=== PATIENT | male | born 1970 | race Caucasian/White ===

== ENCOUNTER 2017-07-02 09:24 | Day surgery (SDC) | payer BC ==
[2017-06-30 17:25] VITALS: BMI 29.0
[~2017-07-02 09:24] MED LIST: DEXAMETHASONE SOD PHOSPHATE 10 MG/ML 1 ML VIAL IV ONE; HEPARIN SODIUM,PORCINE 5,000 UNIT/ML 1 ML VIAL SQ ONE; LACTATED RINGERS 1,000 ML IV SCH; MORPHINE SULFATE 4 MG/ML SYRINGE IV PRN; ONDANSETRON 4 MG/2 ML VIAL IVP ONE; ceFAZolin IN SWFI 2 GM/20 ML SYRINGE IVP ONE
[2017-07-02] MEDS ORDERED: BUPIVACAINE (PF) 0.5% 30 ML VIAL SQ ONE (09:59)
[2017-07-02] MEDS ORDERED: LIDOCAINE 1% 20 ML VIAL (10MG/ML) FOR IV START INTRADERMA ONE (10:29)
[2017-07-02] MEDS ORDERED: MIDAZOLAM 2 MG/2 ML VIAL IVP ONE (10:38)
[2017-07-02] MEDS ORDERED: fentaNYL (PF) 50 MCG/ML 2 ML AMP IVP ONE ×2 (10:40→10:45)
--- NOTE | 2017-07-02 10:48 | P.GSHP ---
History of Present Illness H&P Date: 07/02/17 Chief Complaint: Right inguinal hernia, umbilical hernia This is a 47-year-old male [facility]. Patient rents today for laparoscopic robotic system repair of right inguinal hernia and umbilical hernia. Past Medical History Past Medical History: Coronary Artery Disease (CAD), GERD/Reflux, Hyperlipidemia , Myocardial Infarction ([place]) Additional Past Medical History / Comment(s): [place] 01/2216 with stent placement X2 LAD. RT ING, & UMB HERNIAS. Last Myocardial Infarction Date:: 01/27/16 History of Any Multi-Drug Resistant Organisms: None Reported Past Surgical History: Heart Catheterization With Stent Additional Past Surgical History / Comment(s): [place] 01/26 with stent placement X2 LAD Past Anesthesia/Blood Transfusion Reactions: No Reported Reaction Date of Last Stent Placement:: 01/27/16 Smoking Status: Never smoker - Past Family History Father History Unknown: Yes Mother Family Medical History: Myocardial Infarction ([place]) Brother(s) Family Medical History: Diabetes Mellitus Medications and Allergies Home Medications Medication Instructions Recorded Confirmed Type Omeprazole 20 mg PO DAILY 01/28/16 06/30/17 History Atorvastatin [Lipitor] 80 mg PO HS #30 tab 01/30/16 07/02/17 Rx Lisinopril [Zestril] 10 mg PO DAILY #30 tab 01/30/16 06/30/17 Rx Metoprolol Tartrate [Lopressor] 50 mg PO BID #60 tab 01/30/16 06/30/17 Rx Nitroglycerin Sl Tabs [Nitrostat] 0.4 mg SUBLINGUAL Q5M PRN #25 tab 01/30/16 Rx Prasugrel [Effient] 10 mg PO DAILY #30 tab 01/30/16 06/30/17 Rx Aspirin 81 mg PO DAILY 06/30/17 06/30/17 History Allergies Allergy/AdvReac Type Severity Reaction Status Date / Time No Known Allergies Allergy Verified 07/02/17 09:55 Surgical - Exam Vital Signs Temp Pulse Resp BP Pulse Ox 97.0 F L 53 L 18 125/87 98 07/02/17 10:07 07/02/17 10:07 07/02/17 10:07 07/02/17 10:07 07/02/17 10:07 - General well developed, no distress - Eyes PERRL - ENT normal pinna - Neck no masses - Respiratory normal expansion - Cardiovascular Rhythm: regular - Abdomen Reducible right inguinal hernia and incarcerated umbilical hernia Abdomen: soft, non tender Assessment and Plan Assessment: The right angle hernia and incarcerated umbilical hernia. We'll perform laparoscopic robotic assistance repair.
[2017-07-02] MEDS ORDERED: ROCURONIUM BROMIDE 10 MG/ML 10 ML VIAL IV ONE (11:13)
[2017-07-02] MEDS ORDERED: ePHEDrine SULFATE/0.9% NACL/PF 50 MG/5 ML SYRINGE IV ONE (11:13)
[2017-07-02] MEDS ORDERED: ROPIVACAINE 5 MG/ML 30 ML VIAL ONE (11:13)
[2017-07-02] MEDS ORDERED: fentaNYL (PF) 50 MCG/ML 2 ML AMP ONE (11:13)
[2017-07-02] MEDS ORDERED: DEXAMETHASONE SOD PHOS (MDV) 100 MG/10 ML VIAL ONE (11:13)
[2017-07-02] MEDS ORDERED: MIDAZOLAM 2 MG/2 ML VIAL ONE (11:13)
[2017-07-02] MEDS ORDERED: LIDOCAINE 2%-EPI 1:100,000 20 ML VIAL ONE (11:13)
[2017-07-02] MEDS ORDERED: PROPOFOL 10 MG/ML 20 ML VIAL IV ONE (11:13)
[2017-07-02] MEDS ORDERED: GLYCOPYRROLATE 0.2 MG/ML 2 ML VIAL ONE (11:13)
[2017-07-02] MEDS ORDERED: NEOSTIGMINE 1 MG/ML 10 ML VIAL ONE (11:13)
[2017-07-02] MEDS ORDERED: SUCCINYLCHOLINE CHLORIDE 100 MG/5 ML SYR IV ONE (11:13)
[2017-07-02] MEDS ORDERED: KETOROLAC 30 MG/ML 1 ML VIAL ONE (11:13)
[2017-07-02] MEDS ORDERED: LACTATED RINGERS 1,000 ML IV ONE (12:16)
[2017-07-02 13:00] VITALS: TEMP 96.9
[2017-07-02 14:44] VITALS: BP 129/84
[2017-07-02 15:01] VITALS: PULSE 54; RESP 18
--- NOTE | 2017-07-02 18:05 | P.OP ---
Date of Procedure: 07/02/17 Preoperative Diagnosis: Incarcerated umbilical hernia Right inguinal hernia Postoperative Diagnosis: Incarcerated umbilical hernia Bilateral inguinal hernia with cord lipomas Procedure(s) Performed: Laparoscopic robotic-assisted repair of bilateral inguinal hernias Laparoscopic biopsy pair of incarcerated umbilical hernia Partial omentectomy Excision of bilateral cord lipomas Anesthesia: TOMASZ Surgeon: Waqas Donaldson Estimated Blood Loss (ml): 5 Pathology: other (Omentum, cord lipoma) Condition: stable Disposition: PACU Description of Procedure: The patient's placed on the operating table in the supine position. The patient received general anesthesia. The patient's abdomen was prepped and draped in usual sterile fashion. The skin was anesthetized 1% local Xylocaine at the incision sites. Using an 11 blade a skin incision was made at the umbilicus. The fascia was grasped with a Chidi and then the peritoneal cavity was entered with the Veress needle. Position of the Veress needle was confirmed with a positive drop test. After adequate insufflation a 5 mm trocar was placed into the peritoneal cavity. There was an incarcerated umbilical hernia. Using left cautery the impression omentum was excised. The Laparoscope was placed the peritoneal cavity. And a robotic 8 mm trocar was placed in the right lateral position and then another 8 mm robotic trochars placed in the left lateral position. The original 5 mm trocar was exchanged for a 12 mm trocar. The patient was placed in reverse Trendelenburg and then the patient was docked to the robot. Next the peritoneum over top of the right inguinal hernia was incised and then using blunt and sharp dissection and electrocautery the hernia sac was dissected free from the floor of the inguinal canal. The hernia sac was completely reduced into the peritoneal cavity. The cord lipoma was excised. And then using the Pro senior compensation consultant mesh the hernia was repaired. The peritoneum was then sutured with 20V lock suture. Next the peritoneum over top of the left inguinal hernia was incised and then using blunt and sharp dissection and electrocautery the hernia sac was dissected free from the floor of the inguinal canal. The hernia sac was completely reduced into the peritoneal cavity. The cord lipoma was excised. And then using the Pro senior compensation consultant mesh the hernia was repaired. The peritoneum was then sutured with 20V lock suture. The patient was then undocked the robot. The needle was withdrawn from the peritoneal cavity. The cord lipomas were withdrawn. The umbilical hernia site was closed with 0 Ethibond suture. The skin was closed interrupted 3-0 Monocryl suture. Dermabond dressing was applied. Patient was sent to recovery in stable condition.
--- NOTE | 2017-07-03 18:40 | P.ONQ ---
Anesthesiology Proc Note - PNB - Peripheral Nerve Block Performed Transversus Abdominis Single Time Out Performed: Yes Procedure Start Time: 10:40 Procedure Stop Time: 10:52 Indication: Acute Post-Operative Pain, Requested by physician Preparation: Sterile Prep Position: Supine Needle Size: 100mm (4") Needle Gauge: 21 Technique: Ultrasound Injectate: 0.5% Ropivacaine (see comment for volume) (ropi .5% 20cc r side and ropi.5% 10cc left side) Blood Aspirated: No Pain Paresthesia on Injection Noted: No Resistance on Injection: Normal Events: Uneventful and Well Tolerated
== END 2017-07-02 15:53 | disposition home or self-care (01) ==
LOC: OR 09:24
PROVIDERS: ATTEND Surgery
DX: K42.0 Umbilical hernia with obstruction, without gangrene (principal); K40.20 Bilateral inguinal hernia, without obstruction or gangrene, not specified as recurrent; D17.6 Benign lipomatous neoplasm of spermatic cord; I25.10 Atherosclerotic heart disease of native coronary artery without angina pectoris; K21.9 Gastro-esophageal reflux disease without esophagitis; E78.5 Hyperlipidemia, unspecified; I10 Essential (primary) hypertension; I25.2 Old myocardial infarction; Z95.5 Presence of coronary angioplasty implant and graft; Z79.82 Long term (current) use of aspirin; Z79.899 Other long term (current) drug therapy
CPT/HCPCS: 88304; 88302; 49650; 49653; C1781; J2250; J1100 ×2; J2710; J2405; J3010; J1885; J2795; J0330; J2704; J0690

== ENCOUNTER 2019-10-13 12:31 | Inpatient (IN) | payer BC ==
--- NOTE | 2019-10-13 13:55 | ED ---
Abdominal Pain HPI - General Chief Complaint: Abdominal Pain Stated Complaint: Sent by pcp Time Seen by Provider: 10/13/19 13:26 Source: patient Mode of arrival: ambulatory Limitations: no limitations - History of Present Illness Initial Comments: Patient is a 49-year-old male presenting to the emergency department for right lower quadrant pain 3 days. Patient states he saw his PCP yesterday who sent him for a CT of his abdomen which he had performed this morning. Patient states his doctor called him a few hours ago stating he needed to go into the ER. He was not aware what was found on the CT results. Patient describes his pain as starting a few days ago, on the right lower quadrant. He's had one episode of vomiting 2 days ago. His appetite has been decreased, he's had a few episodes of diarrhea. No urinary complaints. He denies any fever. He does admit to cold chills intermittently. He does admit to history of hernia repair, no other abdominal surgeries. He denies any chest pain, shortness of breath, fever. He has no further complaints at this time. Upon arrival to the ER, his vitals are stable. - Related Data Home Medications Medication Instructions Recorded Confirmed Clopidogrel [Plavix] 75 mg PO DAILY 07/02/17 10/13/19 Atorvastatin [Lipitor] 80 mg PO Q48H 10/13/19 10/13/19 Metoprolol Succinate [Toprol XL] 50 mg PO DAILY 10/13/19 10/13/19 Multivitamins, Thera [Multivitamin 1 tab PO DAILY 10/13/19 10/13/19 (formulary)] Pantoprazole [Protonix] 40 mg PO HS 10/13/19 10/13/19 Previous Rx's Medication Instructions Recorded Lisinopril [Zestril] 10 mg PO DAILY #30 tab 01/30/16 Allergies Allergy/AdvReac Type Severity Reaction Status Date / Time No Known Allergies Allergy Verified 10/13/19 15:02 Review of Systems ROS Statement: Those systems with pertinent positive or pertinent negative responses have been documented in the HPI. ROS Other: All systems not noted in ROS Statement are negative. Past Medical History Past Medical History: Coronary Artery Disease (CAD), GERD/Reflux, Hyper lipidemia, Myocardial Infarction ([place]) Additional Past Medical History / Comment(s): [place] 01/2216 with stent placement X2 LAD. RT ING, & UMB HERNIAS. Last Myocardial Infarction Date:: 01/27/16 History of Any Multi-Drug Resistant Organisms: None Reported Past Surgical History: Heart Catheterization With Stent Additional Past Surgical History / Comment(s): [place] 01/26 with stent placement X2 LAD Past Anesthesia/Blood Transfusion Reactions: No Reported Reaction Date of Last Stent Placement:: 01/27/16 Past Psychological History: No Psychological Hx Reported Smoking Status: Never smoker Past Alcohol Use History: Occasional Past Drug Use History: None Reported - Past Family History Father History Unknown: Yes Mother Family Medical History: Myocardial Infarction ([place]) Brother(s) Family Medical History: Diabetes Mellitus General Exam - General Exam Comments Initial Comments: GENERAL: Well-appearing, well-nourished and in no acute distress. HEAD: Atraumatic, normocephalic. EYES: Pupils equal round and reactive to light, extraocular movements intact, sclera anicteric, conjunctiva are normal. ENT: TMs normal, nares patent, oropharynx clear without exudates. Moist mucous membranes. NECK: Normal range of motion, supple without lymphadenopathy or JVD. LUNGS: Breath sounds clear to auscultation bilaterally and equal. No wheezes rales or rhonchi. HEART: Regular rate and rhythm without murmurs, rubs or gallops. ABDOMEN: Tender to palpation in the right lower quadrant, umbilical region. Positive guarding, positive rebound. Soft, normoactive bowel sounds. No masses appreciated. : Deferred EXTREMITIES: Normal range of motion, no pitting or edema. No clubbing or cyanosis. NEUROLOGICAL: Cranial nerves II through XII grossly intact. Normal speech, normal gait. PSYCH: Normal mood, normal affect. SKIN: Warm, Dry, normal turgor, no rashes or lesions noted. Limitations: no limitations Course Vital Signs 10/13/19 12:38 Temperature 98.5 F Pulse Rate 72 Respiratory 16 Rate Blood Pressure 163/96 O2 Sat by Pulse 99 Oximetry Medical Decision Making - Medical Decision Making Patient is a 49-year-old male presenting after having a computed tomography scan done this morning and was told to come into the ER. He's been having right lower quadrant pain 3 days. His vital signs are stable upon arrival. On exam, patient has tenderness of the right lower quadrant. Computed tomography scan results from this morning shows a dilated appendix suggestive of early appendicitis, diverticulosis without acute diverticulitis, workup for a urinary bladder neoplasm is recommended. Patient's lab work looks stable, no leukocytosis. Lactic acid is 1.1. Urine is still pending. Patient will be admitted, accepted by Dr. Hi. She was given fluids, started on Zosyn. Patient will be clear liquid diet. Patient is agreeable with this plan of care. Case discussed with Dr. Finn. - Lab Data Result diagrams: 10/13/19 14:48 10/13/19 14:48 Lab Results 10/13/19 10/13/19 10/13/19 Range/Units 14:48 14:48 14:48 WBC 10.0 (3.8-10.6) k/uL RBC 4.71 (4.30-5.90) m/uL Hgb 15.0 (13.0-17.5) gm/dL Hct 45.9 (39.0-53.0) % MCV 97.5 (80.0-100.0) fL MCH 31.8 (25.0-35.0) pg MCHC 32.6 (31.0-37.0) g/dL RDW 12.2 (11.5-15.5) % Plt Count 201 (150-450) k/uL Neutrophils % 73 % Lymphocytes % 18 % Monocytes % 6 % Eosinophils % 1 % Basophils % 0 % Neutrophils # 7.3 (1.3-7.7) k/uL Lymphocytes # 1.8 (1.0-4.8) k/uL Monocytes # 0.6 (0-1.0) k/uL Eosinophils # 0.1 (0-0.7) k/uL Basophils # 0.0 (0-0.2) k/uL Sodium 131 L (137-145) mmol/L Potassium 4.5 (3.5-5.1) mmol/L Chloride 99 (98-107) mmol/L Carbon Dioxide 23 (22-30) mmol/L Anion Gap 9 mmol/L BUN 7 L (9-20) mg/dL Creatinine 0.86 (0.66-1.25) mg/dL Est GFR (CKD-EPI)AfAm >90 (>60 ml/min/1.73 sqM) Est GFR (CKD-EPI)NonAf >90 (>60 ml/min/1.73 sqM) Glucose 114 H (74-99) mg/dL Plasma Lactic Acid Mikey 1.1 (0.7-2.0) mmol/L Calcium 9.8 (8.4-10.2) mg/dL Total Bilirubin 0.8 (0.2-1.3) mg/dL AST 51 (17-59) U/L ALT 59 H (4-49) U/L Alkaline Phosphatase 137 H (38-126) U/L Total Protein 7.3 (6.3-8.2) g/dL Albumin 4.5 (3.5-5.0) g/dL Lipase 232 (23-300) U/L Disposition Clinical Impression: Acute appendicitis Disposition: ADMITTED IP TO THIS HOSP Condition: Stable Referrals: Tiffanie Sellers DO [Primary Care Provider] - 1-2 days Decision Date: 10/13/19 Decision Time: 16:43
[2019-10-13] MEDS ORDERED: SODIUM CHLORIDE 0.9% 1,000 ML IV STA (14:18)
[2019-10-13 15:13] LABS: ALT 59 U/L (4-49); AST 51 U/L (17-59); African American GFR (CKD) >90 (>60 ml/min/1.73 sqM); Albumin 4.5 g/dL (3.5-5.0); Alkaline Phosphatase 137 U/L (38-126); Anion Gap 9 mmol/L; Blood Urea Nitrogen 7 mg/dL (9-20); Calcium 9.8 mg/dL (8.4-10.2); Carbon Dioxide 23 mmol/L (22-30); Chloride 99 mmol/L (98-107); Glucose 114 mg/dL (74-99); Non-African American GFR(CKD) >90 (>60 ml/min/1.73 sqM); Potassium 4.5 mmol/L (3.5-5.1); Sodium 131 mmol/L (137-145); Total Bilirubin 0.8 mg/dL (0.2-1.3); Total Protein 7.3 g/dL (6.3-8.2)
[2019-10-13 15:14] LABS: Basophils % (A) 0 %; Eosinophils # (A) 0.1 k/uL (0-0.7); Eosinophils % (A) 1 %; HCT 45.9 % (39.0-53.0); Lymphocytes # (A) 1.8 k/uL (1.0-4.8); Lymphocytes % (A) 18 %; MCH 31.8 pg (25.0-35.0); MCHC 32.6 g/dL (31.0-37.0); MCV 97.5 fL (80.0-100.0); Mean Platelet Volume 7.3; Monocytes # (A) 0.6 k/uL (0-1.0); Monocytes % (A) 6 %; Neutrophils # (A) 7.3 k/uL (1.3-7.7); Neutrophils % (A) 73 %; Platelet Count 201 k/uL (150-450); RBC 4.71 m/uL (4.30-5.90); RDW 12.2 % (11.5-15.5)
[2019-10-13] MEDS ORDERED: ACETAMINOPHEN TAB 325 MG TAB PO PRN ×2 (16:38→20:18)
[2019-10-13] MEDS ORDERED: KETOROLAC 30 MG/ML 1 ML VIAL IVP PRN ×2 (16:38→20:19)
[2019-10-13] MEDS ORDERED: NALOXONE 0.4 MG/ML 1 ML VIAL IV PRN (16:38)
[2019-10-13] MEDS ORDERED: MORPHINE SULFATE 4 MG/ML SYRINGE IV PRN (16:38)
[2019-10-13] MEDS ORDERED: ONDANSETRON 4 MG/2 ML VIAL IVP PRN ×2 (16:38→20:23)
[2019-10-13] MEDS ORDERED: PIPERACILLIN-TAZOBACTAM 3.375 GM in SODIUM CHLORIDE 0.9% 100 ML IVPB STA (16:40)
[2019-10-13] MEDS ORDERED: MORPHINE SULFATE 4 MG/ML SYRINGE IVP PRN (20:22)
[2019-10-13] MEDS ORDERED: PIPERACILLIN-TAZOBACTAM 3.375 GM in SODIUM CHLORIDE 0.9% 100 ML IVPB SCH (21:30)
--- NOTE | 2019-10-13 23:31 | P.GSHP ---
History of Present Illness H&P Date: 10/13/19 CHIEF COMPLAINT: Right lower quadrant abdominal pain for 4 days HISTORY OF PRESENT ILLNESS: The patient is a 49-year-old male who comes in along side with his significant other where he reports 4 day history of right lower quadrant abdominal pain. He reports his abdominal pain is crampy in nature with abdominal gas bloat. In fact he had low appetite in last 3-4 days. 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 He had seen his primary care doctor last few days who recommended a CT of the abdomen pelvis. CT of the abdomen and pelvis demonstrated appendicitis. He also reports a separate complaint of moderate swelling along the right testicle for 6 months including overlapping right lower quadrant abdominal pain for which his initial concern was recurrent inguinal he rnia following his surgery 2 years ago in 2018. He has additional significant history of prior cardiac stent placement over 4 years ago, 2016 wherehe continues to take Plavix. He has not had any cardiac follow-up in several years. No reports of recent echo or EKG since the event. He still continues to Plavix antiplatelet therapy. He is admitted secondary to abnormal computed tomography scan for early appendicitis. PAST MEDICAL HISTORY: See list and reviewed. PAST SURGICAL HISTORY: See list and reviewed. CURRENT MEDICATIONS: See list and reviewed. ALLERGIES: See list and reviewed. SOCIAL HISTORY: See list and reviewed. FAMILY HISTORY: No Crohns disease and ulcerative colitis. REVIEW OF ORGAN SYSTEMS: CONSTITUTIONAL: Present fever, no chills. HEENT: Denies any trouble with vision, hearing or nosebleeds. No difficulty swallowing. LYMPHATIC: The patient denies any lumps and bumps around the neck. ENDOCRINE: Denies any thyroid disorders. Denies any blood sugar glucose intolerance. RESPIRATORY: Denies shortness of breath including chronic cough. CARDIOVASCULAR: Past myocardial ischemia requiring stent placement in 2016 GASTROINTESTINAL: Denies regurgitation of bile at night as well as intermittent nausea. No blood in stools. GENITOURINARY: Denies any blood in urine or increased urinary frequency. ` MUSCULOSKELETAL: Has current joint arthritis. NEUROLOGIC: Denies any numbness or tingling along the distal extremities. No seizure disorders or headaches. PSYCHIATRIC: Denies any depression or suicidal ideation. HEMATOLOGIC: Denies any abnormal bleeding or bruising. PHYSICAL EXAMINATION: GENERAL: general well-developed male in no acute distress. Pleasant. HEENT: No sclera icterus. Extraocular movements grossly intact. Moist buccal mucosa. Head is atraumatic, normocephalic. Hears conversational speech. No nasal drainage. NECK: Supple without lymphadenopathy. No JV distention. CHEST: Non-labored respirations and equal bilateral excursions. CARDIOVASCULAR: Regular rate and rhythm. Palpable 2+ radial pulses. ABDOMEN: Tender at the right lower quadrant without guarding. No peritonitis MUSCULOSKELETAL: No clubbing, cyanosis or edema. NEUROLOGIC: No focal or lateralizing signs. PSYCH: Appropriate affect. Alert and oriented to person, place and time. SKIN: Well perfused. Good skin turgor. LABS: Reviewed. White blood cell count normal, 10.0. Hemoglobin normal 15.0. Sodium 131 and low. ALT and alkaline phosphatase elevated. STUDIES: CT of the abdomen and pelvis independently reviewed by me demonstrating mildly dilated appendix without free air or free fluid. Moderate sized hydrocele along the right groin. Large right inguinal hernia including small left inguinal hernia fat-containing. This is my independent interpretation RADIOLOGY: CT of the abdomen and pelvis report also demonstrates neoplasm of the bladder including hydronephrosis as described above. MEDICAL RECORDS: Coronary angiogram demonstrates 80% stenosis along left anterior descending with angioplasty performed, 2016. Placement of 2 drug- eluting stent along left anterior descending artery. ASSESSMENT: 1. Right lower quadrant pain. 2. Appendicitis, early 3. Pre-existing cardiac ischemic myopathy 4. Chronic antiplatelet therapy 5. Abnormal computed tomography scan for bladder neoplasm 6. Symptomatic-right hydrocele. PLAN: 1. Patient reports pre-existing history of cardiac disease without any cardiac follow-up in almost 6 years. Will need cardiac risk assessment prior to surgery as he has a drug-eluting stent. 2. Patient is elevated risk for perioperative complications including hemorrhaging secondary to chronic antiplatelet use. We'll defer to cardiology suggestions for discontinuing Plavix as he is beyond 6 years since his procedure. 3. We'll obtain echo for history of pre-existing ischemic cardiomyopathy 4. Consultation to urology for bladder neoplasm including symptomatic right hydrocele 5. Antibiotic management for acute appendicitis. 6. Surgical intervention with robotic appendectomy also described pending further recommendations from cardiology 7. Inpatient hospitalization more than 2 nights for acute appendicitis, ischemic cardiomyopathy, history of coronary artery disease and stent placement, bladder neoplasm including symptomatic right hydrocele 8. Additionally, patient reports having an appetite despite 4 days of right lower quadrant abdominal pain. May have regular diet with nothing by mouth after midnight Past Medical History Past Medical History: Coronary Artery Disease (CAD), GERD/Reflux, Hyperlipidem ia, Myocardial Infarction (SC) Additional Past Medical History / Comment(s): SC 01/2216 with stent placement X2 LAD. RT ING, & UMB HERNIAS. Last Myocardial Infarction Date:: 01/27/16 History of Any Multi-Drug Resistant Organisms: None Reported Past Surgical History: Heart Catheterization With Stent Additional Past Surgical History / Comment(s): SC 01/26 with stent placement X2 LAD Past Anesthesia/Blood Transfusion Reactions: No Reported Reaction Date of Last Stent Placement:: 01/27/16 Past Psychological History: No Psychological Hx Reported Smoking Status: Never smoker Past Alcohol Use History: Occasional Additional Past Alcohol Use History / Comment(s): 6 BEERS DAILY Past Drug Use History: None Reported - Past Family History Father History Unknown: Yes Mother Family Medical History: Myocardial Infarction (SC) Brother(s) Family Medical History: Diabetes Mellitus Medications and Allergies Home Medications Medication Instructions Recorded Confirmed Type Lisinopril [Zestril] 10 mg PO DAILY #30 tab 01/30/16 10/13/19 Rx Clopidogrel [Plavix] 75 mg PO DAILY 07/02/17 10/13/19 History Atorvastatin [Lipitor] 80 mg PO Q48H 10/13/19 10/13/19 History Metoprolol Succinate [Toprol XL] 50 mg PO DAILY 10/13/19 10/13/19 History Multivitamins, Thera [Multivitamin 1 tab PO DAILY 10/13/19 10/13/19 History (formulary)] Pantoprazole [Protonix] 40 mg PO HS 10/13/19 10/13/19 History Allergies Allergy/AdvReac Type Severity Reaction Status Date / Time No Known Allergies Allergy Verified 10/13/19 15:02 Surgical - Exam Vital Signs Temp Pulse Resp BP Pulse Ox 98.5 F 72 16 163/96 99 10/13/19 12:38 10/13/19 12:38 10/13/19 12:38 10/13/19 12:38 10/13/19 12:38 Results - Labs 10/13/19 14:48 10/13/19 14:48 Abnormal Lab Results - Last 24 Hours (Table) 10/13/19 Range/Units 14:48 Sodium 131 L (137-145) mmol/L BUN 7 L (9-20) mg/dL Glucose 114 H (74-99) mg/dL ALT 59 H (4-49) U/L Alkaline Phosphatase 137 H (38-126) U/L Diabetes panel 10/13/19 Range/Units 14:48 Sodium 131 L (137-145) mmol/L Potassium 4.5 (3.5-5.1) mmol/L Chloride 99 (98-107) mmol/L Carbon Dioxide 23 (22-30) mmol/L BUN 7 L (9-20) mg/dL Creatinine 0.86 (0.66-1.25) mg/dL Glucose 114 H (74-99) mg/dL Calcium 9.8 (8.4-10.2) mg/dL AST 51 (17-59) U/L ALT 59 H (4-49) U/L Alkaline Phosphatase 137 H (38-126) U/L Total Protein 7.3 (6.3-8.2) g/dL Albumin 4.5 (3.5-5.0) g/dL Calcium panel 10/13/19 Range/Units 14:48 Calcium 9.8 (8.4-10.2) mg/dL Albumin 4.5 (3.5-5.0) g/dL Pituitary panel 10/13/19 Range/Units 14:48 Sodium 131 L (137-145) mmol/L Potassium 4.5 (3.5-5.1) mmol/L Chloride 99 (98-107) mmol/L Carbon Dioxide 23 (22-30) mmol/L BUN 7 L (9-20) mg/dL Creatinine 0.86 (0.66-1.25) mg/dL Glucose 114 H (74-99) mg/dL Calcium 9.8 (8.4-10.2) mg/dL Adrenal panel 10/13/19 Range/Units 14:48 Sodium 131 L (137-145) mmol/L Potassium 4.5 (3.5-5.1) mmol/L Chloride 99 (98-107) mmol/L Carbon Dioxide 23 (22-30) mmol/L BUN 7 L (9-20) mg/dL Creatinine 0.86 (0.66-1.25) mg/dL Glucose 114 H (74-99) mg/dL Calcium 9.8 (8.4-10.2) mg/dL Total Bilirubin 0.8 (0.2-1.3) mg/dL AST 51 (17-59) U/L ALT 59 H (4-49) U/L Alkaline Phosphatase 137 H (38-126) U/L Total Protein 7.3 (6.3-8.2) g/dL Albumin 4.5 (3.5-5.0) g/dL Assessment and Plan (1) H/O placement of stent in anterior descending branch of left coronary artery Current Visit: Yes Status: Acute Code(s): Z95.5 - PRESENCE OF CORONARY ANGIOPLASTY IMPLANT AND GRAFT SNOMED Code(s): 537128276 (2) Antiplatelet or antithrombotic long-term use Current Visit: Yes Status: Acute Code(s): Z79.02 - PRISON (CURRENT) USE OF ANTITHROMBOTICS/ANTIPLATELETS SNOMED Code(s): 453731303 (3) Right hydrocele Current Visit: Yes Status: Acute Code(s): N43.3 - HYDROCELE, UNSPECIFIED SNOMED Code(s): 58405770 (4) Bladder neoplasm Current Visit: Yes Status: Acute Code(s): D49.4 - NEOPLASM OF UNSPECIFIED BEHAVIOR OF BLADDER SNOMED Code(s): 419764957 (5) Acute appendicitis Current Visit: Yes Status: Acute Code(s): K35.80 - UNSPECIFIED ACUTE APPENDICITIS SNOMED Code(s): 72291094 (6) Family history of coronary arteriosclerosis Current Visit: No Status: Acute Code(s): Z82.49 - FAMILY HX OF ISCHEM HEART DIS AND OTH DIS OF THE CIRC SYS SNOMED Code(s): 816781080 (7) ST elevation (STEMI) myocardial infarction involving left anterior descending coronary artery Current Visit: No Status: Acute Code(s): I21.02 - STEMI INVOLVING LEFT ANTERIOR DESCENDING CORONARY ARTERY SNOMED Code(s): 37267485
[2019-10-14 02:12] LABS: Appearance,Urine Clear (Clear); Bilirubin,Urine Negative (Negative); Blood,Urine Negative (Negative); Color,Urine Light Yellow; Glucose,Urine (UA) Negative (Negative); Ketones,Urine Negative (Negative); Leukocyte Esterase,Urine Negative (Negative); Nitrite,Urine Negative (Negative); PH, Urine 6.5 (5.0-8.0); Protein,Urine Negative (Negative); Specific Gravity,Urine 1.009 (1.001-1.035); Urobilinogen,Urine <2.0 mg/dL (<2.0)
[2019-10-14] MEDS: SODIUM CHLORIDE 0.9% 1,000 ML IV SCH ×2 (06:11→08:57)
[2019-10-14] MEDS: PIPERACILLIN-TAZOBACTAM 3.375 GM in SODIUM CHLORIDE 0.9% 100 ML IVPB SCH ×2 (06:11→18:01)
[2019-10-14] MEDS: LISINOPRIL 10 MG TAB PO SCH (06:55)
[2019-10-14] MEDS: METOPROLOL SUCCINATE (ER) 50 MG TAB.ER.24H PO SCH (06:56)
[2019-10-14 07:38] LABS: Basophils # (A) 0.1 k/uL (0-0.2); Basophils % (A) 1 %; Eosinophils # (A) 0.4 k/uL (0-0.7); Eosinophils % (A) 4 %; HCT 45.9 % (39.0-53.0); HGB 15.4 gm/dL (13.0-17.5); Lymphocytes % (A) 21 %; MCH 32.9 pg (25.0-35.0); MCHC 33.5 g/dL (31.0-37.0); MCV 98.4 fL (80.0-100.0); Mean Platelet Volume 7.3; Monocytes # (A) 0.7 k/uL (0-1.0); Monocytes % (A) 7 %; Neutrophils # (A) 6.3 k/uL (1.3-7.7); Neutrophils % (A) 65 %; Platelet Count 219 k/uL (150-450); RBC 4.67 m/uL (4.30-5.90); RDW 12.1 % (11.5-15.5); WBC 9.6 k/uL (3.8-10.6)
[2019-10-14 08:01] LABS: ALT 55 U/L (4-49); AST 50 U/L (17-59); African American GFR (CKD) >90 (>60 ml/min/1.73 sqM); Albumin 4.4 g/dL (3.5-5.0); Alkaline Phosphatase 130 U/L (38-126); Anion Gap 12 mmol/L; Blood Urea Nitrogen 6 mg/dL (9-20); Calcium 9.7 mg/dL (8.4-10.2); Carbon Dioxide 23 mmol/L (22-30); Chloride 100 mmol/L (98-107); Glucose 120 mg/dL (74-99); Non-African American GFR(CKD) >90 (>60 ml/min/1.73 sqM); Potassium 3.9 mmol/L (3.5-5.1); Sodium 135 mmol/L (137-145); Total Bilirubin 0.9 mg/dL (0.2-1.3); Total Protein 7.4 g/dL (6.3-8.2)
[2019-10-14] MEDS ORDERED: ATORVASTATIN 80 MG TAB PO SCH (09:00)
--- NOTE | 2019-10-14 10:19 | P.CRDCN ---
History of Present Illness History of present illness: HISTORY OF PRESENTING ILLNESS This is a pleasant 49-year-old male past medical history significant for coronary artery disease in the setting of an acute myocardial infarction status post PCI of the LAD, hyper lipidemia, hypertension and daily alcohol intake. 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 He states he follows only with his PCP. We have been asked to see in consultation for preoperative evaluation. He presented to the emergency department with a three-day history of abdominal pain, nausea and vomiting. He initially had seen his primary care physician who sent him for an outpatient CT of his abdomen revealing a dilated appendix, diverticulosis, thickening of the urinary bladder and mild fatty infiltration of the liver. He was sent directly to the emergency department. He has been seen in evaluation by Dr. Barclay and is scheduled to undergo appe ndectomy this afternoon. He is seen and examined sitting up in bed in no acute distress. He continues to have mild abdominal discomfort. He has no chest pain, shortness of breath, dizziness or palpitations. He denies having exertional chest discomfort. He states since having his heart attack he has had no symptoms of chest pain or shortness of breath. No EKG obtained on admission. Laboratory data reviewed, CBC unremarkable, sodium 135, potassium 3.9, creatinine 0.86, ALT 55, alkaline phosphate 130. Current daily cardiac medications include Toprol 50 mg daily, Plavix 75 mg daily, lisinopril 10 mg daily and atorvastatin 80 mg every other day. Most recent echocardiogram obtained in 2016 in the setting of an acute NM revealed preserved LV systolic function with ejection fraction 55-60%, mild MR, mild TR. REVIEW OF SYSTEMS At the time of my exam: CONSTITUTIONAL: Denies fever or chills. CARDIOVASCULAR: Denies chest pain, shortness of breath, orthopnea, PND or palpitations. RESPIRATORY: Denies cough. GASTROINTESTINAL: Complains of abdominal pain. Denies diarrhea, constipation, nausea or vomiting. MUSCULOSKELETAL: Denies myalgias. NEUROLOGIC: Denies numbness, tingling or weakness. ENDOCRINE: Denies fatigue, weight change, polydipsia or polyurina. GENITOURINARY: Denies burning, hematuria or urgency with micturation. HEMATOLOGIC: Denies history of anemia or bleeding. PHYSICAL EXAMINATION Blood pressure 149/96 heart rate 67 afebrile and maintaining oxygen saturation on room air. CONSTITUTIONAL: No apparent distress. HEENT: Head is normocephalic. Pupils are equal, round. Sclerae anicteric. Mucous membranes of the mouth are moist. No JVD. No carotid bruit. CHEST EXAMINATION: Lungs are clear to auscultation. No chest wall tenderness is noted on palpation or with deep breathing. HEART EXAMINATION: Regular rate and rhythm. S1, S2 heard. No murmurs, gallops or rub. ABDOMEN: Soft, nontender. Positive bowel sounds. EXTREMITIES: 2+ peripheral pulses, no lower extremity edema and no calf tenderness. NEUROLOGIC EXAMINATION: Patient is awake, alert and oriented x3. ASSESSMENT Acute appendicitis Coronary artery disease status post PCI in the setting of an acute myocardial infarction Hypertension Dyslipidemia, uncontrolled Daily alcohol intake PLAN Clinically stable from a cardiac perspective. Obtain baseline pre-operative EKG as part of his cardiac evaluation. Echocardiogram has been obtained and will be reviewed. The patient has no symptoms suggestive of angina and is not in acute heart failure. He is currently maintained on Plavix daily despite his PCI being over 4 years ago. His last dose of Plavix was yesterday. This medication takes approximately 5 days to completely clear from the system, placing him at increased risk for bleeding intra and post operatively. Dr. Murdock aware. There are no absolute/acute contraindications otherwise to undergo surgical intervention pending EKG. Postoperatively recommend complete discontinuation of Plavix and initiation of aspirin 81 mg daily. Check lipid panel. Thank you kindly for this consultation. Nurse Practitioner note has been reviewed, I agree with a documented findings and plan of care. Patient was seen and examined. Past Medical History Past Medical History: Coronary Artery Disease (CAD), GERD/Reflux, Hyperlipidemia, Myocardial Infarction (NM) Additional Past Medical History / Comment(s): [place] 01/2216 with stent placement X2 LAD. RT ING, & UMB HERNIAS. Last Myocardial Infarction Date:: 01/27/16 History of Any Multi-Drug Resistant Organisms: None Reported Past Surgical History: Heart Catheterization With Stent Additional Past Surgical History / Comment(s): [place] 01/26 with stent placement X2 LAD Past Anesthesia/Blood Transfusion Reactions: No Reported Reaction Date of Last Stent Placement:: 01/27/16 Past Psychological History: No Psychological Hx Reported Smoking Status: Never smoker Past Alcohol Use History: Occasional Additional Past Alcohol Use History / Comment(s): 6 BEERS DAILY Past Drug Use History: None Reported - Past Family History Father History Unknown: Yes Mother Family Medical History: Myocardial Infarction (NM) Brother(s) Family Medical History: Diabetes Mellitus Medications and Allergies Home Medications Medication Instructions Recorded Confirmed Type Lisinopril [Zestril] 10 mg PO DAILY #30 tab 01/30/16 10/13/19 Rx Clopidogrel [Plavix] 75 mg PO DAILY 07/02/17 10/13/19 History Atorvastatin [Lipitor] 80 mg PO Q48H 10/13/19 10/13/19 History Metoprolol Succinate [Toprol XL] 50 mg PO DAILY 10/13/19 10/13/19 History Multivitamins, Thera [Multivitamin 1 tab PO DAILY 10/13/19 10/13/19 History (formulary)] Pantoprazole [Protonix] 40 mg PO HS 10/13/19 10/13/19 History Allergies Allergy/AdvReac Type Severity Reaction Status Date / Time No Known Allergies Allergy Verified 10/13/19 15:02 Physical Exam Vitals: Vital Signs Temp Pulse Pulse Resp BP BP Pulse Ox 10/14/19 07:00 98.3 F 67 16 149/96 98 10/14/19 04:00 16 10/14/19 01:21 98.3 F 71 16 136/79 94 L 10/14/19 00:00 18 10/13/19 20:00 18 10/13/19 19:05 99.0 F 68 18 168/95 100 10/13/19 18:43 98.3 F 75 18 146/100 97 10/13/19 12:38 98.5 F 72 16 163/96 99 Intake and Output 10/13/19 10/14/19 10/14/19 22:59 06:59 14:59 Other: Voiding Method Toilet Toilet # Voids 1 1 Weight 74.389 kg Results 10/14/19 07:14 10/14/19 07:14 Cardiac Enzymes 10/13/19 10/14/19 Range/Units 14:48 07:14 AST 51 50 (17-59) U/L CBC 10/13/19 10/14/19 Range/Units 14:48 07:14 WBC 10.0 9.6 (3.8-10.6) k/uL RBC 4.71 4.67 (4.30-5.90) m/uL Hgb 15.0 15.4 (13.0-17.5) gm/dL Hct 45.9 45.9 (39.0-53.0) % Plt Count 201 219 (150-450) k/uL Comprehensive Metabolic Panel 10/13/19 10/14/19 Range/Units 14:48 07:14 Sodium 131 L 135 L (137-145) mmol/L Potassium 4.5 3.9 (3.5-5.1) mmol/L Chloride 99 100 (98-107) mmol/L Carbon Dioxide 23 23 (22-30) mmol/L BUN 7 L 6 L (9-20) mg/dL Creatinine 0.86 0.86 (0.66-1.25) mg/dL Glucose 114 H 120 H (74-99) mg/dL Calcium 9.8 9.7 (8.4-10.2) mg/dL AST 51 50 (17-59) U/L ALT 59 H 55 H (4-49) U/L Alkaline Phosphatase 137 H 130 H (38-126) U/L Total Protein 7.3 7.4 (6.3-8.2) g/dL Albumin 4.5 4.4 (3.5-5.0) g/dL Current Medications Generic Name Dose Route Start Last Admin Trade Name Freq PRN Reason Stop Dose Admin Acetaminophen 650 mg 10/13/19 20:18 Tylenol Tab PO Q6H PRN MILD PAIN OR FEVER Atorvastatin Calcium 80 mg 10/14/19 09:00 10/14/19 06:56 Lipitor PO 80 mg Q48H JUANITA Administration Sodium Chloride 1,000 mls @ 60 mls/hr 10/13/19 16:45 10/14/19 08:57 Saline 0.9% IV Not Given .[id number] JUANITA Piperacillin Sod/Tazobactam 100 mls @ 25 mls/hr 10/14/19 06:00 10/14/19 06:11 Sod 3.375 gm/ Sodium Chloride IVPB Not Given Q12H JUANITA Ketorolac Tromethamine 30 mg 10/13/19 20:19 Toradol IVP 10/18/19 20:20 Q6H PRN MODERATE PAIN Lisinopril 10 mg 10/14/19 09:00 10/14/19 06:55 Zestril PO 10 mg DAILY JUANITA Administration Metoprolol Succinate 50 mg 10/14/19 09:00 10/14/19 06:56 Toprol Xl PO 50 mg DAILY JUANITA Administration Morphine Sulfate 4 mg 10/13/19 20:22 Morphine Sulfate (Inj) IVP Q4H PRN SEVERE PAIN Naloxone HCl 0.2 mg 10/13/19 16:38 Narcan IV Q2M PRN Opioid Reversal Ondansetron HCl 4 mg 10/13/19 20:23 Zofran IVP Q8H PRN NAUSEA/VOMITING Intake and Output 10/13/19 10/14/19 10/14/19 22:59 06:59 14:59 Other: Voiding Method Toilet Toilet # Voids 1 1 Weight 74.389 kg 10/14/19 07:14 10/14/19 07:14
--- NOTE | 2019-10-14 11:40 | ECHOF ---
Referral Reason:Cardiac stent placement MEASUREMENTS -------- HEIGHT: 165.1 cm WEIGHT: 74.4 kg BP: RVIDd: 3.7 cm (< 3.3) IVSd: 1.1 cm (0.6 - 1.1) LVIDd: 3.9 cm (3.9 - 5.3) LVPWd: 1.2 cm (0.6 - 1.1) IVSs: 1.2 cm LVIDs: 3.3 cm LVPWs: 1.4 cm LA Diam: 3.7 cm (2.7 - 3.8) Ao Diam: 2.9 cm (2.0 - 3.7) AV Cusp: 1.9 cm (1.5 - 2.6) MV EXCURSION: 19.089 mm (> 18.000) MV EF SLOPE: 116 mm/s (70 - 150) EPSS: 0.3 cm MV E David: 0.74 m/s MV DecT: 252 ms MV A David: 0.89 m/s MV E/A Ratio: 0.83 RAP: 5.00 mmHg RVSP: 11.16 mmHg FINDINGS -------- Sinus rhythm. This was a technically adequate study. LV size, wall thickness and systolic function are normal, with an EF greater than 55%. The left olivia tricular size is normal. The right ventricle is normal in size. The left atrial size is normal. The right atrial size is normal. The aortic valve is trileaflet and appears structurally normal. Trace to mild aortic regurgitation. The mitral valve is normal. Mild mitral regurgitation is present. Mild tricuspid regurgitation present. Right ventricular systolic pressure is normal at < 35 mmHg. Trace/mild (physiologic) pulmonic regurgitation. The aortic root size is normal. There is no pericardial effusion. CONCLUSIONS -------- 1. LV size, wall thickness and systolic function are normal, with an EF greater than 55%. 2. The left atrial size is normal. 3. Trace to mild aortic regurgitation. 4. Mild mitral regurgitation is present. 5. Mild tricuspid regurgitation present. 6. Trace/mild (physiologic) pulmonic regurgitation. 7. There is no pericardial effusion. INSPECTOR BOILER: Verona Jackson RDCS
[2019-10-14 12:50] LABS: Cholesterol 173 mg/dL (<200); HDL Cholesterol 57 mg/dL (40-60); LDL Cholesterol,Calculated 77 mg/dL (0-99); Triglycerides 194 mg/dL (<150)
[2019-10-14] MEDS ORDERED: TAMSULOSIN 0.4 MG CAP.ER.24H PO STA (13:50)
[2019-10-14] MEDS ORDERED: ACETAMINOPHEN TAB 500 MG TAB PO STA (13:50)
[2019-10-14] MEDS ORDERED: GABAPENTIN 300 MG CAP PO STA (13:50)
--- NOTE | 2019-10-14 13:55 | P.PN ---
Subjective Progress Note Date: 10/14/19 CHIEF COMPLAINT: Acute appendicitis HISTORY OF PRESENT ILLNESS: The patient is a 49 -year-old male who presented with right lower quadrant abdominal pain over 4 days. He has additional cardiac history including stent placement and continued antiplatelet therapy with clopidogrel for 4 years. Cardiology consultation was obtained including echo this morning. Patient has been cleared for surgery, with increased risk due to recent platelet use and increased risk for bleeding. Patient still reports right lower quadrant abdominal pain despite IV antibiotics. ROS: No reports of nausea and vomiting. No bowel movements. No fevers or chills. No new chest pain. No productive sputum PHYSICAL EXAM: VITAL SIGNS: Reviewed CONSTITUTIONAL: Well developed and in no acute distress. EYES: Conjuctivae without sclera icterus. Extraocular movements grossly intact. HEAD, EARS, NOSE, THROAT: Moist buccal mucosa. Head is atraumatic, normocephalic. Hears conversational speech. No nasal drainage. NECK: Supple. No thyroidomegaly. RESPIRATORY: Non-labored respirations and equal bilateral excursions. CARDIOVASCULAR: Palpable 2+ radial pulses. Regular rate. Regular rhythm. ABDOMEN: Tender right lower quadrant. No peritonitis. MUSCULOSKELETAL: No gross deformity of the lower extremities noted. No clubbing. No cyanosis. SKIN: Good skin turgor. Well perfused. NEUROLOGIC: Cranial nerves II through XII grossly intact. No focal or lateralizing signs. PSYCH: Appropriate affect. Alert and oriented to person, place and time. CLINICAL LABS: White blood cell count normal ECHO: Independent review of ejection fraction over 55%. No global hypokinesis identified. ASSESSMENT: 1. Acute appendicitis PLAN: 1. Patient is at increased risk for bleeding due to recent antiplatelet and he is symptomatic with right lower quadrant abdominal pain with acute appendicitis. 2. Inpatient hospital described for anticipation for increased bleeding following surgery including placement of NARINDER drain. Patient understood and agreed to proceed. 3. We'll proceed with robotic appendectomy. Objective - Vital Signs Vital signs: Vital Signs Temp 98.3 F 10/14/19 07:00 Pulse 67 10/14/19 07:00 Resp 16 10/14/19 07:00 BP 149/96 10/14/19 07:00 Pulse Ox 98 10/14/19 07:00 Intake & Output 10/13/19 10/14/19 10/14/19 18:59 06:59 18:59 Weight 74.389 kg Other: Voiding Method Toilet # Voids 1 - Labs CBC & Chem 7: 10/14/19 07:14 10/14/19 07:14 Labs: Abnormal Lab Results - Last 24 Hours (Table) 10/13/19 10/14/19 10/14/19 Range/Units 14:48 07:14 07:14 Sodium 131 L 135 L (137-145) mmol/L BUN 7 L 6 L (9-20) mg/dL Glucose 114 H 120 H (74-99) mg/dL ALT 59 H 55 H (4-49) U/L Alkaline Phosphatase 137 H 130 H (38-126) U/L Triglycerides 194 H (<150) mg/dL Assessment and Plan (1) H/O placement of stent in anterior descending branch of left coronary artery Current Visit: Yes Status: Acute Code(s): Z95.5 - PRESENCE OF CORONARY ANGIOPLASTY IMPLANT AND GRAFT SNOMED Code(s): 859698953 (2) Antiplatelet or antithrombotic long-term use Current Visit: Yes Status: Acute Code(s): Z79.02 - OPERATING ROOM AIDE (CURRENT) USE OF ANTITHROMBOTICS/ANTIPLATELETS SNOMED Code(s): 597236732 (3) Right hydrocele Current Visit: Yes Status: Acute Code(s): N43.3 - HYDROCELE, UNSPECIFIED SNOMED Code(s): 05429046 (4) Bladder neoplasm Current Visit: Yes Status: Acute Code(s): D49.4 - NEOPLASM OF UNSPECIFIED B EHAVIOR OF BLADDER SNOMED Code(s): 022628134 (5) Acute appendicitis Current Visit: Yes Status: Acute Code(s): K35.80 - UNSPECIFIED ACUTE APPENDICITIS SNOMED Code(s): 41685899 (6) Family history of coronary arteriosclerosis Current Visit: No Status: Acute Code(s): Z82.49 - FAMILY HX OF ISCHEM HEART DIS AND OTH DIS OF THE CIRC SYS SNOMED Code(s): 888458408 (7) ST elevation (STEMI) myocardial infarction involving left anterior descending coronary artery Current Visit: No Status: Acute Code(s): I21.02 - STEMI INVOLVING LEFT AN TERIOR DESCENDING CORONARY ARTERY SNOMED Code(s): 18906955
[2019-10-14] MEDS ORDERED: ONDANSETRON 4 MG/2 ML VIAL ONE (14:00)
[2019-10-14] MEDS ORDERED: ACETAMINOPHEN TAB 500 MG TAB ONE (14:00)
[2019-10-14] MEDS ORDERED: IV FLUID CONTINUATION 800 ML IV ONE (14:06)
[2019-10-14] MEDS ORDERED: DEXAMETHASONE SOD PHOS (MDV) 100 MG/10 ML VIAL IV ONE (14:07)
[2019-10-14] MEDS ORDERED: ONDANSETRON 4 MG/2 ML VIAL IVP ONE (14:07)
[2019-10-14] MEDS ORDERED: MIDAZOLAM 2 MG/2 ML VIAL ONE (14:14)
[2019-10-14] MEDS ORDERED: ROCURONIUM BROMIDE 10 MG/ML 5 ML VIAL IV ONE (14:14)
[2019-10-14] MEDS ORDERED: fentaNYL (PF) 50 MCG/ML 2 ML AMP ONE (14:14)
[2019-10-14] MEDS ORDERED: GLYCOPYRROLATE 0.2 MG/ML 2 ML VIAL ONE (14:14)
[2019-10-14] MEDS ORDERED: NEOSTIGMINE 1 MG/ML 10 ML VIAL ONE (14:14)
[2019-10-14] MEDS ORDERED: PROPOFOL 10 MG/ML 20 ML VIAL IV ONE ×2 (14:14)
[2019-10-14] MEDS ORDERED: LIDOCAINE 1% INJ 10MG/ML (20 ML MDV) ONE (14:14)
[2019-10-14] MEDS ORDERED: BUPIVACAIN-EPI 0.25%-1:200,000 30 ML VIAL SQ ONE (14:43)
[2019-10-14] MEDS ORDERED: LACTATED RINGERS 1,000 ML IV ONE (15:04)
[2019-10-14] MEDS ORDERED: HYDROmorphone 0.5 MG/0.5 ML SYRINGE IVP ONE (15:27)
[2019-10-14] MEDS ORDERED: ACETAMINOPHEN IV (For NPO) 1,000 MG in EMPTY BAG 1 BAG IVPB ONE (15:29)
--- NOTE | 2019-10-14 15:34 | P.OP ---
Date of Procedure: 10/14/19 Description of Procedure: SURGEON: NGOC MURDOCK MD Preoperative Diagnosis: 1. Right lower quadrant abdominal pain 2. Acute appendicitis 3. Chronic antiplatelet therapy 4. Coronary artery disease with cardiac stent 5. Hypertensive heart disease 6. Ischemic heart disease Postoperative Diagnosis: 1. Right lower quadrant abdominal pain 2. Acute appendicitis 3. Chronic antiplatelet therapy 4. Coronary artery disease with cardiac stent 5. Hypertensive heart disease 6. Ischemic heart disease Procedure(s) Performed: 1. Robotic-assisted daVinci Xi laparoscopic appendectomy Anesthesia: GETA, local Surgeon: Ngoc Murdock Estimated Blood Loss (ml): 5 Pathology: other (appendix) Condition: stable Disposition: floor Operative Findings: 1. Acute appendicitis without rupture with mild periappendicitis. 2. Terminal ileum unremarkable 3. Cecum unremarkable 4. No recurrent bilateral inguinal hernias INDICATIONS: The patient is a 49-year-old male with appendicitis. Benefits and risks, including infection, open surgery, and bleeding for additional surgery was discussed at length. Informed consent was obtained. All questions of the patient and family were answered. DESCRIPTION: The patient was transferred to the operating room and placed in supine position. The patient had previously voided. The abdomen was then prepped and draped in standard sterile fashion as Ioban was placed along the abdomen to minimize any contamination of skin floor. After a timeout protocol was performed, attention was then brought to the left upper quadrant whereby a 0 degree 5 mm laparoscopic trocar entry was performed. The abdominal cavity was entered and insufflated to 12 mmHg pressure, which was tolerated well. Diagnostic laparoscopy demonstrated no injury to bowel, viscera or mesentery. Next a robotic 8-mm trocar was placed along the left lower quadrant, 10-cm lateral to the midline. A 12 mm port was placed along the left upper quadrant and another 8-mm port left lateral abdominal wall. Ports were placed 8 cm apart from each other including 15-20 cm away from the target anatomy of the right pelvis. The patient was then placed in Trendelenburg position, at least 16 down and right side up at least 6. The robotic da Rafael XI system was primed and docked from the left side of the patient. Using atraumatic graspers and vessel sealer, the robotic system was docked and primed as described. Instruments were interchanged by the assistant housekeeping manager including graspers, robotic stapler and vessel sealer. Next, attention was brought to identify the cecum. A systematic view within the abdominal cavity was started with the small bowel which was unremarkable. No recurrent bilateral inguinal hernias were identified. Scarring along the inguinal area was consistent with previous laparoscopic hernia repair. The base of the cecum was unremarkable. No evidence of perforation was found. The appendix was dilated and inflamed.The body of the appendix was moderately dilated with moderate periappendicitis. No perforation was identified. The appendix was dissected free from its surrounding tissues. A 45 mm blue robotic staple loads were fired along the base of the appendix. The staple line was hemostatic. Hemostasis was checked prior to undocking the robot. The robot was undocked. I re-scrubbed into the case. The specimen was removed from the abdominal cavity with an Endo Catch bag through the 12 mm trocar at the left upper quadrant. All instruments and pneumoperitoneum were evacuated from the abdominal cavity. Local anesthetic was infiltrated to all wounds for postop analgesia. All incisions were also cleansed with diluted hydrogen peroxide. The incisions were closed with 4-0 Monocryl. Exofin glue was applied to the rest of the skin incisions. The patient had tolerated the procedure well. The patient was extubated successfully. The patient was transferred to the postanesthesia care unit in stable condition.
--- NOTE | 2019-10-14 15:59 | P.GSCN ---
History of Present Illness Consult date: 10/14/19 History of present illness: We're asked to see this gentleman for a questionable abnormality of the bladder seen on computed tomography scan. The patient is in the operating room for an appendectomy. Computed tomography scan showed a thickened bladder with a possible mass. This is reviewed and it is unlikely this is anything other than inflammation related to his appendicitis. However I will review with the patient tomorrow upon recovery. He would probably need follow-up and perhaps a cystoscopy however it is unlikely this is a significant urologic problem in light of the fact of the above-mentioned findings and a clear urinalysis. Past Medical History Past Medical History: Coronary Artery Disease (CAD), GERD/Reflux, Hyperlipidemia, Myocardial Infarction ([place]) Additional Past Medical History / Comment(s): [place] 01/2216 with stent placement X2 LAD. RT ING, & UMB HERNIAS. Last Myocardial Infarction Date:: 01/27/16 History of Any Multi-Drug Resistant Organisms: None Reported Past Surgical History: Heart Catheterization With Stent Additional Past Surgical History / Comment(s): [place] 01/26 with stent placement X2 LAD Past Anesthesia/Blood Transfusion Reactions: No Reported Reaction Date of Last Stent Placement:: 01/27/16 Past Psychological History: No Psychological Hx Reported Smoking Status: Never smoker Past Alcohol Use History: Occasional Additional Past Alcohol Use History / Comment(s): 6 BEERS DAILY Past Drug Use History: None Reported - Past Family History Father History Unknown: Yes Mother Family Medical History: Myocardial Infarction ([place]) Brother(s) Family Medical History: Diabetes Mellitus Medications and Allergies Home Medications Medication Instructions Recorded Confirmed Type Lisinopril [Zestril] 10 mg PO DAILY #30 tab 01/30/16 10/13/19 Rx Atorvastatin [Lipitor] 80 mg PO Q48H 10/13/19 10/13/19 History Metoprolol Succinate [Toprol XL] 50 mg PO DAILY 10/13/19 10/13/19 History Multivitamins, Thera [Multivitamin 1 tab PO DAILY 10/13/19 10/13/19 History (formulary)] Pantoprazole [Protonix] 40 mg PO HS 10/13/19 10/13/19 History Allergies Allergy/AdvReac Type Severity Reaction Status Date / Time No Known Allergies Allergy Verified 10/13/19 15:02 Surgical - Exam Vital Signs Temp Pulse Resp BP Pulse Ox 98.5 F 72 16 163/96 99 10/13/19 12:38 10/13/19 12:38 10/13/19 12:38 10/13/19 12:38 10/13/19 12:38 Results - Labs 10/14/19 07:14 10/14/19 07:14 Abnormal Lab Results - Last 24 Hours (Table) 10/13/19 10/14/19 10/14/19 Range/Units 14:48 07:14 07:14 Sodium 131 L 135 L (137-145) mmol/L BUN 7 L 6 L (9-20) mg/dL Glucose 114 H 120 H (74-99) mg/dL ALT 59 H 55 H (4-49) U/L Alkaline Phosphatase 137 H 130 H (38-126) U/L Triglycerides 194 H (<150) mg/dL Diabetes panel 10/13/19 10/14/19 10/14/19 Range/Units 14:48 07:14 07:14 Sodium 131 L 135 L (137-145) mmol/L Potassium 4.5 3.9 (3.5-5.1) mmol/L Chloride 99 100 (98-107) mmol/L Carbon Dioxide 23 23 (22-30) mmol/L BUN 7 L 6 L (9-20) mg/dL Creatinine 0.86 0.86 (0.66-1.25) mg/dL Glucose 114 H 120 H (74-99) mg/dL Calcium 9.8 9.7 (8.4-10.2) mg/dL AST 51 50 (17-59) U/L ALT 59 H 55 H (4-49) U/L Alkaline Phosphatase 137 H 130 H (38-126) U/L Total Protein 7.3 7.4 (6.3-8.2) g/dL Albumin 4.5 4.4 (3.5-5.0) g/dL Triglycerides 194 H (<150) mg/dL HDL Cholesterol 57 (40-60) mg/dL Calcium panel 10/13/19 10/14/19 Range/Units 14:48 07:14 Calcium 9.8 9.7 (8.4-10.2) mg/dL Albumin 4.5 4.4 (3.5-5.0) g/dL Pituitary panel 10/13/19 10/14/19 Range/Units 14:48 07:14 Sodium 131 L 135 L (137-145) mmol/L Potassium 4.5 3.9 (3.5-5.1) mmol/L Chloride 99 100 (98-107) mmol/L Carbon Dioxide 23 23 (22-30) mmol/L BUN 7 L 6 L (9-20) mg/dL Creatinine 0.86 0.86 (0.66-1.25) mg/dL Glucose 114 H 120 H (74-99) mg/dL Calcium 9.8 9.7 (8.4-10.2) mg/dL Adrenal panel 10/13/19 10/14/19 Range/Units 14:48 07:14 Sodium 131 L 135 L (137-145) mmol/L Potassium 4.5 3.9 (3.5-5.1) mmol/L Chloride 99 100 (98-107) mmol/L Carbon Dioxide 23 23 (22-30) mmol/L BUN 7 L 6 L (9-20) mg/dL Creatinine 0.86 0.86 (0.66-1.25) mg/dL Glucose 114 H 120 H (74-99) mg/dL Calcium 9.8 9.7 (8.4-10.2) mg/dL Total Bilirubin 0.8 0.9 (0.2-1.3) mg/dL AST 51 50 (17-59) U/L ALT 59 H 55 H (4-49) U/L Alkaline Phosphatase 137 H 130 H (38-126) U/L Total Protein 7.3 7.4 (6.3-8.2) g/dL Albumin 4.5 4.4 (3.5-5.0) g/dL
[2019-10-14] MEDS: HYDROcodone/APAP 5-325MG 1 EACH TAB PO PRN (16:13)
[2019-10-14] MEDS ORDERED: TAMSULOSIN 0.4 MG CAP.ER.24H PO SCH (18:30)
[2019-10-15] MEDS: HYDROcodone/APAP 5-325MG 1 EACH TAB PO PRN (02:06)
[2019-10-15] MEDS: SODIUM CHLORIDE 0.9% 1,000 ML IV SCH (05:49)
[2019-10-15] MEDS: PIPERACILLIN-TAZOBACTAM 3.375 GM in SODIUM CHLORIDE 0.9% 100 ML IVPB SCH (05:49)
[2019-10-15] MEDS: METOPROLOL SUCCINATE (ER) 50 MG TAB.ER.24H PO SCH (07:17)
[2019-10-15] MEDS: LISINOPRIL 10 MG TAB PO SCH (07:17)
[2019-10-15 08:09] LABS: Basophils % (A) 0 %; Eosinophils # (A) 0.1 k/uL (0-0.7); Eosinophils % (A) 1 %; HCT 40.2 % (39.0-53.0); HGB 13.1 gm/dL (13.0-17.5); Lymphocytes # (A) 1.3 k/uL (1.0-4.8); Lymphocytes % (A) 10 %; MCH 31.8 pg (25.0-35.0); MCHC 32.6 g/dL (31.0-37.0); MCV 97.6 fL (80.0-100.0); Mean Platelet Volume 7.7; Monocytes # (A) 0.7 k/uL (0-1.0); Monocytes % (A) 5 %; Neutrophils % (A) 83 %; Platelet Count 201 k/uL (150-450); RBC 4.12 m/uL (4.30-5.90); WBC 13.3 k/uL (3.8-10.6)
[2019-10-15] MEDS ORDERED: ATORVASTATIN 80 MG TAB PO SCH (09:00)
[2019-10-15] MEDS ORDERED: ASPIRIN 81 MG PO SCH (09:00)
[2019-10-15 09:25] VITALS: RESP 18
--- NOTE | 2019-10-15 10:06 | P.PN ---
Subjective Progress Note Date: 10/15/19 CHIEF COMPLAINT: Acute appendicitis HISTORY OF PRESENT ILLNESS: The patient is a 49 -year-old male who presented with right lower quadrant abdominal pain over 4 days. He status post robotic appendectomy 10/14/2019, Postop day 1. He reports improvement in his right lower quadrant abdominal pain. Also, swelling along the right groin has resolved since surgery. ROS: No reports of nausea and vomiting. No bowel movements. No fevers or chills. No new chest pain. No productive sputum PHYSICAL EXAM: VITAL SIGNS: Reviewed CONSTITUTIONAL: Well developed and in no acute distress. EYES: Conjuctivae without sclera icterus. Extraocular movements grossly intact. HEAD, EARS, NOSE, THROAT: Moist buccal mucosa. Head is atraumatic, normocephalic. Hears conversational speech. No nasal drainage. NECK: Supple. No thyroidomegaly. RESPIRATORY: Non-labored respirations and equal bilateral excursions. CARDIOVASCULAR: Palpable 2+ radial pulses. Regular rate. Regular rhythm. ABDOMEN: Soft. Incisions clean dry and intact. MUSCULOSKELETAL: No gross deformity of the lower extremities noted. No clubbing. No cyanosis. SKIN: Good skin turgor. Well perfused. NEUROLOGIC: Cranial nerves II through XII grossly intact. No focal or lateralizing signs. PSYCH: Appropriate affect. Alert and oriented to person, place and time. CLINICAL LABS: Hemoglobin down to 13.1. ASSESSMENT: 1. Acute appendicitis 2. 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 Right hydrocele PLAN: 1. We'll repeat CBC as he his increased risk for bleeding secondary to chronic antiplatelet use. 2. Currently, pending urology consultation. 3. Regular diet. 4. Follow-up as outpatient 5 days Objective - Vital Signs Vital signs: Vital Signs Temp 98 F 10/15/19 07:00 Pulse 72 10/15/19 07:00 Resp 18 10/15/19 07:20 BP 146/88 10/15/19 07:00 Pulse Ox 96 10/15/19 07:00 Intake & Output 10/14/19 10/15/19 10/15/19 18:59 06:59 18:59 Intake Total 900 Output Total 5 Balance 895 Intake: IV 900 Output: Estimated Blood Loss 5 Other: Voiding Method Toilet Toilet Urinal - Labs CBC & Chem 7: 10/15/19 07:53 10/14/19 07:14 Labs: Abnormal Lab Results - Last 24 Hours (Table) 10/14/19 10/15/19 Range/Units 07:14 07:53 WBC 13.3 H (3.8-10.6) k/uL RBC 4.12 L (4.30-5.90) m/uL Neutrophils # 11.0 H (1.3-7.7) k/uL Triglycerides 194 H (<150) mg/dL Microbiology - Last 24 Hours (Table) 10/13/19 14:48 Blood Culture - Preliminary Blood No Growth after 24 hours Assessment and Plan (1) H/O placement of stent in anterior descending branch of left coronary artery Current Visit: Yes Status: Acute Code(s): Z95.5 - PRESENCE OF CORONARY ANGIOPLASTY IMPLANT AND GRAFT SNOMED Code(s): 147373678 (2) Antiplatelet or antithrombotic long-term use Current Visit: Yes Status: Acute Code(s): Z79.02 - SPECIAL SERVICES AGENT (CURRENT) USE OF ANTITHROMBOTICS/ANTIPLATELETS SNOMED Code(s): 219883953 (3) Right hydrocele Current Visit: Yes Status: Acute Code(s): N43.3 - HYDROCELE, UNSPECIFIED SNOMED Code(s): 62566186 (4) Bladder neoplasm Current Visit: Yes Status: Acute Code(s): D49.4 - NEOPLASM OF UNSPECIFIED BEHAVIOR OF BLADDER SNOMED Code(s): 343256724 (5) Acute appendicitis Current Visit: Yes Status: Acute Code(s): K35.80 - UNSPECIFIED ACUTE APPENDICITIS SNOMED Code(s): 45312849 (6) Family history of coronary arteriosclerosis Current Visit: No Status: Acute Code(s): Z82.49 - FAMILY HX OF ISCHEM HEART DIS AND OTH DIS OF THE CIRC SYS SNOMED Code(s): 543589901 (7) ST elevation (STEMI) myocardial infarction involving left anterior descending coronary artery Current Visit: No Status: Acute Code(s): I21.02 - STEMI INVOLVING LEFT ANTERIOR DESCENDING CORONARY ARTERY SNOMED Code(s): 92301332
--- NOTE | 2019-10-15 10:12 | P.PN ---
Subjective HISTORY OF PRESENTING ILLNESS This is a pleasant 49-year-old male past medical history significant for coronary artery disease in the setting of an acute myocardial infarction status post PCI of the LAD, hyper lipidemia, hypertension and daily alcohol intake. 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 He states he follows only with his PCP. He is seen and examined sitting up in bed in no acute distress. He underwent laparoscopic appendectomy yesterday. He denies symptoms of chest pain, shortness of breath, dizziness or palpitations. Blood pressure 146/88 heart rate 72 afebrile maintaining oxygen saturation on room air. Laboratory data reviewed, WBC 13.3, hemoglobin 13.1, platelets 201, LDL 77, HDL 57, triglycerides 194 and total cholesterol 173. PHYSICAL EXAMINATION CONSTITUTIONAL: No apparent distress. HEENT: Head is normocephalic. Pupils are equal, round. Sclerae anicteric. Mucous membranes of the mouth are moist. No JVD. No carotid bruit. CHEST EXAMINATION: Lungs are clear to auscultation. No chest wall tenderness is noted on palpation or with deep breathing. HEART EXAMINATION: Regular rate and rhythm. S1, S2 heard. No murmurs, gallops or rub. EXTREMITIES: 2+ peripheral pulses, no lower extremity edema and no calf tenderness. ASSESSMENT Acute appendicitis Coronary artery disease status post PCI in the setting of an acute myocardial infarction Hypertension Dyslipidemia, uncontrolled Daily alcohol intake PLAN Stable from a cardiac perspective. Importance of follow-up with cardiology discussed with the patient. Recommend discontinuation of Plavix and continue aspirin 81 mg daily. Nurse Practitioner note has been reviewed, I agree with a documented findings and plan of care. Patient was seen and examined. Objective - Vital Signs Vital signs: Vital Signs Temp 98 F 10/15/19 07:00 Pulse 72 10/15/19 07:00 Resp 18 10/15/19 07:20 BP 146/88 10/15/19 07:00 Pulse Ox 96 10/15/19 07:00 Intake & Output 10/14/19 10/15/19 10/15/19 18:59 06:59 18:59 Intake Total 900 Output Total 5 Balance 895 Intake: IV 900 Output: Estimated Blood Loss 5 Other: Voiding Method Toilet Toilet Urinal - Labs CBC & Chem 7: 10/15/19 07:53 10/14/19 07:14 Labs: Abnormal Lab Results - Last 24 Hours (Table) 10/14/19 10/15/19 Range/Units 07:14 07:53 WBC 13.3 H (3.8-10.6) k/uL RBC 4.12 L (4.30-5.90) m/uL Neutrophils # 11.0 H (1.3-7.7) k/uL Triglycerides 194 H (<150) mg/dL Microbiology - Last 24 Hours (Table) 10/13/19 14:48 Blood Culture - Preliminary Blood No Growth after 24 hours
[2019-10-15 14:25] LABS: Basophils % (A) 0 %; Eosinophils # (A) 0.2 k/uL (0-0.7); Eosinophils % (A) 2 %; HGB 12.7 gm/dL (13.0-17.5); Lymphocytes % (A) 18 %; MCH 32.1 pg (25.0-35.0); MCHC 32.7 g/dL (31.0-37.0); MCV 98.2 fL (80.0-100.0); Mean Platelet Volume 7.4; Monocytes # (A) 0.7 k/uL (0-1.0); Monocytes % (A) 6 %; Neutrophils # (A) 8.1 k/uL (1.3-7.7); Neutrophils % (A) 72 %; Platelet Count 181 k/uL (150-450); RBC 3.97 m/uL (4.30-5.90); RDW 12.1 % (11.5-15.5); WBC 11.2 k/uL (3.8-10.6)
--- NOTE | 2019-10-15 14:30 | P.GSCN ---
History of Present Illness Consult date: 10/15/19 History of present illness: 49-year-old gentleman in the hospital with a four-day history of abdominal discomfort on the right lower quadrant. This is suggestive an acute appendicitis. It is turned out he ended up with an exploration and appendectomy yesterday. The computed tomography scan of the abdomen was obtained identifying a slightly thickened bladder is had some concern of potential malignancy. The patient was interviewed at the bedside. He is awake alert and oriented. He is feeling much better. He denies any urologic problems. His urinalysis was cl ear. He has no burning frequency urgency kidney stones or bladder dysfunction. Review of Systems All systems: negative - Constitutional Denies fever, Denies weight loss - EENT Eyes: denies blurred vision Ears, nose, mouth and throat: Denies dysphagia - Cardiovascular Denies chest pain, Denies shortness of breath - Respiratory Denies cough, Denies 7 - Gastrointestinal Reports as per HPI - Genitourinary Denies dysuria, Denies hematuria - Integumentary Denies rash, Denies unusual bruising - Neurological Denies headaches, Denies syncope - Hematologic/Lymphatic Denies easy bleeding, Denies easy bruising Past Medical History Past Medical History: Coronary Artery Disease (CAD), GERD/Reflux, Hyperlipidemia, Myocardial Infarction ([place]) Additional Past Medical History / Comment(s): [place] 01/2216 with stent placement X2 LAD. RT ING, & UMB HERNIAS. Last Myocardial Infarction Date:: 01/27/16 History of Any Multi-Drug Resistant Organisms: None Reported Past Surgical History: Heart Catheterization With Stent Additional Past Surgical History / Comment(s): [place] 01/26 with stent placement X2 LAD Past Anesthesia/Blood Transfusion Reactions: No Reported Reaction Date of Last Stent Placement:: 01/27/16 Past Psychological History: No Psychological Hx Reported Smoking Status: Never smoker Past Alcohol Use History: Occasional Additional Past Alcohol Use History / Comment(s): 6 BEERS DAILY Past Drug Use History: None Reported - Past Family History Father History Unknown: Yes Mother Family Medical History: Myocardial Infarction ([place]) Brother(s) Family Medical History: Diabetes Mellitus Medications and Allergies Home Medications Medication Instructions Recorded Confirmed Type Lisinopril [Zestril] 10 mg PO DAILY #30 tab 01/30/16 10/13/19 Rx Atorvastatin [Lipitor] 80 mg PO Q48H 10/13/19 10/13/19 History Metoprolol Succinate [Toprol XL] 50 mg PO DAILY 10/13/19 10/13/19 History Multivitamins, Thera [Multivitamin 1 tab PO DAILY 10/13/19 10/13/19 History (formulary)] Pantoprazole [Protonix] 40 mg PO HS 10/13/19 10/13/19 History Acetaminophen Tab [Tylenol Tab] 1,000 mg PO Q6HR PRN #30 tablet 10/15/19 Rx Aspirin 81 mg PO DAILY chew 10/15/19 Rx Allergies Allergy/AdvReac Type Severity Reaction Status Date / Time No Known Allergies Allergy Verified 10/13/19 15:02 Surgical - Exam Vital Signs Temp Pulse Resp BP Pulse Ox 98.5 F 72 16 163/96 99 10/13/19 12:38 10/13/19 12:38 10/13/19 12:38 10/13/19 12:38 10/13/19 12:38 - General well developed, well nourished, no distress - Eyes PERRL - ENT no hearing loss - Neck trachea midline - Respiratory normal expansion, normal respiratory effort - Cardiovascular Rhythm: regular - Abdomen Slight tenderness postoperatively Abdomen: soft - Genitourinary normal penis with no external lesions, testicles present - Neurologic normal coordination - Musculoskeletal normal posture - Psychiatric oriented to time, oriented to person, oriented to place, speech is normal, memory intact Results - Labs 10/15/19 13:58 10/14/19 07:14 Abnormal Lab Results - Last 24 Hours (Table) 10/15/19 10/15/19 Range/Units 07:53 13:58 WBC 13.3 H 11.2 H (3.8-10.6) k/uL RBC 4.12 L 3.97 L (4.30-5.90) m/uL Hgb 12.7 L (13.0-17.5) gm/dL Neutrophils # 11.0 H 8.1 H (1.3-7.7) k/uL Microbiology - Last 24 Hours (Table) 10/13/19 14:48 Blood Culture - Preliminary Blood No Growth after 24 hours - Imaging CT scan - abdomen: report reviewed CT scan - pelvis: report reviewed Assessment and Plan Assessment: Impression: Acute appendicitis treated. Medical issues. Abnormal computed tomography scan of bladder. Recommendations: I doubt this finding caries any clinical significance. It is possible the bladder secondary inflamed due to the appendicitis. Unfortunately due to technical reasons I was not able to visually review the x-ray but the report was reviewed. Even the patient has no symptoms a clear urine. It is unlikely there is any urologic issues. No risk factors. The patient is not interested in cystoscopy at this point in time but I did encourage him to follow-up in the office for a follow-up urinalysis and evaluation of his symptoms.
[2019-10-15 15:21] VITALS: BP 142/84; PULSE 68; TEMP 98.3
--- NOTE | 2019-10-15 19:02 | P.DS ---
Providers Date of admission: 10/14/19 15:29 Expected date of discharge: 10/15/19 Attending physician: Ngoc Murdock Consults: 10/13/19 21:23 Consult Physician Routine Consulting Provider: Carol Arguelles Consult Reason/Comments: Cardiac clearance Do you want consulting provider notified?: Yes, Notify in am 10/14/19 05:48 Consult Physician Routine Consulting Provider: Neftali Noguera Consult Reason/Comments: Bladder tumor, right hydrocele Do you want consulting provider notified?: Yes, Notify in am Primary care physician: Tiffanie Sellers - Discharge Diagnosis(es) (1) H/O placement of stent in anterior descending branch of left coronary artery Status: Acute (2) Antiplatelet or antithrombotic long-term use Status: Acute (3) Right hydrocele Status: Acute (4) Bladder neoplasm Status: Acute (5) Acute appendicitis Status: Acute (6) Family history of coronary arteriosclerosis Status: Acute (7) ST elevation (STEMI) myocardial infarction involving left anterior descending coronary artery Status: Acute Hospital Course: The patient is a 49-year-old male who presented with acute appendicitis including abnormal computed tomography scan of possible bladder neoplasm. Urology was consulted as a result. He also had a right hydrocele that had improved following surgery. Intraoperative findings demonstrated acute appendicitis without recurrence of bilateral inguinal hernias. Separately, patient has history of stent placement including chronic antiplatelet therapy. Risk of bleeding after surgery was described and reviewed with him including with cardiology consultation. Postoperatively, he reported his right lower quadrant pain had resolved. His hemoglobin was repeated with less than 0.5 gr drop. He was not taking additional pain meds. Patient was stable for discharge for follow-up in the office in one week. Patient Condition at Discharge: Good Plan - Discharge Summary Discharge Rx Participant: No New Discharge Prescriptions: New Acetaminophen Tab [Tylenol Tab] 1,000 mg PO Q6HR PRN #30 tablet PRN Reason: Pain Aspirin 81 mg PO DAILY chew Continue Lisinopril [Zestril] 10 mg PO DAILY #30 tab Pantoprazole [Protonix] 40 mg PO HS Multivitamins, Thera [Multivitamin (formulary)] 1 tab PO DAILY Metoprolol Succinate [Toprol XL] 50 mg PO DAILY Atorvastatin [Lipitor] 80 mg PO Q48H Discontinued Clopidogrel [Plavix] 75 mg PO DAILY Discharge Medication List Lisinopril [Zestril] 10 mg PO DAILY #30 tab 01/30/16 [Rx] Atorvastatin [Lipitor] 80 mg PO Q48H 10/13/19 [History] Metoprolol Succinate [Toprol XL] 50 mg PO DAILY 10/13/19 [History] Multivitamins, Thera [Multivitamin (formulary)] 1 tab PO DAILY 10/13/19 [History] Pantoprazole [Protonix] 40 mg PO HS 10/13/19 [History] Acetaminophen Tab [Tylenol Tab] 1,000 mg PO Q6HR PRN #30 tablet 10/15/19 [Rx] Aspirin 81 mg PO DAILY chew 10/15/19 [Rx] Follow up Appointment(s)/Referral(s): Swati Carlos MD [STAFF PHYSICIAN] - 2 Weeks ([facility] WILL CALL WITH APPOINTENT) Tiffanie Sellers DO [Primary Care Provider] - 10/22/19 8:30 am Ngoc Murdock MD [STAFF PHYSICIAN] - 10/19/19 2:45 pm Valdo Winkler MD [STAFF PHYSICIAN] - 3 Weeks (OFFICE CLOSED. PLEASE CALL friday FOR APPOINTMENT.) Patient Instructions/Handouts: Laparoscopic Appendectomy (DC) Activity/Diet/Wound Care/Special Instructions: No lifting over 4 pounds in 4 weeks until Nov 14August shower. No bath tub soaks for 2 weeks until October 28. Diet as tolerated. Use Tylenol and ibuprofen scheduled for the next 24-48 hours for best pain relief. Use ice along incisions for the today to prevent swelling. Discharge Disposition: HOME SELF-CARE
== END 2019-10-15 15:50 | disposition home or self-care (01) | DRG 343 ==
LOC: EC 12:31 → 4SSUR 16:38 → OBSVTOIN 10-14 15:29
PROVIDERS: ADMIT Surgery Plastic and Reconstructive Surgery; ATTEND Surgery Plastic and Reconstructive Surgery
PROC: 8E0W4CZ Robotic Assisted Procedure of Trunk Region, Percutaneous Endoscopic Approach (ICD-10-PCS; principal; 2019-10-14 07:30)
PROC: 0DTJ4ZZ Resection of Appendix, Percutaneous Endoscopic Approach (ICD-10-PCS; principal; 2019-10-14 07:30)
DX: K35.80 Unspecified acute appendicitis (principal); K57.90 Diverticulosis of intestine, part unspecified, without perforation or abscess without bleeding; K76.0 Fatty (change of) liver, not elsewhere classified; I25.5 Ischemic cardiomyopathy; I25.2 Old myocardial infarction; N43.3 Hydrocele, unspecified; N32.89 Other specified disorders of bladder; E78.5 Hyperlipidemia, unspecified; I11.9 Hypertensive heart disease without heart failure; I25.10 Atherosclerotic heart disease of native coronary artery without angina pectoris; Z79.02 Long term (current) use of antithrombotics/antiplatelets; Z79.82 Long term (current) use of aspirin; Z79.899 Other long term (current) drug therapy; Z82.49 Family history of ischemic heart disease and other diseases of the circulatory system; Z95.5 Presence of coronary angioplasty implant and graft; Z11.59 Encounter for screening for other viral diseases; I08.1 Rheumatic disorders of both mitral and tricuspid valves; Z83.3 Family history of diabetes mellitus
CPT/HCPCS: 36415; 80053; 80061; 81003; 83605; 83690; 85025; 87040; 88304; 93005; 93306; 99285

== ENCOUNTER → 2019-10-13 | Outpatient (CLI) | payer BC ==
--- NOTE | 2019-10-13 14:00 | CT ---
EXAMINATION TYPE: CT abdomen pelvis w con DATE OF EXAM: 10/13/2019 COMPARISON: 01/30/2012 INDICATION: Right lower quadrant pain DLP: 863.70 mGycm, Automated exposure control for dose reduction was used. CONTRAST: 100 mL of Isovue 300. Study performed with Oral Contrast TECHNIQUE: Axial images were obtained from above the diaphragm to the pubic rami in the axial plane a t 5 mm thick sections. Reconstructed images are reviewed on the computer in the coronal plane. FINDINGS: Limited CT sections are obtained the lung bases. The lung bases are clear. CT ABDOMEN: Liver: There is mild fatty infiltration liver. No discrete masses or cysts are evident. Spleen: Normal Pancreas: Normal Adrenal glands: The adrenal glands are normal. Gallbladder: Normal Kidneys: No masses are evident. No hydronephrosis is present. No cysts are present. Delayed images were obtained through the kidneys, which remain unremarkable. Aorta: Normal Inferior vena cava: Normal. CT PELVIS: There is a mild diverticulosis without acute diverticulitis of the sigmoid colon. There are loops of bowel which are incompletely distended or lack oral contrast limiting their evaluation. Appendix: Appendix is dilated measuring 1.0 cm. Some minimal wall enhancement may be present. Minimal periappendiceal inflammatory change may be present. Early appendicitis should be considered. No free air or abscess formation is identified. Preliminary results were provided at the time of imaging. Urinary bladder: Urinary bladder wall is thickened. This is more focal in the anterior right aspect o f the urinary bladder. Additional workup is recommended. Neoplasm is not excluded. Genitourinary structures: Prostate appears normal. Osseous structures: No suspicious lytic or sclerotic lesions. Bilateral inguinal hernias containing mesenteric fat are present. Note is made of a right hydrocele. IMPRESSIONS: 1. Dilated appendix suggestive for early appendicitis. 2. Diverticulosis without acute diverticulitis. 3. Thickening of the urinary bladder is eccentric. Workup for urinary bladder neoplasm is recommended . This is an interval change. 4. Mild fatty infiltration liver.
== END | disposition home or self-care (01) ==
LOC: RADCTMAIN 10:15
PROVIDERS: ATTEND Family Medicine
DX: K57.30 Diverticulosis of large intestine without perforation or abscess without bleeding (principal); K38.8 Other specified diseases of appendix; N32.89 Other specified disorders of bladder; K76.0 Fatty (change of) liver, not elsewhere classified
CPT/HCPCS: 74177; Q9967

== ENCOUNTER 2019-10-29 15:51 | Inpatient (IN) | payer BC ==
[2019-10-29] MEDS ORDERED: HYDROmorphone 1 MG/ML 1 ML SYRINGE IVP STA ×2 (16:27→17:21)
[2019-10-29] MEDS ORDERED: SODIUM CHLORIDE 0.9% 500 ML 500 ML IV ONE ×2 (16:27→17:21)
[2019-10-29] MEDS ORDERED: PANTOPRAZOLE 40 MG/10 ML VIAL IVP STA (16:27)
[2019-10-29] MEDS ORDERED: ONDANSETRON 4 MG/2 ML VIAL IVP STA (16:27)
--- NOTE | 2019-10-29 16:35 | ED ---
General Adult HPI - General Chief complaint: Chest Pain Stated complaint: chest pain, heart attack symptoms Time Seen by Provider: 10/29/19 16:04 Source: patient, RN notes reviewed, old records reviewed Mode of arrival: ambulatory Limitations: no limitations - History of Present Illness Initial comments: 49-year-old male presented for evaluation of epigastric abdominal pain and lower chest pain. Symptoms 7 present for the past 3-4 hours. His pain does radiate into his back. He's had nausea vomiting and diarrhea over the past 24 hours. He does admit to having 2 beers yesterday afternoon. No significant history of alcohol abuse. No history of pancreatitis. Patient had an appendectomy at this institution approximately 2 weeks ago. Denies fever. States he's been doing quite well after his operation. Pain has been controlled. He denies fever but states he has had some hot and cold spells. He's vomited everything that he tried to eat over the past 24 hours. - Related Data Home Medications Medication Instructions Recorded Confirmed Atorvastatin [Lipitor] 80 mg PO Q48H 10/13/19 10/29/19 Metoprolol Succinate [Toprol XL] 50 mg PO DAILY 10/13/19 10/29/19 Multivitamins, Thera [Multivitamin 1 tab PO DAILY 10/13/19 10/29/19 (formulary)] Pantoprazole [Protonix] 40 mg PO HS 10/13/19 10/29/19 Previous Rx's Medication Instructions Recorded lisinopriL [Zestril] 10 mg PO DAILY #30 tab 01/30/16 Acetaminophen Tab [Tylenol Tab] 1,000 mg PO Q6HR PRN #30 tablet 10/15/19 Aspirin 81 mg PO DAILY chew 10/15/19 Allergies Allergy/AdvReac Type Severity Reaction Status Date / Time No Known Allergies Allergy Verified 10/29/19 17:12 Review of Systems ROS Statement: Those systems with pertinent positive or pertinent negative responses have been documented in the HPI. ROS Other: All systems not noted in ROS Statement are negative. Past Medical History Past Medical History: Coronary Artery Disease (CAD), GERD/Reflux, Hyperlipidemia, Myocardial Infarction (MD) Additional Past Medical History / Comment(s): MD 01/2216 with stent placement X2 LAD. RT ING, & [facility]. Last Myocardial Infarction Date:: 01/27/16 History of Any Multi-Drug Resistant Organisms: None Reported Past Surgical History: Heart Catheterization With Stent Additional Past Surgical History / Comment(s): MD 01/26 with stent placement X2 LAD Past Anesthesia/Blood Transfusion Reactions: No Reported Reaction Date of Last Stent Placement:: 01/27/16 Past Psychological History: No Psychological Hx Reported Smoking Status: Never smoker Past Alcohol Use History: Occasional Past Drug Use History: None Reported - Past Family History Father History Unknown: Yes Mother Family Medical History: Myocardial Infarction (MD) Brother(s) Family Medical History: Diabetes Mellitus General Exam Limitations: no limitations General appearance: alert, in no apparent distress Head exam: Present: atraumatic, normocephalic Eye exam: Present: normal appearance, PERRL ENT exam: Present: normal exam Neck exam: Present: normal inspection. Absent: tenderness, meningismus Respiratory exam: Present: normal lung sounds bilaterally. Absent: respiratory distress, wheezes Cardiovascular Exam: Present: normal rhythm, tachycardia GI/Abdominal exam: Present: soft, tenderness (Epigastric tenderness to palpation). Absent: distended, guarding, rebound Extremities exam: Present: normal inspection, normal capillary refill, other (Posterior tibial pulses are 2+ and symmetric bilaterally). Absent: pedal edema Neurological exam: Present: alert, oriented X3, CN II-XII intact. Absent: motor sensory deficit Psychiatric exam: Present: normal affect, normal mood Skin exam: Present: warm, dry. Absent: cyanosis, diaphoretic Course Vital Signs 10/29/19 10/29/19 10/29/19 15:59 16:06 16:10 Temperature 98.1 F Pulse Rate 107 H 96 Pulse Rate [ 102 H Breeding Technician ] Respiratory 20 18 Rate Blood Pressure 164/124 180/118 O2 Sat by Pulse 100 99 Oximetry 10/29/19 17:47 Temperature Pulse Rate 90 Pulse Rate [ Breeding Technician ] Respiratory 16 Rate Blood Pressure 159/103 O2 Sat by Pulse Oximetry EKG Findings - EKG Comments: EKG Findings:: EKG: Sinus tachycardia, no ST segment elevation, rate of 104, HI interval 146, QRS duration 74, QTC 447. Medical Decision Making - Medical Decision Making 49-year-old male presenting with epigastric abdominal pain and tenderness. Patient states he had 2 alcoholic drinks yesterday and has had several episodes of vomiting and has been unable to keep anything down over the past 24 hours. Laboratory testing reveals acute pancreatitis with elevated lipase additionally he has a mildly elevated AST and ALT. Chest x-ray negative for acute cardiopulmonary disease. Ultrasound is performed which is negative for acute cholecystitis, no gallstones seen on ultrasound. Patient will be admitted for pain control. He is approximately 2 weeks postop laparoscopic appendectomy. Both gastroenterology and general surgery placed on consult. Patient has been admitted to Dr. Dominguez who is able to evaluate the patient in the emergency department. - Lab Data Result diagrams: 10/29/19 17:25 10/29/19 17:25 Lab Results 10/29/19 10/29/19 10/29/19 Range/Units 17:25 17:25 17:25 WBC 13.8 H (3.8-10.6) k/uL RBC 4.88 (4.30-5.90) m/uL Hgb 16.3 D (13.0-17.5) gm/dL Hct 47.0 (39.0-53.0) % MCV 96.4 (80.0-100.0) fL MCH 33.4 (25.0-35.0) pg MCHC 34.7 (31.0-37.0) g/dL RDW 12.5 (11.5-15.5) % Plt Count 170 (150-450) k/uL Neutrophils % 86 % Lymphocytes % 8 % Monocytes % 5 % Eosinophils % 1 % Basophils % 0 % Neutrophils # 11.8 H (1.3-7.7) k/uL Lymphocytes # 1.2 (1.0-4.8) k/uL Monocytes # 0.6 (0-1.0) k/uL Eosinophils # 0.1 (0-0.7) k/uL Basophils # 0.0 (0-0.2) k/uL PT 11.5 (9.0-12.0) sec INR 1.1 (<1.2) APTT 22.8 (22.0-30.0) sec Sodium 132 L (137-145) mmol/L Potassium 4.0 (3.5-5.1) mmol/L Chloride 99 (98-107) mmol/L Carbon Dioxide 24 (22-30) mmol/L Anion Gap 9 mmol/L BUN 13 (9-20) mg/dL Creatinine 0.94 (0.66-1.25) mg/dL Est GFR (CKD-EPI)AfAm >90 (>60 ml/min/1.73 sqM) Est GFR (CKD-EPI)NonAf >90 (>60 ml/min/1.73 sqM) Glucose 118 H (74-99) mg/dL Calcium 9.2 (8.4-10.2) mg/dL Magnesium 1.3 L (1.6-2.3) mg/dL Total Bilirubin 0.8 (0.2-1.3) mg/dL AST 299 H (17-59) U/L ALT 148 H (4-49) U/L Alkaline Phosphatase 111 (38-126) U/L Troponin I (0.000-0.034) ng/mL Total Protein 6.6 (6.3-8.2) g/dL Albumin 3.9 (3.5-5.0) g/dL Lipase 1124 H (23-300) U/L / Range/Units 17:25 WBC (3.8-10.6) k/uL RBC (4.30-5.90) m/uL Hgb (13.0-17.5) gm/dL Hct (39.0-53.0) % MCV (80.0-100.0) fL MCH (25.0-35.0) pg MCHC (31.0-37.0) g/dL RDW (11.5-15.5) % Plt Count (150-450) k/uL Neutrophils % % Lymphocytes % % Monocytes % % Eosinophils % % Basophils % % Neutrophils # (1.3-7.7) k/uL Lymphocytes # (1.0-4.8) k/uL Monocytes # (0-1.0) k/uL Eosinophils # (0-0.7) k/uL Basophils # (0-0.2) k/uL PT (9.0-12.0) sec INR (<1.2) APTT (22.0-30.0) sec Sodium (137-145) mmol/L Potassium (3.5-5.1) mmol/L Chloride (98-107) mmol/L Carbon Dioxide (22-30) mmol/L Anion Gap mmol/L BUN (9-20) mg/dL Creatinine (0.66-1.25) mg/dL Est GFR (CKD-EPI)AfAm (>60 ml/min/1.73 sqM) Est GFR (CKD-EPI)NonAf (>60 ml/min/1.73 sqM) Glucose (74-99) mg/dL Calcium (8.4-10.2) mg/dL Magnesium (1.6-2.3) mg/dL Total Bilirubin (0.2-1.3) mg/dL AST (17-59) U/L ALT (4-49) U/L Alkaline Phosphatase (38-126) U/L Troponin I <0.012 (0.000-0.034) ng/mL Total Protein (6.3-8.2) g/dL Albumin (3.5-5.0) g/dL Lipase (23-300) U/L Disposition Clinical Impression: Acute pancreatitis Disposition: ADMITTED IP TO THIS [facility] Condition: Stable Is patient prescribed a controlled substance at d/c from ED?: No Referrals: Tiffanie Sellers DO [Primary Care Provider] - 1-2 days Decision to Admit Reason: Admit from EC Decision Date: 10/29/19 Decision Time: 19:26
--- NOTE | 2019-10-29 17:04 | XR ---
EXAMINATION TYPE: XR chest 1V portable DATE OF EXAM: 10/29/2019 COMPARISON: 01/28/2016 HISTORY: Chest pain TECHNIQUE: FINDINGS: Heart and mediastinum are normal. Lungs are clear. Diaphragm is normal. There are chest davis ds. Bony thorax is intact. IMPRESSION: Normal chest. No change.
[2019-10-29] MEDS ORDERED: LABETALOL 5 MG/ML VIAL MDV IVP STA (17:27)
[2019-10-29 17:41] LABS: Basophils % (A) 0 %; Eosinophils # (A) 0.1 k/uL (0-0.7); Eosinophils % (A) 1 %; Lymphocytes # (A) 1.2 k/uL (1.0-4.8); Lymphocytes % (A) 8 %; MCH 33.4 pg (25.0-35.0); MCHC 34.7 g/dL (31.0-37.0); MCV 96.4 fL (80.0-100.0); Mean Platelet Volume 7.1; Monocytes # (A) 0.6 k/uL (0-1.0); Monocytes % (A) 5 %; Neutrophils # (A) 11.8 k/uL (1.3-7.7); Neutrophils % (A) 86 %; Platelet Count 170 k/uL (150-450); RBC 4.88 m/uL (4.30-5.90); RDW 12.5 % (11.5-15.5); WBC 13.8 k/uL (3.8-10.6)
[2019-10-29 17:48] LABS: HGB 16.3 gm/dL (13.0-17.5)
[2019-10-29 17:55] LABS: ALT 148 U/L (4-49); AST 299 U/L (17-59); African American GFR (CKD) >90 (>60 ml/min/1.73 sqM); Albumin 3.9 g/dL (3.5-5.0); Alkaline Phosphatase 111 U/L (38-126); Anion Gap 9 mmol/L; Blood Urea Nitrogen 13 mg/dL (9-20); Calcium 9.2 mg/dL (8.4-10.2); Carbon Dioxide 24 mmol/L (22-30); Chloride 99 mmol/L (98-107); Glucose 118 mg/dL (74-99); Magnesium 1.3 mg/dL (1.6-2.3); Non-African American GFR(CKD) >90 (>60 ml/min/1.73 sqM); Sodium 132 mmol/L (137-145); Total Bilirubin 0.8 mg/dL (0.2-1.3); Total Protein 6.6 g/dL (6.3-8.2)
[2019-10-29 18:00] LABS: INR 1.1 (<1.2); Partial Thromboplastin Time 22.8 sec (22.0-30.0); Prothrombin Time 11.5 sec (9.0-12.0)
--- NOTE | 2019-10-29 19:18 | US ---
EXAMINATION TYPE: US gallbladder DATE OF EXAM: 10/29/2019 COMPARISON: CT CLINICAL HISTORY: Gallstone pancreatitis?. Epigastric pain today radiating to bach, nausea and vomiti ng today; post appendectomy 2 weeks ago EXAM MEASUREMENTS: Liver Length: 16.3 cm Gallbladder Wall: 0.2 cm CBD: 0.3 cm Right Kidney: 9.6 x 5.9 x 4.6 cm Pancreas: hyperechoic with mid and tail obscured by overlying bowel gas Liver: fatty as is attenuated posteriorly Gallbladder: wnl Evidence for sonographic Benedict's sign: no CBD: wnl Right Kidney: No hydronephrosis or masses seen IMPRESSION: There is evidence of fatty infiltration of the liver. Large gallbladder. No dilated ducts . No gallstones seen.
[2019-10-29] MEDS ORDERED: ONDANSETRON 4 MG/2 ML VIAL IVP PRN (19:20)
[2019-10-29] MEDS ORDERED: NALOXONE 0.4 MG/ML 1 ML VIAL IV PRN (19:20)
[2019-10-29] MEDS ORDERED: THIAMINE 100 MG/ML 2 ML VIAL IM STA (19:30)
[2019-10-29] MEDS ORDERED: TEMAZEPAM 15 MG CAP PO PRN (19:30)
[2019-10-29] MEDS ORDERED: LORazepam 2 MG/ML INJ IV PRN ×3 (19:30)
[2019-10-29] MEDS ORDERED: IOPAMIDOL CONTRAST (ORAL USE) VIAL PO PRN (19:30)
--- NOTE | 2019-10-29 20:55 | HP ---
HISTORY AND PHYSICAL DATE OF SERVICE: 10/29/2019 CHIEF COMPLAINTS: Epigastric pain and nausea. HISTORY OF PRESENT ILLNESS: This 49-year-old gentleman with a past medical history of CAD, history of GERD, hyperlipidemia, history of myocardial infarction, history of hernia, history of CAD, stent, being followed by Dr. Tiffanie Sellers in the outpatient setting, was complaining of epigastric pain. The pain was radiating up and to the back also. The patient had some nausea. The patient vomited. He came to [facility] and was admitted for further evaluation. The patient also had a history of some alcohol intake. The lipase was found to be 1124 and AST and ALT were also elevated. Patient was admitted for further evaluation. Magnesium was 1.3. There is no history of any fever, rigor or chills. No history of headache, loss of consciousness, seizures. PAST MEDICAL HISTORY: CAD, stent, GERD, hyperlipidemia, myocardial infarctions. HOME MEDICATIONS: Zestril, Protonix, multivitamins, Toprol-XL, aspirin, Lipitor, Tylenol. ALLERGIES: NONE. FAMILY HISTORY: History of myocardial infarction in the family. SOCIAL HISTORY: No history of smoking. Occasional alcohol intake. REVIEW OF SYSTEMS: ENT: No diminished hearing. No diminished vision. CARDIOVASCULAR SYSTEM: As mentioned earlier. RESPIRATORY SYSTEM: As mentioned earlier. GI: As mentioned earlier. : No dysuria or retention. NERVOUS SYSTEM: No numbness, weakness. ALLERGY/IMMUNOLOGY: No asthma, hayfever. MUSCULOSKELETAL: As mentioned earlier. HEMATOLOGY/ONCOLOGY: No history of anemia. ENDOCRINE: No history of diabetes, hypothyroidism. CONSTITUTIONAL: As mentioned earlier. DERMATOLOGY: Negative. RHEUMATOLOGY: Negative. PSYCHIATRY: As mentioned earlier. PHYSICAL EXAMINATION: Patient is alert, oriented x3. The pulse is 102, blood pressure 180/118, respiration 18, temperature 98.1, pulse ox 99% on 3 L. HEENT: Conjunctivae normal. Oral mucosa moist. NECK: No jugular venous distention. No carotid bruit. No lymph node enlargement. CARDIOVASCULAR SYSTEM: S1, S2 muffled. RESPIRATORY SYSTEM: Breath sounds diminished at the bases. No rhonchi. No crackles. ABDOMEN: Soft. Mild diffuse tenderness present. No guarding or rigidity. LEGS: No edema. No swelling. NERVOUS SYSTEM: Higher functions as mentioned earlier. Moves all 4 limbs. No focal motor or sensory deficit. LYMPHATICS: No lymph node palpable in neck, axillae or groin. SKIN: No ulcer, rash, bleeding. JOINTS: No active deforming arthropathy. LABS: WBC 13.8, hemoglobin 16.3, sodium 132. AST and ALT noted. ASSESSMENT: 1. Acute abdominal pain with possibly acute pancreatitis. 2. Rule out coronary artery disease. 3. History of coronary artery disease, stent. 4. Elevated AST, ALT. 5. History of ETOH. 6. Hypomagnesemia. 7. Elevated lipase. 8. Increased white count. 9. History of gastroesophageal reflux disease. 10.Hyperlipidemia. 11.History of myocardial infarction. 12.History of hernias. RECOMMENDATIONS AND DISCUSSION: In this 49-year-old gentleman who presented with multiple complex medical issues, we will monitor the patient closely, continue the current medications, continue with symptomatic treatment. Otherwise at this time I would recommend a CT scan of the abdomen and pelvis, cardiology evaluation, gastroenterology evaluation. Symptomatic treatment. I would also recommend empiric antibiotics. WA protocol. Resume the home medications. Guarded prognosis because of multiple complex medical issues. Further recommendations to follow. A copy of this dictation is being forwarded to Dr. Tiffanie Sellers, who is the primary physician. MMODL / IJN: [id number] /
[2019-10-29] MEDS ORDERED: PANTOPRAZOLE 40 MG/10 ML VIAL IVP SCH (21:00)
[2019-10-29] MEDS: HYDROmorphone 1 MG/ML 1 ML SYRINGE IVP PRN (21:35)
--- NOTE | 2019-10-29 21:42 | CT ---
EXAMINATION TYPE: CT abdomen pelvis wo con DATE OF EXAM: 10/29/2019 COMPARISON: 10/13/2019 HISTORY: Epigastric abdominal pain and vomiting CT DLP: 655.8 mGycm Automated exposure control for dose reduction was used. There is oral contrast only. The lung bases are clear. There is no pleural effusion. Heart size is normal. There is no pericardial effusion. Stomach appears normal. Liver spleen gallbladder appear normal. Bile ducts are not dilated . There is fat stranding around the body and head of the pancreas. The pancreatic tail appears fairly normal. There is no evidence of free air. There is mild thickening of the wall of the descending duo denum. The bile ducts are not dilated. There is no adrenal mass. Kidneys show normal size and contour. There is no hydronephrosis. Ureters a re not dilated. There is no retroperitoneal adenopathy. There is small amount of fluid in the right a nterior pararenal space. Bladder distends smoothly. There is right inguinal hernia that contains fat. There is no evidence of a pelvic mass. There is no free fluid in the pelvis. There is no evidence of thickened appendix. There is no evidence of a bowel obstruction. There is no ascites. There is no sign of free air. Lumbar vertebra have normal alignment. Disc spaces are fairly normal. There is no compression fractur e. I see no bony destructive process. Bony pelvis is intact. IMPRESSION: Inflammatory changes around the pancreas and descending duodenum are a change compared to old exam an d could relate to acute pancreatitis or severe duodenitis. Mild right side retroperitoneal fluid accu mulation is new compared to old exam also. No free air. No bowel obstruction.
[2019-10-29] MEDS: MEROPENEM 2 GM in SODIUM CHLORIDE 0.9% 100 ML IVPB SCH (22:24)
[2019-10-29] MEDS: SODIUM CHLORIDE 0.9% 1,000 ML IV SCH (22:24)
[2019-10-29] MEDS: HEPARIN SODIUM,PORCINE 5,000 UNIT/ML 1 ML VIAL SQ SCH (22:24)
[2019-10-30] MEDS: HYDROmorphone 1 MG/ML 1 ML SYRINGE IVP PRN ×5 (02:16→18:48)
[2019-10-30 02:32] LABS: Appearance,Urine Clear (Clear); Bilirubin,Urine Negative (Negative); Blood,Urine Negative (Negative); Color,Urine Yellow; Glucose,Urine (UA) Negative (Negative); Ketones,Urine 1+ (Negative); Leukocyte Esterase,Urine Negative (Negative); Nitrite,Urine Negative (Negative); PH, Urine 6.5 (5.0-8.0); Protein,Urine Trace (Negative); Specific Gravity,Urine 1.028 (1.001-1.035); Urobilinogen,Urine <2.0 mg/dL (<2.0)
[2019-10-30] MEDS: HYDROcodone/APAP 5-325MG 1 EACH TAB PO PRN ×3 (03:15→22:22)
[2019-10-30] MEDS: MEROPENEM 2 GM in SODIUM CHLORIDE 0.9% 100 ML IVPB SCH ×3 (05:30→20:35)
[2019-10-30 06:33] LABS: Basophils % (A) 0 %; Eosinophils # (A) 0.1 k/uL (0-0.7); Eosinophils % (A) 1 %; HCT 40.6 % (39.0-53.0); HGB 14.2 gm/dL (13.0-17.5); Lymphocytes # (A) 1.6 k/uL (1.0-4.8); Lymphocytes % (A) 13 %; MCH 33.5 pg (25.0-35.0); MCV 95.9 fL (80.0-100.0); Mean Platelet Volume 7.6; Monocytes # (A) 0.5 k/uL (0-1.0); Monocytes % (A) 4 %; Neutrophils # (A) 9.3 k/uL (1.3-7.7); Neutrophils % (A) 80 %; Platelet Count 135 k/uL (150-450); RBC 4.24 m/uL (4.30-5.90); RDW 12.4 % (11.5-15.5); WBC 11.6 k/uL (3.8-10.6)
[2019-10-30 07:01] LABS: ALT 121 U/L (4-49); AST 147 U/L (17-59); African American GFR (CKD) >90 (>60 ml/min/1.73 sqM); Albumin 3.1 g/dL (3.5-5.0); Alkaline Phosphatase 95 U/L (38-126); Amylase 71 U/L (30-110); Anion Gap 6 mmol/L; Blood Urea Nitrogen 8 mg/dL (9-20); Calcium 8.3 mg/dL (8.4-10.2); Carbon Dioxide 24 mmol/L (22-30); Chloride 99 mmol/L (98-107); Cholesterol 104 mg/dL (<200); Glucose 112 mg/dL (74-99); HDL Cholesterol 42 mg/dL (40-60); Non-African American GFR(CKD) >90 (>60 ml/min/1.73 sqM); Potassium 3.7 mmol/L (3.5-5.1); Sodium 129 mmol/L (137-145); Total Bilirubin 1.4 mg/dL (0.2-1.3); Total Protein 5.5 g/dL (6.3-8.2); Triglycerides 489 mg/dL (<150)
[2019-10-30] MEDS: PANTOPRAZOLE 40 MG/10 ML VIAL IVP SCH ×2 (08:15→20:35)
[2019-10-30] MEDS: HEPARIN SODIUM,PORCINE 5,000 UNIT/ML 1 ML VIAL SQ SCH ×2 (08:15→20:35)
[2019-10-30] MEDS: METOPROLOL SUCCINATE (ER) 50 MG TAB.ER.24H PO SCH (08:16)
[2019-10-30] MEDS: SODIUM CHLORIDE 0.9% 1,000 ML IV SCH ×2 (08:16→20:36)
[2019-10-30] MEDS: MULTIVITAMINS, THERA 1 EACH TAB PO SCH (08:16)
[2019-10-30] MEDS: ASPIRIN 81 MG PO SCH (08:16)
[2019-10-30] MEDS ORDERED: lisinopriL 10 MG TAB PO SCH (09:00)
--- NOTE | 2019-10-30 13:08 | CONS ---
CONSULTATION DATE OF SERVICE: October 30, 2019. REASON FOR CONSULTATION: Acute pancreatitis. REQUESTING PHYSICIAN: Dr. Sellers. HISTORY OF PRESENT ILLNESS: The patient is a 49-year-old pleasant white male with history of moderate amount of drinking and history of hypertension and GERD, admitted to hospital with acute onset of severe epigastric pain that started around noon yesterday. The pain was very intense, radiating to the back associated with nausea, vomiting, came to the emergency room and was noted to have elevated amylase and lipase consistent with acute pancreatitis. The patient drinks about 4-6 cans of beer every day for almost 20 years. No history of chronic liver disease. This morning, he is feeling better. The epigastric pain has improved. Nausea and vomiting has resolved. PAST MEDICAL HISTORY: GERD, coronary artery disease, status post stent placement in the past, hypertension, hyperlipidemia. MEDICATIONS: At home, Zestril, Protonix, multivitamin, Toprol, aspirin, Lipitor Tylenol. ALLERGIES: None. SOCIAL HISTORY: Chronic smoker. Alcohol use as mentioned above. FAMILY HISTORY: Unremarkable. REVIEW OF SYSTEMS: CARDIOPULMONARY: No chest pain, no shortness of breath. : No dysuria or hematuria. MUSCULOSKELETAL unremarkable. SKIN unremarkable. ENDOCRINE unremarkable. PSYCHIATRIC: Unremarkable. NEUROLOGY: Unremarkable. ENT/VISION: Unremarkable. CONSTITUTIONAL: No recent weight loss. No fever, chills, night sweats. PHYSICAL EXAMINATION: Appears comfortable. No apparent distress. Vital signs stable. Blood pressure is 166/106, pulse rate 95, temperature 98.7. HEENT examination unremarkable. Conjunctivae pink. Sclerae anicteric. Oral cavity no lesions. NECK: No JVD or lymph node enlargement. CHEST was clear to auscultation. HEART: Regular rate and rhythm. ABDOMEN: Soft. Bowel sounds are positive. Tenderness in the epigastric area. Rest of the abdomen was benign. EXTREMITIES: No pedal edema. SKIN no rashes. NEUROLOGIC: Alert and oriented x3. No focal deficits. LAB: Lipase yesterday 1124, today it is 724. ALT and AST were 299 and 140 respectively. T bilirubin and alkaline phosphatase are normal. Today T-bilirubin is 1.4, AST is 147, ALT is 121, and lipase is down to 721. WBC 11.6, hemoglobin 14.2, and platelets are 130. CT of the abdomen done yesterday did show evidence of hepatomegaly with dilated gallbladder but no gallstones or biliary ductal dilation noted. Also some inflammatory changes on the pancreas along the descending duodenum noted. IMPRESSION: 1. Acute pancreatitis, first episode most likely related to alcohol use. The patient has history of moderate amount of drinking 5-6 cans of beer for the last 20 years. Lipase is gradually improving. 2. 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 Ultrasound did not show any evidence of gallstones or biliary ductal dilation. 3. History of coronary artery disease. 4. Gastroesophageal reflux disease. RECOMMENDATIONS: 1. Keep him on a clear liquid diet. 2. I had a lengthy discussion with the patient regarding importance of abstinence from alcohol. 3. Repeat labs tomorrow morning. 4. We will follow with you closely. Thank you for this consultation. MMODL / IJN: [id number] /
--- NOTE | 2019-10-30 14:42 | P.GSCN ---
History of Present Illness Consult date: 10/30/19 History of present illness: CHIEF COMPLAINT: Epigastric abdominal pain x 1 day. HISTORY OF PRESENT ILLNESS: The patient is a 49-year-old male well known to me from recent appendectomy 2 weeks ago. He reports chronic alcohol use. He had 4 to 5 beers yesterday. "It felt like I was having a heart attack!" He reports epigastric pain. Overall, his severe epigastric abdominal pain is now moderate. "The pain wraps around to my right side and back." He also had an ultrasound of the abdomen. No previous attacks. He reports this is his first attack despite his heavy alcohol use. PAST MEDICAL HISTORY: See list and reviewed. PAST SURGICAL HISTORY: See list and reviewed. CURRENT MEDICATIONS: See list and reviewed. ALLERGIES: See list and reviewed. SOCIAL HISTORY: See list and reviewed. FAMILY HISTORY: No Crohns disease and ulcerative colitis. REVIEW OF ORGAN SYSTEMS: CONSTITUTIONAL: Present fever, no chills. HEENT: Denies any trouble with vision, hearing or nosebleeds. No difficulty swallowing. LYMPHATIC: The patient denies any lumps and bumps around the neck. ENDOCRINE: Denies any thyroid disorders. Denies any blood sugar glucose intolerance. RESPIRATORY: Denies shortness of breath including chronic cough. CARDIOVASCULAR: Past myocardial ischemia requiring stent placement in 2016 GASTROINTESTINAL: Denies regurgitation of bile at night as well as intermittent nausea. No blood in stools. GENITOURINARY: Denies any blood in urine or increased urinary frequency. ` MUSCULOSKELETAL: Has current joint arthritis. NEUROLOGIC: Denies any numbness or tingling along the distal extremities. No seizure disorders or headaches. PSYCHIATRIC: Denies any depression or suicidal ideation. HEMATOLOGIC: Denies any abnormal bleeding or bruising. PHYSICAL EXAMINATION: VITALS: Reviewed GENERAL: general well-developed male in no acute distress. Pleasant. HEENT: No sclera icterus. Extraocular movements grossly intact. Moist buccal mucosa. Head is atraumatic, normocephalic. Hears conversational speech. No nasal drainage. NECK: Supple without lymphadenopathy. No JV distention. CHEST: Non-labored respirations and equal bilateral excursions. CARDIOVASCULAR: Regular rate and rhythm. Palpable 2+ radial pulses. ABDOMEN: No peritonitis. Epigastric tenderness. All incisions granulated. MUSCULOSKELETAL: No clubbing, cyanosis or edema. NEUROLOGIC: No focal or lateralizing signs. PSYCH: Appropriate affect. Alert and oriented to person, place and time. SKIN: Well perfused. Good skin turgor. LABS: Reviewed. White blood cell count 13.8 down to 11.6. Hgb 16.3 down to 14.2. Lipase 1124 down to 721. STUDIES: Ultrasound of the gallbladder independently reviewed without stones or cholecystitis. CT of the abdomen and pelvis report with inflammatory changes along the head of the pancreas. RADIOLOGY: CT of the abdomen and pelvis confirms inflammation along the duodenum and pancreas. US gallbladder shows fatty liver disease without gallstones. EKG: Reviewed show sinus tachycardia with inferior infarct. ASSESSMENT: 1. Pancreatitis, acute 2. Alcohol abuse PLAN: 1. Alcohol cessation advised. 2. Do not advance diet until abdominal pain resolved 3. Usual time frame for pancreatitis, at least 3 days hospitalization described Past Medical History Past Medical History: Coronary Artery Disease (CAD), GERD/Reflux, Hyperlipidemia, Myocardial Infarction ([place]) Additional Past Medical History / Comment(s): [place] 01/2216 with stent placement X2 LAD. RT ING, & UMB HERNIAS. Last Myocardial Infarction Date:: 01/27/16 History of Any Multi-Drug Resistant Organisms: None Reported Past Surgical History: Appendectomy, Heart Catheterization With Stent Additional Past Surgical History / Comment(s): [place] 01/26 with stent placement X2 LAD Past Anesthesia/Blood Transfusion Reactions: No Reported Reaction Date of Last Stent Placement:: 01/27/16 Past Psychological History: No Psychological Hx Reported Smoking Status: Never smoker Past Alcohol Use History: Occasional Additional Past Alcohol Use History / Comment(s): 6 BEERS DAILY Past Drug Use History: None Reported - Past Family History Father History Unknown: Yes Mother Family Medical History: Myocardial Infarction ([place]) Brother(s) Family Medical History: Diabetes Mellitus Medications and Allergies Home Medications Medication Instructions Recorded Confirmed Type lisinopriL [Zestril] 10 mg PO DAILY #30 tab 01/30/16 10/29/19 Rx Atorvastatin [Lipitor] 80 mg PO Q48H 10/13/19 10/29/19 History Metoprolol Succinate [Toprol XL] 50 mg PO DAILY 10/13/19 10/29/19 History Multivitamins, Thera [Multivitamin 1 tab PO DAILY 10/13/19 10/29/19 History (formulary)] Pantoprazole [Protonix] 40 mg PO HS 10/13/19 10/29/19 History Acetaminophen Tab [Tylenol Tab] 1,000 mg PO Q6HR PRN #30 tablet 10/15/19 10/29/19 Rx Aspirin 81 mg PO DAILY chew 10/15/19 10/29/19 Rx Allergies Allergy/AdvReac Type Severity Reaction Status Date / Time No Known Allergies Allergy Verified 10/29/19 17:12 Surgical - Exam Vital Signs Temp Pulse Resp BP Pulse Ox 98.1 F 107 H 20 164/124 100 10/29/19 15:59 10/29/19 15:59 10/29/19 15:59 10/29/19 15:59 10/29/19 15:59 Results - Labs 10/30/19 05:37 10/30/19 05:37 Abnormal Lab Results - Last 24 Hours (Table) 10/29/19 10/29/19 10/30/19 Range/Units 17:25 17:25 02:20 WBC 13.8 H (3.8-10.6) k/uL RBC (4.30-5.90) m/uL Plt Count (150-450) k/uL Neutrophils # 11.8 H (1.3-7.7) k/uL Sodium 132 L (137-145) mmol/L BUN (9-20) mg/dL Glucose 118 H (74-99) mg/dL Calcium (8.4-10.2) mg/dL Magnesium 1.3 L (1.6-2.3) mg/dL Total Bilirubin (0.2-1.3) mg/dL AST 299 H (17-59) U/L ALT 148 H (4-49) U/L Total Protein (6.3-8.2) g/dL Albumin (3.5-5.0) g/dL Triglycerides (<150) mg/dL Lipase 1124 H (23-300) U/L Urine Protein Trace H (Negative) Urine Ketones 1+ H (Negative) 10/30/19 10/30/19 Range/Units 05:37 05:37 WBC 11.6 H (3.8-10.6) k/uL RBC 4.24 L (4.30-5.90) m/uL Plt Count 135 L (150-450) k/uL Neutrophils # 9.3 H (1.3-7.7) k/uL Sodium 129 L (137-145) mmol/L BUN 8 L (9-20) mg/dL Glucose 112 H (74-99) mg/dL Calcium 8.3 L (8.4-10.2) mg/dL Magnesium (1.6-2.3) mg/dL Total Bilirubin 1.4 H (0.2-1.3) mg/dL AST 147 H (17-59) U/L ALT 121 H (4-49) U/L Total Protein 5.5 L (6.3-8.2) g/dL Albumin 3.1 L (3.5-5.0) g/dL Triglycerides 489 H (<150) mg/dL Lipase 721 H (23-300) U/L Urine Protein (Negative) Urine Ketones (Negative) Diabetes panel 10/29/19 10/30/19 Range/Units 17:25 05:37 Sodium 132 L 129 L (137-145) mmol/L Potassium 4.0 3.7 (3.5-5.1) mmol/L Chloride 99 99 (98-107) mmol/L Carbon Dioxide 24 24 (22-30) mmol/L BUN 13 8 L (9-20) mg/dL Creatinine 0.94 0.81 (0.66-1.25) mg/dL Glucose 118 H 112 H (74-99) mg/dL Calcium 9.2 8.3 L (8.4-10.2) mg/dL AST 299 H 147 H (17-59) U/L ALT 148 H 121 H (4-49) U/L Alkaline Phosphatase 111 95 (38-126) U/L Total Protein 6.6 5.5 L (6.3-8.2) g/dL Albumin 3.9 3.1 L (3.5-5.0) g/dL Triglycerides 489 H (<150) mg/dL HDL Cholesterol 42 (40-60) mg/dL Calcium panel 10/29/19 10/30/19 Range/Units 17:25 05:37 Calcium 9.2 8.3 L (8.4-10.2) mg/dL Albumin 3.9 3.1 L (3.5-5.0) g/dL Pituitary panel 10/29/19 10/30/19 Range/Units 17:25 05:37 Sodium 132 L 129 L (137-145) mmol/L Potassium 4.0 3.7 (3.5-5.1) mmol/L Chloride 99 99 (98-107) mmol/L Carbon Dioxide 24 24 (22-30) mmol/L BUN 13 8 L (9-20) mg/dL Creatinine 0.94 0.81 (0.66-1.25) mg/dL Glucose 118 H 112 H (74-99) mg/dL Calcium 9.2 8.3 L (8.4-10.2) mg/dL Adrenal panel 10/29/19 10/30/19 Range/Units 17:25 05:37 Sodium 132 L 129 L (137-145) mmol/L Potassium 4.0 3.7 (3.5-5.1) mmol/L Chloride 99 99 (98-107) mmol/L Carbon Dioxide 24 24 (22-30) mmol/L BUN 13 8 L (9-20) mg/dL Creatinine 0.94 0.81 (0.66-1.25) mg/dL Glucose 118 H 112 H (74-99) mg/dL Calcium 9.2 8.3 L (8.4-10.2) mg/dL Total Bilirubin 0.8 1.4 H (0.2-1.3) mg/dL AST 299 H 147 H (17-59) U/L ALT 148 H 121 H (4-49) U/L Alkaline Phosphatase 111 95 (38-126) U/L Total Protein 6.6 5.5 L (6.3-8.2) g/dL Albumin 3.9 3.1 L (3.5-5.0) g/dL Assessment and Plan (1) Epigastric pain Current Visit: Yes Status: Acute Code(s): R10.13 - EPIGASTRIC PAIN SNOMED Code(s): 33851946 (2) Alcohol abuse Current Visit: Yes Status: Acute Code(s): F10.10 - ALCOHOL ABUSE, UNCOMPLICATED SNOMED Code(s): 65683582 (3) Acute pancreatitis Current Visit: Yes Status: Acute Code(s): K85.90 - ACUTE PANCREATITIS WITHOUT NECROSIS OR INFECTION, UNSP SNOMED Code(s): 728842212
--- NOTE | 2019-10-30 16:37 | P.CRDCN ---
History of Present Illness History of present illness: This is Tiffany Hernandez PA-C dictating a consult on this patient The patient was interviewed and examined by me as well as by Dr. Keith Case discussed with Dr. Keith and he agrees with the plan of care HPI Patient is a 49-year-old male with a history of CAD status post stenting years ago, hypertension, dyslipidemia, daily alcohol use who presented with complaints of abdominal pain, nausea and vomiting. Patient states he saw a flower planter about 6 or 7 years ago but has not followed up since then. He cannot recall his flower planter. He states that yesterday he developed severe epigastric/right upper quadrant pain which radiated to his back. He had associated sweating, nausea, vomiting, and shortness of breath. He had never had symptoms like this before. He previously had an [place] and stenting years ago and reports he had neck discomfort and shoulder discomfort with this. These symptoms are not similar to those symptoms. He presented to the emergency department for evaluation. EKG showed sinus mechanism without any acute changes. CT of the abdomen and pelvis showed inflammatory changes around the pancreas and descending duodenum which could relate to acute pancreatitis her severe duodenitis. Labs are significant for elevated lipase AST and ALT. Troponins are negative. Patient seen and examined resting in bed. Continues to have epigastric pain. No chest pain. No shortness of breath. He admits to drinking about 6 beers a day Denies diabetes ROS: No fevers, chills or rigors, no cough, phlegm or expectoration, Positive for nausea and vomiting no hematuria, dysuria, no musculoskeletal complaints, no strokes or seizures, no skin lesions. EXAMINATION: Patient is afebrile, pulse in the 70s, respirations 18, blood pressure 160/100, oxygen saturation 98% on room air Patient seen and examined resting in bed, in no acute distress Heart is regular, no audible murmurs Lungs are clear to auscultation bilaterally Tenderness to palpation epigastric area REVIEW OF LABS, ECG & MEDICAL DATA WBC 11.6, hemoglobin 14.2, platelets 135, potassium 3.7, BUN 8, creatinine 0.81, AST 147 ALT 121 lipase 721 IMPRESSION / ASSESSMENT: #1 symptoms of abdominal pain, nausea and vomiting secondary to pancreatitis likely secondary to alcohol use #2 history of CAD status post stenting #3 dyslipidemia #4 hypertension #5 daily alcohol use #6 elevated liver enzymes, likely related to alcohol use PLAN: Discussion with the patient regarding alcohol cessation Increase lisinopril to 10 mg twice a day Continue beta blockers and aspirin Reinitiation of statins when okay by GI Management of pancreatitis per primary team and multiple consultants Past Medical History Past Medical History: Coronary Artery Disease (CAD), GERD/Reflux, Hyperlipidemia, Myocardial Infarction ([place]) Additional Past Medical History / Comment(s): [place] 01/2216 with stent placement X2 LAD. RT ING, & UMB HERNIAS. Last Myocardial Infarction Date:: 01/27/16 History of Any Multi-Drug Resistant Organisms: None Reported Past Surgical History: Appendectomy, Heart Catheterization With Stent Additional Past Surgical History / Comment(s): [place] 01/26 with stent placement X2 LAD Past Anesthesia/Blood Transfusion Reactions: No Reported Reaction Date of Last Stent Placement:: 01/27/16 Past Psychological History: No Psychological Hx Reported Smoking Status: Never smoker Past Alcohol Use History: Occasional Additional Past Alcohol Use History / Comment(s): 6 BEERS DAILY Past Drug Use History: None Reported - Past Family History Father History Unknown: Yes Mother Family Medical History: Myocardial Infarction ([place]) Brother(s) Family Medical History: Diabetes Mellitus Medications and Allergies Home Medications Medication Instructions Recorded Confirmed Type lisinopriL [Zestril] 10 mg PO DAILY #30 tab 01/30/16 10/29/19 Rx Atorvastatin [Lipitor] 80 mg PO Q48H 10/13/19 10/29/19 History Metoprolol Succinate [Toprol XL] 50 mg PO DAILY 10/13/19 10/29/19 History Multivitamins, Thera [Multivitamin 1 tab PO DAILY 10/13/19 10/29/19 History (formulary)] Pantoprazole [Protonix] 40 mg PO HS 10/13/19 10/29/19 History Acetaminophen Tab [Tylenol Tab] 1,000 mg PO Q6HR PRN #30 tablet 10/15/19 10/29/19 Rx Aspirin 81 mg PO DAILY chew 10/15/19 10/29/19 Rx Allergies Allergy/AdvReac Type Severity Reaction Status Date / Time No Known Allergies Allergy Verified 10/29/19 17:12 Physical Exam Vitals: Vital Signs Temp Pulse Pulse Resp BP BP Pulse Ox 10/30/19 15:21 99.6 F 74 16 160/100 98 10/30/19 12:00 16 10/30/19 11:53 97.7 F 68 16 151/90 97 10/30/19 08:00 16 10/30/19 07:32 98.7 F 95 16 169/106 95 10/30/19 03:10 98.9 F 92 18 159/79 99 10/29/19 23:15 18 10/29/19 22:20 98.4 F 89 18 162/108 96 10/29/19 19:00 158/110 10/29/19 18:30 159/116 10/29/19 18:15 159/109 10/29/19 17:47 90 16 159/103 Intake and Output 10/30/19 10/30/19 10/30/19 06:59 14:59 22:59 Other: # Voids 2 Weight 74 kg Results 10/30/19 05:37 10/30/19 05:37 Cardiac Enzymes 10/29/19 10/29/19 10/30/19 Range/Units 17:25 17:25 05:37 AST 299 H 147 H (17-59) U/L Troponin I <0.012 (0.000-0.034) ng/mL 10/30/19 Range/Units 05:37 AST (17-59) U/L Troponin I <0.012 (0.000-0.034) ng/mL Coagulation 10/29/19 Range/Units 17:25 PT 11.5 (9.0-12.0) sec APTT 22.8 (22.0-30.0) sec Lipids 10/30/19 Range/Units 05:37 Triglycerides 489 H (<150) mg/dL Cholesterol 104 (<200) mg/dL HDL Cholesterol 42 (40-60) mg/dL CBC 10/29/19 10/30/19 Range/Units 17:25 05:37 WBC 13.8 H 11.6 H (3.8-10.6) k/uL RBC 4.88 4.24 L (4.30-5.90) m/uL Hgb 16.3 D 14.2 (13.0-17.5) gm/dL Hct 47.0 40.6 (39.0-53.0) % Plt Count 170 135 L (150-450) k/uL Comprehensive Metabolic Panel 10/29/19 10/30/19 Range/Units 17:25 05:37 Sodium 132 L 129 L (137-145) mmol/L Potassium 4.0 3.7 (3.5-5.1) mmol/L Chloride 99 99 (98-107) mmol/L Carbon Dioxide 24 24 (22-30) mmol/L BUN 13 8 L (9-20) mg/dL Creatinine 0.94 0.81 (0.66-1.25) mg/dL Glucose 118 H 112 H (74-99) mg/dL Calcium 9.2 8.3 L (8.4-10.2) mg/dL AST 299 H 147 H (17-59) U/L ALT 148 H 121 H (4-49) U/L Alkaline Phosphatase 111 95 (38-126) U/L Total Protein 6.6 5.5 L (6.3-8.2) g/dL Albumin 3.9 3.1 L (3.5-5.0) g/dL Current Medications Generic Name Dose Route Start Last Admin Trade Name Freq PRN Reason Stop Dose Admin Hydrocodone Bitart/Acetaminophen 1 each 10/29/19 19:30 10/30/19 10:48 [place] 5-325 PO 1 each Q6HR PRN Administration Pain Aspirin 81 mg 10/30/19 09:00 10/30/19 08:16 Aspirin PO 81 mg DAILY JUANITA Administration Heparin Sodium (Porcine) 5,000 unit 10/29/19 21:00 10/30/19 08:15 Heparin SQ 5,000 unit Q12HR JUANITA Administration Hydromorphone HCl 0.5 mg 10/29/19 19:20 Dilaudid IVP Q3HR PRN Moderate Pain Hydromorphone HCl 1 mg 10/29/19 19:20 10/30/19 15:42 Dilaudid IVP 1 mg Q3HR PRN Administration Severe Pain Sodium Chloride 1,000 mls @ 75 mls/hr 10/29/19 19:30 10/30/19 08:16 Saline 0.9% IV 75 mls/hr .[id number] JUANITA Administration Meropenem 2 gm/ Sodium 100 mls @ 200 mls/hr 10/29/19 21:00 10/30/19 11:59 Chloride IVPB 200 mls/hr Q8H JUANITA Administration Protocol Iopamidol 30 ml 07/24/20 19:30 Isovue-300 (For Oral Use) PO 10/30/19 19:[address] Scan Lisinopril 10 mg 10/30/19 21:00 Zestril PO BID JUANITA Lorazepam 1 mg 10/29/19 19:30 Ativan IV Q2HR PRN CIWA 8 or 9 Lorazepam 1 mg 10/29/19 19:30 Ativan IV Q1HR PRN CIWA 10 to 15 Lorazepam 2 mg 10/29/19 19:30 Ativan IV 10/31/19 19:30 Q10M PRN CIWA 16 or higher Metoprolol Succinate 50 mg 10/30/19 09:00 10/30/19 08:16 Toprol Xl PO 50 mg DAILY JUANITA Administration Multivitamins 1 each 10/30/19 09:00 10/30/19 08:16 Theragran PO 1 each DAILY JUANITA Administration Naloxone HCl 0.2 mg 10/29/19 19:20 Narcan IV Q2M PRN Opioid Reversal Ondansetron HCl 4 mg 10/29/19 19:20 10/30/19 07:29 Zofran IVP 4 mg Q8HR PRN Administration Nausea And Vomiting Pantoprazole Sodium 40 mg 10/30/19 09:00 10/30/19 08:15 Protonix IVP 40 mg BID JUANITA Administration Temazepam 15 mg 10/29/19 19:30 Restoril PO HS PRN Insomnia Intake and Output 10/30/19 10/30/19 10/30/19 06:59 14:59 22:59 Other: # Voids 2 Weight 74 kg 10/30/19 05:37 10/30/19 05:37
[2019-10-30 17:49] LABS: Glucose,Whole Blood 113 mg/dL (75-99)
[2019-10-30 20:03] LABS: Glucose,Whole Blood 120 mg/dL (75-99)
[2019-10-30] MEDS: lisinopriL 10 MG TAB PO SCH (20:35)
[2019-10-31] MEDS: MEROPENEM 2 GM in SODIUM CHLORIDE 0.9% 100 ML IVPB SCH ×3 (05:39→20:19)
[2019-10-31] MEDS: HYDROmorphone 0.5 MG/0.5 ML SYRINGE IVP PRN ×3 (06:12→21:14)
[2019-10-31 06:41] LABS: Basophils % (A) 0 %; Eosinophils # (A) 0.1 k/uL (0-0.7); Eosinophils % (A) 1 %; HCT 41.2 % (39.0-53.0); HGB 13.6 gm/dL (13.0-17.5); Lymphocytes % (A) 8 %; MCH 31.7 pg (25.0-35.0); Mean Platelet Volume 7.6; Monocytes # (A) 0.6 k/uL (0-1.0); Monocytes % (A) 5 %; Neutrophils # (A) 10.3 k/uL (1.3-7.7); Neutrophils % (A) 84 %; Platelet Count 127 k/uL (150-450); RBC 4.29 m/uL (4.30-5.90); RDW 12.4 % (11.5-15.5); WBC 12.2 k/uL (3.8-10.6)
[2019-10-31 06:50] LABS: ALT 93 U/L (4-49); AST 85 U/L (17-59); African American GFR (CKD) >90 (>60 ml/min/1.73 sqM); Albumin 3.4 g/dL (3.5-5.0); Alkaline Phosphatase 134 U/L (38-126); Amylase 49 U/L (30-110); Anion Gap 6 mmol/L; Blood Urea Nitrogen 4 mg/dL (9-20); Calcium 8.7 mg/dL (8.4-10.2); Carbon Dioxide 27 mmol/L (22-30); Chloride 96 mmol/L (98-107); Glucose 104 mg/dL (74-99); Non-African American GFR(CKD) >90 (>60 ml/min/1.73 sqM); Sodium 129 mmol/L (137-145); Total Bilirubin 1.4 mg/dL (0.2-1.3); Total Protein 5.9 g/dL (6.3-8.2)
[2019-10-31] MEDS: MULTIVITAMINS, THERA 1 EACH TAB PO SCH (08:46)
[2019-10-31] MEDS: lisinopriL 10 MG TAB PO SCH ×2 (08:46→20:18)
[2019-10-31] MEDS: HEPARIN SODIUM,PORCINE 5,000 UNIT/ML 1 ML VIAL SQ SCH ×2 (08:47→20:18)
[2019-10-31] MEDS: PANTOPRAZOLE 40 MG/10 ML VIAL IVP SCH ×2 (08:47→20:18)
[2019-10-31] MEDS: METOPROLOL SUCCINATE (ER) 50 MG TAB.ER.24H PO SCH (08:47)
[2019-10-31] MEDS: ASPIRIN 81 MG PO SCH (08:47)
[2019-10-31] MEDS: HYDROcodone/APAP 5-325MG 1 EACH TAB PO PRN (08:56)
--- NOTE | 2019-10-31 10:04 | P.PN ---
Subjective Progress Note Date: 10/30/19 Principal diagnosis: Acute pancreatitis Transaminitis/ history of EtOH abuse 49-year-old male patient with history of CAD, hyperlipidemia admitted with acute pancreatitis; patient does have history of alcohol abuse Objective - Vital Signs Vital signs: Vital Signs Temp 98.7 F 10/30/19 07:32 Pulse 95 10/30/19 07:32 Resp 16 10/30/19 08:00 BP 169/106 10/30/19 07:32 Pulse Ox 95 10/30/19 07:32 Intake & Output 10/29/19 10/30/19 10/30/19 18:59 06:59 18:59 Weight 74.843 kg 74 kg Other: # Voids 2 - Exam PHYSICAL EXAMINATION: GENERAL: The patient is alert and oriented x3, not in any acute distress. Well developed, well nourished. HEENT: Pupils are round and equally reacting to light. EOMI. No scleral icterus. No conjunctival pallor. Normocephalic, atraumatic. No pharyngeal erythema. No thyromegaly. CARDIOVASCULAR: S1 and S2 present. No murmurs, rubs, or gallops. PULMONARY: Chest is clear to auscultation, no wheezing or crackles. ABDOMEN: Soft, nontender, nondistended, normoactive bowel sounds. No palpable organomegaly. MUSCULOSKELETAL: No joint swelling or deformity. EXTREMITIES: No cyanosis, clubbing, or pedal edema. NEUROLOGICAL: Gross neurological examination did not reveal any focal deficits. SKIN: No rashes. - Labs CBC & Chem 7: 10/31/19 06:19 10/31/19 06:19 Labs: Abnormal Lab Results - Last 24 Hours (Table) 10/29/19 10/29/19 10/30/19 Range/Units 17:25 17:25 02:20 WBC 13.8 H (3.8-10.6) k/uL RBC (4.30-5.90) m/uL Plt Count (150-450) k/uL Neutrophils # 11.8 H (1.3-7.7) k/uL Sodium 132 L (137-145) mmol/L BUN (9-20) mg/dL Glucose 118 H (74-99) mg/dL Calcium (8.4-10.2) mg/dL Magnesium 1.3 L (1.6-2.3) mg/dL Total Bilirubin (0.2-1.3) mg/dL AST 299 H (17-59) U/L ALT 148 H (4-49) U/L Total Protein (6.3-8.2) g/dL Albumin (3.5-5.0) g/dL Triglycerides (<150) mg/dL Lipase 1124 H (23-300) U/L Urine Protein Trace H (Negative) Urine Ketones 1+ H (Negative) 10/30/19 10/30/19 Range/Units 05:37 05:37 WBC 11.6 H (3.8-10.6) k/uL RBC 4.24 L (4.30-5.90) m/uL Plt Count 135 L (150-450) k/uL Neutrophils # 9.3 H (1.3-7.7) k/uL Sodium 129 L (137-145) mmol/L BUN 8 L (9-20) mg/dL Glucose 112 H (74-99) mg/dL Calcium 8.3 L (8.4-10.2) mg/dL Magnesium (1.6-2.3) mg/dL Total Bilirubin 1.4 H (0.2-1.3) mg/dL AST 147 H (17-59) U/L ALT 121 H (4-49) U/L Total Protein 5.5 L (6.3-8.2) g/dL Albumin 3.1 L (3.5-5.0) g/dL Triglycerides 489 H (<150) mg/dL Lipase 721 H (23-300) U/L Urine Protein (Negative) Urine Ketones (Negative) Assessment and Plan Assessment: 1. Acute pancreatitis; - Patient remains on clear liquid diet; continue with IV fluids; monitor lipase level; counseling done on need for abstinence for EtOH use; GI is following - Pain control with IV Dilaudid when necessary 2. Transaminitis; possibly related to EtOH abuse; ultrasound was unremarkable for any gallstones or biliary duct dilatation; we will continue to monitor liver enzymes 3. History of CAD; status post stenting; stable; patient remains on aspirin and beta blockers; statin therapy on hold due to transaminitis; cardiology is following to review medications 4. Uncontrolled hypertension; cardiology recommending to increase lisinopril up to 10 mg twice a day 5. Hyperlipidemia; statins remain on hold till patient cleared by GI DVT prophylaxis; SCDs CODE STATUS; full code Time with Patient: Greater than 30
--- NOTE | 2019-10-31 12:22 | P.PN ---
Subjective Progress Note Date: 10/31/19 CHIEF COMPLAINT: Pancreatitis HISTORY OF PRESENT ILLNESS: The patient is a 49-year-old male admitted for pancreatitis. He is a heavy drinker at least 4+ beers daily. He avoids fatty, greasy foods of any type. His abdominal pain has moderateely improved to mild. He is tolerating clear liquid diet. He is eager to go home. REVIEW OF ORGAN SYSTEMS: No fevers or chills. No nausea or vomiting. No new chest pain. PHYSICAL EXAMINATION: VITALS: Reviewed GENERAL: general well-developed male in no acute distress. Pleasant. HEENT: No sclera icterus. Extraocular movements grossly intact. Moist buccal mucosa. Head is atraumatic, normocephalic. Hears conversational speech. No nasal drainage. NECK: Supple without lymphadenopathy. No JV distention. CHEST: Non-labored respirations and equal bilateral excursions. CARDIOVASCULAR: Regular rate and rhythm. Palpable 2+ radial pulses. ABDOMEN: No peritonitis. Epigastric tenderness. All incisions granulated. MUSCULOSKELETAL: No clubbing, cyanosis or edema. NEUROLOGIC: No focal or lateralizing signs. PSYCH: Appropriate affect. Alert and oriented to person, place and time. SKIN: Well perfused. Good skin turgor. LABS: Reviewed. White blood cell count 13.8 down to 11.6. Hgb 16.3 down to 14.2. Lipase 1124 down to 721, now 245. LFTs in the 200 to 300s now improving. Total bilirubin elevated. Platelets are trending downward. ASSESSMENT: 1. Pancreatitis, acute 2. Alcohol abuse 3. Elevated liver enzymes 4. Low platelets PLAN: 1. He reports fairly healthy eating as he stays away from processed or fried foods. 2. He is feeling better and may start to advance diet for tomorrow 3. Will monitor for LFTs improvement although presentation overlaps with possible gallstone pancreatitis. 4. Recommended outpatient follow-up. 5. Follow-up on low platelets as it has been trending down since admission. May need to discontinue heparin Objective - Vital Signs Vital signs: Vital Signs Temp 98.9 F 10/31/19 11:31 Pulse 85 10/31/19 11:31 Resp 18 10/31/19 11:31 BP 143/100 10/31/19 11:31 Pulse Ox 97 10/31/19 11:31 Intake & Output 10/30/19 10/31/19 10/31/19 18:59 06:59 18:59 Intake Total 540 118 Balance 540 118 Weight 73.7 kg Intake: Oral 540 118 Other: # Voids 2 2 - Labs CBC & Chem 7: 10/31/19 06:19 10/31/19 06:19 Labs: Abnormal Lab Results - Last 24 Hours (Table) 10/30/19 10/30/19 10/31/19 Range/Units 17:27 20:00 06:19 WBC 12.2 H (3.8-10.6) k/uL RBC 4.29 L (4.30-5.90) m/uL Plt Count 127 L (150-450) k/uL Neutrophils # 10.3 H (1.3-7.7) k/uL Sodium (137-145) mmol/L Chloride (98-107) mmol/L BUN (9-20) mg/dL Glucose (74-99) mg/dL POC Glucose (mg/dL) 113 H 120 H (75-99) mg/dL Total Bilirubin (0.2-1.3) mg/dL AST (17-59) U/L ALT (4-49) U/L Alkaline Phosphatase (38-126) U/L Total Protein (6.3-8.2) g/dL Albumin (3.5-5.0) g/dL 10/31/19 Range/Units 06:19 WBC (3.8-10.6) k/uL RBC (4.30-5.90) m/uL Plt Count (150-450) k/uL Neutrophils # (1.3-7.7) k/uL Sodium 129 L (137-145) mmol/L Chloride 96 L (98-107) mmol/L BUN 4 L (9-20) mg/dL Glucose 104 H (74-99) mg/dL POC Glucose (mg/dL) (75-99) mg/dL Total Bilirubin 1.4 H (0.2-1.3) mg/dL AST 85 H (17-59) U/L ALT 93 H (4-49) U/L Alkaline Phosphatase 134 H (38-126) U/L Total Protein 5.9 L (6.3-8.2) g/dL Albumin 3.4 L (3.5-5.0) g/dL Microbiology - Last 24 Hours (Table) 10/29/19 19:51 Blood Culture - Preliminary Blood No Growth after 24 hours Assessment and Plan (1) Epigastric pain Current Visit: Yes Status: Acute Code(s): R10.13 - EPIGASTRIC PAIN SNOMED Code(s): 03638863 (2) Alcohol abuse Current Visit: Yes Status: Acute Code(s): F10.10 - ALCOHOL ABUSE, UNCOMPLICATED SNOMED Code(s): 20424160 (3) Acute pancreatitis Current Visit: Yes Status: Acute Code(s): K85.90 - ACUTE PANCREATITIS WITHOUT NECROSIS OR INFECTION, UNSP SNOMED Code(s): 564435279
[2019-10-31] MEDS: SODIUM CHLORIDE 0.9% 1,000 ML IV SCH ×2 (12:38→22:46)
--- NOTE | 2019-10-31 17:00 | P.PN ---
Subjective Progress Note Date: 10/31/19 Principal diagnosis: Acute pancreatitis Transaminitis/ history of EtOH abuse 49-year-old male patient with history of CAD, hyperlipidemia admitted with acute pancreatitis; patient does have history of alcohol abuse 10/31/2019 Patient is seen and evaluated from members at bedside; diet has been advanced to full liquids and patient is requesting extra portion of meals Laboratory review shows slight elevation in white blood count of 12.2; patient remains afebrile with no signs of infection; sodium levels remained stable at 129; we will continue patient on normal saline and continue to monitor electrolytes closely Liver enzymes show a downward trend; we again had discussion with the patient for complete abstinence from EtOH use; patient voices understanding We will continue to advance diet as tolerated; patient remains on CIWA protocol with possible discharge in next 24 hours Objective - Vital Signs Vital signs: Vital Signs Temp 99.1 F 10/31/19 08:00 Pulse 109 H 10/31/19 08:00 Resp 16 10/31/19 08:00 BP 147/94 10/31/19 08:00 Pulse Ox 96 10/31/19 08:00 Intake & Output 10/30/19 10/31/19 10/31/19 18:59 06:59 18:59 Intake Total 540 118 Balance 540 118 Weight 73.7 kg Intake: Oral 540 118 Other: # Voids 2 2 - Exam PHYSICAL EXAMINATION: GENERAL: The patient is alert and oriented x3, not in any acute distress. Well developed, well nourished. HEENT: Pupils are round and equally reacting to light. EOMI. No scleral icterus. No conjunctival pallor. Normocephalic, atraumatic. No pharyngeal erythema. No thyromegaly. CARDIOVASCULAR: S1 and S2 present. No murmurs, rubs, or gallops. PULMONARY: Chest is clear to auscultation, no wheezing or crackles. ABDOMEN: Soft, nontender, nondistended, normoactive bowel sounds. No palpable organomegaly. MUSCULOSKELETAL: No joint swelling or deformity. EXTREMITIES: No cyanosis, clubbing, or pedal edema. NEUROLOGICAL: Gross neurological examination did not reveal any focal deficits. SKIN: No rashes. - Labs CBC & Chem 7: 10/31/19 06:19 10/31/19 06:19 Labs: Abnormal Lab Results - Last 24 Hours (Table) 0710/30/19 10/31/19 Range/Units 17:27 20:00 06:19 WBC 12.2 H (3.8-10.6) k/uL RBC 4.29 L (4.30-5.90) m/uL Plt Count 127 L (150-450) k/uL Neutrophils # 10.3 H (1.3-7.7) k/uL Sodium (137-145) mmol/L Chloride (98-107) mmol/L BUN (9-20) mg/dL Glucose (74-99) mg/dL POC Glucose (mg/dL) 113 H 120 H (75-99) mg/dL Total Bilirubin (0.2-1.3) mg/dL AST (17-59) U/L ALT (4-49) U/L Alkaline Phosphatase (38-126) U/L Total Protein (6.3-8.2) g/dL Albumin (3.5-5.0) g/dL 10/31/19 Range/Units 06:19 WBC (3.8-10.6) k/uL RBC (4.30-5.90) m/uL Plt Count (150-450) k/uL Neutrophils # (1.3-7.7) k/uL Sodium 129 L (137-145) mmol/L Chloride 96 L (98-107) mmol/L BUN 4 L (9-20) mg/dL Glucose 104 H (74-99) mg/dL POC Glucose (mg/dL) (75-99) mg/dL Total Bilirubin 1.4 H (0.2-1.3) mg/dL AST 85 H (17-59) U/L ALT 93 H (4-49) U/L Alkaline Phosphatase 134 H (38-126) U/L Total Protein 5.9 L (6.3-8.2) g/dL Albumin 3.4 L (3.5-5.0) g/dL Microbiology - Last 24 Hours (Table) 10/29/19 19:51 Blood Culture - Preliminary Blood No Growth after 24 hours Assessment and Plan Assessment: 1. Acute pancreatitis; - Patient remains on clear liquid diet; continue with IV fluids; monitor lipase level; counseling done on need for abstinence for EtOH use; GI is following - Pain control with IV Dilaudid when necessary 2. Transaminitis; possibly related to EtOH abuse; ultrasound was unremarkable for any gallstones or biliary duct dilatation; we will continue to monitor liver enzymes 3. History of CAD; status post stenting; stable; patient remains on aspirin and beta blockers; statin therapy on hold due to transaminitis; cardiology is following to review medications 4. Uncontrolled hypertension; cardiology recommending to increase lisinopril up to 10 mg twice a day 5. Hyperlipidemia; statins remain on hold till patient cleared by GI DVT prophylaxis; SCDs CODE STATUS; full code
--- NOTE | 2019-10-31 17:03 | PN ---
PROGRESS NOTE DATE OF DICTATION: 10/31/2019 Patient is a 49-year-old white male with history of alcohol abuse, admitted to the hospital with acute pancreatitis. He is doing better. Still has some mild epigastric discomfort but has significantly improved from yesterday. Nausea, vomiting has resolved. No fever, chills, or night sweats. PHYSICAL EXAMINATION: He appears comfortable. No apparent distress. Vital signs stable. Blood pressure is 132/97, pulse rate 88, temperature 98.7. HEENT examination unremarkable. Conjunctivae pink. Sclerae anicteric. Oral cavity no lesions. NECK: No JVD or lymph node enlargement. Chest was clear to auscultation. HEART: Regular rate and rhythm. ABDOMEN was slightly distended. There was some tenderness in the epigastric area on deep palpation. Rest of the abdomen was benign. Bowel sounds are positive. No organomegaly. NEUROLOGIC: Alert and oriented x3. No focal deficits. LABS: From today WBC 12.2, hemoglobin 13.6, platelets 127. AST and ALT 85 and 92 respectively. T-bilirubin is 1.4, alkaline phosphatase 135. Amylase and lipase of 49 and 245 respectively. IMPRESSION: 1. Acute pancreatitis related to alcohol use. This is her first episode. Symptoms are improving. Epigastric pain has resolved. Still has epigastric fullness. On a clear liquid diet, tolerating well. 2. Mild elevation of serum transaminases and mild elevation of T-bilirubin, probably all related to alcoholic liver disease. 3. History of moderate to heavy alcohol abuse for 20 years. RECOMMENDATIONS: 1. Advance to low-fat diet. 2. Monitor labs closely. 3. Monitor LFTs closely. 4. Abstinence from alcohol. 5. He can be discharged home today or tomorrow with outpatient followup in 2 weeks. Thank you for this consultation. MMODL / IJN: [id number] /
[2019-10-31 23:59] VITALS: RESP 16
[2019-11-01] MEDS: HYDROmorphone 0.5 MG/0.5 ML SYRINGE IVP PRN (02:46)
[2019-11-01] MEDS: MEROPENEM 2 GM in SODIUM CHLORIDE 0.9% 100 ML IVPB SCH (05:32)
[2019-11-01 06:41] LABS: Basophils % (A) 0 %; Eosinophils # (A) 0.2 k/uL (0-0.7); Eosinophils % (A) 2 %; HCT 38.1 % (39.0-53.0); HGB 12.7 gm/dL (13.0-17.5); Lymphocytes # (A) 1.2 k/uL (1.0-4.8); Lymphocytes % (A) 12 %; MCH 32.4 pg (25.0-35.0); MCHC 33.4 g/dL (31.0-37.0); MCV 97.1 fL (80.0-100.0); Mean Platelet Volume 7.6; Monocytes # (A) 0.5 k/uL (0-1.0); Monocytes % (A) 5 %; Neutrophils # (A) 8.1 k/uL (1.3-7.7); Neutrophils % (A) 79 %; Platelet Count 129 k/uL (150-450); RBC 3.93 m/uL (4.30-5.90); RDW 12.4 % (11.5-15.5); WBC 10.3 k/uL (3.8-10.6)
[2019-11-01 06:52] LABS: ALT 66 U/L (4-49); AST 56 U/L (17-59); African American GFR (CKD) >90 (>60 ml/min/1.73 sqM); Albumin 3.1 g/dL (3.5-5.0); Alkaline Phosphatase 167 U/L (38-126); Anion Gap 8 mmol/L; Blood Urea Nitrogen 6 mg/dL (9-20); Calcium 8.9 mg/dL (8.4-10.2); Carbon Dioxide 25 mmol/L (22-30); Chloride 98 mmol/L (98-107); Glucose 94 mg/dL (74-99); Non-African American GFR(CKD) >90 (>60 ml/min/1.73 sqM); Potassium 4.3 mmol/L (3.5-5.1); Sodium 131 mmol/L (137-145); Total Bilirubin 1.1 mg/dL (0.2-1.3); Total Protein 5.6 g/dL (6.3-8.2)
[2019-11-01 07:01] LABS: Amylase <30 U/L (30-110)
[2019-11-01 08:29] VITALS: BP 142/92; PULSE 88; TEMP 98.7
[2019-11-01] MEDS: lisinopriL 10 MG TAB PO SCH (08:34)
[2019-11-01] MEDS: HEPARIN SODIUM,PORCINE 5,000 UNIT/ML 1 ML VIAL SQ SCH (08:34)
[2019-11-01] MEDS: METOPROLOL SUCCINATE (ER) 50 MG TAB.ER.24H PO SCH (08:34)
[2019-11-01] MEDS: PANTOPRAZOLE 40 MG/10 ML VIAL IVP SCH (08:34)
[2019-11-01] MEDS: ASPIRIN 81 MG PO SCH (08:34)
[2019-11-01] MEDS: MULTIVITAMINS, THERA 1 EACH TAB PO SCH (08:34)
--- NOTE | 2019-11-01 09:36 | PN ---
PROGRESS NOTE Mr. Castellanos is a 49-year-old gentleman that I am seeing for the first time today. He has known history of coronary artery disease, status post prior stenting, hypertension, dyslipidemia, who presented to hospital primarily with abdominal pain. Patient ended up being diagnosed with pancreatitis and has been gradually getting better. He has not had any episodes of chest pain and he is otherwise free of symptoms. Patient had an echo done last year that showed normal LV systolic function. He had a cardiac catheterization by Dr. VC Barrientos in 2016 and subsequently had stenting of the LAD. On exam today, comfortable at rest. Vital signs are stable. There is no jugular venous distention. Chest exam reveals good air entry bilaterally. Heart exam reveals first and second heart sounds. Systolic murmur at the left lower sternal border. Abdomen is soft. Exam of extremities did not reveal any edema. Peripheral pulses are felt. Labs show a hemoglobin of 12.7 potassium is 4.3, creatinine is 0.8. ASSESSMENT: 1. Acute pancreatitis. 2. Coronary artery disease, status post angioplasty of LAD. PLAN: From cardiac standpoint, patient is doing well. I will continue him on aspirin, Toprol- XL. Lipitor is on hold because of the recent history of pancreatitis. MMODL / IJN: [id number] /
--- NOTE | 2019-11-01 10:38 | P.PN ---
Subjective Progress Note Date: 11/01/19 CHIEF COMPLAINT: Pancreatitis HISTORY OF PRESENT ILLNESS: Patient examined this morning at the bedside with Dr. Murdock. Patient states his pain has resolved. Tolerating diet. No nausea or vomiting. He is anxious to be discharged home. PHYSICAL EXAM: VITAL SIGNS: Reviewed GENERAL: Well-developed in no acute distress. HEENT: No sclera icterus. Extraocular movements grossly intact. Moist buccal mucosa. Head is atraumatic, normocephalic. Hears conversational speech. No nasal drainage. NECK: Supple without lymphadenopathy. CHEST: Non-labored respirations and equal bilateral excursions. CARDIOVASCULAR: Regular rate with regular rhythm. Palpable 2+ radial pulses. ABDOMEN: Soft. Nondistended. Nontender. MUSCULOSKELETAL: No clubbing or cyanosis. NEUROLOGIC: No focal or lateralizing signs. Cranial nerves II through XII g rossly intact. PSYCH: Appropriate affect. Alert and oriented to person, place and time. SKIN: Well perfused. Good skin turgor. ASSESSMENT: 1. Pancreatitis 2. Alcohol abuse 3. Elevated liver enzymes PLAN: -Patient is stable for discharge home today from a surgical standpoint. Will defer to internal medicine. -He may follow up outpatient with Dr. Murdock Nurse practitioner note has been reviewed by physician. Signing provider agrees with the documented findings, assessment, and plan of care. Objective - Vital Signs Vital signs: Vital Signs Temp 98.7 F 11/01/19 07:00 Pulse 88 11/01/19 08:00 Resp 16 11/01/19 07:00 BP 142/92 11/01/19 07:00 Pulse Ox 94 L 11/01/19 07:00 Intake & Output 10/31/19 11/01/19 11/01/19 18:59 06:59 18:59 Intake Total 356 1080 236 Balance 356 1080 236 Intake: Oral 356 1080 236 Other: # Voids 3 2 - Labs CBC & Chem 7: 11/01/19 06:17 11/01/19 06:17 Labs: Abnormal Lab Results - Last 24 Hours (Table) 11/01/19 11/01/19 Range/Units 06:17 06:17 RBC 3.93 L (4.30-5.90) m/uL Hgb 12.7 L (13.0-17.5) gm/dL Hct 38.1 L (39.0-53.0) % Plt Count 129 L (150-450) k/uL Neutrophils # 8.1 H (1.3-7.7) k/uL Sodium 131 L (137-145) mmol/L BUN 6 L (9-20) mg/dL ALT 66 H (4-49) U/L Alkaline Phosphatase 167 H (38-126) U/L Total Protein 5.6 L (6.3-8.2) g/dL Albumin 3.1 L (3.5-5.0) g/dL Amylase <30 L (30-110) U/L Microbiology - Last 24 Hours (Table) 10/29/19 19:51 Blood Culture - Preliminary Blood No Growth after 48 hours
--- NOTE | 2019-11-01 12:00 | P.DS ---
Providers Date of admission: 10/29/19 19:24 Expected date of discharge: 11/01/19 Attending physician: Burt Sellers MD Consults: 10/29/19 19:22 Consult Physician Routine Consulting Provider: Nogc Murdock Consult Reason/Comments: Pancreatitis Do you want consulting provider notified?: Yes 10/29/19 19:29 Consult Physician Routine Consulting Provider: Carol Arguelles Consult Reason/Comments: cad Do you want consulting provider notified?: Yes Primary care physician: Tiffanie Sellers Hospital Course: Final Diagnoses : Acute pancreatitis, improved Alcohol abuse, 20 years Elevated LFTs, T bili in a patient with suspected alcoholic liver disease Thrombocytopenia, suspect related to alcohol abuse, improving Hypertension, better controlled CAD, history of cardiac catheterization with stenting Hospital course: This a 49-year-old gentleman admitted with acute pancreatitis, alcohol abuse and multiple other medical issues. Evaluated by both surgery and GI. Maintained on gentle IV fluid hydration, bowel rest with gradual diet advancement. Denies nausea vomiting or abdominal pain. Denies chest pain, palpitations or shortness of breath. Significant clinical improvement. Cleared by both surgery and GI for discharge. Patient is being discharged home in stable condition with guarded prognosis. Statin currently on hold, to be reevaluated/resumed outpatient in clinic with PCP. The impression and plan of care has been dictated as directed. : I performed a history and examination of this patient, discussed the same with the dictator. I agree with the dictator's note ,documented as a scribe. Any additional findings or plans will be noted. Patient Condition at Discharge: Stable Plan - Discharge Summary Discharge Rx Participant: No New Discharge Prescriptions: Continue lisinopriL [Zestril] 10 mg PO DAILY #30 tab Pantoprazole [Protonix] 40 mg PO HS Multivitamins, Thera [Multivitamin (formulary)] 1 tab PO DAILY Metoprolol Succinate [Toprol XL] 50 mg PO DAILY Aspirin 81 mg PO DAILY chew No Action Acetaminophen Tab [Tylenol Tab] 1,000 mg PO Q6HR PRN #30 tablet PRN Reason: Pain Discharge Medication List lisinopriL [Zestril] 10 mg PO DAILY #30 tab 01/30/16 [Rx] Metoprolol Succinate [Toprol XL] 50 mg PO DAILY 10/13/19 [History] Multivitamins, Thera [Multivitamin (formulary)] 1 tab PO DAILY 10/13/19 [History] Pantoprazole [Protonix] 40 mg PO HS 10/13/19 [History] Acetaminophen Tab [Tylenol Tab] 1,000 mg PO Q6HR PRN #30 tablet 10/15/19 [Rx] Aspirin 81 mg PO DAILY chew 10/15/19 [Rx] Follow up Appointment(s)/Referral(s): Burt Sellers MD [STAFF PHYSICIAN] - 11/03/19 12:15 pm (Friday. At [facility]. ) Ngoc Murdock MD [STAFF PHYSICIAN] - 11/16/19 3:40 pm (Friday. ) Stephanie Dove NPC [Nurse Practitioner] - 11/18/19 10:00 am () Ambulatory/Diagnostic Orders: Complete Blood Count w/diff [LAB.AMB] Time Frame: 3 Days, Location: None Selected Patient Instructions/Handouts: Pancreatitis (DC) Activity/Diet/Wound Care/Special Instructions: Statin temporarily on hold related to transaminitis, resume outpatient in clinic with PCP
--- NOTE | 2019-11-02 11:30 | CDI ---
Documentation Clarification Form Date: 11/02/19 From: Monet Coates Phone: If you have a question about this query, please contact Rosetta Theodore, Plant Machinist at [phone] between 8am and 5pm. Admit Date: 10/29/19 Discharge Date:11/01/19 Patient Name: Hi Castellanos Visit Number: [id number] ATTENTION: The Clinical Documentation Specialists (CDI) and [facility] Coding Staff appreciate your assistance in clarifying documentation. Please respond to the clarification below the line at the bottom and electronically sign. The CDI & [facility] Coding staff will review the response and follow-up if needed. Please note: Queries are made part of the Legal Health Record. If you have any questions, please contact the author of this message via ITS. Dear Dr. Pichardo The patient presented with the following acute pancreatitis. You documented uncontrolled hypertension in your 10/29 & 10/30 progress notes. History/Risk Factors: CAD, hypertension, alcohol abuse Clinical Indicators: Elevated blood pressure Vital Signs: T. 98.1, P. 107, R. 20, BP 164/124 Blood pressures: 10/29/19 - 164/124, 180/118, 159/103, 159/109, 159/116, 158/110, 162/108 Treatment: Cardiology recommended increasing lisinopril up to 10 mg twice a day In your professional opinion, can you please clarify the uncontrolled hypertension? Urgency Crisis Emergency Other, please specify Unable to determine urgency MTDD
== END 2019-11-01 12:33 | disposition home or self-care (01) | DRG 440 ==
LOC: EC 15:51 → 3SCARD 19:24
PROVIDERS: ADMIT Family Medicine; ATTEND Family Medicine
DX: K85.20 Alcohol induced acute pancreatitis without necrosis or infection (principal); D69.6 Thrombocytopenia, unspecified; K70.9 Alcoholic liver disease, unspecified; E78.5 Hyperlipidemia, unspecified; F10.10 Alcohol abuse, uncomplicated; E83.42 Hypomagnesemia; I10 Essential (primary) hypertension; I25.10 Atherosclerotic heart disease of native coronary artery without angina pectoris; I25.2 Old myocardial infarction; I16.0 Hypertensive urgency; K21.9 Gastro-esophageal reflux disease without esophagitis; R01.1 Cardiac murmur, unspecified; Z11.59 Encounter for screening for other viral diseases; D72.829 Elevated white blood cell count, unspecified; Z79.82 Long term (current) use of aspirin; Z79.899 Other long term (current) drug therapy; Z95.5 Presence of coronary angioplasty implant and graft; Z83.3 Family history of diabetes mellitus; Z82.49 Family history of ischemic heart disease and other diseases of the circulatory system
CPT/HCPCS: 36415; 71045; 74176; 76705; 80053; 80061; 81003; 82150; 83690; 83735; 84484; 85025; 85610; 85730; 87040; 93005; 96361; 96374; 96375; 96376; 99285

== ENCOUNTER → 2020-02-03 | Outpatient (CLI) | payer BC | END | disposition home or self-care (01) | LOC: LABWHC1 10:13 | PROVIDERS: ATTEND Emergency Medicine | DX: Z20.828 Contact with and (suspected) exposure to other viral communicable diseases (principal) | CPT/HCPCS: U0003; C9803 ==

== ENCOUNTER 2020-10-13 18:11 | Inpatient (IN) | payer BC ==
[2020-10-13] MEDS ORDERED: SODIUM CHLORIDE 0.9% 1,000 ML IV STA ×2 (18:41→19:57)
[2020-10-13] MEDS ORDERED: MORPHINE SULFATE 4 MG/ML SYRINGE IV STA (18:41)
--- NOTE | 2020-10-13 18:43 | ED ---
General Adult HPI - General Chief complaint: Abdominal Pain Stated complaint: Abd pain Time Seen by Provider: 10/13/20 18:31 Source: patient Mode of arrival: ambulatory Limitations: no limitations - History of Present Illness Initial comments: Dictation was produced using Seeq dictation software. please excuse any grammatical, word or spelling errors. Chief Complaint: 50-year-old female past medical history of myocardial infarctio n, dyslipidemia presents with abdominal pain History of Present Illness: 50-year-old male who states that since 2 AM this morning he's been having abdominal pain. Patient states that his symptoms are localized to his epigastric area. However it's diffuse. Denies any nausea no vomiting. He states that he has not had a bowel movement all day today. His last bowel movement however was yesterday. He states he was at [place] was diarrhea. He has poor appetite. No fevers or chills. His history of appendectomy. States that he has not passed gas today. The ROS documented in this emergency department record has been reviewed and confirmed by me. Those systems with pertinent positive or negative responses have been documented in the HPI. All other systems are other negative and/or noncontributory. PHYSICAL EXAM: General Impression: Alert and oriented x3, not in acute distress HEENT: Normocephalic atraumatic, extra-ocular movements intact, pupils equal and reactive to light bilaterally, mucous membranes moist. Cardiovascular: Heart regular rate and rhythm Chest: Able to complete full sentences, no retractions, no tachypnea Abdomen: abdomen soft, diffuse tenderness, equivocal Benedict sign, tympanitic to percussion, non-distended, no organomegaly Musculoskeletal: Pulses present and equal in all extremities, no peripheral edema Motor: no focal deficits noted Neurological: CN II-XII grossly intact, no focal motor or sensory deficits noted Skin: Intact with no visualized rashes Psych: Normal affect and mood ED course: 50-year-old male with past medical history dyslipidemia and myocardial infarction presents with acute abdominal pain. Vital signs upon arrival shows heart rate of 122, rest of vital signs within acceptable limits. Return evaluation obtained. Leukocytosis 610.6, rest of CBC is unremarkable. Metabolic panel shows a 131. Slightly elevated liver markers. Lipase was 1925. CT shows fat stranding around the pancreas consistent with acute pancreatitis.. Clinical presentation consistent with pancreatitis. Patient be admitted for bowel rest, IV hydration and pain control. Per case discussed with Dr. kendra anglin except patient's care per GI on consult. EKG interpretation: Ventricular rate 114, sinus tachycardia, CO interval 140, QRS 74, QTC 460. No CO prolongation, no QTC prolongation, no ST or T-wave changes noted. EKG compared to 10/29/2019 showing no changes. Overall, this EKG is unremarkable - Related Data Home Medications Medication Instructions Recorded Confirmed Metoprolol Succinate [Toprol XL] 50 mg PO DAILY 10/13/19 10/13/20 Pantoprazole [Protonix] 40 mg PO HS 10/13/19 10/13/20 Atorvastatin Calcium [Lipitor] 10 mg PO HS 10/13/20 10/13/20 Previous Rx's Medication Instructions Recorded lisinopriL [Zestril] 10 mg PO DAILY #30 tab 01/30/16 Aspirin 81 mg PO DAILY chew 10/15/19 Allergies Allergy/AdvReac Type Severity Reaction Status Date / Time No Known Allergies Allergy Verified 10/13/20 18:54 Review of Systems ROS Statement: Those systems with pertinent positive or pertinent negative responses have been documented in the HPI. ROS Other: All systems not noted in ROS Statement are negative. Past Medical History Past Medical History: Coronary Artery Disease (CAD), GERD/Reflux, Hyperli pidemia, Hypertension, Myocardial Infarction (CT) Additional Past Medical History / Comment(s): CT 01/2216 with stent placement X2 LAD. RT ING, & [facility]. Last Myocardial Infarction Date:: 01/27/16 History of Any Multi-Drug Resistant Organisms: None Reported Past Surgical History: Appendectomy, Heart Catheterization With Stent Additional Past Surgical History / Comment(s): CT 01/26 with stent placement X2 LAD Past Anesthesia/Blood Transfusion Reactions: No Reported Reaction Date of Last Stent Placement:: 01/27/16 Past Psychological History: No Psychological Hx Reported Smoking Status: Never smoker Past Alcohol Use History: Occasional Past Drug Use History: None Reported - Past Family History Father History Unknown: Yes Mother Family Medical History: Myocardial Infarction (CT) Brother(s) Family Medical History: Diabetes Mellitus General Exam Limitations: no limitations Course Vital Signs 10/13/20 18:20 Temperature 98.8 F Pulse Rate 122 H Respiratory 20 Rate Blood Pressure 180/110 O2 Sat by Pulse 97 Oximetry Medical Decision Making - Lab Data Result diagrams: 10/13/20 18:59 10/13/20 18:59 Lab Results 10/13/20 10/13/20 Range/Units 18:59 18:59 WBC 16.6 H (3.8-10.6) k/uL RBC 5.14 (4.30-5.90) m/uL Hgb 16.6 (13.0-17.5) gm/dL Hct 48.1 (39.0-53.0) % MCV 93.5 (80.0-100.0) fL MCH 32.3 (25.0-35.0) pg MCHC 34.6 (31.0-37.0) g/dL RDW 12.4 (11.5-15.5) % Plt Count 182 (150-450) k/uL MPV 7.8 Neutrophils % 89 % Lymphocytes % 6 % Monocytes % 3 % Eosinophils % 2 % Basophils % 0 % Neutrophils # 14.7 H (1.3-7.7) k/uL Lymphocytes # 1.0 (1.0-4.8) k/uL Monocytes # 0.4 (0-1.0) k/uL Eosinophils # 0.3 (0-0.7) k/uL Basophils # 0.0 (0-0.2) k/uL Sodium 131 L (137-145) mmol/L Potassium 4.1 (3.5-5.1) mmol/L Chloride 96 L (98-107) mmol/L Carbon Dioxide 24 (22-30) mmol/L Anion Gap 11 mmol/L BUN 10 (9-20) mg/dL Creatinine 0.77 (0.66-1.25) mg/dL Est GFR (CKD-EPI)AfAm >90 (>60 ml/min/1.73 sqM) Est GFR (CKD-EPI)NonAf >90 (>60 ml/min/1.73 sqM) Glucose 135 H (74-99) mg/dL Calcium 9.7 (8.4-10.2) mg/dL Total Bilirubin 1.3 (0.2-1.3) mg/dL AST 115 H (17-59) U/L ALT 66 H (4-49) U/L Alkaline Phosphatase 146 H (38-126) U/L Total Protein 7.3 (6.3-8.2) g/dL Albumin 4.6 (3.5-5.0) g/dL Lipase 1925 H (23-300) U/L Disposition Clinical Impression: Acute pancreatitis Disposition: ADMITTED IP TO THIS HOSP Condition: Fair Referrals: Burt Sellers MD [Primary Care Provider] - 1-2 days
[2020-10-13 19:06] LABS: Basophils % (A) 0 %; Eosinophils # (A) 0.3 k/uL (0-0.7); Eosinophils % (A) 2 %; HCT 48.1 % (39.0-53.0); HGB 16.6 gm/dL (13.0-17.5); Lymphocytes % (A) 6 %; MCH 32.3 pg (25.0-35.0); MCHC 34.6 g/dL (31.0-37.0); MCV 93.5 fL (80.0-100.0); Mean Platelet Volume 7.8; Monocytes # (A) 0.4 k/uL (0-1.0); Monocytes % (A) 3 %; Neutrophils # (A) 14.7 k/uL (1.3-7.7); Neutrophils % (A) 89 %; Platelet Count 182 k/uL (150-450); RBC 5.14 m/uL (4.30-5.90); RDW 12.4 % (11.5-15.5); WBC 16.6 k/uL (3.8-10.6)
[2020-10-13 19:37] LABS: ALT 66 U/L (4-49); AST 115 U/L (17-59); African American GFR (CKD) >90 (>60 ml/min/1.73 sqM); Albumin 4.6 g/dL (3.5-5.0); Alkaline Phosphatase 146 U/L (38-126); Anion Gap 11 mmol/L; Blood Urea Nitrogen 10 mg/dL (9-20); Calcium 9.7 mg/dL (8.4-10.2); Carbon Dioxide 24 mmol/L (22-30); Chloride 96 mmol/L (98-107); Glucose 135 mg/dL (74-99); Non-African American GFR(CKD) >90 (>60 ml/min/1.73 sqM); Potassium 4.1 mmol/L (3.5-5.1); Sodium 131 mmol/L (137-145); Total Bilirubin 1.3 mg/dL (0.2-1.3); Total Protein 7.3 g/dL (6.3-8.2)
[2020-10-13 19:47] LABS: Lipase 1925 U/L (23-300)
[2020-10-13] MEDS ORDERED: ACETAMINOPHEN TAB 325 MG TAB PO PRN (20:39)
[2020-10-13] MEDS ORDERED: NALOXONE 0.4 MG/ML 1 ML VIAL IV PRN (20:39)
[2020-10-13] MEDS ORDERED: HYDROmorphone 1 MG/ML 1 ML SYRINGE IVP STA (20:39)
--- NOTE | 2020-10-13 20:49 | CT ---
EXAMINATION TYPE: CT abdomen pelvis w con DATE OF EXAM: 10/13/2020 COMPARISON: 10/29/2019 HISTORY: Lower abdominal pain. CT DLP: 1009.5 mGycm Automated exposure control for dose reduction was used. CONTRAST: Performed with IV Contrast, patient injected with 100ml mL of Isovue 300. Images obtained from the diaphragm to the floor the pelvis with IV contrast. There is some patchy atelectasis at the lung bases. There is no pericardial effusion. There is some f atty infiltration of the liver. Gallbladder is intact. Liver is intact. Spleen is intact. There is mo derate fat stranding around the pancreas and extending into the left anterior pararenal space with fl uid accumulation. I see no pancreatic mass. The duodenum appears intact. There is no adrenal mass. Kidneys show satisfactory contrast opacification. There is no hydronephrosi s. Delayed images show normal renal excretion. Ureters are not dilated. Bladder distends smoothly. Th ere is right inguinal hernia that contains some urinary bladder. There is large right-sided hydrocele . I see no free fluid in the pelvis. There is fluid distention of the large bowel. There are some calcific densities in the cecum. The ter faiza ileum appears normal. Appendix is not definitely seen. There is no sign of thickened appendix. There appears to be surgical clips from appendectomy. The lumbar vertebra have normal alignment. There is no compression fracture. There is spurring in the lumbar spine. The bony pelvis is intact. The hip joints are intact. IMPRESSION: There is fat stranding and fluid around the pancreas consistent with acute pancreatitis with increase d fluid compared to old exam. Calcific densities in the cecum increased compared to old exam. There is clearing of the fluid in the right paracolic gutter compared to old exam. Right inguinal hernia containing portion of the urinary bladder is new compared to old exam. There is large right-sided scrotal hydrocele also present on old exam.
[2020-10-13] MEDS: HYDROmorphone 1 MG/ML 1 ML SYRINGE IVP PRN (22:54)
[2020-10-13] MEDS: SODIUM CHLORIDE 0.9% 1,000 ML IV SCH (23:05)
[2020-10-14] MEDS ORDERED: hydrALAZINE HCL 20 MG/ML 1 ML VIAL IVP PRN (03:21)
[2020-10-14] MEDS ORDERED: cloNIDine 0.2 MG/24HR PATCH TRANSDERM SCH (03:30)
[2020-10-14] MEDS: HYDROmorphone 1 MG/ML 1 ML SYRINGE IVP PRN ×4 (03:37→15:45)
[2020-10-14] MEDS: hydrALAZINE HCL 20 MG/ML 1 ML VIAL IVP PRN ×2 (03:37→13:29)
[2020-10-14] MEDS: SODIUM CHLORIDE 0.9% 1,000 ML IV SCH ×3 (05:05→17:58)
[2020-10-14 07:27] LABS: Basophils % (A) 0 %; Eosinophils # (A) 0.2 k/uL (0-0.7); Eosinophils % (A) 1 %; HCT 44.7 % (39.0-53.0); HGB 15.7 gm/dL (13.0-17.5); Lymphocytes # (A) 0.8 k/uL (1.0-4.8); Lymphocytes % (A) 5 %; MCH 33.8 pg (25.0-35.0); MCHC 35.1 g/dL (31.0-37.0); MCV 96.5 fL (80.0-100.0); Mean Platelet Volume 7.1; Monocytes # (A) 0.4 k/uL (0-1.0); Monocytes % (A) 3 %; Neutrophils # (A) 14.1 k/uL (1.3-7.7); Neutrophils % (A) 91 %; Platelet Count 187 k/uL (150-450); RBC 4.63 m/uL (4.30-5.90); RDW 12.8 % (11.5-15.5); WBC 15.6 k/uL (3.8-10.6)
[2020-10-14 07:51] LABS: ALT 43 U/L (4-49); AST 60 U/L (17-59); African American GFR (CKD) >90 (>60 ml/min/1.73 sqM); Albumin 3.5 g/dL (3.5-5.0); Albumin/Globulin Ratio 1.3; Alkaline Phosphatase 104 U/L (38-126); Anion Gap 7 mmol/L; Blood Urea Nitrogen 6 mg/dL (9-20); Calcium 8.9 mg/dL (8.4-10.2); Carbon Dioxide 21 mmol/L (22-30); Chloride 104 mmol/L (98-107); Globulin 2.6 g/dL; Glucose 115 mg/dL (74-99); Lipase 1045 U/L (23-300); Non-African American GFR(CKD) >90 (>60 ml/min/1.73 sqM); Sodium 132 mmol/L (137-145); Total Bilirubin 1.3 mg/dL (0.2-1.3); Total Protein 6.1 g/dL (6.3-8.2)
[2020-10-14 07:59] LABS: Potassium 4.2 mmol/L (3.5-5.1)
[2020-10-14] MEDS: HEPARIN SODIUM,PORCINE/PF 5,000 UNIT/0.5 ML SYRINGE SQ SCH (08:05)
[2020-10-14] MEDS ORDERED: FAMOTIDINE 20 MG/2 ML VIAL IV SCH (09:00)
--- NOTE | 2020-10-14 16:54 | P.HPIM ---
History of Present Illness 50-year-old male is admitted for possible pancreatitis. Patient came in with abdominal pain without any nausea vomiting. Apparently patient had epigastric abdominal pain although when I valid the patient patient was complaining of for bilateral lower quadrant abdominal pain. Patient had a CT of the abdomen which did show some peripancreatic edema along with a right-sided hydrocele and also right-sided inguinal hernia. Patient doesn't have any significant back pain. Patient has mildly elevated pancreatic enzymes. Patient present pain is not due to. Pancreatitis patient was started on clear liquid diet patient will be st arted on oral pain medications and Gen. surgery is being consulted. Patient does admit to using alcohol on daily basis about 6 beers a day. Patient's bilateral lower abdominal pain is sharp in nature about 6/10 in severity worsens with movement. REVIEW OF SYSTEMS: CONSTITUTIONAL: No fever, no malaise, no fatigue. HEENT: No recent visual problems or hearing problems. Denied any sore throat. CARDIOVASCULAR: No chest pain, orthopnea, PND, no palpitations, no syncope. PULMONARY: No shortness of breath, no cough, no hemoptysis. GASTROINTESTINAL: No diarrhea, no nausea, no vomitin. NEUROLOGICAL: No headaches, no weakness, no numbness. HEMATOLOGICAL: Denies any bleeding or petechiae. GENITOURINARY: Denies any burning micturition, frequency, or urgency. MUSCULOSKELETAL/RHEUMATOLOGICAL: Denies any joint pain, swelling, or any muscle pain. ENDOCRINE: Denies any polyuria or polydipsia. The rest of the 14-point review of systems is negative. PHYSICAL EXAMINATION: GENERAL: The patient is alert and oriented x3, not in any acute distress. Well developed, well nourished. HEENT: Pupils are round and equally reacting to light. EOMI. No scleral icterus. No conjunctival pallor. Normocephalic, atraumatic. No pharyngeal erythema. No thyromegaly. CARDIOVASCULAR: S1 and S2 present. No murmurs, rubs, or gallops. PULMONARY: Chest is clear to auscultation, no wheezing or crackles. ABDOMEN: Distended tympanic, no significant tenderness normoactive bowel sounds. No palpable organomegaly. MUSCULOSKELETAL: No joint swelling or deformity. EXTREMITIES: No cyanosis, clubbing, or pedal edema. NEUROLOGICAL: Gross neurological examination did not reveal any focal deficits. SKIN: No rashes. Assessment and plan -Mildly edematous pancreatitis: Patient present abdominal pain is not secondary to pancreatitis patient was started on clear liquid diet will advance diet as tolerated patient has alcoholic hepatitis -Bilateral lower abdominal pain etiology is not clear can be related to either hydrocele on inguinal hernia, Gen. surgery will be consulted. -Alcohol abuse history presently doesn't have any withdrawals patient will be monitored closely for any withdrawals will be treated accordingly -Hypertension -Coronary artery disease: With previous stents and cardiac catheterization in the past -Gastric esophageal reflux disease DVT prophylaxis: Early ambulation Past Medical History Past Medical History: Coronary Artery Disease (CAD), GERD/Reflux, Hyperlipidemia, Hypertension, Myocardial Infarction ([place]) Additional Past Medical History / Comment(s): [place] 01/2016 with stent placement X2 LAD. RT ING, & UMB HERNIAS. Last Myocardial Infarction Date:: 01/27/16 History of Any Multi-Drug Resistant Organisms: None Reported Past Surgical History: Appendectomy, Heart Catheterization With Stent Additional Past Surgical History / Comment(s): [place] 01/26 with stent placement X2 LAD Past Anesthesia/Blood Transfusion Reactions: No Reported Reaction Date of Last Stent Placement:: 01/27/16 Past Psychological History: No Psychological Hx Reported Smoking Status: Never smoker Past Alcohol Use History: Occasional Additional Past Alcohol Use History / Comment(s): 6 BEERS DAILY Past Drug Use History: None Reported - Past Family History Father History Unknown: Yes Mother Family Medical History: Myocardial Infarction ([place]) Brother(s) Family Medical History: Diabetes Mellitus Medications and Allergies Home Medications Medication Instructions Recorded Confirmed Type lisinopriL [Zestril] 10 mg PO DAILY #30 tab 01/30/16 10/13/20 Rx Metoprolol Succinate [Toprol XL] 50 mg PO DAILY 10/13/19 10/13/20 History Pantoprazole [Protonix] 40 mg PO HS 10/13/19 10/13/20 History Aspirin 81 mg PO DAILY chew 10/15/19 10/13/20 Rx Atorvastatin Calcium [Lipitor] 10 mg PO HS 10/13/20 10/13/20 History Allergies Allergy/AdvReac Type Severity Reaction Status Date / Time No Known Allergies Allergy Verified 10/13/20 18:54 Physical Exam Vitals: Vital Signs Temp Pulse Pulse Resp BP BP BP 10/14/20 13:15 98.4 F 104 H 18 154/112 165/101 10/14/20 08:00 122 H 18 10/14/20 04:46 97.6 F 122 H 18 153/102 10/14/20 02:59 115 H 188/118 10/13/20 23:46 117 H 18 10/13/20 23:45 164/111 10/13/20 23:06 117 H 10/13/20 21:56 78 18 149/87 10/13/20 21:16 98.9 F 121 H 18 176/121 10/13/20 18:20 98.8 F 122 H 20 180/110 Pulse Ox 10/14/20 13:15 94 L 10/14/20 08:00 10/14/20 04:46 92 L 10/14/20 02:59 10/13/20 23:46 10/13/20 23:45 10/13/20 23:06 10/13/20 21:56 99 10/13/20 21:16 93 L 10/13/20 18:20 97 Intake and Output 10/14/20 10/14/20 10/14/20 06:59 14:59 22:59 Intake Total 1200 Balance 1200 Intake: Intake, IV Titration 1200 Amount Sodium Chloride 0.9% 1, 1200 000 ml @ 150 mls/hr IV . Q6H40M [facility] Rx#:[id number] Other: # Voids 1 # Bowel Movements 1 Results CBC & Chem 7: 10/14/20 07:03 10/14/20 07:03 Labs: Abnormal Lab Results - Last 24 Hours (Table) 10/13/20 10/13/20 10/14/20 Range/Units 18:59 18:59 07:03 WBC 16.6 H 15.6 H (3.8-10.6) k/uL Neutrophils # 14.7 H 14.1 H (1.3-7.7) k/uL Lymphocytes # 0.8 L (1.0-4.8) k/uL Sodium 131 L (137-145) mmol/L Chloride 96 L (98-107) mmol/L Carbon Dioxide (22-30) mmol/L BUN (9-20) mg/dL Glucose 135 H (74-99) mg/dL AST 115 H (17-59) U/L ALT 66 H (4-49) U/L Alkaline Phosphatase 146 H (38-126) U/L Total Protein (6.3-8.2) g/dL Lipase 1925 H (23-300) U/L 10/14/20 Range/Units 07:03 WBC (3.8-10.6) k/uL Neutrophils # (1.3-7.7) k/uL Lymphocytes # (1.0-4.8) k/uL Sodium 132 L (137-145) mmol/L Chloride (98-107) mmol/L Carbon Dioxide 21 L (22-30) mmol/L BUN 6 L (9-20) mg/dL Glucose 115 H (74-99) mg/dL AST 60 H (17-59) U/L ALT (4-49) U/L Alkaline Phosphatase (38-126) U/L Total Protein 6.1 L (6.3-8.2) g/dL Lipase 1045 H (23-300) U/L Thrombosis Risk Factor Assmnt - Choose All That Apply Each Factor Represents 1 point: Age 41-60 years Other Risk Factors: No Thrombosis Risk Factor Assessment Total Risk Factor Score: 1 Thrombosis Risk Factor Assessment Level: Low Risk
--- NOTE | 2020-10-14 19:13 | CONS ---
CONSULTATION DATE OF SERVICE: 10/08/2020 REQUESTING PHYSICIAN: Dr. Bah ). REASON FOR CONSULTATION: Acute pancreatitis. HISTORY OF PRESENT ILLNESS: The patient is a 50-year-old pleasant white male in the emergency room complaining of acute onset of severe epigastric pain that started yesterday morning, sas programmer. The pain continued to progressively get worse with some nausea but no emesis. He came to the emergency room and was noted to have elevation of lipase consistent with acute pancreatitis. He had a similar episode about a year ago, at which time he was admitted to the hospital 3 or 4 days. He has history of alcohol abuse. He drinks about 3-4 cans of beer every day. PAST MEDICAL HISTORY: Significant for coronary artery disease, hypertension, hyperlipidemia, gastroesophageal reflux disease and alcohol abuse. PAST SURGICAL HISTORY: Cardiac catheterization, appendectomy. FAMILY HISTORY: Mother has coronary artery disease. Brother has diabetes mellitus. MEDICATIONS: Medications at home include metoprolol, Protonix, Lipitor. ALLERGIES: None. REVIEW OF SYSTEMS: CARDIOPULMONARY: No chest pain or shortness of breath. : No dysuria, no hematuria. MUSCULOSKELETAL: Unremarkable. SKIN: Unremarkable. ENDOCRINE: Unremarkable. PSYCHIATRIC: Unremarkable. NEUROLOGY: Unremarkable. ENT/VISION: Unremarkable. CONSTITUTIONAL: No recent weight loss. No fever, chills, night sweats. PHYSICAL EXAMINATION: He appears comfortable. No apparent distress. Vital signs are stable. blood pressure is 132/86, pulse rate 100, temperature 97. HEENT examination unremarkable. Sclerae anicteric. Oral cavity no lesions. Neck no JVD. CHEST: Clear to auscultation. HEART: Regular rate and rhythm. ABDOMEN: Soft, there was mild tenderness in the epigastric area. Bowel sounds are positive, no organomegaly. EXTREMITIES: No pedal edema. NEURO: He is alert and oriented x3. No focal deficits. LAB: Done yesterday: WBC 16.6, hemoglobin 16, platelets normal. AST and ALT were slightly elevated at 115 and 66, respectively T bilirubin 1.3 and alkaline phosphatase 146. Today, T bilirubin is 1.3, AST down to 60, ALT down to 43, and alkaline phosphatase is 104. Lipase yesterday was 1925 and today it is 1045, WBC was 15.2. The patient did have a CT of the abdomen and pelvis done in the emergency room that showed fat stranding and fluid around the pancreas, consistent with acute pancreatitis. Normal- appearing gallbladder. Right inguinal hernia noted. Large right-sided scrotal hydrocele noted. IMPRESSION: 1. Acute recurrent pancreatitis. This being the 2nd episode, most likely related to alcohol use. The patient has history of heavy alcohol abuse for several years ago. Lately has been cutting down but drinking about 4 beers on a daily basis. He is also noted to have mild elevation of serum transaminases, which have significantly improved today. CT scan did not show any evidence of biliary ductal dilation or gallbladder or gallstones. The patient was noted to have fat stranding of the pancreas consistent with acute pancreatitis. 2. History of hypertension. 3. History of hyperlipidemia. RECOMMENDATION: 1. We will start him on a clear liquid diet. 2. Pain medications as needed. 3. Monitor labs closely. 4. Abstinence from alcohol. 5. I had a lengthy discussion with the patient regarding this condition and questions answered. Thank you for this consultation. VAUGHN / BOGDAN: [id number] /
[2020-10-14] MEDS ORDERED: FAMOTIDINE 20 MG TAB PO SCH (21:00)
[2020-10-15] MEDS: HYDROcodone/APAP 7.5-325MG 1 EACH TAB PO PRN ×4 (00:26→22:51)
[2020-10-15] MEDS: ATORVASTATIN 10 MG TAB PO SCH ×2 (00:29→22:50)
[2020-10-15] MEDS: PANTOPRAZOLE 40 MG/10 ML VIAL IVP SCH ×2 (00:29→07:49)
[2020-10-15] MEDS: HEPARIN SODIUM,PORCINE/PF 5,000 UNIT/0.5 ML SYRINGE SQ SCH ×3 (00:30→22:51)
[2020-10-15] MEDS: SODIUM CHLORIDE 0.9% 1,000 ML IV SCH ×3 (00:32→16:27)
[2020-10-15 05:40] LABS: HCT 41.5 % (39.0-53.0); HGB 14.1 gm/dL (13.0-17.5); MCH 33.5 pg (25.0-35.0); MCHC 33.9 g/dL (31.0-37.0); MCV 98.7 fL (80.0-100.0); Platelet Count 119 k/uL (150-450); RDW 12.8 % (11.5-15.5); WBC 12.9 k/uL (3.8-10.6)
[2020-10-15 05:48] LABS: ALT 31 U/L (4-49); AST 47 U/L (17-59); African American GFR (CKD) >90 (>60 ml/min/1.73 sqM); Albumin 2.9 g/dL (3.5-5.0); Albumin/Globulin Ratio 1.1; Alkaline Phosphatase 107 U/L (38-126); Anion Gap 7 mmol/L; Blood Urea Nitrogen 3 mg/dL (9-20); Calcium 8.5 mg/dL (8.4-10.2); Carbon Dioxide 20 mmol/L (22-30); Chloride 101 mmol/L (98-107); Globulin 2.6 g/dL; Glucose 101 mg/dL (74-99); Lipase 402 U/L (23-300); Non-African American GFR(CKD) >90 (>60 ml/min/1.73 sqM); Potassium 3.9 mmol/L (3.5-5.1); Sodium 128 mmol/L (137-145); Total Bilirubin 0.9 mg/dL (0.2-1.3); Total Protein 5.5 g/dL (6.3-8.2)
[2020-10-15] MEDS: ASPIRIN 81 MG PO SCH (07:49)
[2020-10-15] MEDS: lisinopriL 10 MG TAB PO SCH (07:49)
[2020-10-15] MEDS: METOPROLOL SUCCINATE (ER) 50 MG TAB.ER.24H PO SCH (07:49)
--- NOTE | 2020-10-15 09:20 | PN ---
PROGRESS NOTE DATE OF SERVICE: 10/15/2020 Patient is a 50-year-old pleasant white male with history of alcohol abuse and acute recurrent pancreatitis, admitted to hospital 2 days ago and noted to have elevated lipase consistent with acute pancreatitis. He is doing much better. He is on a soft diet, low-fat diet, but he had some epigastric discomfort and some dysphagia this morning. He denies any nausea, vomiting. He had T-max of 100.2 last night. No chills. PHYSICAL EXAMINATION: He appears comfortable. Vital signs stable. Blood pressure 162/107, pulse rate 95, temperature 100.2. HEENT examination unremarkable. Conjunctivae pink. Sclerae anicteric. Oral cavity no lesions. Neck no JVD or lymph node enlargement. Chest was clear to auscultation. Heart: Regular rate and rhythm. Abdomen: Soft. There was mild tenderness in the epigastric area. Rest of the abdomen was benign. Bowel sounds are positive. Extremities: No pedal edema. Neuro: He is alert and oriented x3. No focal deficits. LABS: Lipase is down to 402. AST, ALT, T-bilirubin and alkaline phosphatase are normal. WBC is down to 12.9, hemoglobin 14.1. Platelets 119. Sodium is 128. IMPRESSION: 1. Acute pancreatitis secondary to alcohol abuse. Patient doing better, symptoms gradually improving. Leukocytosis is improving. Had low-grade fever last night, probably related to acute pancreatitis. 2. Mild leukocytosis and fever, probably related to pancreatitis. 3. History of alcohol abuse. 4. Elevated LFTs normalized. RECOMMENDATIONS: 1. Continue with low-fat diet. 2. Pain medications as needed. 3. Continue Protonix 40 mg daily. 4. Advise the patient to eat small frequent meals, especially if he has persistent epigastric pain. 5. He can be discharged home later today or tomorrow based on his symptoms. Thank you for this consultation. MMODL / IJN: [id number] /
--- NOTE | 2020-10-15 09:39 | P.GSCN ---
History of Present Illness Consult date: 10/15/20 Reason for Consult: Abdominal pain History of present illness: 50-year-old male with history of alcohol abuse. Patient admitted with acute patel creatitis. Patient with history of pancreatitis one year ago. This episode is worse however. Patient has mostly pain in the left quadrant and left flank region. Did have 2 bowel movement yesterday. Tolerating small amounts of regular diet currently. Labs seem to be improving. Denies nausea or vomiting. T-max 100.2 last night. White blood cell count 12.9. Lipase down to 400. CAT scan shows acute pancreatitis and right-sided hernia. Review of Systems The patient denies any acute changes in vision or hearing, no dysphagia or odynophagia, no chest pain or shortness of breath, no dysuria or hematuria, no headache, no runny nose, no rectal bleeding or melena, no unexplained weight loss Past Medical History Past Medical History: Coronary Artery Disease (CAD), GERD/Reflux, Hyperlipidemia, Hypertension, Myocardial Infarction ([place]) Additional Past Medical History / Comment(s): [place] 01/2016 with stent placement X2 LAD. RT ING, & UMB HERNIAS. Last Myocardial Infarction Date:: 01/27/16 History of Any Multi-Drug Resistant Organisms: None Reported Past Surgical History: Appendectomy, Heart Catheterization With Stent Additional Past Surgical History / Comment(s): [place] 01/26 with stent placement X2 LAD Past Anesthesia/Blood Transfusion Reactions: No Reported Reaction Date of Last Stent Placement:: 01/27/16 Past Psychological History: No Psychological Hx Reported Smoking Status: Never smoker Past Alcohol Use History: Occasional Additional Past Alcohol Use History / Comment(s): 6 BEERS DAILY Past Drug Use History: None Reported - Past Family History Father History Unknown: Yes Mother Family Medical History: Myocardial Infarction ([place]) Brother(s) Family Medical History: Diabetes Mellitus Medications and Allergies Home Medications Medication Instructions Recorded Confirmed Type lisinopriL [Zestril] 10 mg PO DAILY #30 tab 01/30/16 10/13/20 Rx Metoprolol Succinate [Toprol XL] 50 mg PO DAILY 10/13/19 10/13/20 History Pantoprazole [Protonix] 40 mg PO HS 10/13/19 10/13/20 History Aspirin 81 mg PO DAILY chew 10/15/19 10/13/20 Rx Atorvastatin Calcium [Lipitor] 10 mg PO HS 10/13/20 10/13/20 History Allergies Allergy/AdvReac Type Severity Reaction Status Date / Time No Known Allergies Allergy Verified 10/13/20 18:54 Surgical - Exam Vital Signs Temp Pulse Resp BP Pulse Ox 98.8 F 122 H 20 180/110 97 10/13/20 18:20 10/13/20 18:20 10/13/20 18:20 10/13/20 18:20 10/13/20 18:20 Physical exam: General: Well-developed, well-nourished HEENT: Normocephalic, sclerae nonicteric Abdomen: Distended, epigastric tenderness, no rebound or guarding Extremities: No edema Neuro: Alert and oriented Results - Labs 10/15/20 05:01 10/15/20 05:01 Abnormal Lab Results - Last 24 Hours (Table) 10/15/20 10/15/20 Range/Units 05:01 05:01 WBC 12.9 H (3.8-10.6) k/uL RBC 4.20 L (4.30-5.90) m/uL Plt Count 119 L (150-450) k/uL Sodium 128 L (137-145) mmol/L Carbon Dioxide 20 L (22-30) mmol/L BUN 3 L (9-20) mg/dL Glucose 101 H (74-99) mg/dL Total Protein 5.5 L (6.3-8.2) g/dL Albumin 2.9 L (3.5-5.0) g/dL Lipase 402 H (23-300) U/L Diabetes panel 10/15/20 Range/Units 05:01 Sodium 128 L (137-145) mmol/L Potassium 3.9 (3.5-5.1) mmol/L Chloride 101 (98-107) mmol/L Carbon Dioxide 20 L (22-30) mmol/L BUN 3 L (9-20) mg/dL Creatinine 0.68 (0.66-1.25) mg/dL Glucose 101 H (74-99) mg/dL Calcium 8.5 (8.4-10.2) mg/dL AST 47 (17-59) U/L ALT 31 (4-49) U/L Alkaline Phosphatase 107 (38-126) U/L Total Protein 5.5 L (6.3-8.2) g/dL Albumin 2.9 L (3.5-5.0) g/dL Calcium panel 10/15/20 Range/Units 05:01 Calcium 8.5 (8.4-10.2) mg/dL Albumin 2.9 L (3.5-5.0) g/dL Pituitary panel 10/15/20 Range/Units 05:01 Sodium 128 L (137-145) mmol/L Potassium 3.9 (3.5-5.1) mmol/L Chloride 101 (98-107) mmol/L Carbon Dioxide 20 L (22-30) mmol/L BUN 3 L (9-20) mg/dL Creatinine 0.68 (0.66-1.25) mg/dL Glucose 101 H (74-99) mg/dL Calcium 8.5 (8.4-10.2) mg/dL Adrenal panel 10/15/20 Range/Units 05:01 Sodium 128 L (137-145) mmol/L Potassium 3.9 (3.5-5.1) mmol/L Chloride 101 (98-107) mmol/L Carbon Dioxide 20 L (22-30) mmol/L BUN 3 L (9-20) mg/dL Creatinine 0.68 (0.66-1.25) mg/dL Glucose 101 H (74-99) mg/dL Calcium 8.5 (8.4-10.2) mg/dL Total Bilirubin 0.9 (0.2-1.3) mg/dL AST 47 (17-59) U/L ALT 31 (4-49) U/L Alkaline Phosphatase 107 (38-126) U/L Total Protein 5.5 L (6.3-8.2) g/dL Albumin 2.9 L (3.5-5.0) g/dL Assessment and Plan (1) Acute pancreatitis Narrative/Plan: 50-year-old male with acute pancreatitis. This is thought to be secondary to alcohol use. Gallbladder appears normal on CAT scan. Continue diet per GI. We'll follow with you. Current Visit: Yes Status: Acute Code(s): K85.90 - ACUTE PANCREATITIS WITHOUT NECROSIS OR INFECTION, UNSP SNOMED Code(s): 445702429
[2020-10-15] MEDS ORDERED: polyethylene glycoL 3350 17 GM POWD.PACK PO PRN (10:24)
[2020-10-15] MEDS ORDERED: LACTULOSE 20 GM/30 ML CUP PO PRN (10:25)
--- NOTE | 2020-10-15 10:51 | P.PN ---
Subjective 50-year-old male is admitted for possible pancreatitis. Patient came in with abdominal pain without any nausea vomiting. Apparently patient had epigastric abdominal pain although when I valid the patient patient was complaining of for bilateral lower quadrant abdominal pain. Patient had a CT of the abdomen which did show some peripancreatic edema along with a right-sided hydrocele and also right-sided inguinal hernia. Patient doesn't have any significant back pain. Patient has mildly elevated pancreatic enzymes. Patient present pain is not due to. Pancreatitis patient was started on clear liquid diet patient will be started on oral pain medications and Gen. surgery is being consulted. Patient does admit to using alcohol on daily basis about 6 beers a day. Patient's bilateral lower abdominal pain is sharp in nature about 6/10 in severity worsens with movement. 10/15/2020 Patient's lipase improved although patient is not tolerating a regular diet patient will be switched to soft diet. Patient has been drinking a lot of water leading to hyponatremia will restrict the free water continue with IV fluids but cut them down to 100 mL per hour. Patient was comparing of abdominal bloating patient does have distended abdomen and tympanic. Patient is probably constipated will use lactulose for his constipation. Patient blood pressure is bit elevated probably because of the IV fluids no medication changes will be made today patient is presently on lisinopril and clonidine. Patient is also on Toprol-XL which will be continued. doesn't have any significant withdrawals except for elevated blood pressure and mild tachycardia. Patient did have low-grade fever 1 episode blood cultures were obtained we'll Allsop any UA urinalysis, urine culture and a chest x-ray no obvious dose of infection is evident since that is only 1 episode of fever I will not start him on any antibiotics at this time can be related to systemic inflammatory response from pancreatitis. Constitutional: Denied any fatigue denied any fever. Cardio vascular: denied any chest pain, palpitations Gastrointestinal he has some abdominal discomfort and distention Pulmonary: Denied any shortness of breath cough Neurologic denied any new focal deficits All inpatient medications were reviewed and appropriate changes in these medications as dictated in the interval history and assessment and plan. PHYSICAL EXAMINATION: GENERAL: The patient is alert and oriented x3, not in any acute distress. Well developed, well nourished. HEENT: Pupils are round and equally reacting to light. EOMI. No scleral icterus. No conjunctival pallor. Normocephalic, atraumatic. No pharyngeal erythema. No thyromegaly. CARDIOVASCULAR: S1 and S2 present. No murmurs, rubs, or gallops. PULMONARY: Chest is clear to auscultation, no wheezing or crackles. ABDOMEN: Distended tympanic, no significant tenderness normoactive bowel sounds. No palpable organomegaly. MUSCULOSKELETAL: No joint swelling or deformity. EXTREMITIES: No cyanosis, clubbing, or pedal edema. NEUROLOGICAL: Gross neurological examination did not reveal any focal deficits. SKIN: No rashes. Assessment and plan -Mildly edematous pancreatitis: Patient present abdominal pain is not secondary to pancreatitis patient was started on clear liquid diet will advance diet as tolerated patient has alcoholic hepatitis -Constipation -Fever and secondary to systemic inquiry response from pancreatitis septic workup as mentioned above -Bilateral lower abdominal pain etiology is not clear can be related to either hydrocele on inguinal hernia, Gen. surgery valuated the patient -Alcohol abuse history presently doesn't have any withdrawals patient will be monitored closely for any withdrawals will be treated accordingly -Hypertension -Coronary artery disease: With previous stents and cardiac catheterization in the past -Gastric esophageal reflux disease DVT prophylaxis: Early ambulation Objective - Vital Signs Vital signs: Vital Signs Temp 98.8 F 10/15/20 07:26 Pulse 95 10/15/20 08:15 Resp 18 10/15/20 08:15 BP 162/107 10/15/20 07:26 Pulse Ox 94 L 10/15/20 07:26 Intake & Output 10/14/20 10/15/20 10/15/20 18:59 06:59 18:59 Intake Total 1200 1800 Balance 1200 1800 Intake: Intake, IV Titration 1200 1800 Amount Sodium Chloride 0.9% 1, 1200 1800 000 ml @ 150 mls/hr IV . Q6H40M [facility] Rx#:[id number] Other: Voiding Method Toilet Toilet # Voids 1 # Bowel Movements 1 - Labs CBC & Chem 7: 10/15/20 05:01 10/15/20 05:01 Labs: Abnormal Lab Results - Last 24 Hours (Table) 10/15/20 10/15/20 Range/Units 05:01 05:01 WBC 12.9 H (3.8-10.6) k/uL RBC 4.20 L (4.30-5.90) m/uL Plt Count 119 L (150-450) k/uL Sodium 128 L (137-145) mmol/L Carbon Dioxide 20 L (22-30) mmol/L BUN 3 L (9-20) mg/dL Glucose 101 H (74-99) mg/dL Total Protein 5.5 L (6.3-8.2) g/dL Albumin 2.9 L (3.5-5.0) g/dL Lipase 402 H (23-300) U/L
[2020-10-15 12:28] LABS: Appearance,Urine Clear (Clear); Bilirubin,Urine Negative (Negative); Blood,Urine Negative (Negative); Color,Urine Light Yellow; Glucose,Urine (UA) Negative (Negative); Ketones,Urine 1+ (Negative); Leukocyte Esterase,Urine Negative (Negative); Nitrite,Urine Negative (Negative); PH, Urine 6.5 (5.0-8.0); Protein,Urine Negative (Negative); Specific Gravity,Urine 1.005 (1.001-1.035); Urobilinogen,Urine <2.0 mg/dL (<2.0)
--- NOTE | 2020-10-15 13:23 | XR ---
EXAMINATION TYPE: XR chest 2V DATE OF EXAM: 10/15/2020 COMPARISON: Chest x-ray 10/29/2019 HISTORY: Pneumonia TECHNIQUE: Frontal and lateral views of the chest are obtained. FINDINGS: There is abnormal retrocardiac density obscuring the left hemidiaphragm. There is no evide nt pneumothorax. There is blunting left costophrenic angle, possibly the posterior costophrenic angle on the right. Aorta is dense. Left heart border is obscured. IMPRESSION: Left lower lobe atelectasis versus pneumonia and possible associated effusion left great er than right.
[2020-10-15 20:23] VITALS: RESP 20
[2020-10-15] MEDS: PANTOPRAZOLE 40 MG TABLET PO SCH (22:50)
[2020-10-16] MEDS: SODIUM CHLORIDE 0.9% 1,000 ML IV SCH ×2 (04:20→11:11)
[2020-10-16 05:09] VITALS: BP 163/73; PULSE 69; TEMP 98.7
[2020-10-16 07:09] LABS: HCT 37.1 % (39.0-53.0); HGB 12.6 gm/dL (13.0-17.5); MCH 32.9 pg (25.0-35.0); MCV 96.8 fL (80.0-100.0); Platelet Count 143 k/uL (150-450); RBC 3.83 m/uL (4.30-5.90); RDW 12.5 % (11.5-15.5); WBC 13.8 k/uL (3.8-10.6)
[2020-10-16] MEDS: HYDROcodone/APAP 7.5-325MG 1 EACH TAB PO PRN (07:18)
[2020-10-16 07:30] LABS: African American GFR (CKD) >90 (>60 ml/min/1.73 sqM); Anion Gap 6 mmol/L; Blood Urea Nitrogen 3 mg/dL (9-20); Calcium 8.5 mg/dL (8.4-10.2); Carbon Dioxide 25 mmol/L (22-30); Chloride 99 mmol/L (98-107); Glucose 105 mg/dL (74-99); Non-African American GFR(CKD) >90 (>60 ml/min/1.73 sqM); Potassium 3.6 mmol/L (3.5-5.1); Sodium 130 mmol/L (137-145)
[2020-10-16] MEDS: ASPIRIN 81 MG PO SCH (07:52)
[2020-10-16] MEDS: lisinopriL 10 MG TAB PO SCH (07:52)
[2020-10-16] MEDS: HEPARIN SODIUM,PORCINE/PF 5,000 UNIT/0.5 ML SYRINGE SQ SCH (07:52)
[2020-10-16] MEDS: METOPROLOL SUCCINATE (ER) 50 MG TAB.ER.24H PO SCH (07:52)
[2020-10-16] MEDS: PANTOPRAZOLE 40 MG TABLET PO SCH (07:52)
--- NOTE | 2020-10-16 12:12 | P.DS ---
Providers Date of admission: 10/13/20 20:39 Expected date of discharge: 10/16/20 Attending physician: Burt Sellers MD Consults: 10/13/20 20:40 Consult Physician Routine Consulting Provider: Maricarmen Dupont Consult Reason/Comments: pancreatitis Do you want consulting provider notified?: Yes 10/14/20 16:49 Consult Physician Routine Consulting Provider: Emilio Vu Consult Reason/Comments: Abdominal pain Do you want consulting provider notified?: Yes Primary care physician: Burt Sellers MD Hospital Course: Final Diagnoses: Acute recurrent pancreatitis, suspect secondary to alcohol abuse. Patient reported consuming multiple beers daily after returning home X few weeks. History of alcohol abuse times several years Hypertension Hyperlipidemia CAD, history of stents, cardiac cath. Gastroesophageal reflux disease Atelectasis Hospital course: This a 50-year-old gentleman admitted with worsening epigastric pain accompanied by some nausea without emesis. On admission Lipase elevated,1925, LFTs slightly elevated T bili 1.3. CT of abdomen and pelvis reported fat stranding and fluid around the pancreas consistent with acute pancreatitis, normal-appearing gallbladder, right inguinal hernia and large right-sided scrotal hydrocele. Evaluated by both GI and surgery. Maintained on IV fluid hydration, bowel rest. Denies numbness or tingling of fingers or toes. Afebrile, WBC 13.8, sodium 1:30. T bili, LFTs within normal limits. Lipase 402. Feels better today, mild bloating after consuming Turkmen toast this morning without nausea or vomiting. Denies chest pain, palpitations or shortness of breath. Maintaining O2 sats in the high 90s on room air. Significant clinical improvement. Patient will be discharged home today in stable condition with gu arded prognosis,pending patient tolerates lunch. The impression and plan of care has been dictated as directed. : I performed a history and examination of this patient, discussed the same with the dictator. I agree with the dictator's note ,documented as a scribe. Any additional findings or plans will be noted. Patient Condition at Discharge: Stable Plan - Discharge Summary Discharge Rx Participant: No New Discharge Prescriptions: Continue lisinopriL [Zestril] 10 mg PO DAILY #30 tab Pantoprazole [Protonix] 40 mg PO HS Metoprolol Succinate [Toprol XL] 50 mg PO DAILY Aspirin 81 mg PO DAILY chew Atorvastatin Calcium [Lipitor] 10 mg PO HS Discharge Medication List lisinopriL [Zestril] 10 mg PO DAILY #30 tab 01/30/16 [Rx] Metoprolol Succinate [Toprol XL] 50 mg PO DAILY 10/13/19 [History] Pantoprazole [Protonix] 40 mg PO HS 10/13/19 [History] Aspirin 81 mg PO DAILY chew 10/15/19 [Rx] Atorvastatin Calcium [Lipitor] 10 mg PO HS 10/13/20 [History] Follow up Appointment(s)/Referral(s): Burt Sellers MD [Primary Care Provider] - 10/20/20 10:30 am Patient Instructions/Handouts: Pancreatitis (DC), Abuse of Alcohol (DC) Activity/Diet/Wound Care/Special Instructions: do not consume alcohol
--- NOTE | 2020-10-16 14:26 | P.PN ---
Subjective Progress Note Date: 10/16/20 Principal diagnosis: Pancreatitis Patient says his pain is improved today. He had mild nausea last night but that is better today. He had a small bowel movement. He is afebrile. Objective - Vital Signs Vital signs: Vital Signs Temp 98.7 F 10/16/20 05:00 Pulse 69 10/16/20 05:00 Resp 20 10/16/20 05:00 BP 163/73 10/16/20 05:00 Pulse Ox 98 10/16/20 05:00 Intake & Output 10/15/20 10/16/20 10/16/20 18:59 06:59 18:59 Intake Total 750 300 Balance 750 300 Intake: Oral 750 300 Other: Voiding Method Toilet Toilet Toilet # Voids 5 1 1 # Bowel Movements 2 - Exam Abdomen: Soft, mild distention, mild epigastric tenderness, no rebound or guarding - Labs CBC & Chem 7: 10/16/20 06:17 10/16/20 06:17 Labs: Abnormal Lab Results - Last 24 Hours (Table) 10/16/20 10/16/20 Range/Units 06:17 06:17 WBC 13.8 H (3.8-10.6) k/uL RBC 3.83 L (4.30-5.90) m/uL Hgb 12.6 L (13.0-17.5) gm/dL Hct 37.1 L (39.0-53.0) % Plt Count 143 L (150-450) k/uL Sodium 130 L (137-145) mmol/L BUN 3 L (9-20) mg/dL Creatinine 0.61 L (0.66-1.25) mg/dL Glucose 105 H (74-99) mg/dL Microbiology - Last 24 Hours (Table) 10/15/20 05:01 Blood Culture - Preliminary Blood No Growth after 24 hours Assessment and Plan (1) Acute pancreatitis Narrative/Plan: Clinically patient is improving. Continue increasing oral intake. Monitor complaints of discomfort. Alcohol cessation. Status: Acute Code(s): K85.90 - ACUTE PANCREATITIS WITHOUT NECROSIS OR INFECTION, UNSP SNOMED Code(s): 918026479
--- NOTE | 2020-10-16 17:13 | P.PN ---
Subjective Progress Note Date: 10/16/20 Principal diagnosis: pancreatitis 50-year-old who was admitted with pancreatitis with history of alcohol use. Patient states his abdominal pain has improved. He denies any nausea or vomiting. He is tolerating a regular diet and states he had a small bowel movement. Objective - Vital Signs Vital signs: Vital Signs Temp 98.7 F 10/16/20 05:00 Pulse 69 10/16/20 05:00 Resp 20 10/16/20 05:00 BP 163/73 10/16/20 05:00 Pulse Ox 98 10/16/20 05:00 Intake & Output 10/15/20 10/16/20 10/16/20 18:59 06:59 18:59 Intake Total 750 300 Balance 750 300 Intake: Oral 750 300 Other: Voiding Method Toilet Toilet Toilet # Voids 5 1 1 # Bowel Movements 2 - Exam General appearance: The patient is alert, oriented, appears in no acute distress. HET: Head is normocephalic and atraumatic. Conjunctiva pink. Sclera anicteric. Neck: Supple without lymphadenopathy. Abdomen: Soft, nontender, nondistended with bowel sounds. No guarding or rigidity. Extremities: Normal skin color and turgor. No pedal edema Skin: No rashes, no jaundice Neurological: No focal deficits. Alert and oriented 3. - Labs CBC & Chem 7: 10/16/20 06:17 10/16/20 06:17 Labs: Abnormal Lab Results - Last 24 Hours (Table) 10/15/20 10/16/20 10/16/20 Range/Units 12:14 06:17 06:17 WBC 13.8 H (3.8-10.6) k/uL RBC 3.83 L (4.30-5.90) m/uL Hgb 12.6 L (13.0-17.5) gm/dL Hct 37.1 L (39.0-53.0) % Plt Count 143 L (150-450) k/uL Sodium 130 L (137-145) mmol/L BUN 3 L (9-20) mg/dL Creatinine 0.61 L (0.66-1.25) mg/dL Glucose 105 H (74-99) mg/dL Urine Ketones 1+ H (Negative) Microbiology - Last 24 Hours (Table) 10/15/20 05:01 Blood Culture - Preliminary Blood No Growth after 24 hours Assessment and Plan (1) Acute pancreatitis Narrative/Plan: 50-year-old who presented to the emergency department with abdominal pain with nausea and vomiting who was diagnosed with acute pancreatitis secondary to alcohol abuse. He's had a history of recurrent pancreatitis and was admitted to the hospital with elevation in his lipase consistent with acute pancreatitis. Lipase has continued to trend down, patient's symptoms have improved. Status: Acute Code(s): K85.90 - ACUTE PANCREATITIS WITHOUT NECROSIS OR INFECTION, UNSP SNOMED Code(s): 647663951 (2) Alcohol abuse Status: Acute Code(s): F10.10 - ALCOHOL ABUSE, UNCOMPLICATED SNOMED Code(s): 30480082 Plan: 1. Continue diet as tolerated 2. Continue pain medications as needed 3. Encourage ambulation 4. Recommend alcohol cessation Thank you for this consultation, patient may be discharged home from a gastroenterology standpoint. Dr. Jake Dupont I agree with the dictator's note, documented as a scribe by Vijaya Cunningham.
== END 2020-10-16 13:25 | disposition home or self-care (01) | DRG 440 ==
LOC: EC 18:11 → 5NMEDONC 20:39
PROVIDERS: ADMIT Family Medicine; ATTEND Family Medicine
DX: K85.20 Alcohol induced acute pancreatitis without necrosis or infection (principal); E78.5 Hyperlipidemia, unspecified; K86.1 Other chronic pancreatitis; F10.20 Alcohol dependence, uncomplicated; I25.10 Atherosclerotic heart disease of native coronary artery without angina pectoris; N43.3 Hydrocele, unspecified; K70.10 Alcoholic hepatitis without ascites; I10 Essential (primary) hypertension; K40.90 Unilateral inguinal hernia, without obstruction or gangrene, not specified as recurrent; K21.9 Gastro-esophageal reflux disease without esophagitis; R63.0 Anorexia; R13.10 Dysphagia, unspecified; R00.0 Tachycardia, unspecified; I25.2 Old myocardial infarction; K59.00 Constipation, unspecified; Z20.822 Contact with and (suspected) exposure to COVID-19; Z79.82 Long term (current) use of aspirin; Z79.899 Other long term (current) drug therapy; Z90.49 Acquired absence of other specified parts of digestive tract; Z95.5 Presence of coronary angioplasty implant and graft; Z71.41 Alcohol abuse counseling and surveillance of alcoholic; Z87.19 Personal history of other diseases of the digestive system
CPT/HCPCS: 36415; 71046; 74177; 80048; 80053; 81003; 83605; 83690; 83735; 85025; 85027; 87040; 93005; 96361; 96374; 99285

== ENCOUNTER 2021-04-10 08:01 | Emergency (ER) | payer BC ==
[2021-04-10 08:13] VITALS: PULSE 84
[2021-04-10] MEDS ORDERED: SODIUM CHLORIDE 0.9% 1,000 ML IV STA (08:22)
[2021-04-10] MEDS ORDERED: HYDROmorphone 0.5 MG/0.5 ML SYRINGE IVP STA (08:43)
[2021-04-10 08:46] LABS: Basophils % (A) 0 %; Eosinophils # (A) 0.3 k/uL (0-0.7); Eosinophils % (A) 2 %; HCT 43.2 % (39.0-53.0); Lymphocytes # (A) 1.2 k/uL (1.0-4.8); Lymphocytes % (A) 9 %; MCH 32.8 pg (25.0-35.0); MCHC 34.8 g/dL (31.0-37.0); MCV 94.1 fL (80.0-100.0); Mean Platelet Volume 7.1; Monocytes # (A) 0.8 k/uL (0-1.0); Monocytes % (A) 6 %; Neutrophils # (A) 11.5 k/uL (1.3-7.7); Neutrophils % (A) 82 %; Platelet Count 173 k/uL (150-450); RBC 4.59 m/uL (4.30-5.90); RDW 12.7 % (11.5-15.5)
--- NOTE | 2021-04-10 09:05 | ED ---
General Adult HPI - General Chief complaint: Abdominal Pain Stated complaint: possible pancreatitis Time Seen by Provider: 04/10/21 08:17 Source: patient Mode of arrival: ambulatory Limitations: no limitations - History of Present Illness Initial comments: 51-year-old male with a past medical history of CAD, hyperlipidemia, hypertension and [place] presents to the emergency room for a chief complaint of intra-abdominal pain. Patient states she has mid abdominal pain with an ongoing for the past couple days. Patient states this feels exactly like his pa ncreatitis. States it radiates to his back. States he is nauseous. Patient states he is a drinker and this is why he has pancreatitis. He had quit but during the holiday started drinking again.Patient has no other complaints at this time including shortness of breath, chest pain, vomiting, headache, or visual changes. - Related Data Home Medications Medication Instructions Recorded Confirmed Metoprolol Succinate [Toprol XL] 50 mg PO DAILY 10/13/19 04/10/21 Pantoprazole [Protonix] 40 mg PO HS 10/13/19 04/10/21 Atorvastatin Calcium [Lipitor] 10 mg PO HS 10/13/20 04/10/21 Multivit-Min/Folic/Vit K/Lycop 1 tab PO DAILY 04/10/21 04/10/21 [Men's Multivitamin Tablet] Previous Rx's Medication Instructions Recorded lisinopriL [Zestril] 10 mg PO DAILY #30 tab 01/30/16 Pantoprazole Sodium [Protonix] 40 mg PO DAILY #14 tab 04/10/21 Allergies Allergy/AdvReac Type Severity Reaction Status Date / Time No Known Allergies Allergy Verified 04/10/21 08:59 Review of Systems ROS Statement: Those systems with pertinent positive or pertinent negative responses have been documented in the HPI. ROS Other: All systems not noted in ROS Statement are negative. Past Medical History Past Medical History: Coronary Artery Disease (CAD), GERD/Reflux, Hyperlipidemia, Hypertension, Myocardial Infarction ([place]) Additional Past Medical History / Comment(s): [place] 01/2016 with stent placement X2 LAD. RT ING, & UMB HERNIAS. Last Myocardial Infarction Date:: 01/27/16 History of Any Multi-Drug Resistant Organisms: None Reported Past Surgical History: Appendectomy, Heart Catheterization With Stent Additional Past Surgical History / Comment(s): [place] 01/26 with stent placement X2 LAD Past Anesthesia/Blood Transfusion Reactions: No Reported Reaction Date of Last Stent Placement:: 01/27/16 Past Psychological History: No Psychological Hx Reported Smoking Status: Never smoker Past Alcohol Use History: Occasional Past Drug Use History: None Reported - Past Family History Father History Unknown: Yes Mother Family Medical History: Myocardial Infarction ([place]) Brother(s) Family Medical History: Diabetes Mellitus General Exam Limitations: no limitations General appearance: alert, in no apparent distress Head exam: Present: atraumatic Eye exam: Present: normal appearance, PERRL, EOMI. Absent: scleral icterus, conjunctival injection ENT exam: Present: normal exam, mucous membranes moist Neck exam: Present: normal inspection, full ROM. Absent: tenderness Respiratory exam: Present: normal lung sounds bilaterally. Absent: respiratory distress, wheezes Cardiovascular Exam: Present: regular rate, normal rhythm, normal heart sounds GI/Abdominal exam: Present: soft, tenderness (minimal epigastric tenderness), normal bowel sounds. Absent: distended, guarding, rebound, rigid Neurological exam: Present: alert Course Vital Signs 04/10/21 08:11 Temperature 98.4 F Pulse Rate 84 Respiratory 16 Rate Blood Pressure 162/104 O2 Sat by Pulse 99 Oximetry Medical Decision Making - Medical Decision Making vitals are stable. Patient is well-appearing. He has some mild right upper quadrant abdominal tenderness. No lower abdominal tenderness. CBC revealed a mild acidosis of 14. CMP does reveal slight transaminitis is chronic in this patient and likely related to alcoholism. Lipase is elevated at 380. Son of the gallbladder does show hepatic steatosis, possible pancreatitis, common bile duct measurement is borderline enlarged. Symptoms likely related to an early this. At this time we will encourage clear liquid diet at home. PPI will be started. Patient will return here for any worsening symptoms - Lab Data Result diagrams: 04/10/21 08:39 04/10/21 08:39 Lab Results 04/10/21 04/10/21 Range/Units 08:39 08:39 WBC 14.0 H (3.8-10.6) k/uL RBC 4.59 (4.30-5.90) m/uL Hgb 15.0 (13.0-17.5) gm/dL Hct 43.2 (39.0-53.0) % MCV 94.1 (80.0-100.0) fL MCH 32.8 (25.0-35.0) pg MCHC 34.8 (31.0-37.0) g/dL RDW 12.7 (11.5-15.5) % Plt Count 173 (150-450) k/uL MPV 7.1 Neutrophils % 82 % Lymphocytes % 9 % Monocytes % 6 % Eosinophils % 2 % Basophils % 0 % Neutrophils # 11.5 H (1.3-7.7) k/uL Lymphocytes # 1.2 (1.0-4.8) k/uL Monocytes # 0.8 (0-1.0) k/uL Eosinophils # 0.3 (0-0.7) k/uL Basophils # 0.0 (0-0.2) k/uL Sodium 130 L (137-145) mmol/L Potassium 4.4 (3.5-5.1) mmol/L Chloride 98 (98-107) mmol/L Carbon Dioxide 22 (22-30) mmol/L Anion Gap 10 mmol/L BUN 5 L (9-20) mg/dL Creatinine 0.88 (0.66-1.25) mg/dL Est GFR (CKD-EPI)AfAm >90 (>60 ml/min/1.73 sqM) Est GFR (CKD-EPI)NonAf >90 (>60 ml/min/1.73 sqM) Glucose 112 H (74-99) mg/dL Calcium 9.7 (8.4-10.2) mg/dL Total Bilirubin 1.3 (0.2-1.3) mg/dL AST 53 (17-59) U/L ALT 57 H (4-49) U/L Alkaline Phosphatase 147 H (38-126) U/L Total Protein 7.3 (6.3-8.2) g/dL Albumin 4.4 (3.5-5.0) g/dL Amylase 59 (30-110) U/L Lipase 380 H (23-300) U/L Serum Alcohol <10 mg/dL Disposition Clinical Impression: Pancreatitis Disposition: HOME SELF-CARE Condition: Good Instructions (If sedation given, give patient instructions): Pancreatitis (ED), Clear Liquid Diet (ED) Additional Instructions: Please stick to a clear liquid diet. Take medication as directed. Refrain from drinking alcohol. Follow-up with your doctor. Return to the emergency room for any worsening symptoms. Prescriptions: Pantoprazole Sodium [Protonix] 40 mg PO DAILY #14 tab Is patient prescribed a controlled substance at d/c from ED?: No Referrals: Burt Sellers MD [Primary Care Provider] - 1-2 days Time of Disposition: 11:12
[2021-04-10 09:13] LABS: ALT 57 U/L (4-49); AST 53 U/L (17-59); African American GFR (CKD) >90 (>60 ml/min/1.73 sqM); Albumin 4.4 g/dL (3.5-5.0); Alcohol <10 mg/dL; Alkaline Phosphatase 147 U/L (38-126); Amylase 59 U/L (30-110); Anion Gap 10 mmol/L; Blood Urea Nitrogen 5 mg/dL (9-20); Calcium 9.7 mg/dL (8.4-10.2); Carbon Dioxide 22 mmol/L (22-30); Chloride 98 mmol/L (98-107); Glucose 112 mg/dL (74-99); Lipase 380 U/L (23-300); Non-African American GFR(CKD) >90 (>60 ml/min/1.73 sqM); Potassium 4.4 mmol/L (3.5-5.1); Sodium 130 mmol/L (137-145); Total Bilirubin 1.3 mg/dL (0.2-1.3); Total Protein 7.3 g/dL (6.3-8.2)
--- NOTE | 2021-04-10 10:40 | US ---
EXAMINATION TYPE: US gallbladder DATE OF EXAM: 04/10/2021 COMPARISON: CT 10/13/2020, & US 10/29/2019 CLINICAL HISTORY: pain. Epigastric pain EXAM MEASUREMENTS: Liver Length: 15.5 cm Gallbladder Wall: 0.2 cm CBD: 0.6 cm Right Kidney: 10.8 x 5.1 x 5.7 cm Pancreas: Obscured by bowel gas Liver: There is a coarse echotexture. The liver is poorly penetrated by the ultrasound. Gallbladder: No stones seen Evidence for sonographic Benedict's sign: No CBD: Upper limit of normal Right Kidney: No hydronephrosis or masses seen, lower pole obscured by rib shadow. IMPRESSION: There are some limitations the exam. Correlate for hepatic steatosis, possible pancreatit is, common bile duct measurement is borderline enlarged.
[2021-04-10 11:46] VITALS: BP 175/95; RESP 18; TEMP 98.2
== END 2021-04-10 11:30 | disposition home or self-care (01) ==
LOC: EC 08:01
DX: K85.90 Acute pancreatitis without necrosis or infection, unspecified (principal); I25.10 Atherosclerotic heart disease of native coronary artery without angina pectoris; E78.5 Hyperlipidemia, unspecified; I10 Essential (primary) hypertension; I25.2 Old myocardial infarction; K21.9 Gastro-esophageal reflux disease without esophagitis; Z72.89 Other problems related to lifestyle; Z79.899 Other long term (current) drug therapy
CPT/HCPCS: 36415; 80053; 82150; 83690; 85025; 80320; 76705; 96374; 96361 ×2; 99284; J1170

== ENCOUNTER 2021-08-02 08:31 | Day surgery (SDC) | payer BC ==
[2021-08-01 09:18] VITALS: BMI 29.8
--- NOTE | 2021-08-02 07:34 | P.GSHP ---
History of Present Illness H&P Date: 08/02/21 CHIEF COMPLAINT: Inguinal hernia, right possible bilateral HISTORY OF PRESENT ILLNESS: The patient is a 51-year-old male who presents with a history of swelling and pain along the groins. He's noted increased swelling including pain of the area. Now he presents for repair of his inguinal hernia. PAST MEDICAL HISTORY: Please see list. PAST SURGICAL HISTORY: Please see list. MEDICATIONS: Please see list. ALLERGIES: Please see list. SOCIAL HISTORY: No illicit drug use FAMILY HISTORY: No reports of Crohn disease or ulcerative colitis. REVIEW OF ORGAN SYSTEMS: CONSTITUTIONAL: No reports of fevers or chills. No reports of weight loss despite prior attempts. GI: Denies any blood in stools or constipation. PHYSICAL EXAM: VITAL SIGNS: Stable GENERAL: Well-developed pleasant male in no acute distress. HEENT: No scleral icterus. Extraocular movements grossly intact. Moist buccal mucosa. NECK: Supple without lymphadenopathy. CHEST: Unlabored respirations. Equal bilateral excursions. CARDIOVASCULAR: Regular rate and rhythm. Distal 2+ pulses. ABDOMEN: Soft, nondistended. No peritoneal signs. Palpable defect of the groin, right large swelling greater than left MUSCULOSKELETAL: No clubbing, cyanosis, or edema. ASSESSMENT: 1. Inguinal hernia, right possible bilateral PLAN: 1. Recommend proceeding with a robotic inguinal repair with mesh with bilateral approach. 2. Benefits and risks of surgical intervention was discussed including possibility of open technique. 3. DVT prophylaxis. 4. Antibiotic prophylaxis. 5. Patient is high risk due to pre-existing coronary artery disease, myocardial infarction and alcohol abuse Past Medical History Past Medical History: Coronary Artery Disease (CAD), GERD/Reflux, Hyperlipidemia, Hypertension, Myocardial Infarction ([place]) Additional Past Medical History / Comment(s): [place] 01/2016 with stent placement X2 LAD. RT ING, & UMB HERNIAS. Last Myocardial Infarction Date:: 01/27/16 History of Any Multi-Drug Resistant Organisms: None Reported Past Surgical History: Appendectomy, Heart Catheterization With Stent, Hernia Repair Additional Past Surgical History / Comment(s): 2 cardiac stents. Past Anesthesia/Blood Transfusion Reactions: No Reported Reaction Date of Last Stent Placement:: 01/27/16 Past Psychological History: No Psychological Hx Reported Smoking Status: Never smoker Past Alcohol Use History: Daily Additional Past Alcohol Use History / Comment(s): ON AVERAGE, 3 BEERS DAILY. Past Drug Use History: None Reported - Past Family History Father History Unknown: Yes Mother Family Medical History: Myocardial Infarction ([place]) Brother(s) Family Medical History: Diabetes Mellitus Medications and Allergies Home Medications Medication Instructions Recorded Confirmed Type Metoprolol Succinate [Toprol XL] 50 mg PO QAM 10/13/19 08/01/21 History Pantoprazole [Protonix] 40 mg PO HS 10/13/19 08/01/21 History Atorvastatin Calcium [Lipitor] 10 mg PO HS 10/13/20 08/01/21 History Multivit-Min/Folic/Vit K/Lycop 1 tab PO DAILY 04/10/21 08/01/21 History [Men's Multivitamin Tablet] Aspirin 325 mg PO DAILY 08/01/21 08/01/21 History lisinopriL [Zestril] 10 mg PO QAM 08/01/21 08/01/21 History Allergies Allergy/AdvReac Type Severity Reaction Status Date / Time No Known Allergies Allergy Verified 08/01/21 09:23
[~2021-08-02 08:31] MED LIST changes: -DEXAMETHASONE SOD PHOSPHATE 10 MG/ML 1 ML VIAL IV ONE; +DEXAMETHASONE SOD PHOSPHATE 4 MG/ML 1 ML VIAL IV ONE; +GABAPENTIN 300 MG CAP PO PRN; -HEPARIN SODIUM,PORCINE 5,000 UNIT/ML 1 ML VIAL SQ ONE; +HEPARIN SODIUM,PORCINE/PF 5,000 UNIT/0.5 ML SYRINGE SQ PRN; +LIDOCAINE 1% (10MG/ML) FOR IV START INTRADERMA PRN; +MELOXICAM 7.5 MG TAB PO PRN; +METOCLOPRAMIDE 5 MG/ML 2 ML VIAL IVP PRN; +MIDAZOLAM 2 MG/2 ML VIAL IV PRN; -MORPHINE SULFATE 4 MG/ML SYRINGE IV PRN; +TAMSULOSIN 0.4 MG CAP.ER.24H PO PRN; -ceFAZolin IN SWFI 2 GM/20 ML SYRINGE IVP ONE
[2021-08-02 09:31] LABS: Basophils # (A) 0.1 k/uL (0-0.2); Basophils % (A) 1 %; Eosinophils # (A) 0.3 k/uL (0-0.7); Eosinophils % (A) 4 %; HGB 15.4 gm/dL (13.0-17.5); Lymphocytes # (A) 1.5 k/uL (1.0-4.8); Lymphocytes % (A) 21 %; MCH 32.6 pg (25.0-35.0); MCHC 32.8 g/dL (31.0-37.0); MCV 99.5 fL (80.0-100.0); Mean Platelet Volume 7.8; Monocytes # (A) 0.5 k/uL (0-1.0); Monocytes % (A) 7 %; Neutrophils # (A) 4.7 k/uL (1.3-7.7); Neutrophils % (A) 66 %; Platelet Count 193 k/uL (150-450); RBC 4.73 m/uL (4.30-5.90); RDW 12.1 % (11.5-15.5); WBC 7.2 k/uL (3.8-10.6)
[2021-08-02] MEDS: ACETAMINOPHEN TAB 500 MG TAB PO PRN ×2 (09:40→15:10)
[2021-08-02 09:41] LABS: ALT 60 U/L (4-49); AST 52 U/L (17-59); African American GFR (CKD) >90 (>60 ml/min/1.73 sqM); Albumin 4.5 g/dL (3.5-5.0); Alkaline Phosphatase 108 U/L (38-126); Anion Gap 8 mmol/L; Blood Urea Nitrogen 18 mg/dL (9-20); Calcium 9.6 mg/dL (8.4-10.2); Carbon Dioxide 23 mmol/L (22-30); Chloride 106 mmol/L (98-107); Glucose 115 mg/dL (74-99); Non-African American GFR(CKD) >90 (>60 ml/min/1.73 sqM); Potassium 4.9 mmol/L (3.5-5.1); Sodium 137 mmol/L (137-145); Total Bilirubin 0.7 mg/dL (0.2-1.3); Total Protein 7.5 g/dL (6.3-8.2)
[2021-08-02] MEDS ORDERED: METOPROLOL TARTRATE 5 MG/5 ML VIAL IVP ONE (09:51)
[2021-08-02] MEDS ORDERED: MIDAZOLAM 2 MG/2 ML VIAL IVP ONE (09:59)
--- NOTE | 2021-08-02 10:46 | P.HPADDEND ---
H&P Addendum H&P Addendum Date: 08/02/21 CT of the abdomen and pelvis from 2020 reviewed demonstrating bilateral inguinal hernias confirmed. Patient also reports symptomatic left side as well as right- sided. We'll proceed with bilateral inguinal hernia repairs. Benefits and risks described.
[2021-08-02] MEDS ORDERED: PROPOFOL 10 MG/ML 20 ML VIAL IV ONE (11:20)
[2021-08-02] MEDS ORDERED: GLYCOPYRROLATE 0.2 MG/ML 2 ML VIAL ONE (11:20)
[2021-08-02] MEDS ORDERED: KETOROLAC 15 MG/ML 1 ML VIAL ONE (11:20)
[2021-08-02] MEDS ORDERED: ROPIVACAINE 5 MG/ML 30 ML VIAL ONE (11:20)
[2021-08-02] MEDS ORDERED: ROCURONIUM 10 MG/ML (5 ML VIAL) IV ONE (11:20)
[2021-08-02] MEDS ORDERED: fentaNYL (PF) 50 MCG/ML 2 ML AMP ONE (11:20)
[2021-08-02] MEDS ORDERED: MIDAZOLAM 2 MG/2 ML VIAL ONE (11:20)
[2021-08-02] MEDS ORDERED: LIDOCAINE 2% INJ 20 MG/ML (2 ML VIAL) ONE (11:20)
[2021-08-02] MEDS ORDERED: NEOSTIGMINE 1 MG/ML 10 ML VIAL ONE (11:20)
[2021-08-02] MEDS ORDERED: SUCCINYLCHOLINE CHLORIDE 100 MG/5 ML SYR IV ONE (11:20)
[2021-08-02] MEDS ORDERED: SODIUM CHLORIDE 0.9% (PF) 10 ML VIAL ONE (11:20)
[2021-08-02] MEDS ORDERED: LACTATED RINGERS 1,000 ML IV ONE (12:25)
[2021-08-02] MEDS ORDERED: BUPIVACAIN-EPI 0.25%-1:200,000 30 ML VIAL SQ ONE (12:25)
[2021-08-02] MEDS: HYDROmorphone 0.5 MG/0.5 ML SYRINGE IVP PRN ×2 (13:55→14:25)
[2021-08-02 13:56] VITALS: TEMP 97
--- NOTE | 2021-08-02 14:26 | P.OP ---
Date of Procedure: 08/02/21 Description of Procedure: SURGEON: NGOC MURDOCK MD PREOPERATIVE DIAGNOSES: 1. Recurrent right inguinal hernia 2. Hypertensive heart disease 3. Coronary artery disease 4. Status post cardiac stent 5. History of myocardial infarction 6. Hyperlipidemia 7. History of alcohol use disorder 8. History of umbilical hernia repair 9. History of left inguinal hernia repair 10. Left groin pain POSTOPERATIVE DIAGNOSES: 1. Recurrent right inguinal hernia 2. Hypertensive heart disease 3. Coronary artery disease 4. Status post cardiac stent 5. History of myocardial infarction 6. Hyperlipidemia 7. History of alcohol use disorder 8. History of umbilical hernia repair 9. History of left inguinal hernia repair 10. Left pelvic adhesions due to prior hernia repair 11. Obturator hernia, right groin 12. Right inguinal lipoma, subfascial 13. Large right hydrocele OPERATION: 1. Robotic-assisted da Rafael Xi laparoscopic lysis of adhesions, 30 minutes 2. Robotic-assisted da Rafael Xi laparoscopic repair of recurrent right inguinal hernia with mesh, 10 x [address] 3. Excision of pelvic subfascial right inguinal hernia, 4 x 6 cm ANESTHESIA: General with local anesthetic ESTIMATED BLOOD LOSS: 5 mL. SPECIMENS REMOVED: Right inguinal hernia lipoma COMPLICATIONS: None. FINDINGS: 1. Obturator hernia, right, 3 cm 2. Direct right inguinal, 3 cm 3. Pelvic adhesions left side creating recurrent pseudo-inguinal hernia 4. No recurrent umbilical hernia 5. Vipin Tomlinson right upper quadrant trocar 6. Large 10-cm right hydrocele without communication INDICATIONS: The patient is a 51-year-old gentleman who presents with history of right groin pain including left groin pain and prior umbilical and inguinal hernia repairs. Now presents for definitive surgical intervention. Laparoscopic versus open and robotic approaches were discussed. Benefits and risks including bleeding, infection, injury to the vas deferens as well as sterility and chronic groin pain were reviewed. Placement of mesh was also described. Informed consent was obtained. DESCRIPTION: In the preoperative area, the patient was marked with indelible marker along the inguinal hernia. The patient was brought to the operating room and initially laid in supine position. The abdomen had been prepped and draped in standard sterile fashion. Ioban draping was also placed. Prior to incision, a timeout protocol was confirmed with surgical team regarding patient's name including procedures to be performed and location along the right groin. Initial positioning for the robotic assisted ports were selected whereby 20 cm superior to the target anatomy, 0 degree 5 mm laparoscopic trocar entry was performed at the left upper quadrant. The abdomen was insufflated to 15 mmHg which he had tolerated well. Diagnostic laparoscopy demonstrated an obturator hernia and direct inguinal hernia along the right groin. Adhesions of the sigmoid colon to the left groin was found for prior left inguinal hernia repair preperitoneal approach. Next, along the epigastrium, 8 mm robot trocar was placed. An 8-mm robotic trocar was placed under direct visualization at the right upper quadrant. An 8 mm port was placed at the left upper quadrant. All trocars were positioned between 8 to 10-cm apart from each other. An assessory 12-mm trocar at the right upper quadrant was placed for placement of sutures and mesh. The [employer] XI robot was primed, draped, prepared for docking along the right side of the patient. The patient was placed in Trendelenberg position 21-degrees. I then went to the [employer] Xi console. The pharmacy innovation assistant was at bedside for exchange of the robot arms and equipment. Attention was brought to the left groin were adhesions which were sharply using robotic scissors and cautery. Adhesions of the sigmoid colon to the abdominal wall presented a possible recurrent left inguinal hernia. The pelvic adhesions were taken down sharply without injury to the colon. Once completely dissected, no recurrent hernia was identified of the left groin. No hernia was identified along the left groin. A defect was found medial to the inferior epigastric vessels and superior to the bladder. The hernia was evaginated whereby the peritoneum was scored using Endo scissors with cautery. Once completely reduced into the abdominal cavity, the peritoneal sac of the hernia was stripped feeling also a direct inguinal hernia. A large subfascial lipoma over 4 x 6 cm and sac was resected and then passed off for further pathological analysis. The size of the hernia defect was 3 cm of the obturator and direct inguinal hernia combined with intraoperative films obtained. Using nonabsorbable 2-0 VLOC, the peritoneal defect of the right inguinal hernia site was closed using a pursestring suture. The defect was found to be completely closed with complete reduction of the right direct inguinal hernia and obturator hernia was confirmed. As an onlay, an 10 x [address] mesh by [employer] was entered into the abdominal cavity via the 12 mm trocar. The mesh was tacked to the pelvis using nonabsorbable 2-0 VLOC 9-inch length sutures. The robot was undocked from the patient's bedside. I then rescrubbed into the case. Insufflation was released from the abdominal cavity and all instruments were removed from the abdominal cavity. The rest of incisions were reapproximated using 4-0 Monocryl in a running subcuticular fashion. Residual air along the pelvis was completely evacuated. A pre-existing over 10 cm right hydrocele was identified. Incisions were cleansed using dilute hydrogen peroxide. Liquid glue was applied to the skin. At the end of the procedure, the needle, sponge and instrument counts had been verified correct by the surgical first assistant. The patient had tolerated the procedure well and was taken to the postanesthesia care unit in stable condition. Intraoperative films were reviewed and given to patient's family who were pleased with the level of care. Plan - Discharge Summary Discharge Rx Participant: Yes New Discharge Prescriptions: New Acetaminophen Tab [Tylenol Tab] 1,000 mg PO Q6HR PRN #30 tablet PRN Reason: Pain Tamsulosin [Flomax] 0.4 mg PO DAILY #5 cap Simethicone [Gas-X] 125 mg PO AC-TID PRN #20 capsule PRN Reason: Pain Ibuprofen [Motrin] 600 mg PO Q8HR PRN #30 tab PRN Reason: Pain Continue Pantoprazole [Protonix] 40 mg PO HS Metoprolol Succinate [Toprol XL] 50 mg PO QAM Atorvastatin Calcium [Lipitor] 10 mg PO HS Multivit-Min/Folic/Vit K/Lycop [Men's Multivitamin Tablet] 1 tab PO DAILY lisinopriL [Zestril] 10 mg PO QAM Aspirin 325 mg PO DAILY Discharge Medication List Metoprolol Succinate [Toprol XL] 50 mg PO QAM 10/13/19 [History] Pantoprazole [Protonix] 40 mg PO HS 10/13/19 [History] Atorvastatin Calcium [Lipitor] 10 mg PO HS 10/13/20 [History] Multivit-Min/Folic/Vit K/Lycop [Men's Multivitamin Tablet] 1 tab PO DAILY 04/10/21 [History] Aspirin 325 mg PO DAILY 08/01/21 [History] lisinopriL [Zestril] 10 mg PO QAM 08/01/21 [History] Acetaminophen Tab [Tylenol Tab] 1,000 mg PO Q6HR PRN #30 tablet 08/02/21 [Rx] Ibuprofen [Motrin] 600 mg PO Q8HR PRN #30 tab 08/02/21 [Rx] Simethicone [Gas-X] 125 mg PO AC-TID PRN #20 capsule 08/02/21 [Rx] Tamsulosin [Flomax] 0.4 mg PO DAILY #5 cap 08/02/21 [Rx] Follow up Appointment(s)/Referral(s): Ngoc Murdock MD [STAFF PHYSICIAN] - 08/07/21 (Telehealth) Patient Instructions/Handouts: *[facility] - Anesthesia Discharge Instructions, Laparoscopic Herniorrhaphy (IP), Inguinal Hernia Repair (DC) Activity/Diet/Wound Care/Special Instructions: Using antibacterial soap. No lifting over 4 pounds 4 weeks, September 01 No vigorous sexual activity for 2 weeks, August 16 May shower. No bathtub soaks for 2 weeks, August 16 Wear abdominal binder daily for comfort except for showering. Use ice along incisions for today to prevent swelling. Take tylenol, aleve/ibuprofen, simethicone scheduled for 3 days for best pain relief Discharge Disposition: HOME SELF-CARE
[2021-08-02] MEDS ORDERED: ACETAMINOPHEN TAB 500 MG TAB ONE (15:07)
[2021-08-02 15:33] VITALS: BP 157/101; PULSE 58; RESP 18
--- NOTE | 2021-08-02 19:19 | P.ANPRN ---
Procedure Note - Anesthesia - Nerve Block Performed Bilateral Erector Spinae Single Time Out Performed: Yes Date of Procedure: 08/02/21 Procedure Start Time: 09:58 Procedure Stop Time: 10:04 Location of Patient: PreOp Indication: Acute Post-Operative Pain, Requested by Surgeon Sedation Type: Sedate with meaningful contact maintained Preparation: Sterile Prep Position: Prone Needle Types: Pajunk Needle Gauge: 21 Ultrasound used to visualize needle placement: Yes Ultrasound used to observe medication spread: Yes Blood Aspirated: No Pain Paresthesia on Injection Noted: No Resistance on Injection: Normal Image Stored and Saved: Yes Events: Uneventful and Well Tolerated (Ropivacaine 0.5% 15 mL plus normal saline 10 mL given bilaterally at L1)
== END 2021-08-02 16:58 | disposition home or self-care (01) ==
LOC: OR 08:31
PROVIDERS: ATTEND Surgery Plastic and Reconstructive Surgery
DX: K40.91 Unilateral inguinal hernia, without obstruction or gangrene, recurrent (principal); K45.8 Other specified abdominal hernia without obstruction or gangrene; K66.0 Peritoneal adhesions (postprocedural) (postinfection); D17.1 Benign lipomatous neoplasm of skin and subcutaneous tissue of trunk; I25.10 Atherosclerotic heart disease of native coronary artery without angina pectoris; N43.3 Hydrocele, unspecified; I11.9 Hypertensive heart disease without heart failure; K21.9 Gastro-esophageal reflux disease without esophagitis; E78.2 Mixed hyperlipidemia; Z95.5 Presence of coronary angioplasty implant and graft; Z90.49 Acquired absence of other specified parts of digestive tract; Z98.890 Other specified postprocedural states; I25.2 Old myocardial infarction; Z87.891 Personal history of nicotine dependence; Z79.82 Long term (current) use of aspirin; Z79.899 Other long term (current) drug therapy
CPT/HCPCS: 49651; S2900; 64999; 80053; 85025; 88304

== ENCOUNTER → 2022-02-12 | Outpatient (CLI) | payer BC ==
--- NOTE | 2022-02-12 19:15 | CT ---
EXAMINATION TYPE: CT pelvis wo con DATE OF EXAM: 02/12/2022 COMPARISON: 10/13/2020 HISTORY: Pelvic Mass CT DLP: 507 mGycm Automated exposure control for dose reduction was used. Images obtained from the iliac crest to the floor the pelvis with no contrast. There is right inguinal hernia that contains the anterior wall of the urinary bladder. There is no fr ee fluid in the pelvis. There are clips from appendectomy. There are sigmoid diverticula. No divertic ulitis. No free fluid in the pelvis. No evidence of retroperitoneal adenopathy. There is a large righ t-sided hydrocele which measures 10 cm. IMPRESSION: There is herniation of the urinary bladder into the right inguinal canal. There is large right-sided scrotal mass and consistent with hydrocele. No significant change compared to old exam.
== END | disposition home or self-care (01) ==
LOC: RADCTMAIN 17:01
PROVIDERS: ATTEND Surgery Plastic and Reconstructive Surgery
DX: K40.90 Unilateral inguinal hernia, without obstruction or gangrene, not specified as recurrent (principal); N50.89 Other specified disorders of the male genital organs
CPT/HCPCS: 72192

== ENCOUNTER 2022-06-14 00:38 | Observation (INO) | payer BC ==
[2022-06-14] MEDS ORDERED: SODIUM CHLORIDE 0.9% 500 ML 500 ML IV STA (00:57)
[2022-06-14] MEDS ORDERED: MORPHINE SULFATE 4 MG/ML SYRINGE IVP STA (01:14)
[2022-06-14 01:26] LABS: Appearance,Urine Clear (Clear); Basophils # (A) 0.1 k/uL (0-0.2); Basophils % (A) 0 %; Bilirubin,Urine Negative (Negative); Blood,Urine Negative (Negative); Color,Urine Colorless; Eosinophils # (A) 0.4 k/uL (0-0.7); Eosinophils % (A) 3 %; Glucose,Urine (UA) Negative (Negative); Ketones,Urine 1+ (Negative); Leukocyte Esterase,Urine Negative (Negative); Lymphocytes # (A) 1.4 k/uL (1.0-4.8); Lymphocytes % (A) 12 %; MCH 32.3 pg (25.0-35.0); MCV 92.2 fL (80.0-100.0); Mean Platelet Volume 7.8; Monocytes # (A) 0.6 k/uL (0-1.0); Monocytes % (A) 5 %; Neutrophils # (A) 9.6 k/uL (1.3-7.7); Neutrophils % (A) 78 %; Nitrite,Urine Negative (Negative); PH, Urine 6.5 (5.0-8.0); Platelet Count 176 k/uL (150-450); Protein,Urine Negative (Negative); RBC 4.34 m/uL (4.30-5.90); RDW 12.6 % (11.5-15.5); Specific Gravity,Urine 1.006 (1.001-1.035); Urobilinogen,Urine <2.0 mg/dL (<2.0); WBC 12.2 k/uL (3.8-10.6)
[2022-06-14 01:39] LABS: ALT 46 U/L (4-49); AST 43 U/L (17-59); African American GFR (CKD) >90 (>60 ml/min/1.73 sqM); Albumin 3.9 g/dL (3.5-5.0); Alkaline Phosphatase 90 U/L (38-126); Anion Gap 7 mmol/L; Blood Urea Nitrogen 9 mg/dL (9-20); Calcium 8.5 mg/dL (8.4-10.2); Carbon Dioxide 21 mmol/L (22-30); Chloride 94 mmol/L (98-107); Glucose 119 mg/dL (74-99); Lipase 384 U/L (23-300); Non-African American GFR(CKD) >90 (>60 ml/min/1.73 sqM); Potassium 4.4 mmol/L (3.5-5.1); Sodium 122 mmol/L (137-145); Total Bilirubin 1.2 mg/dL (0.2-1.3); Total Protein 6.6 g/dL (6.3-8.2)
[2022-06-14 01:42] LABS: Partial Thromboplastin Time 21.6 sec (22.0-30.0); Prothrombin Time 10.9 sec (9.0-12.0)
--- NOTE | 2022-06-14 02:16 | CT ---
EXAMINATION TYPE: CT abdomen pelvis w con DATE OF EXAM: 06/14/2022 COMPARISON: 10/13/2020 HISTORY: Mildline abdominal pain CT DLP: 1040.8 mGycm Automated exposure control for dose reduction was used. CONTRAST: Performed with IV Contrast, patient injected with 100ml mL of Isovue 300. Images obtained from the diaphragm to the floor the pelvis with the IV contrast. Lung bases are clear. No pleural effusion. Heart size is normal. No pericardial effusion. Liver spleen and stomach pancreas and gallbladder appear intact. The bile ducts are not dilated. Ther e is some fat stranding around the proximal duodenum. There is mild wall thickening. There is no adrenal mass. Kidneys show satisfactory contrast opacification. No hydronephrosis. Ureter s are not dilated. No retroperitoneal adenopathy. There is some retroperitoneal mild fat stranding in the mid abdomen. Bladder distends smoothly. There is bilateral inguinal hernias. Left-sided hernia c ontains fat and right side hernia contains portion of the urinary bladder. There is apparent large ri ght-sided hydrocele. There is surgical clip apparently from appendectomy. No bowel obstruction. No ascites or free air. Th ere is some minimal fat stranding above the left inguinal region. The lumbar vertebra have normal alignment. No compression fracture. There is multilevel mild spondylo tic changes. Bony pelvis is intact. The hip joints are intact. IMPRESSION: Retroperitoneal mild fluid consistent with pancreatitis. There is some mild fat stranding around the duodenum adjacent to the pancreatic head that could be some mild focal acute pancreatitis and duodeni tis. There is overall improvement in the retroperitoneal fluid compared to the old exam. Right inguinal hernia containing urinary bladder without change. Right-sided scrotal hydrocele also p resent on old exam.
--- NOTE | 2022-06-14 02:55 | ED ---
Abdominal Pain HPI - General Chief Complaint: Abdominal Pain Stated Complaint: abd pain,back pain Time Seen by Provider: 06/14/22 00:50 Source: patient Mode of arrival: ambulatory Limitations: no limitations - History of Present Illness Initial Comments: 52-year-old male with past history of high blood pressure, high cholesterol, coronary disease presents to the emergency department reporting abdominal pain. Reports to midepigastric abdominal pain which radiates into his back. Does have history of similar in the past when he was suffering from pancreatitis. He denies any nausea or vomiting. He states that he has significantly cut down on his drinking but does admit to drinking a few days ago. He is a beer drinker. She denies any fevers or chills. No sick contacts with similar symptoms. Denies any chest pain or shortness of breath. Did not take anything at home for his pain. No other alleviating, the dictating or modifying factors - Related Data Home Medications Medication Instructions Recorded Confirmed Metoprolol Succinate [Toprol XL] 50 mg PO DAILY 10/13/19 06/14/22 Atorvastatin Calcium [Lipitor] 10 mg PO HS 10/13/20 06/14/22 Aspirin EC [Ecotrin Low Dose] 81 mg PO DAILY 06/14/22 06/14/22 Previous Rx's Medication Instructions Recorded HYDROcodone/APAP 5-325MG [[place] 1 tab PO Q6HR PRN 3 Days #12 tab 06/15/22 5-325] Pantoprazole [Protonix] 40 mg PO BID 7 Days #14 tab 06/15/22 Thiamine [Vitamin B-1] 100 mg PO DAILY #30 tab 06/15/22 lisinopriL [Zestril] 20 mg PO DAILY #30 tab 06/15/22 Allergies Allergy/AdvReac Type Severity Reaction Status Date / Time No Known Allergies Allergy Verified 06/14/22 08:11 Review of Systems ROS Statement: Those systems with pertinent positive or pertinent negative responses have been documented in the HPI. ROS Other: All systems not noted in ROS Statement are negative. Past Medical History Past Medical History: Coronary Artery Disease (CAD), GERD/Reflux, H yperlipidemia, Hypertension, Myocardial Infarction ([place]) Additional Past Medical History / Comment(s): [place] 01/2016 with stent placement X2 LAD. RT ING, & UMB HERNIAS. pancreatisis Last Myocardial Infarction Date:: 01/27/16 History of Any Multi-Drug Resistant Organisms: None Reported Past Surgical History: Appendectomy, Heart Catheterization With Stent, Hernia Repair Additional Past Surgical History / Comment(s): 2 cardiac stents. Past Anesthesia/Blood Transfusion Reactions: No Reported Reaction Date of Last Stent Placement:: 01/27/16 Past Psychological History: No Psychological Hx Reported Smoking Status: Never smoker Past Alcohol Use History: Daily Past Drug Use History: None Reported - Past Family History Father History Unknown: Yes Mother Family Medical History: Myocardial Infarction ([place]) Brother(s) Family Medical History: Diabetes Mellitus General Exam Limitations: no limitations General appearance: alert, in no apparent distress Head exam: Present: atraumatic, normocephalic, normal inspection Eye exam: Present: normal appearance, PERRL, EOMI. Absent: scleral icterus, con junctival injection, periorbital swelling ENT exam: Present: normal exam, mucous membranes moist Neck exam: Present: normal inspection. Absent: tenderness, meningismus, lymphadenopathy Respiratory exam: Present: normal lung sounds bilaterally. Absent: respiratory distress, wheezes, rales, rhonchi, stridor Cardiovascular Exam: Present: regular rate, normal rhythm, normal heart sounds. Absent: systolic murmur, diastolic murmur, rubs, gallop, clicks GI/Abdominal exam: Present: soft, tenderness (epigastric), normal bowel sounds. Absent: distended, guarding, rebound, rigid Extremities exam: Present: normal inspection, full ROM, normal capillary refill. Absent: tenderness, pedal edema, joint swelling, calf tenderness Back exam: Present: normal inspection Neurological exam: Present: alert, oriented X3, CN II-XII intact Psychiatric exam: Present: normal affect, normal mood Skin exam: Present: warm, dry, intact, normal color. Absent: rash Course Vital Signs 06/14/22 06/14/22 06/14/22 00:45 01:49 03:00 Temperature 98.2 F Pulse Rate 58 L 79 78 Respiratory 16 16 16 Rate Blood Pressure 192/95 174/100 190/107 O2 Sat by Pulse 97 100 99 Oximetry 06/14/22 06/14/22 06/14/22 04:00 05:00 05:29 Temperature Pulse Rate 52 L 93 Respiratory 16 16 Rate Blood Pressure 179/107 158/96 151/92 O2 Sat by Pulse 98 97 Oximetry Medical Decision Making - Medical Decision Making Was pt. sent in by a medical professional or institution (TOM Rizzo, SOX ANALYST, urgent care, hospital, or correction...) When possible be specific @ -No Did you speak to anyone other than the patient for history (EMS, parent, family, police, friend...)? What history was obtained from this source @ -No Did you review nursing and triage notes (agree or disagree)? Why? @ -I reviewed and agree with nursing and triage notes Were old charts reviewed (outside hosp., previous admission, EMS record, old EKG, old radiological studies, urgent care reports/EKG's, correction records)? Report findings @ -No old charts were reviewed Differential Diagnosis (chest pain, altered mental status, abdominal pain women, abdominal pain men, vaginal bleeding, weakness, fever, dyspnea, syncope, headache, dizziness, GI bleed, back pain, seizure, CVA, palpatations, mental health, musculoskeletal)? @ -[place], ACS, choliethiasis, cholecystitis, pancreastitis, enteritis. peptic ulcer EKG interpreted by me (3pts min.). @ -Yes X-rays interpreted by me (1pt min.). @ -None done CT interpreted by me (1pt min.). @ -Yes U/S interpreted by me (1pt. min.). @ -None done What testing was considered but not performed or refused? (CT, X-rays, U/S, labs)? Why? @ -None What meds were considered but not given or refused? Why? @ -None Did you discuss the management of the patient with other professionals (shanelle vargas i.eTOM [address] SOX ANALYST, lab, RT, psych nurse, social work supervisor, refinisher, teacher, radiological defense officer, supportive employment case manager)? Give summary @ -Admitting physician Was smoking cessation discussed for >3mins.? @ -No Was critical care preformed (if so, how long)? @ -No Were there social determinants of health that impacted care today? How? (Homelessness, low income, unemployed, alcoholism, drug addiction, transportation, low edu. Level, literacy, decrease access to med. care, skilled nursing, rehab)? @ -No Was there de-escalation of care discussed even if they declined (Discuss DNR or withdrawal of care, Hospice)? DNR status @ -No What co-morbidities impacted this encounter? (DM, HTN, Smoking, COPD, CAD, Cancer, CVA, ARF, Chemo, Hep., AIDS, mental health diagnosis, sleep apnea, morbid obesity)? @ - alcohol use Was patient admitted / discharged? Hospital course, mention meds given and route, prescriptions, significant lab abnormalities, going to OR and other pertinent info. Upon arrival patient was placed into room 10. A thorough history and physical exam was performed. IV access is established laboratory studies were conducted. He was given 4 mg morphine for pain. Laboratory studies are reviewed and demonstrated a sodium of 122. Lipase 384. CT of the abdomen and pelvis demonstrates signs of pancreatitis. Patient reevaluated and continues to have pain. He was given 1 mg of Dilaudid. I did discuss the results with the patient. Recommended admission due to the hyponatremia likely secondary to beer potomania. Patient was agreeable to admission. Spoke with Dr. Stuart who agreed to admit the patient. Undiagnosed new problem with uncertain prognosis? @ -Yes Drug Therapy requiring intensive monitoring for toxicity (Heparin, Nitro, Insulin, Cardizem)? @ -No Were any procedures done? @ -No Diagnosis/symptom? acute abd pain, acute pancreatitis Acute, or Chronic, or Acute on Chronic? @ -acute Uncomplicated (without systemic symptoms) or Complicated (systemic symptoms)? @ -complicated Side effects of treatment? @ -allergic reaction Exacerbation, Progression, or Severe Exacerbation? @ -No Poses a threat to life or bodily function? How? (Chest pain, [place], [place], pneumonia, PE, COPD, DKA, ARF, appy, cholecystitis, CVA, Diverticulitis, Homicidal, Suicidal, threat to staff... and all critical care pts) @ -yes - Lab Data Result diagrams: 06/15/22 09:07 06/15/22 09:07 Lab Results 06/14/22 06/14/22 06/14/22 Range/Units 01:20 01:20 01:20 WBC (3.8-10.6) k/uL RBC (4.30-5.90) m/uL Hgb (13.0-17.5) gm/dL Hct (39.0-53.0) % MCV (80.0-100.0) fL MCH (25.0-35.0) pg MCHC (31.0-37.0) g/dL RDW (11.5-15.5) % Plt Count (150-450) k/uL MPV Neutrophils % % Lymphocytes % % Monocytes % % Eosinophils % % Basophils % % Neutrophils # (1.3-7.7) k/uL Lymphocytes # (1.0-4.8) k/uL Monocytes # (0-1.0) k/uL Eosinophils # (0-0.7) k/uL Basophils # (0-0.2) k/uL PT (9.0-12.0) sec INR (<1.2) APTT (22.0-30.0) sec Sodium (137-145) mmol/L Potassium (3.5-5.1) mmol/L Chloride (98-107) mmol/L Carbon Dioxide (22-30) mmol/L Anion Gap mmol/L BUN (9-20) mg/dL Creatinine (0.66-1.25) mg/dL Est GFR (CKD-EPI)AfAm (>60 ml/min/1.73 sqM) Est GFR (CKD-EPI)NonAf (>60 ml/min/1.73 sqM) Glucose (74-99) mg/dL Osmolality 258 L (280-301) mosm/kg Plasma Lactic Acid Mikey (0.7-2.0) mmol/L Calcium (8.4-10.2) mg/dL Total Bilirubin (0.2-1.3) mg/dL AST (17-59) U/L ALT (4-49) U/L Alkaline Phosphatase (38-126) U/L Total Protein (6.3-8.2) g/dL Albumin (3.5-5.0) g/dL Lipase (23-300) U/L Urine Color Urine Appearance (Clear) Urine pH (5.0-8.0) Ur Specific [place] (1.001-1.035) Urine Protein (Negative) Urine Glucose (UA) (Negative) Urine Ketones (Negative) Urine Blood (Negative) Urine Nitrite (Negative) Urine Bilirubin (Negative) Urine Urobilinogen (<2.0) mg/dL Ur Leukocyte Esterase (Negative) Urine Osmolality 252 (50-1400) mosm/kg Ur Random Sodium 75 (40-220) mmol/L 06/14/22 06/14/22 06/14/22 Range/Units 01:21 01:21 01:21 WBC 12.2 H (3.8-10.6) k/uL RBC 4.34 (4.30-5.90) m/uL Hgb 14.0 (13.0-17.5) gm/dL Hct 40.0 (39.0-53.0) % MCV 92.2 (80.0-100.0) fL MCH 32.3 (25.0-35.0) pg MCHC 35.0 (31.0-37.0) g/dL RDW 12.6 (11.5-15.5) % Plt Count 176 (150-450) k/uL MPV 7.8 Neutrophils % 78 % Lymphocytes % 12 % Monocytes % 5 % Eosinophils % 3 % Basophils % 0 % Neutrophils # 9.6 H (1.3-7.7) k/uL Lymphocytes # 1.4 (1.0-4.8) k/uL Monocytes # 0.6 (0-1.0) k/uL Eosinophils # 0.4 (0-0.7) k/uL Basophils # 0.1 (0-0.2) k/uL PT 10.9 (9.0-12.0) sec INR 1.0 (<1.2) APTT 21.6 L (22.0-30.0) sec Sodium (137-145) mmol/L Potassium (3.5-5.1) mmol/L Chloride (98-107) mmol/L Carbon Dioxide (22-30) mmol/L Anion Gap mmol/L BUN (9-20) mg/dL Creatinine (0.66-1.25) mg/dL Est GFR (CKD-EPI)AfAm (>60 ml/min/1.73 sqM) Est GFR (CKD-EPI)NonAf (>60 ml/min/1.73 sqM) Glucose (74-99) mg/dL Osmolality (280-301) mosm/kg Plasma Lactic Acid Mikey (0.7-2.0) mmol/L Calcium (8.4-10.2) mg/dL Total Bilirubin (0.2-1.3) mg/dL AST (17-59) U/L ALT (4-49) U/L Alkaline Phosphatase (38-126) U/L Total Protein (6.3-8.2) g/dL Albumin (3.5-5.0) g/dL Lipase (23-300) U/L Urine Color Colorless Urine Appearance Clear (Clear) Urine pH 6.5 (5.0-8.0) Ur Specific [place] 1.006 (1.001-1.035) Urine Protein Negative (Negative) Urine Glucose (UA) Negative (Negative) Urine Ketones 1+ H (Negative) Urine Blood Negative (Negative) Urine Nitrite Negative (Negative) Urine Bilirubin Negative (Negative) Urine Urobilinogen <2.0 (<2.0) mg/dL Ur Leukocyte Esterase Negative (Negative) Urine Osmolality (50-1400) mosm/kg Ur Random Sodium (40-220) mmol/L 06/14/22 06/14/22 Range/Units 01:21 01:21 WBC (3.8-10.6) k/uL RBC (4.30-5.90) m/uL Hgb (13.0-17.5) gm/dL Hct (39.0-53.0) % MCV (80.0-100.0) fL MCH (25.0-35.0) pg MCHC (31.0-37.0) g/dL RDW (11.5-15.5) % Plt Count (150-450) k/uL MPV Neutrophils % % Lymphocytes % % Monocytes % % Eosinophils % % Basophils % % Neutrophils # (1.3-7.7) k/uL Lymphocytes # (1.0-4.8) k/uL Monocytes # (0-1.0) k/uL Eosinophils # (0-0.7) k/uL Basophils # (0-0.2) k/uL PT (9.0-12.0) sec INR (<1.2) APTT (22.0-30.0) sec Sodium 122 L (137-145) mmol/L Potassium 4.4 (3.5-5.1) mmol/L Chloride 94 L (98-107) mmol/L Carbon Dioxide 21 L (22-30) mmol/L Anion Gap 7 mmol/L BUN 9 (9-20) mg/dL Creatinine 0.75 (0.66-1.25) mg/dL Est GFR (CKD-EPI)AfAm >90 (>60 ml/min/1.73 sqM) Est GFR (CKD-EPI)NonAf >90 (>60 ml/min/1.73 sqM) Glucose 119 H (74-99) mg/dL Osmolality (280-301) mosm/kg Plasma Lactic Acid Mikey 0.8 (0.7-2.0) mmol/L Calcium 8.5 (8.4-10.2) mg/dL Total Bilirubin 1.2 (0.2-1.3) mg/dL AST 43 (17-59) U/L ALT 46 (4-49) U/L Alkaline Phosphatase 90 (38-126) U/L Total Protein 6.6 (6.3-8.2) g/dL Albumin 3.9 (3.5-5.0) g/dL Lipase 384 H (23-300) U/L Urine Color Urine Appearance (Clear) Urine pH (5.0-8.0) Ur Specific [place] (1.001-1.035) Urine Protein (Negative) Urine Glucose (UA) (Negative) Urine Ketones (Negative) Urine Blood (Negative) Urine Nitrite (Negative) Urine Bilirubin (Negative) Urine Urobilinogen (<2.0) mg/dL Ur Leukocyte Esterase (Negative) Urine Osmolality (50-1400) mosm/kg Ur Random Sodium (40-220) mmol/L - EKG Data EKG Comments: EKG demonstrates sinus bradycardia with a rate of 53. NM interval 124. QRS 93. QTC of 441. No acute ST segment elevations or depressions Disposition Clinical Impression: Pancreatitis, Abdominal pain, Hyponatremia, Alcohol use Disposition: ADMITTED IP TO THIS [facility] Condition: Stable Is patient prescribed a controlled substance at d/c from ED?: No Time of Disposition: 03:10 Decision to Admit Reason: Admit from EC Decision Date: 06/14/22 Decision Time: 03:10
[2022-06-14] MEDS ORDERED: HYDROmorphone 1 MG/ML 1 ML SYRINGE IVP STA (03:05)
[2022-06-14] MEDS ORDERED: NALOXONE 0.4 MG/ML 1 ML VIAL IV PRN (03:10)
[2022-06-14] MEDS ORDERED: LORazepam 1 MG TAB PO PRN ×4 (03:40)
[2022-06-14] MEDS ORDERED: THIAMINE 100 MG/ML 2 ML VIAL IM STA (03:40)
[2022-06-14] MEDS ORDERED: LORazepam 0.5 MG TAB PO PRN (03:40)
[2022-06-14] MEDS: SODIUM CHLORIDE 0.9% 1,000 ML IV SCH ×3 (04:16→23:56)
[2022-06-14] MEDS ORDERED: hydrALAZINE HCL 20 MG/ML 1 ML VIAL IVP STA (04:28)
[2022-06-14] MEDS: HYDROmorphone 1 MG/ML 1 ML SYRINGE IVP PRN ×6 (06:20→23:55)
[2022-06-14] MEDS: METOPROLOL SUCCINATE (ER) 50 MG TAB.ER.24H PO SCH (09:02)
[2022-06-14] MEDS: PANTOPRAZOLE 40 MG/10 ML VIAL IVP SCH ×2 (09:02→19:58)
--- NOTE | 2022-06-14 13:54 | P.HPIM ---
History of Present Illness H&P Date: 06/14/22 Hi Salgado is a 52 yo M with PMH of HTN, HLD, alcohol abuse, GERD who presented to the ED complaining of ongoing mid epigastric pain all week. He states he was drinking more than his usual amount recently and after drinking a case of beer on Friday his pain started. He denies any vomiting or diarrhea, no recent change in his diet and no illness. He endorses nausea. States he has not had any alcohol since this started but his symptoms have continued so came to the hospital. On presentation pt hypertensive, sodium 122, lipase 380. CT abd/pelvis with pancreatitis. Review of Systems All systems: negative Constitutional: Reports malaise, Denies chills, Denies fever Eyes: denies blurred vision, denies pain Ears, nose, mouth and throat: Denies headache, Denies sore throat Cardiovascular: Denies chest pain, Denies shortness of breath Respiratory: Denies cough Gastrointestinal: Reports abdominal pain, Denies diarrhea, Denies nausea, Denies vomiting Musculoskeletal: Denies myalgias Integumentary: Denies pruritus, Denies rash Neurological: Denies numbness, Denies weakness Psychiatric: Denies anxiety, Denies depression Endocrine: Denies fatigue, Denies weight change Past Medical History Past Medical History: Coronary Artery Disease (CAD), GERD/Reflux, Hyperlipidemia, Hypertension, Myocardial Infarction ([place]) Additional Past Medical History / Comment(s): [place] 01/2016 with stent placement X2 LAD. RT ING, & UMB HERNIAS. pancreatisis Last Myocardial Infarction Date:: 01/27/16 History of Any Multi-Drug Resistant Organisms: None Reported Past Surgical History: Appendectomy, Heart Catheterization With Stent, Hernia Repair Additional Past Surgical History / Comment(s): 2 cardiac stents. Past Anesthesia/Blood Transfusion Reactions: No Reported Reaction Date of Last Stent Placement:: 01/27/16 Past Psychological History: No Psychological Hx Reported Smoking Status: Never smoker Past Alcohol Use History: Daily Past Drug Use History: None Reported - Past Family History Father History Unknown: Yes Mother Family Medical History: Myocardial Infarction ([place]) Brother(s) Family Medical History: Diabetes Mellitus Medications and Allergies Home Medications Medication Instructions Recorded Confirmed Type Metoprolol Succinate [Toprol XL] 50 mg PO DAILY 10/13/19 06/14/22 History Pantoprazole [Protonix] 40 mg PO DAILY 10/13/19 06/14/22 History Atorvastatin Calcium [Lipitor] 10 mg PO HS 10/13/20 06/14/22 History lisinopriL [Zestril] 10 mg PO DAILY 08/01/21 06/14/22 History Aspirin EC [Ecotrin Low Dose] 81 mg PO DAILY 06/14/22 06/14/22 History Allergies Allergy/AdvReac Type Severity Reaction Status Date / Time No Known Allergies Allergy Verified 06/14/22 08:11 Physical Exam Vitals: Vital Signs Temp Pulse Pulse Resp BP BP Pulse Ox 06/14/22 12:09 98.5 F 61 20 169/90 96 06/14/22 06:22 98.3 F 67 16 188/96 98 06/14/22 05:29 151/92 06/14/22 05:00 93 16 158/96 97 06/14/22 04:00 52 L 16 179/107 98 06/14/22 03:00 78 16 190/107 99 06/14/22 01:49 79 16 174/100 100 06/14/22 00:45 98.2 F 58 L 16 192/95 97 Intake and Output 06/13/22 06/14/22 06/14/22 22:59 06:59 14:59 Other: Weight 86.183 kg Gen: well developed, well nourished NAD HEENT: NC, AT, mmm Neck: supple, no thyromegaly or JVD CV: RRR, no murmur Lungs: Normal effort, clear throughout Abd; soft, tender epigastric. BS+ Neuro: AAOx3, no focal deficit Skin: warm and dry Results CBC & Chem 7: 06/14/22 01:21 06/14/22 01:21 Labs: Abnormal Lab Results - Last 24 Hours (Table) 06/14/22 06/14/22 06/14/22 Range/Units 01:20 01:21 01:21 WBC 12.2 H (3.8-10.6) k/uL Neutrophils # 9.6 H (1.3-7.7) k/uL APTT 21.6 L (22.0-30.0) sec Sodium (137-145) mmol/L Chloride (98-107) mmol/L Carbon Dioxide (22-30) mmol/L Glucose (74-99) mg/dL Osmolality 258 L (280-301) mosm/kg Lipase (23-300) U/L Urine Ketones (Negative) 06/14/22 06/14/22 Range/Units 01:21 01:21 WBC (3.8-10.6) k/uL Neutrophils # (1.3-7.7) k/uL APTT (22.0-30.0) sec Sodium 122 L (137-145) mmol/L Chloride 94 L (98-107) mmol/L Carbon Dioxide 21 L (22-30) mmol/L Glucose 119 H (74-99) mg/dL Osmolality (280-301) mosm/kg Lipase 384 H (23-300) U/L Urine Ketones 1+ H (Negative) Thrombosis Risk Factor Assmnt - Choose All That Apply Any of the Below Risk Factors Present?: Yes Each Factor Represents 1 point: Age 41-60 years, Obesity (BMI >25) Thrombosis Risk Factor Assessment Total Risk Factor Score: 2 Thrombosis Risk Factor Assessment Level: Low Risk Assessment and Plan Plan: 1. Alcoholic pancreatitis. Admit, start IV fluids, pain control. IV protonix. Follow lipase 2. Alcohol withdrawal. CIWA protocol. Replete thiamine 3. HTN. Continue lisinopril 4. HLD. Continue lipitor
[2022-06-14] MEDS: lisinopriL 10 MG TAB PO SCH (14:39)
[2022-06-14] MEDS ORDERED: ATORVASTATIN 10 MG TAB PO SCH (21:00)
[2022-06-15] MEDS: HYDROmorphone 1 MG/ML 1 ML SYRINGE IVP PRN ×3 (02:58→10:47)
[2022-06-15] MEDS: lisinopriL 10 MG TAB PO SCH (02:59)
[2022-06-15 08:09] VITALS: BP 171/97; PULSE 70; RESP 18; TEMP 98.7
[2022-06-15] MEDS: METOPROLOL SUCCINATE (ER) 50 MG TAB.ER.24H PO SCH (08:26)
[2022-06-15] MEDS: PANTOPRAZOLE 40 MG/10 ML VIAL IVP SCH (08:26)
[2022-06-15] MEDS ORDERED: THIAMINE 100 MG TAB PO SCH (09:00)
[2022-06-15 11:31] LABS: Basophils # (A) 0.04 X 10*3/uL (0.00-0.10); Basophils % (A) 0.3 %; Eosinophils % (A) 1.5 %; HCT 41.7 % (39.6-50.0); HGB 14.1 g/dL (13.0-17.0); Immature Grans, Automated 0.4 %; Lymphocytes # (A) 1.42 X 10*3/uL (0.90-5.00); Lymphocytes % (A) 10.4 %; MCH 31.6 pg (27.0-32.0); MCHC 33.8 g/dL (32.0-37.0); MCV 93.5 fL (80.0-97.0); Mean Platelet Volume 9.6 fL (9.5-12.2); Monocytes # (A) 1.17 X 10*3/uL (0.20-1.00); Monocytes % (A) 8.6 %; NRBC Per 100 WBC 0 /100 WBCS (0.0-0.0); Neutrophils # (A) 10.72 X 10*3/uL (1.80-7.70); Neutrophils % (A) 78.8 %; Platelet Count 192 X 10*3/uL (140-440); RBC 4.46 X 10*6/uL (4.40-5.60); RDW 12.8 % (11.5-14.5)
[2022-06-15 12:32] LABS: African American GFR (CKD) 111.4 (60.0-200.0); Anion Gap 11.3 mmol/L (10.00-18.00); BUN/Creat Ratio 5.59 Ratio (12.00-20.00); Blood Urea Nitrogen 5.1 mg/dL (9.0-27.0); Calcium 9.2 mg/dL (8.7-10.3); Carbon Dioxide 18.1 mmol/L (20.0-27.5); Non-African American GFR(CKD) 96.1 (60.0-200.0); Potassium 4.4 mmol/L (3.5-5.5)
--- NOTE | 2022-06-17 15:18 | P.DS ---
Providers Date of admission: 06/14/22 03:19 Attending physician: Burt Sellers MD Primary care physician: Burt Sellers MD Hospital Course: Final Diagnosis Mild acute alcoholic pancreatitis and likely alcoholic gastritis Alcohol withdrawal Hypertension Hyperlipidemia Coronary artery disease with prior PCI Gastroesophageal reflux disease Discharge Disposition Patient is stable for discharge home. Patient has tolerated some diet and reports improvement in abdominal pain. He has been discharged on oral protonix BID for 7 days and recommended to resume home dose of protonix 40 mg daily after 1 week. Patient is also discharged on thiamine daily. Patient is recommended for total alcohol cessation. Patient verabalizes understanding. No signs for acute alcohol withdrawal and patient has not required ativan on the medical floor. Lisinopril has been increased to 20 mg daily. Recommend close follow up with primary provider in 1 to 2 days on discharge. Hospital Course This is a pleasant 52 yo M with a past medical history of hypertension, hyperlipdiemia, myocardial infarction and prior cardiac stenting, alcohol abuse, GERD who presented to the ED complaining of ongoing mid epigastric pain all week. He states he was drinking more than his usual amount recently and after drinking a case of beer on Friday his pain started. He denies any vomiting or diarrhea, no recent change in his diet and no illness. He endorses nausea. States he has not had any alcohol since this started but his symptoms have continued so came to the hospital. On presentation pt hypertensive, sodium 122, lipase 380. CT abd/pelvis with pancreatitis. He did have white count of 12.2. Patient was admitted to the hospital for monitoring. He had negative urinalysis. He was monitored for acute alcohol withdrawal and was given IV fluids. His abdominal pain is improving and he has tolerated some clear/full liquid diet. He is no longer tender on palpation but does continue to report some mild abdominal pain about a 3/10 mostly epigastric and radiating strait through to his back. He has had no signs for acute withdrawal. He is counseled extensively on alcohol cessation and recommending on discharge for close follow up with his pcp. Patient verbalizes understanding and does endorse a desire to quiet drinking. He will be discharge home. 06/15/2022 Patient is monitored on medical floor. No acute events overnight. Abdominal pain has improved. He is tolerating some diet, no shortness of breath and no chest pain. No nausea, vomiting or diarrhea. He is alert x 3 and focal neurological exam is negative. Blood pressure elevated and lisinopril has been increased on discharge. Sodium has improved to 128 with hydration. Patient will be discharged. Please see medication reconciliation for a list of current medication. Thank you for allowing us to participate in the care of this patient. The impression and plan of care has been dictated by Carolyn Hoffman Nurse Practitioner as directed. Dr. Nisa MD I have performed a history and physical examination and medical decision making of this patient, discussed the same with the dictator, and agree with the dictators assessment and plan as written, documented as a scribe. Based on total visit time, I have performed more than 50% of this visit. Patient Condition at Discharge: Stable Plan - Discharge Summary Discharge Rx Participant: No New Discharge Prescriptions: New Thiamine [Vitamin B-1] 100 mg PO DAILY #30 tab lisinopriL [Zestril] 20 mg PO DAILY #30 tab HYDROcodone/APAP 5-325MG [[place] 5-325] 1 tab PO Q6HR PRN 3 Days #12 tab PRN Reason: Pain Continue Metoprolol Succinate [Toprol XL] 50 mg PO DAILY Atorvastatin Calcium [Lipitor] 10 mg PO HS Aspirin EC [Ecotrin Low Dose] 81 mg PO DAILY Changed Pantoprazole [Protonix] 40 mg PO BID 7 Days #14 tab Discontinued lisinopriL [Zestril] 10 mg PO DAILY Discharge Medication List Metoprolol Succinate [Toprol XL] 50 mg PO DAILY 10/13/19 [History] Atorvastatin Calcium [Lipitor] 10 mg PO HS 10/13/20 [History] Aspirin EC [Ecotrin Low Dose] 81 mg PO DAILY 06/14/22 [History] HYDROcodone/APAP 5-325MG [[place] 5-325] 1 tab PO Q6HR PRN 3 Days #12 tab 06/15/22 [Rx] Pantoprazole [Protonix] 40 mg PO BID 7 Days #14 tab 06/15/22 [Rx] Thiamine [Vitamin B-1] 100 mg PO DAILY #30 tab 06/15/22 [Rx] lisinopriL [Zestril] 20 mg PO DAILY #30 tab 06/15/22 [Rx] Follow up Appointment(s)/Referral(s): Burt Sellers MD [Primary Care Provider] - 1-2 days Patient Instructions/Handouts: Lisinopril (By mouth), Hydrocodone/Acetaminophen (By mouth), Pantoprazole (By mouth), Pancreatitis (DC), Low Fat Diet (DC) Discharge Disposition: HOME SELF-CARE
== END 2022-06-15 16:13 | disposition home or self-care (01) ==
LOC: EC 00:38 → 5NMEDONC 03:19 → INTOOBSV 03:19 → 5NMEDONC 03:42 → UNDODISIN 06-15 16:13
PROVIDERS: ADMIT Family Medicine; ATTEND Family Medicine
DX: K85.20 Alcohol induced acute pancreatitis without necrosis or infection (principal); F10.139 Alcohol abuse with withdrawal, unspecified; I10 Essential (primary) hypertension; E78.00 Pure hypercholesterolemia, unspecified; I25.10 Atherosclerotic heart disease of native coronary artery without angina pectoris; K21.9 Gastro-esophageal reflux disease without esophagitis; E87.1 Hypo-osmolality and hyponatremia; I25.2 Old myocardial infarction; Z95.5 Presence of coronary angioplasty implant and graft; Z79.82 Long term (current) use of aspirin; Z79.899 Other long term (current) drug therapy
CPT/HCPCS: 96375 ×2; 96376 ×2; 96361; 96372; 96374; 99285; 36415; 84300; 83930; 80053; 80048; 83605; 83690; 85025 ×2; 85610; 85730; 81003; 83935; 74177; G0378 ×2; J2270; J0360; J3411; J1170 ×2; C9113 ×2; Q9967

== ENCOUNTER 2022-08-24 12:14 | Observation (INO) | payer BC ==
[2022-08-24] MEDS ORDERED: SODIUM CHLORIDE 0.9% 1,000 ML IV STA (12:41)
[2022-08-24] MEDS ORDERED: KETOROLAC 15 MG/ML 1 ML VIAL IVP STA (12:41)
[2022-08-24 13:17] LABS: Basophils % (A) 0 %; Eosinophils # (A) 0.3 k/uL (0-0.7); Eosinophils % (A) 2 %; HGB 14.7 gm/dL (13.0-17.5); Lymphocytes # (A) 1.2 k/uL (1.0-4.8); Lymphocytes % (A) 10 %; MCH 31.7 pg (25.0-35.0); MCHC 33.5 g/dL (31.0-37.0); MCV 94.5 fL (80.0-100.0); Mean Platelet Volume 7.4; Monocytes # (A) 0.8 k/uL (0-1.0); Monocytes % (A) 6 %; Neutrophils # (A) 10.3 k/uL (1.3-7.7); Neutrophils % (A) 81 %; Platelet Count 216 k/uL (150-450); RBC 4.65 m/uL (4.30-5.90); RDW 13.1 % (11.5-15.5); WBC 12.8 k/uL (3.8-10.6)
[2022-08-24 13:27] LABS: Albumin 4.3 g/dL (3.5-5.0); Calcium 9.3 mg/dL (8.4-10.2); Potassium 4.8 mmol/L (3.5-5.1); Total Protein 7.1 g/dL (6.3-8.2)
--- NOTE | 2022-08-24 13:51 | CT ---
EXAMINATION TYPE: CT abdomen pelvis w con DATE OF EXAM: 08/24/2022 COMPARISON: CT abdomen and pelvis June 14, 2022. CT pelvis February 12, 2022. HISTORY: bilateral lower abd pain, nausea, vomiting x1 day CT DLP: 1162.4 mGycm, Automated Exposure Control for Dose Reduction was Utilized. CONTRAST: CT scan of the abdomen and pelvis is performed without oral but with IV Contrast, patient injected wi th 100 mL of Isovue 300. FINDINGS: LUNG BASES: Mild to moderate left greater than right bibasilar linear scarring and/or atelectasis. LIVER/GB: Liver remains diffusely low dense. PANCREAS: There is now moderate to severe ill-defined fluid and fat stranding surrounding the pancrea s. No well-formed fluid collection is seen. No areas of nonenhancement are identified. SPLEEN: No significant abnormality is seen. ADRENALS: No significant abnormality is seen. KIDNEYS: No significant abnormality is seen. BOWEL: Appendix is surgically absent. Abnormal fluid in the right colon. No suspicious small or large bowel dilatation. Abnormal fluid in the sigmoid rectal colon. A few sigmoid colonic diverticula. No CT evidence for acute diverticulitis. PROSTATE/SEMINAL VESICLES: No gross abnormality seen. LYMPH NODES: No greater than 1cm abdominal or pelvic lymph nodes are appreciated. OSSEOUS STRUCTURES: Moderate disc space narrowing L4-L5 and L5-S1 levels. OTHER: Small fat-containing left inguinal hernia redemonstrated. Moderate size right inguinal hernia containing portion of bladder redemonstrated. There is severe right scrotal fluid collection or hydro partha below this. This was only partially imaged on prior. IMPRESSION: 1. CT findings consistent with a severe but uncomplicated acute pancreatitis as detailed above. 2. Some abnormal fluid in portions of colon could reflect product of mild uncomplicated colitis and/o r diarrhea. Correlate clinically. No bowel obstruction. 3. Stable right inguinal hernia containing portion of bladder and large right scrotal fluid collectio n or hydrocele.
[2022-08-24 13:55] LABS: Appearance,Urine Clear (Clear); Bilirubin,Urine Negative (Negative); Blood,Urine Negative (Negative); Color,Urine Colorless; Glucose,Urine (UA) Negative (Negative); Ketones,Urine Negative (Negative); Leukocyte Esterase,Urine Negative (Negative); Nitrite,Urine Negative (Negative); Protein,Urine Negative (Negative); Specific Gravity,Urine 1.003 (1.001-1.035); Urobilinogen,Urine <2.0 mg/dL (<2.0)
[2022-08-24] MEDS ORDERED: ONDANSETRON 4 MG/2 ML VIAL IVP PRN (15:02)
[2022-08-24] MEDS ORDERED: NALOXONE 0.4 MG/ML 1 ML VIAL IV PRN (15:02)
--- NOTE | 2022-08-24 15:02 | ED ---
Abdominal Pain HPI - General Chief Complaint: Abdominal Pain Stated Complaint: Abd pain Time Seen by Provider: 08/24/22 12:25 Source: patient, RN notes reviewed Mode of arrival: ambulatory Limitations: no limitations - History of Present Illness Initial Comments: 52-year-old male presents emergency Department chief complaint abdominal pain. Patient's been having increasing abdominal pain overnight. Patient states the mid to lower abdomen. Patient had prior inguinal hernia repair. Patient states that pain is intense does wax and wane. He's had slight change in bowel habits. Slight nausea no vomiting no diarrhea no constipation no fevers or chills. Patient offers no other associated symptoms. - Related Data Home Medications Medication Instructions Recorded Confirmed Metoprolol Succinate [Toprol XL] 50 mg PO DAILY 10/13/19 08/24/22 Atorvastatin Calcium [Lipitor] 10 mg PO HS 10/13/20 08/24/22 Aspirin EC [Ecotrin Low Dose] 81 mg PO DAILY 06/14/22 08/24/22 Multivitamins, Thera [Multivitamin 1 tab PO DAILY 08/24/22 08/24/22 (formulary)] Pantoprazole [Protonix] 40 mg PO HS 08/24/22 08/24/22 lisinopriL [Zestril] 20 mg PO DAILY 08/24/22 08/24/22 Allergies Allergy/AdvReac Type Severity Reaction Status Date / Time No Known Allergies Allergy Verified 08/24/22 14:48 Review of Systems ROS Statement: Those systems with pertinent positive or pertinent negative responses have been documented in the HPI. ROS Other: All systems not noted in ROS Statement are negative. Past Medical History Past Medical History: Coronary Artery Disease (CAD), GERD/Reflux, Hyperlipidemia, Hypertension, Myocardial Infarction ([place]) Additional Past Medical History / Comment(s): [place] 01/2016 with stent placement X2 LAD. RT ING, & UMB HERNIAS. pancreatisis Last Myocardial Infarction Date:: 01/27/16 History of Any Multi-Drug Resistant Organisms: None Reported Past Surgical History: Appendectomy, Heart Catheterization With Stent, Hernia Repair Additional Past Surgical History / Comment(s): 2 cardiac stents. Past Anesthesia/Blood Transfusion Reactions: No Reported Reaction Date of Last Stent Placement:: 01/27/16 Past Psychological History: No Psychological Hx Reported Smoking Status: Never smoker Past Alcohol Use History: Daily Past Drug Use History: None Reported - Past Family History Father History Unknown: Yes Mother Family Medical History: Myocardial Infarction ([place]) Brother(s) Family Medical History: Diabetes Mellitus General Exam Limitations: no limitations General appearance: alert, in no apparent distress Head exam: Present: atraumatic, normocephalic, normal inspection Eye exam: Present: normal appearance, PERRL, EOMI. Absent: scleral icterus, conjunctival injection, periorbital swelling ENT exam: Present: normal exam, mucous membranes moist Neck exam: Present: normal inspection. Absent: tenderness, meningismus, lymphadenopathy Respiratory exam: Present: normal lung sounds bilaterally. Absent: respiratory distress, wheezes, rales, rhonchi, stridor Cardiovascular Exam: Present: normal rhythm, tachycardia, normal heart sounds. Absent: systolic murmur, diastolic murmur, rubs, gallop, clicks GI/Abdominal exam: Present: soft, tenderness, normal bowel sounds. Absent: distended, guarding, rebound, rigid Course Vital Signs 08/24/22 12:22 Temperature 98.0 F Pulse Rate 118 H Respiratory 20 Rate Blood Pressure 155/95 O2 Sat by Pulse 95 Oximetry Medical Decision Making - Medical Decision Making Was pt. sent in by a medical professional or institution (, PA, ELECTRIC PLATER, urgent care, hospital, or penitentiary...) When possible be specific @ -No Did you speak to anyone other than the patient for history (EMS, parent, family, police, friend...)? What history was obtained from this source @ -No Did you review nursing and triage notes (agree or disagree)? Why? @ -I reviewed and agree with nursing and triage notes Were old charts reviewed (outside hosp., previous admission, EMS record, old EKG, old radiological studies, urgent care reports/EKG's, penitentiary records)? Report findings @ -Reviewed prior laboratory studies Differential Diagnosis (chest pain, altered mental status, abdominal pain women, abdominal pain men, vaginal bleeding, weakness, fever, dyspnea, syncope, headache, dizziness, GI bleed, back pain, seizure, CVA, palpatations, mental health, musculoskeletal)? @ -Differential Abdominal Pain Men: Appendicitis, cholecystitis, diverticulosis, ischemic bowel, pancreatitis, hepatitis, UTI, gastroenteritis, AAA, incarcerated hernia, bowel obstruction, constipation, inflammatory bowel, hepatitis, peptic ulcer disease, splenic infarction, perforated viscus, testicular torsion, this is not meant to be an all-inclusive listle EKG interpreted by me (3pts min.). @ -None X-rays interpreted by me (1pt min.). @ -None done CT interpreted by me (1pt min.). @ -CT the abdomen and pelvis shows evidence of severe uncomplicated pancreatitis U/S interpreted by me (1pt. min.). @ -None done What testing was considered but not performed or refused? (CT, X-rays, U/S, labs)? Why? @ -None What meds were considered but not given or refused? Why? @ -None Did you discuss the management of the patient with other professionals (professionals i.e. , PA, ELECTRIC PLATER, lab, RT, psych nurse, social media strategist, supervisor intermediates, teacher, antisubmarine weapons officer, keycase assembler)? Give summary @ -Case discussed with Dr. Cody for admission regarding pancreatitis found on CT for pain control and IV fluid hydration Was smoking cessation discussed for >3mins.? @ -No Was critical care preformed (if so, how long)? @ -No Were there social determinants of health that impacted care today? How? (Homelessness, low income, unemployed, alcoholism, drug addiction, transportation, low edu. Level, literacy, decrease access to med. care, longterm, rehab)? @ -No Was there de-escalation of care discussed even if they declined (Discuss DNR or withdrawal of care, Hospice)? DNR status @ -No What co-morbidities impacted this encounter? (DM, HTN, Smoking, COPD, CAD, Cancer, CVA, ARF, Chemo, Hep., AIDS, mental health diagnosis, sleep apnea, morbid obesity)? @ -None Was patient admitted / discharged? Hospital course, mention meds given and route, prescriptions, significant lab abnormalities, going to OR and other pertinent info. @ -Admitted patient has severe pancreatitis lipase is mildly elevated. Patiently admitted for IV fluids, pain control. Undiagnosed new problem with uncertain prognosis? @ -No Drug Therapy requiring intensive monitoring for toxicity (Heparin, Nitro, Insulin, Cardizem)? @ -No Were any procedures done? @ -No Diagnosis/symptom? @ -Acute pancreatitis Acute, or Chronic, or Acute on Chronic? @ -Acute Uncomplicated (without systemic symptoms) or Complicated (systemic symptoms)? @ -uncomplicated Side effects of treatment? @ -No Exacerbation, Progression, or Severe Exacerbation? @ -No Poses a threat to life or bodily function? How? (Chest pain, [place], [place], pneumonia, PE, COPD, DKA, ARF, appy, cholecystitis, CVA, Diverticulitis, Homicidal, Suicidal, threat to staff... and all critical care pts) @ -No - Lab Data Result diagrams: 08/24/22 12:50 08/24/22 12:50 Lab Results 08/24/22 08/24/22 08/24/22 Range/Units 12:50 12:50 12:50 WBC 12.8 H (3.8-10.6) k/uL RBC 4.65 (4.30-5.90) m/uL Hgb 14.7 (13.0-17.5) gm/dL Hct 44.0 (39.0-53.0) % MCV 94.5 (80.0-100.0) fL MCH 31.7 (25.0-35.0) pg MCHC 33.5 (31.0-37.0) g/dL RDW 13.1 (11.5-15.5) % Plt Count 216 (150-450) k/uL MPV 7.4 Neutrophils % 81 % Lymphocytes % 10 % Monocytes % 6 % Eosinophils % 2 % Basophils % 0 % Neutrophils # 10.3 H (1.3-7.7) k/uL Lymphocytes # 1.2 (1.0-4.8) k/uL Monocytes # 0.8 (0-1.0) k/uL Eosinophils # 0.3 (0-0.7) k/uL Basophils # 0.0 (0-0.2) k/uL Sodium 130 L (137-145) mmol/L Potassium 4.8 (3.5-5.1) mmol/L Chloride 96 L (98-107) mmol/L Carbon Dioxide 26 (22-30) mmol/L Anion Gap 8 mmol/L BUN 11 (9-20) mg/dL Creatinine 1.16 (0.66-1.25) mg/dL Est GFR (CKD-EPI)AfAm 83 (>60 ml/min/1.73 sqM) Est GFR (CKD-EPI)NonAf 72 (>60 ml/min/1.73 sqM) Glucose 112 H (74-99) mg/dL Plasma Lactic Acid Mikey 1.0 (0.7-2.0) mmol/L Calcium 9.3 (8.4-10.2) mg/dL Total Bilirubin 1.0 (0.2-1.3) mg/dL AST 29 (17-59) U/L ALT 32 (4-49) U/L Alkaline Phosphatase 90 (38-126) U/L Total Protein 7.1 (6.3-8.2) g/dL Albumin 4.3 (3.5-5.0) g/dL Lipase 569 H (23-300) U/L Urine Color Urine Appearance (Clear) Urine pH (5.0-8.0) Ur Specific Lambert (1.001-1.035) Urine Protein (Negative) Urine Glucose (UA) (Negative) Urine Ketones (Negative) Urine Blood (Negative) Urine Nitrite (Negative) Urine Bilirubin (Negative) Urine Urobilinogen (<2.0) mg/dL Ur Leukocyte Esterase (Negative) 08/24/22 Range/Units 13:40 WBC (3.8-10.6) k/uL RBC (4.30-5.90) m/uL Hgb (13.0-17.5) gm/dL Hct (39.0-53.0) % MCV (80.0-100.0) fL MCH (25.0-35.0) pg MCHC (31.0-37.0) g/dL RDW (11.5-15.5) % Plt Count (150-450) k/uL MPV Neutrophils % % Lymphocytes % % Monocytes % % Eosinophils % % Basophils % % Neutrophils # (1.3-7.7) k/uL Lymphocytes # (1.0-4.8) k/uL Monocytes # (0-1.0) k/uL Eosinophils # (0-0.7) k/uL Basophils # (0-0.2) k/uL Sodium (137-145) mmol/L Potassium (3.5-5.1) mmol/L Chloride (98-107) mmol/L Carbon Dioxide (22-30) mmol/L Anion Gap mmol/L BUN (9-20) mg/dL Creatinine (0.66-1.25) mg/dL Est GFR (CKD-EPI)AfAm (>60 ml/min/1.73 sqM) Est GFR (CKD-EPI)NonAf (>60 ml/min/1.73 sqM) Glucose (74-99) mg/dL Plasma Lactic Acid Mikey (0.7-2.0) mmol/L Calcium (8.4-10.2) mg/dL Total Bilirubin (0.2-1.3) mg/dL AST (17-59) U/L ALT (4-49) U/L Alkaline Phosphatase (38-126) U/L Total Protein (6.3-8.2) g/dL Albumin (3.5-5.0) g/dL Lipase (23-300) U/L Urine Color Colorless Urine Appearance Clear (Clear) Urine pH 7.0 (5.0-8.0) Ur Specific Lambert 1.003 (1.001-1.035) Urine Protein Negative (Negative) Urine Glucose (UA) Negative (Negative) Urine Ketones Negative (Negative) Urine Blood Negative (Negative) Urine Nitrite Negative (Negative) Urine Bilirubin Negative (Negative) Urine Urobilinogen <2.0 (<2.0) mg/dL Ur Leukocyte Esterase Negative (Negative) Disposition Clinical Impression: Pancreatitis Disposition: ADMITTED IP TO THIS [facility] Condition: Fair Referrals: Burt Sellers MD [Primary Care Provider] - 1-2 days Time of Disposition: 14:40
[2022-08-24] MEDS ORDERED: THIAMINE 100 MG/ML 2 ML VIAL IM STA (16:08)
[2022-08-24] MEDS ORDERED: HYDROcodone/APAP 5-325MG 1 EACH TAB PO PRN (16:08)
[2022-08-24] MEDS: HYDROmorphone 0.5 MG/0.5 ML SYRINGE IVP PRN ×2 (16:18→20:07)
[2022-08-24] MEDS: SODIUM CHLORIDE 0.9% 1,000 ML IV SCH (16:19)
--- NOTE | 2022-08-24 22:10 | HP ---
HISTORY AND PHYSICAL CHIEF COMPLAINT: Abdominal pain. HISTORY OF PRESENT ILLNESS: This is a 52-year-old gentleman with a past medical history of multiple medical problems, including CAD, GERD, was complaining of abdominal pain, which was felt mainly in the lower part of the abdomen. The patient came to [facility], was found to have elevated lipase and CT scan of the abdomen is also suggestive of acute pancreatitis. The patient was admitted for further evaluation and treatment. The patient apparently drank about 4 beers according to the patient. There is no history of any fever, rigors, or chills. PAST MEDICAL HISTORY: Reviewed, include CAD, hypertension, hyperlipidemia. Rest of the history and rest of the chart is also reviewed. HOME MEDICATIONS: Reviewed include Protonix. Doses and rest of medications reviewed. ALLERGIES: None. FAMILY HISTORY: History of myocardial infarction. SOCIAL HISTORY: No history of smoking. Daily alcohol. REVIEW OF SYSTEMS: A 14-point review of systems is negative except as mentioned earlier. PHYSICAL EXAMINATION: VITAL SIGNS: Pulse is 118, blood pressure 158/90, respirations 20. CHEST: Clear to auscultation. CARDIOVASCULAR: S1, S2 muffled. ABDOMEN: Soft, obese. Mild diffuse tenderness. LEGS: No edema. NERVOUS SYSTEM: No focal deficits. SKIN: No ulcer, rash, bleeding. JOINTS: No active deforming arthropathy. LABORATORY DATA: Reviewed. ASSESSMENT: 1. Abdominal pain, possible acute pancreatitis, possibly secondary to ETOH. 2. Hypertension. 3. Hyperlipidemia. 4. Gastroesophageal reflux disease. RECOMMENDATIONS AND DISCUSSION: Recommend to continue current medications. Continue symptomatic treatment. Otherwise, I would recommend repeat labs and I would also recommend repeat amylase, lipase. Surgical consultation. Alcohol cessation. Recommendation, also DT precautions. Home medications will be continued once they are confirmed. Prognosis guarded. Further recommendations to follow. MMODL / IJN: [id number] / MTDD
[2022-08-25] MEDS: HYDROmorphone 0.5 MG/0.5 ML SYRINGE IVP PRN ×4 (01:15→22:19)
[2022-08-25 07:51] LABS: Basophils % (A) 0 %; Eosinophils # (A) 0.3 k/uL (0-0.7); Eosinophils % (A) 3 %; HCT 40.4 % (39.0-53.0); HGB 13.3 gm/dL (13.0-17.5); Lymphocytes # (A) 1.5 k/uL (1.0-4.8); Lymphocytes % (A) 14 %; MCH 31.6 pg (25.0-35.0); MCHC 32.9 g/dL (31.0-37.0); Mean Platelet Volume 7.4; Monocytes # (A) 0.7 k/uL (0-1.0); Monocytes % (A) 6 %; Neutrophils # (A) 7.9 k/uL (1.3-7.7); Neutrophils % (A) 75 %; Platelet Count 210 k/uL (150-450); RBC 4.21 m/uL (4.30-5.90); RDW 13.1 % (11.5-15.5); WBC 10.6 k/uL (3.8-10.6)
[2022-08-25 08:15] LABS: ALT 26 U/L (4-49); AST 27 U/L (17-59); African American GFR (CKD) >90 (>60 ml/min/1.73 sqM); Albumin 3.5 g/dL (3.5-5.0); Albumin/Globulin Ratio 1.3; Alkaline Phosphatase 86 U/L (38-126); Amylase 73 U/L (30-110); Anion Gap 9 mmol/L; Blood Urea Nitrogen 10 mg/dL (9-20); Calcium 8.8 mg/dL (8.4-10.2); Carbon Dioxide 22 mmol/L (22-30); Chloride 102 mmol/L (98-107); Globulin 2.6 g/dL; Glucose 83 mg/dL (74-99); Lipase 322 U/L (23-300); Non-African American GFR(CKD) >90 (>60 ml/min/1.73 sqM); Potassium 4.7 mmol/L (3.5-5.1); Sodium 133 mmol/L (137-145); Total Bilirubin 0.8 mg/dL (0.2-1.3); Total Protein 6.1 g/dL (6.3-8.2)
[2022-08-25] MEDS: KETOROLAC 15 MG/ML 1 ML VIAL IVP PRN ×2 (08:27→16:53)
[2022-08-25] MEDS: THIAMINE 100 MG TAB PO SCH (08:27)
[2022-08-25] MEDS: lisinopriL 20 MG TAB PO SCH (08:27)
[2022-08-25] MEDS: MULTIVITAMINS, THERA 1 EACH TAB PO SCH (08:27)
[2022-08-25] MEDS: PANTOPRAZOLE 40 MG/10 ML VIAL IV SCH (08:27)
[2022-08-25] MEDS: METOPROLOL SUCCINATE (ER) 50 MG TAB.ER.24H PO SCH (08:27)
[2022-08-25] MEDS: SODIUM CHLORIDE 0.9% 1,000 ML IV SCH ×2 (12:11→14:31)
[2022-08-25] MEDS: amLODIPine 5 MG TAB PO SCH (12:53)
--- NOTE | 2022-08-25 14:04 | CONS ---
CONSULTATION CHIEF COMPLAINT: Uncontrolled hypertension. HISTORY OF PRESENT ILLNESS: Hi is a 52-year-old gentleman with history of coronary artery disease, status post prior angioplasty; hypertension; and dyslipidemia, who presented to hospital with abdominal pain and is diagnosed with pancreatitis. I have been consulted because of history of coronary artery disease and hypertension. He does not have any cardiac symptoms. Denies chest pain, difficulty in breathing, edema, PND, or orthopnea. MEDICATIONS: Include: 1. Protonix. 2. Toprol. 3. Aspirin. 4. Zestril. 5. Lipitor. ALLERGIES: There are no known drug allergies. FAMILY HISTORY: Negative for premature coronary artery disease. SOCIAL HISTORY: Negative for current smoking, EtOH, or drug abuse. REVIEW OF SYSTEMS: 14 out of 14 review of systems has been performed. Pertinent are as documented. PAST MEDICAL HISTORY: Significant for CAD, status post angioplasty; hypertension; dyslipidemia; and GERD. PHYSICAL EXAMINATION: VITAL SIGNS: Afebrile, heart rate is 70 beats per minute, blood pressure is 153/89, respiratory rate is 18, O2 saturation is 95% on room air. NECK: There is no jugular venous distention. Carotid upstroke is normal. There is no bruit. CHEST: Reveals good air entry bilaterally. HEART: Reveals first and second heart sounds. No gallop. ABDOMEN: Soft. EXTREMITIES: Did not reveal edema. Peripheral pulses are felt. LABORATORY DATA: Labs show that the hemoglobin is 13.3, platelet count is 210. Potassium is 4.7, creatinine is 0.9. AST and ALT are within normal limits. Lipase is elevated. ASSESSMENT: 1. Uncontrolled hypertension. 2. Coronary artery disease, status post angioplasty. 3. Pancreatitis. PLAN: I will add amlodipine for better blood pressure control. Continue rest of his medications. MMODL / IJN: [id number] /
--- NOTE | 2022-08-25 23:33 | PN ---
PROGRESS NOTE DATE OF SERVICE: 08/25/2022 SUBJECTIVE: This is a 52-year-old gentleman admitted with acute pancreatitis, has been closely monitored abdominal pain is better OBJECTIVE: VITAL SIGNS: Pulse is 71, blood pressure 130/78, respirations 18. CHEST: Clear to auscultation. CARDIOVASCULAR: S1 and S2. ABDOMEN: Soft, nontender. NERVOUS SYSTEM: No focal deficits. LABORATORY DATA: Reviewed. ASSESSMENT: 1. Abdominal pain, possible acute pancreatitis, possibly secondary to EtOH. 2. Hypertension. 3. Hyperlipidemia. 4. History of gastroesophageal reflux disease. RECOMMENDATIONS: Recommend to continue otherwise I would recommend repeat labs, amylase, lipase, and advance diet. Possible discharge within the next 24 to 48 hours if the patient continues to improve. MMODL / IJN: [id number] / MTDTano
[2022-08-26 06:08] LABS: ALT 47 U/L (4-49); AST 66 U/L (17-59); African American GFR (CKD) >90 (>60 ml/min/1.73 sqM); Albumin 3.5 g/dL (3.5-5.0); Albumin/Globulin Ratio 1.3; Alkaline Phosphatase 95 U/L (38-126); Amylase 58 U/L (30-110); Anion Gap 9 mmol/L; Blood Urea Nitrogen 9 mg/dL (9-20); Calcium 8.8 mg/dL (8.4-10.2); Carbon Dioxide 23 mmol/L (22-30); Chloride 102 mmol/L (98-107); Globulin 2.7 g/dL; Glucose 98 mg/dL (74-99); Lipase 301 U/L (23-300); Non-African American GFR(CKD) >90 (>60 ml/min/1.73 sqM); Potassium 4.8 mmol/L (3.5-5.1); Sodium 134 mmol/L (137-145); Total Bilirubin 0.7 mg/dL (0.2-1.3); Total Protein 6.2 g/dL (6.3-8.2)
[2022-08-26 08:39] LABS: Basophils # (A) 0.05 X 10*3/uL (0.00-0.10); Basophils % (A) 0.5 %; Eosinophils # (A) 0.32 X 10*3/uL (0.04-0.35); Eosinophils % (A) 3.4 %; HCT 39.9 % (39.6-50.0); Immature Grans, Automated 0.4 %; Lymphocytes % (A) 13.9 %; MCHC 32.6 g/dL (32.0-37.0); MCV 95.2 fL (80.0-97.0); Mean Platelet Volume 10.3 fL (9.5-12.2); Monocytes % (A) 10.7 %; NRBC Per 100 WBC 0 /100 WBCS (0.0-0.0); Neutrophils # (A) 6.67 X 10*3/uL (1.80-7.70); Neutrophils % (A) 71.1 %; Platelet Count 205 X 10*3/uL (140-440); RBC 4.19 X 10*6/uL (4.40-5.60); WBC 9.38 X 10*3/uL (4.50-10.00)
[2022-08-26 08:40] VITALS: PULSE 65; RESP 18
[2022-08-26] MEDS: METOPROLOL SUCCINATE (ER) 50 MG TAB.ER.24H PO SCH (09:14)
[2022-08-26] MEDS: MULTIVITAMINS, THERA 1 EACH TAB PO SCH (09:15)
[2022-08-26] MEDS: lisinopriL 20 MG TAB PO SCH (09:15)
[2022-08-26] MEDS: THIAMINE 100 MG TAB PO SCH (09:15)
[2022-08-26] MEDS: PANTOPRAZOLE 40 MG/10 ML VIAL IV SCH (09:15)
[2022-08-26] MEDS: amLODIPine 5 MG TAB PO SCH (09:17)
[2022-08-26] MEDS: SODIUM CHLORIDE 0.9% 1,000 ML IV SCH (09:18)
--- NOTE | 2022-08-26 11:33 | P.GSCN ---
History of Present Illness Consult date: 08/26/22 History of present illness: CHIEF COMPLAINT: Abdominal pain HISTORY OF PRESENT ILLNESS: This is a 52-year-old male who presented with abdominal pain. Pain was located across the lower abdomen and intermittent right upper quadrant abdominal pain. Patient reports that his pain does worsen with eating greasier foods. He denies any nausea or vomiting. He reports that he had been having diarrhea. He was found to have evidence of pancreatitis with the elevated lipase and evidence of pancreatitis on CAT scan. Patient did have a temp of 100.6 on admission. 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 He reports that his pain this time is different. He also reports that he is not drinking alcohol as frequently. Computed tomography scan had also noted some abnormal fluid portions that could reflect mild uncut acute colitis and/or diarrhea. There is no evidence of bowel obstruction. Patient denies any prior history of gallstones. Patient reports that he is scheduled outpatient soon for colonoscopy with Dr. Jake Dupont. Denies any blood in his stools. Past surgical history does include a right inguinal hernia repair with mesh as well as an appendectomy. Patient reports that he is feeling better since his hospitalization. He has no pain. He is able to tolerate diet. Medicine service is planning discharged. PAST MEDICAL HISTORY: See list. PAST SURGICAL HISTORY: See list. MEDICATIONS: See list. ALLERGIES: See list. SOCIAL HISTORY: No illicit drug use. REVIEW OF SYSTEMS: CONSTITUTIONAL: Denies fever or chills. HEENT: Denies blurred vision, vision changes, or eye pain. Denies hemoptysis ENDOCRINE: Denies heat or cold intolerance. CARDIOVASCULAR: Denies chest pain or pressure. RESPIRATORY: No shortness of breath. GASTROINTESTINAL: Please refer to HPI otherwise unremarkable. NEURO: Denies history of seizures. PSYCH: No depression or suicidal ideation HEMATOLOGIC: Denies bleeding disorders. LYMPHATIC: The patient denies any lumps and bumps around the neck. GENITOURINARY: Denies any blood in urine or increased urinary frequency. MUSCULOSKELETAL: Denies myalgias. Denies joint swelling. Denies decreased range of motion beyond patients baseline. SKIN: Denies pruitis. Denies rash. PHYSICAL EXAM: VITAL SIGNS: Reviewed GENERAL: Well-developed in no acute distress. HEENT: No sclera icterus. Extraocular movements grossly intact. Moist buccal mucosa. Head is atraumatic, normocephalic. Hears conversational speech. No nasal drainage. NECK: Supple without lymphadenopathy. CHEST: Non-labored respirations and equal bilateral excursions. CARDIOVASCULAR: Palpable 2+ radial pulses. ABDOMEN: Soft. Nondistended. Nontender MUSCULOSKELETAL: No clubbing or cyanosis. NEUROLOGIC: No focal or lateralizing signs. Cranial nerves II through XII grossly intact. PSYCH: Appropriate affect. Alert and oriented to person, place and time. SKIN: Well perfused. Good skin turgor. LABORATORY DATA: WBC 12.8 - 9.38 Hgb 13.0 platelets 205 Na 134 k 4.8 cr 0.84 Lactic acid 1.0 Total bilirubin 0.7 AST 66 ALT 47 alk phos 95 IMAGING: Computed tomography scan abdomen and pelvis CT and findings consistent with severe but uncomplicated acute pancreatitis. Some abnormal fluid in portions: Could reflect product of mild uncut complicated colitis and/or diarrhea. No bowel obstruction. Stable right inguinal hernia containing portion of bladder and large right scrotal fluid collection or hydrocele. ASSESSMENT: 1. Abdominal pain 2. Uncomplicated pancreatitis 3. Possible colitis 4. History of daily alcohol use and prior alcohol induced pancreatitis 5. Stable right inguinal hernia containing a portion of the latter 6. Large right scrotal fluid collection or hydrocele seen by urology outpatient PLAN: -Abdominal ultrasound ordered to rule out gallstones -Patient's pain has improved. He is tolerating diet. Patient can be discharged from surgical standpoint once ultrasound is completed -Educated patient on alcohol abstinence -Agree with outpatient colonoscopy with GI service Thank you for this consultation Physician Piece Meat Trimmer note has been reviewed by physician. Signing provider agrees with the documented findings, assessment, and plan of care. Past Medical History Past Medical History: Coronary Artery Disease (CAD), GERD/Reflux, Hyperlipidemia, Hypertension, Myocardial Infarction ([place]), Osteoarthritis (OA) Additional Past Medical History / Comment(s): [place] 01/2016 with stent placement X2 LAD. RT ING, & UMB HERNIAS. pancreatisis Last Myocardial Infarction Date:: 01/27/16 History of Any Multi-Drug Resistant Organisms: None Reported Past Surgical History: Appendectomy, Heart Catheterization With Stent, Hernia Repair Additional Past Surgical History / Comment(s): 2 cardiac stents. Past Anesthesia/Blood Transfusion Reactions: No Reported Reaction Date of Last Stent Placement:: 01/27/16 Past Psychological History: No Psychological Hx Reported Smoking Status: Never smoker Past Alcohol Use History: Daily Additional Past Alcohol Use History / Comment(s): ON AVERAGE, 3 BEERS DAILY. Last Drink Sunday 08/20 states drank about 2-3 beers Past Drug Use History: None Reported - Past Family History Father History Unknown: Yes Mother Family Medical History: Myocardial Infarction ([place]) Brother(s) Family Medical History: Diabetes Mellitus Medications and Allergies Home Medications Medication Instructions Recorded Confirmed Type Metoprolol Succinate [Toprol XL] 50 mg PO DAILY 10/13/19 08/24/22 History Atorvastatin Calcium [Lipitor] 10 mg PO HS 10/13/20 08/24/22 History Aspirin EC [Ecotrin Low Dose] 81 mg PO DAILY 06/14/22 08/24/22 History Multivitamins, Thera [Multivitamin 1 tab PO DAILY 08/24/22 08/24/22 History (formulary)] Pantoprazole [Protonix] 40 mg PO HS 08/24/22 08/24/22 History lisinopriL [Zestril] 20 mg PO DAILY 08/24/22 08/24/22 History amLODIPine [Norvasc] 5 mg PO DAILY #90 tab 08/26/22 Rx Allergies Allergy/AdvReac Type Severity Reaction Status Date / Time No Known Allergies Allergy Verified 08/24/22 14:48 Surgical - Exam Vital Signs Temp Pulse Resp BP Pulse Ox 98.0 F 118 H 20 155/95 95 08/24/22 12:22 08/24/22 12:22 08/24/22 12:22 08/24/22 12:22 08/24/22 12:22 Results - Labs 08/26/22 04:51 08/26/22 04:51 Abnormal Lab Results - Last 24 Hours (Table) 08/26/22 08/26/22 Range/Units 04:51 04:51 RBC 4.19 L (4.40-5.60) X 10*6/uL Sodium 134 L (137-145) mmol/L AST 66 H (17-59) U/L Total Protein 6.2 L (6.3-8.2) g/dL Lipase 301 H (23-300) U/L Diabetes panel 08/26/22 Range/Units 04:51 Sodium 134 L (137-145) mmol/L Potassium 4.8 (3.5-5.1) mmol/L Chloride 102 (98-107) mmol/L Carbon Dioxide 23 (22-30) mmol/L BUN 9 (9-20) mg/dL Creatinine 0.84 (0.66-1.25) mg/dL Glucose 98 (74-99) mg/dL Calcium 8.8 (8.4-10.2) mg/dL AST 66 H (17-59) U/L ALT 47 (4-49) U/L Alkaline Phosphatase 95 (38-126) U/L Total Protein 6.2 L (6.3-8.2) g/dL Albumin 3.5 (3.5-5.0) g/dL Calcium panel 08/26/22 Range/Units 04:51 Calcium 8.8 (8.4-10.2) mg/dL Albumin 3.5 (3.5-5.0) g/dL Pituitary panel 08/26/22 Range/Units 04:51 Sodium 134 L (137-145) mmol/L Potassium 4.8 (3.5-5.1) mmol/L Chloride 102 (98-107) mmol/L Carbon Dioxide 23 (22-30) mmol/L BUN 9 (9-20) mg/dL Creatinine 0.84 (0.66-1.25) mg/dL Glucose 98 (74-99) mg/dL Calcium 8.8 (8.4-10.2) mg/dL Adrenal panel 08/26/22 Range/Units 04:51 Sodium 134 L (137-145) mmol/L Potassium 4.8 (3.5-5.1) mmol/L Chloride 102 (98-107) mmol/L Carbon Dioxide 23 (22-30) mmol/L BUN 9 (9-20) mg/dL Creatinine 0.84 (0.66-1.25) mg/dL Glucose 98 (74-99) mg/dL Calcium 8.8 (8.4-10.2) mg/dL Total Bilirubin 0.7 (0.2-1.3) mg/dL AST 66 H (17-59) U/L ALT 47 (4-49) U/L Alkaline Phosphatase 95 (38-126) U/L Total Protein 6.2 L (6.3-8.2) g/dL Albumin 3.5 (3.5-5.0) g/dL
--- NOTE | 2022-08-26 11:35 | P.PN ---
Subjective Progress Note Date: 08/26/22 HISTORY OF PRESENT ILLNESS: As a 52-year-old male who is admitted to the hospital secondary to pancreatitis. Cardiology was consulted yesterday secondary to uncontrolled hypertension. The patient was started on amlodipine 5 mg daily. The patient's blood pressure is better controlled this morning. He denies chest pain or pressure. He denies shortness of breath. PHYSICAL EXAM: VITAL SIGNS: Reviewed. GENERAL: Well-developed in no acute distress. NECK: Supple. No JVD or thyromegaly LUNGS: Respirations even and unlabored. Lungs essentially clear to auscultation bilaterally. HEART: Regular rate and rhythm. S1 and S2 heard. EXTREMITIES: Normal range of motion. No clubbing or cyanosis. Peripheral pulses intact. No lower extremity edema ASSESSMENT: Pancreatitis Hypertension, improved PLAN: Continue current cardiac medications Patient is stable for discharge home today from a cardiac standpoint We will sign off. Please reconsult if needed. Nurse practitioner note has been reviewed by physician. Signing provider agrees with the documented findings, assessment, and plan of care. Objective - Vital Signs Vital signs: Vital Signs Temp 98.2 F 08/26/22 07:15 Pulse 65 08/26/22 07:15 Resp 18 08/26/22 07:15 BP 145/87 08/26/22 07:15 Pulse Ox 95 08/26/22 07:15 FiO2 Intake & Output 08/25/22 08/26/22 08/26/22 18:59 06:59 18:59 Other: Voiding Method Toilet # Voids 1 4 - Labs CBC & Chem 7: 08/26/22 04:51 08/26/22 04:51 Labs: Abnormal Lab Results - Last 24 Hours (Table) 08/26/22 08/26/22 Range/Units 04:51 04:51 RBC 4.19 L (4.40-5.60) X 10*6/uL Sodium 134 L (137-145) mmol/L AST 66 H (17-59) U/L Total Protein 6.2 L (6.3-8.2) g/dL Lipase 301 H (23-300) U/L
--- NOTE | 2022-08-26 14:58 | US ---
EXAMINATION TYPE: US gallbladder DATE OF EXAM: 08/26/2022 COMPARISON: CT CLINICAL INDICATION: Male, 52 years old with history of abdominal pain, pancreatitis, rule out gallst ones; ABD pain TECHNIQUE: Multiple sonographic images of the right upper quadrant are obtained. FINDINGS: EXAM MEASUREMENTS: Liver Length: 16.1 cm Gallbladder Wall: 0.2 cm CBD: 0.4 cm Right Kidney: 9.9 x 4.8 x 5.1 cm POWERHOUSE LABORER NOTES: Pancreas: Obscured by bowel gas Liver: Heterogeneous, otherwise visualized portions appeared wnl Gallbladder: wnl Evidence for sonographic Benedict's sign: No CBD: wnl Right Kidney: wnl IMPRESSION: Probable mild hepatic steatosis. Otherwise unremarkable study.
[2022-08-26 15:46] VITALS: BP 146/90; TEMP 98.4
== END 2022-08-26 17:13 | disposition home or self-care (01) ==
LOC: EC 12:14 → 5NMEDONC 14:30 → 4SSUR 16:55
PROVIDERS: ADMIT Family Medicine; ATTEND Family Medicine
DX: K85.90 Acute pancreatitis without necrosis or infection, unspecified (principal); Z87.19 Personal history of other diseases of the digestive system; N43.2 Other hydrocele; I25.10 Atherosclerotic heart disease of native coronary artery without angina pectoris; E78.5 Hyperlipidemia, unspecified; I10 Essential (primary) hypertension; K21.9 Gastro-esophageal reflux disease without esophagitis; I25.2 Old myocardial infarction; M19.90 Unspecified osteoarthritis, unspecified site; Z95.5 Presence of coronary angioplasty implant and graft; Z90.49 Acquired absence of other specified parts of digestive tract; Z98.890 Other specified postprocedural states; Z82.49 Family history of ischemic heart disease and other diseases of the circulatory system; Z83.3 Family history of diabetes mellitus; Z79.82 Long term (current) use of aspirin; Z79.899 Other long term (current) drug therapy
CPT/HCPCS: 96376 ×2; 96375; 96372; 96374; 99285; 36415; 80053 ×3; 82150 ×2; 83605; 83690 ×3; 85025 ×3; 81003; 76705; 74177; G0378 ×4; J3411; J1885 ×2; C9113 ×2; J1170 ×2; Q9967

== ENCOUNTER 2022-09-26 09:08 | Day surgery (SDC) | payer BC ==
[2022-09-26] MEDS ORDERED: LACTATED RINGERS 1,000 ML IV SCH (09:41)
[2022-09-26 10:05] VITALS: TEMP 97
[2022-09-26] MEDS ORDERED: PROPOFOL 10 MG/ML 20 ML VIAL IV ONE (10:14)
--- NOTE | 2022-09-26 10:15 | P.GSHP ---
History of Present Illness H&P Date: 09/26/22 Chief Complaint: Positive colon guard test This a 52-year-old male who had a recent positive colon guard test. Patient presents today for colonoscopy. Denies any significant GI complaints. Past Medical History Past Medical History: Coronary Artery Disease (CAD), GERD/Reflux, Hyperlipidemia, Hypertension, Myocardial Infarction ([place]), Osteoarthritis (OA) Additional Past Medical History / Comment(s): [place] 01/2016 with stent placement X2 LAD. pancreatisis Last Myocardial Infarction Date:: 01/27/16 History of Any Multi-Drug Resistant Organisms: None Reported Past Surgical History: Appendectomy, Heart Catheterization With Stent, Hernia Repair Additional Past Surgical History / Comment(s): 2 cardiac stents. umbilical and bilat inguinal, colonoscopy Past Anesthesia/Blood Transfusion Reactions: No Reported Reaction Date of Last Stent Placement:: 01/27/16 Past Psychological History: No Psychological Hx Reported Smoking Status: Never smoker Past Alcohol Use History: Daily Additional Past Alcohol Use History / Comment(s): ON AVERAGE, 3 BEERS DAILY.AT THIS TIME pt not drinking for approx 1 month . drinks non alcoholic beers.- 3-4 daily Past Drug Use History: None Reported - Past Family History Father History Unknown: Yes Mother Family Medical History: Myocardial Infarction ([place]) Brother(s) Family Medical History: Diabetes Mellitus Medications and Allergies Home Medications Medication Instructions Recorded Confirmed Type Metoprolol Succinate [Toprol XL] 50 mg PO DAILY 10/13/19 09/24/22 History Atorvastatin Calcium [Lipitor] 10 mg PO HS 10/13/20 09/24/22 History Aspirin EC [Ecotrin Low Dose] 81 mg PO DAILY 06/14/22 09/24/22 History Multivitamins, Thera [Multivitamin 1 tab PO DAILY 08/24/22 09/24/22 History (formulary)] Pantoprazole [Protonix] 40 mg PO HS 08/24/22 09/24/22 History lisinopriL [Zestril] 20 mg PO DAILY 08/24/22 09/24/22 History amLODIPine [Norvasc] 5 mg PO DAILY #90 tab 08/26/22 09/24/22 Rx Allergies Allergy/AdvReac Type Severity Reaction Status Date / Time No Known Allergies Allergy Verified 09/24/22 15:22 Surgical - Exam Vital Signs Temp Pulse Resp BP Pulse Ox 97 F L 61 20 130/86 94 L 09/26/22 09:58 09/26/22 09:58 09/26/22 09:58 09/26/22 09:58 09/26/22 09:58 - General well developed, well nourished, no distress - Eyes PERRL - ENT normal pinna - Neck no masses - Respiratory normal expansion - Cardiovascular Rhythm: regular - Abdomen Abdomen: soft, non tender Assessment and Plan Assessment: Positive colon guard test. We'll perform colonoscopy.
--- NOTE | 2022-09-26 10:30 | P.OP ---
Date of Procedure: 09/26/22 Preoperative Diagnosis: Positive colon guard test Postoperative Diagnosis: Mild diverticulosis Incidental finding left large hydrocele Procedure(s) Performed: Colonoscopy Anesthesia: DAVID TOLBERT Surgeon: Waqas Donaldson Pathology: none sent Condition: stable Description of Procedure: The patient's placed on the endoscopy table in the lateral position. He received IV sedation. Digital rectal exam performed. This revealed no abnormalities. The patient is known to have a large hydrocele on the right side. Next the clot scope was placed patient anus and passed throughout the entire colon. The ileocecal valve was visualized.. The cecum, ascending and transverse colon appeared normal. In the descending and sigmoid colon there is mild diverticular changes. The scope was then brought back the rectum this appeared normal. Scope withdrawn for patient.
[2022-09-26 11:23] VITALS: BP 139/91; PULSE 58; RESP 18
== END 2022-09-26 11:40 | disposition home or self-care (01) ==
LOC: ORWHC2ENDO 09:08
PROVIDERS: ATTEND Surgery
DX: K57.30 Diverticulosis of large intestine without perforation or abscess without bleeding (principal); N43.3 Hydrocele, unspecified; I25.10 Atherosclerotic heart disease of native coronary artery without angina pectoris; I25.2 Old myocardial infarction; I10 Essential (primary) hypertension; E78.5 Hyperlipidemia, unspecified; K21.9 Gastro-esophageal reflux disease without esophagitis; M19.90 Unspecified osteoarthritis, unspecified site; Z95.5 Presence of coronary angioplasty implant and graft; Z87.19 Personal history of other diseases of the digestive system; Z90.49 Acquired absence of other specified parts of digestive tract; F10.20 Alcohol dependence, uncomplicated; Z79.82 Long term (current) use of aspirin; Z79.899 Other long term (current) drug therapy
CPT/HCPCS: 45378; J2704

== ENCOUNTER 2022-12-18 06:56 | Emergency (ER) | payer BC ==
--- NOTE | 2022-12-18 07:46 | ED ---
General Adult HPI - General Chief complaint: Urogenital Stated complaint: Testicles Swollen Time Seen by Provider: 12/18/22 07:29 Source: patient, RN notes reviewed Mode of arrival: ambulatory Limitations: no limitations - History of Present Illness Initial comments: This a 52-year-old male presents emergency Department chief complaint of scrotal swelling, pain. Patient states that he's had some swelling in the past and was told that he may have a hernia versus hydrocele. He states a couple urologist. Patient states symptoms greatly worse over the last 24 hours states he has more discomfort and significant or swelling. Patient denies any trauma denies fevers or chills. Patient has no dysuria no hematuria patient offers no other complaints. - Related Data Home Medications Medication Instructions Recorded Confirmed Metoprolol Succinate [Toprol XL] 50 mg PO DAILY 10/13/19 09/24/22 Atorvastatin Calcium [Lipitor] 10 mg PO HS 10/13/20 09/24/22 Aspirin EC [Ecotrin Low Dose] 81 mg PO DAILY 06/14/22 09/24/22 Multivitamins, Thera [Multivitamin 1 tab PO DAILY 08/24/22 09/24/22 (formulary)] Pantoprazole [Protonix] 40 mg PO HS 08/24/22 09/24/22 lisinopriL [Zestril] 20 mg PO DAILY 08/24/22 09/24/22 Previous Rx's Medication Instructions Recorded amLODIPine [Norvasc] 5 mg PO DAILY #90 tab 08/26/22 Allergies Allergy/AdvReac Type Severity Reaction Status Date / Time No Known Allergies Allergy Verified 12/18/22 07:24 Review of Systems ROS Statement: Those systems with pertinent positive or pertinent negative responses have been documented in the HPI. ROS Other: All systems not noted in ROS Statement are negative. Past Medical History Past Medical History: Coronary Artery Disease (CAD), GERD/Reflux, Hyperlipi demia, Hypertension, Myocardial Infarction ([place]), Osteoarthritis (OA) Additional Past Medical History / Comment(s): [place] 01/2016 with stent placement X2 LAD. pancreatisis Last Myocardial Infarction Date:: 01/27/16 History of Any Multi-Drug Resistant Organisms: None Reported Past Surgical History: Appendectomy, Heart Catheterization With Stent, Hernia Repair Additional Past Surgical History / Comment(s): 2 cardiac stents. umbilical and bilat inguinal, colonoscopy Past Anesthesia/Blood Transfusion Reactions: No Reported Reaction Date of Last Stent Placement:: 01/27/16 Past Psychological History: No Psychological Hx Reported Smoking Status: Never smoker Past Alcohol Use History: Daily Past Drug Use History: None Reported - Past Family History Father History Unknown: Yes Mother Family Medical History: Myocardial Infarction ([place]) Brother(s) Family Medical History: Diabetes Mellitus General Exam Limitations: no limitations General appearance: alert, in no apparent distress Head exam: Present: atraumatic, normocephalic, normal inspection Respiratory exam: Present: normal lung sounds bilaterally. Absent: respiratory distress, wheezes, rales, rhonchi, stridor Cardiovascular Exam: Present: regular rate, normal rhythm, normal heart sounds. Absent: systolic murmur, diastolic murmur, rubs, gallop, clicks GI/Abdominal exam: Present: soft, normal bowel sounds. Absent: distended, tenderness, guarding, rebound, rigid exam: Present: testicular tenderness, scrotal swelling (Significant swelling) Back exam: Absent: CVA tenderness (R), CVA tenderness (L) Course Vital Signs 12/18/22 07:22 Temperature 98.5 F Pulse Rate 81 Respiratory 18 Rate Blood Pressure 160/94 O2 Sat by Pulse 98 Oximetry Medical Decision Making - Medical Decision Making Was pt. sent in by a medical professional or institution (TOM Rizzo, [employer] RECOV[employer] OPERATOR, urgent care, hospital, or [facility]...) When possible be specific @ -No Did you speak to anyone other than the patient for history (EMS, parent, family, police, friend...)? What history was obtained from this source @ -No Did you review nursing and triage notes (agree or disagree)? Why? @ -I reviewed and agree with nursing and triage notes Were old charts reviewed (outside hosp., previous admission, EMS record, old EKG, old radiological studies, urgent care reports/EKG's, [facility] records)? Report findings @ -No old charts were reviewed Differential Diagnosis (chest pain, altered mental status, abdominal pain women, abdominal pain men, vaginal bleeding, weakness, fever, dyspnea, syncope, headache, dizziness, GI bleed, back pain, seizure, CVA, palpatations, mental health, musculoskeletal)? @ -Epididymitis, hydrocele, varicocele, torsion EKG interpreted by me (3pts min.). @ -None X-rays interpreted by me (1pt min.). @ -None done CT interpreted by me (1pt min.). @ -None done U/S interpreted by me (1pt. min.). @ -Ultrasound shows a large bilateral hydroceles right greater than left What testing was considered but not performed or refused? (CT, X-rays, U/S, labs)? Why? @ -None What meds were considered but not given or refused? Why? @ -None Did you discuss the management of the patient with other professionals (professionals i.e. DrWalker, PA, [employer] REC[employer] OPERATOR, lab, RT, psych nurse, social worker palliative care, internal medicine physician, teacher, global chief creative officer, geriatric case manager)? Give summary @ -No Was smoking cessation discussed for >3mins.? @ -No Was critical care preformed (if so, how long)? @ -No Were there social determinants of health that impacted care today? How? (Homelessness, low income, unemployed, alcoholism, drug addiction, transportation, low edu. Level, literacy, decrease access to med. care, long term, rehab)? @ -No Was there de-escalation of care discussed even if they declined (Discuss DNR or withdrawal of care, Hospice)? DNR status @ -No What co-morbidities impacted this encounter? (DM, HTN, Smoking, COPD, CAD, Cancer, CVA, ARF, Chemo, Hep., AIDS, mental health diagnosis, sleep apnea, morbid obesity)? @ -None Was patient admitted / discharged? Hospital course, mention meds given and route, prescriptions, significant lab abnormalities, going to OR and other pertinent info. @ -Discharge patient has very large hydrocele bilaterally. Patient will require urology follow-up for possible surgery. Return parameters were discussed. Undiagnosed new problem with uncertain prognosis? @ -No Drug Therapy requiring intensive monitoring for toxicity (Heparin, Nitro, Insulin, Cardizem)? @ -No Were any procedures done? @ -No Diagnosis/symptom? @ -Bilateral hydroceles Acute, or Chronic, or Acute on Chronic? @ -Acute Uncomplicated (without systemic symptoms) or Complicated (systemic symptoms)? @ -Uncomplicated Side effects of treatment? @ -No Exacerbation, Progression, or Severe Exacerbation? @ -No Poses a threat to life or bodily function? How? (Chest pain, [place], [place], pneumonia, PE, COPD, DKA, ARF, appy, cholecystitis, CVA, Diverticulitis, Homicidal, Siobhan cidal, threat to staff... and all critical care pts) @ -No - Lab Data Lab Results 12/18/22 Range/Units 08:04 Urine Color Light Yellow Urine Appearance Clear (Clear) Urine pH 6.5 (5.0-8.0) Ur Specific [place] 1.012 (1.001-1.035) Urine Protein Negative (Negative) Urine Glucose (UA) Negative (Negative) Urine Ketones Negative (Negative) Urine Blood Negative (Negative) Urine Nitrite Negative (Negative) Urine Bilirubin Negative (Negative) Urine Urobilinogen <2.0 (<2.0) mg/dL Ur Leukocyte Esterase Negative (Negative) Disposition Clinical Impression: Bilateral hydrocele Disposition: HOME SELF-CARE Condition: Stable Instructions (If sedation given, give patient instructions): Hydrocele (ED) Additional Instructions: Please return to the Emergency Department if symptoms worsen or any other concerns. Is patient prescribed a controlled substance at d/c from ED?: No Referrals: Burt Sellers MD [Primary Care Provider] - 1-2 days Neftali Noguera MD [STAFF PHYSICIAN] - 1-2 days Time of Disposition: 09:36
[2022-12-18 08:12] LABS: Appearance,Urine Clear (Clear); Bilirubin,Urine Negative (Negative); Blood,Urine Negative (Negative); Color,Urine Light Yellow; Glucose,Urine (UA) Negative (Negative); Ketones,Urine Negative (Negative); Leukocyte Esterase,Urine Negative (Negative); Nitrite,Urine Negative (Negative); PH, Urine 6.5 (5.0-8.0); Protein,Urine Negative (Negative); Specific Gravity,Urine 1.012 (1.001-1.035); Urobilinogen,Urine <2.0 mg/dL (<2.0)
--- NOTE | 2022-12-18 09:26 | US ---
EXAMINATION TYPE: US scrotum with doppler. Grayscale and color Doppler Duplex imaging performed of gabriele sparks scrotum. DATE OF EXAM: 12/18/2022 COMPARISON: NONE CLINICAL INDICATION: Male, 52 years old with history of pain; Edema and pain bilaterally EXAM MEASUREMENTS: TESTICLES: Right Testicle: 4.8 x 2.7 x 2.7 cm Left Testicle: 4.0 x 2.1 x 3.2 cm EPIDIDYMIS HEAD: Right Epididymis: unable to visualize Left Epididymis: 0.9 cm Doppler performed to assess for testicular vascularity; good bilateral color flow and waveforms are s een. There is no evidence of testicular torsion. Presence of hydroceles: yes, 11.7 x 7.5 x 9.0cm on the right and 4.8 x 1.5 x 4.0cm on the left Presence of varicoceles: no IMPRESSION: 1. Large bilateral hydroceles, right greater than left 2. Appropriate color Doppler flow to the testes bilaterally.
[2022-12-18 10:13] VITALS: BP 161/100; PULSE 70; RESP 16; TEMP 97.6
== END 2022-12-18 11:10 | disposition home or self-care (01) ==
LOC: EC 06:56
DX: N43.3 Hydrocele, unspecified (principal); I25.10 Atherosclerotic heart disease of native coronary artery without angina pectoris; I10 Essential (primary) hypertension; E78.5 Hyperlipidemia, unspecified; I25.2 Old myocardial infarction; K21.9 Gastro-esophageal reflux disease without esophagitis; M19.90 Unspecified osteoarthritis, unspecified site; Z79.82 Long term (current) use of aspirin; Z79.899 Other long term (current) drug therapy
CPT/HCPCS: 76870; 81003; 93975; 99284

== ENCOUNTER 2023-01-20 10:42 | Observation (INO) | payer BC ==
--- NOTE | 2023-01-20 11:11 | ED ---
General Adult HPI - General Chief complaint: Extremity Injury, Upper Stated complaint: Right arm pain Time Seen by Provider: 01/20/23 10:50 Source: patient Mode of arrival: wheelchair Limitations: no limitations - History of Present Illness Initial comments: Dictation was produced using [employer] dictation software. please excuse any grammatical, word or spelling errors. Chief Complaint: 52-year-old male presents with right-sided neck and shoulder pain History of Present Illness: She is a 52-year-old male presents emergency Department with right-sided neck pain. He has a history of heart attack in 2016 that presented similarly however affected the left side. States that his symptoms began yesterday. It report associated clamminess and nausea. Did not try to take any nitroglycerin. Denies any numbness to his arm. Denies any chest pain. No exacerbating or mitigating factors to his left arm. States that it did feel like he was in his right neck as well. The ROS documented in this emergency department record has been reviewed and confirmed by me. Those systems with pertinent positive or negative responses have been documented in the HPI. All other systems are other negative and/or noncontributory. - Related Data Home Medications Medication Instructions Recorded Confirmed Metoprolol Succinate [Toprol XL] 50 mg PO DAILY 10/13/19 01/20/23 Pantoprazole [Protonix] 40 mg PO HS 08/24/22 01/20/23 lisinopriL [Zestril] 20 mg PO DAILY 08/24/22 01/20/23 allopurinoL [Zyloprim] 300 mg PO DAILY 01/20/23 01/20/23 Previous Rx's Medication Instructions Recorded amLODIPine [Norvasc] 5 mg PO DAILY #90 tab 08/26/22 Allergies Allergy/AdvReac Type Severity Reaction Status Date / Time No Known Allergies Allergy Verified 01/20/23 11:28 Review of Systems ROS Statement: Those systems with pertinent positive or pertinent negative responses have been documented in the HPI. ROS Other: All systems not noted in ROS Statement are negative. Past Medical History Past Medical History: Coronary Artery Disease (CAD), GERD/Reflux, Hyperlipidemia, Hypertension, Myocardial Infarction ([place]), Osteoarthritis (OA) Additional Past Medical History / Comment(s): [place] 01/2016 with stent placement X2 LAD. pancreatisis Last Myocardial Infarction Date:: 01/27/16 History of Any Multi-Drug Resistant Organisms: None Reported Past Surgical History: Appendectomy, Heart Catheterization With Stent, Hernia Re pair Additional Past Surgical History / Comment(s): 2 cardiac stents. umbilical and bilat inguinal, colonoscopy Past Anesthesia/Blood Transfusion Reactions: No Reported Reaction Date of Last Stent Placement:: 01/27/16 Past Psychological History: No Psychological Hx Reported Smoking Status: Never smoker Past Alcohol Use History: Daily Past Drug Use History: None Reported - Past Family History Father History Unknown: Yes Mother Family Medical History: Myocardial Infarction ([place]) Brother(s) Family Medical History: Diabetes Mellitus General Exam - General Exam Comments Initial Comments: PHYSICAL EXAM: General Impression: Alert and oriented x3, not in acute distress HEENT: Normocephalic atraumatic, extra-ocular movements intact, pupils equal and reactive to light bilaterally, mucous membranes moist. Cardiovascular: Heart regular rate and rhythm Chest: Able to complete full sentences, no retractions, no tachypnea Abdomen: abdomen soft, non-tender, non-distended, no organomegaly Musculoskeletal: Pulses present and equal in all extremities, no peripheral edema Motor: no focal deficits noted Neurological: CN II-XII grossly intact, no focal motor or sensory deficits noted Skin: Intact with no visualized rashes Psych: Normal affect and mood Limitations: no limitations Course Vital Signs 01/20/23 01/20/23 01/20/23 10:46 11:00 11:30 Temperature 98.4 F Pulse Rate 114 H 93 95 Respiratory 16 17 18 Rate Blood Pressure 175/96 150/91 139/90 O2 Sat by Pulse 97 Oximetry 01/20/23 01/20/23 01/20/23 11:40 11:50 12:00 Temperature Pulse Rate 92 107 H 87 Respiratory 18 20 16 Rate Blood Pressure 135/92 135/92 135/92 O2 Sat by Pulse Oximetry EKG Findings - EKG Comments: EKG Findings:: My EKG interpretation: Ventricular rate 89, sinus rhythm,. Interval 161, QRS 87, QTc 43. No VT prolongation, no QTC prolongation, no ST or T-wave changes noted. Overall, this EKG is unremarkable Medical Decision Making - Medical Decision Making Was pt. sent in by a medical professional or institution (, PA, FITTING ROOM CHECKER, urgent care, hospital, or fdc...) When possible be specific @ -No Did you speak to anyone other than the patient for history (EMS, parent, family, police, friend...)? What history was obtained from this source @ -No Did you review nursing and triage notes (agree or disagree)? Why? @ -I reviewed and agree with nursing and triage notes Were old charts reviewed (outside hosp., previous admission, EMS record, old EKG, old radiological studies, urgent care reports/EKG's, fdc records)? Report findings @ -No old charts were reviewed Differential Diagnosis (chest pain, altered mental status, abdominal pain women, abdominal pain men, vaginal bleeding, musculoskeletal, weakness, fever, dyspnea, syncope, headache, dizziness, GI bleed, back pain, seizure, CVA, palpatations, mental health)? @ -Differential Chest Pain: Stable Angina, Unstable Angina, STEMI, NSTEMI Aortic Dissection, Pneumothorax, Musculoskeletal, Esophageal Spasm GERD, Cholecystitis, Pancreatitis, Zoster, this is not meant to be an all-inclusive list. EKG interpreted by me (3pts min.). @ -See above X-rays interpreted by me (1pt min.). @ -Chest x-ray shows no acute processes CT interpreted by me (1pt min.). @ -None done U/S interpreted by me (1pt. min.). @ -None done What testing was considered but not performed or refused? (CT, X-rays, U/S, labs)? Why? @ -None What meds were considered but not given or refused? Why? @ -None Did you discuss the management of the patient with other professionals (professionals i.e. , PA, FITTING ROOM CHECKER, lab, RT, psych nurse, social services aide, echo technician, teacher, systems support officer, showcase trimmer)? Give summary @ -Discussed with hospitalist for admission Was smoking cessation discussed for >3mins.? @ -No Was critical care preformed (if so, how long)? @ -No Were there social determinants of health that impacted care today? How? (Homelessness, low income, unemployed, alcoholism, drug addiction, transportation, low edu. Level, literacy, decrease access to med. care, long term, rehab)? @ -No Was there de-escalation of care discussed even if they declined (Discuss DNR or withdrawal of care, Hospice)? DNR status @ -No What co-morbidities impacted this encounter? (DM, HTN, Smoking, COPD, CAD, Cancer, CVA, ARF, Chemo, Hep., AIDS, mental health diagnosis, sleep apnea, morbid obesity)? @ -52-year-old male presents with neck pain similar to symptoms he is expiratory previous heart attack. Vital signs stable. EKG is unremarkable. Laboratory evaluation obtained. Mild hyponatremia 129, normal troponin. Magnesium 1.5. Patient reevaluated at bedside feels slightly improved. Given aspirin and nitroglycerin. Given patient's symptoms there is concern of ACS. Patient is agreeable for observation admission with cardiology consultation. Was patient admitted / discharged? Hospital course, mention meds given and route, prescriptions, significant lab abnormalities, going to OR and other pertinent info. @ -See above Undiagnosed new problem with uncertain prognosis? @ -No Drug Therapy requiring intensive monitoring for toxicity (Heparin, Nitro, Insulin, Cardizem)? @ -No Were any procedures done? @ -No Diagnosis/symptom? Acute, or Chronic, or Acute on Chronic? Uncomplicated (without systemic symptoms) or Complicated (systemic symptoms)? @ -suspect ACS Side effects of treatment? @ -No Exacerbation, Progression, or Severe Exacerbation? @ -No Poses a threat to life or bodily function? How? (Chest pain, [place], [place], pneumonia, PE, COPD, DKA, ARF, appy, cholecystitis, CVA, Diverticulitis, Homicidal, Suicidal, threat to staff... and all critical care pts) @ -yes - Lab Data Result diagrams: 01/20/23 11:21 01/20/23 11:21 Lab Results 01/20/23 01/20/23 01/20/23 Range/Units 11:21 11:21 11:21 WBC 11.2 H (3.8-10.6) k/uL RBC 4.57 (4.30-5.90) m/uL Hgb 14.7 (13.0-17.5) gm/dL Hct 43.3 (39.0-53.0) % MCV 94.6 (80.0-100.0) fL MCH 32.1 (25.0-35.0) pg MCHC 33.9 (31.0-37.0) g/dL RDW 14.1 (11.5-15.5) % Plt Count 261 (150-450) k/uL MPV 7.5 Neutrophils % 76 % Lymphocytes % 15 % Monocytes % 6 % Eosinophils % 2 % Basophils % 0 % Neutrophils # 8.6 H (1.3-7.7) k/uL Lymphocytes # 1.7 (1.0-4.8) k/uL Monocytes # 0.7 (0-1.0) k/uL Eosinophils # 0.2 (0-0.7) k/uL Basophils # 0.0 (0-0.2) k/uL PT 10.9 (10.0-12.5) sec INR 1.0 (<1.2) APTT 26.2 (22.0-30.0) sec Sodium 129 L (137-145) mmol/L Potassium 4.5 (3.5-5.1) mmol/L Chloride 97 L (98-107) mmol/L Carbon Dioxide 20 L (22-30) mmol/L Anion Gap 12 mmol/L BUN 16 (9-20) mg/dL Creatinine 0.96 (0.66-1.25) mg/dL Est GFR (CKD-EPI)AfAm >90 (>60 ml/min/1.73 sqM) Est GFR (CKD-EPI)NonAf >90 (>60 ml/min/1.73 sqM) Glucose 111 H (74-99) mg/dL Calcium 9.9 (8.4-10.2) mg/dL Magnesium 1.5 L (1.6-2.3) mg/dL Total Bilirubin 0.4 (0.2-1.3) mg/dL AST 38 (17-59) U/L ALT 41 (4-49) U/L Alkaline Phosphatase 103 (38-126) U/L Troponin I (0.000-0.034) ng/mL Total Protein 7.3 (6.3-8.2) g/dL Albumin 4.5 (3.5-5.0) g/dL 01/20/23 Range/Units 11:21 WBC (3.8-10.6) k/uL RBC (4.30-5.90) m/uL Hgb (13.0-17.5) gm/dL Hct (39.0-53.0) % MCV (80.0-100.0) fL MCH (25.0-35.0) pg MCHC (31.0-37.0) g/dL RDW (11.5-15.5) % Plt Count (150-450) k/uL MPV Neutrophils % % Lymphocytes % % Monocytes % % Eosinophils % % Basophils % % Neutrophils # (1.3-7.7) k/uL Lymphocytes # (1.0-4.8) k/uL Monocytes # (0-1.0) k/uL Eosinophils # (0-0.7) k/uL Basophils # (0-0.2) k/uL PT (10.0-12.5) sec INR (<1.2) APTT (22.0-30.0) sec Sodium (137-145) mmol/L Potassium (3.5-5.1) mmol/L Chloride (98-107) mmol/L Carbon Dioxide (22-30) mmol/L Anion Gap mmol/L BUN (9-20) mg/dL Creatinine (0.66-1.25) mg/dL Est GFR (CKD-EPI)AfAm (>60 ml/min/1.73 sqM) Est GFR (CKD-EPI)NonAf (>60 ml/min/1.73 sqM) Glucose (74-99) mg/dL Calcium (8.4-10.2) mg/dL Magnesium (1.6-2.3) mg/dL Total Bilirubin (0.2-1.3) mg/dL AST (17-59) U/L ALT (4-49) U/L Alkaline Phosphatase (38-126) U/L Troponin I <0.012 (0.000-0.034) ng/mL Total Protein (6.3-8.2) g/dL Albumin (3.5-5.0) g/dL Disposition Clinical Impression: ACS (acute coronary syndrome) Disposition: ADMITTED IP TO THIS HOSP Condition: Fair Referrals: Burt Sellers MD [Primary Care Provider] - 1-2 days Decision Time: 12:39
[2023-01-20 11:36] LABS: Basophils % (A) 0 %; Eosinophils # (A) 0.2 k/uL (0-0.7); Eosinophils % (A) 2 %; HCT 43.3 % (39.0-53.0); HGB 14.7 gm/dL (13.0-17.5); Lymphocytes # (A) 1.7 k/uL (1.0-4.8); Lymphocytes % (A) 15 %; MCH 32.1 pg (25.0-35.0); MCHC 33.9 g/dL (31.0-37.0); MCV 94.6 fL (80.0-100.0); Mean Platelet Volume 7.5; Monocytes # (A) 0.7 k/uL (0-1.0); Monocytes % (A) 6 %; Neutrophils # (A) 8.6 k/uL (1.3-7.7); Neutrophils % (A) 76 %; Platelet Count 261 k/uL (150-450); RBC 4.57 m/uL (4.30-5.90); RDW 14.1 % (11.5-15.5); WBC 11.2 k/uL (3.8-10.6)
--- NOTE | 2023-01-20 11:47 | XR ---
EXAMINATION TYPE: XR chest 2V DATE OF EXAM: 01/20/2023 COMPARISON: 10/15/2020 TECHNIQUE: PA and lateral views submitted. HISTORY: Chest pain FINDINGS: The lungs are clear and there is no pneumothorax, pleural effusion, or focal pneumonia. Heart size normal and no overt failure. Osseous structures demonstrate hypertrophic and degenerative changes of the spine. Atherosclerotic change aorta. Biapical pleural thickening. IMPRESSION: 1. No acute process.
[2023-01-20 11:49] LABS: Partial Thromboplastin Time 26.2 sec (22.0-30.0); Prothrombin Time 10.9 sec (10.0-12.5)
[2023-01-20 11:55] LABS: ALT 41 U/L (4-49); AST 38 U/L (17-59); African American GFR (CKD) >90 (>60 ml/min/1.73 sqM); Albumin 4.5 g/dL (3.5-5.0); Alkaline Phosphatase 103 U/L (38-126); Anion Gap 12 mmol/L; Blood Urea Nitrogen 16 mg/dL (9-20); Calcium 9.9 mg/dL (8.4-10.2); Carbon Dioxide 20 mmol/L (22-30); Chloride 97 mmol/L (98-107); Glucose 111 mg/dL (74-99); Magnesium 1.5 mg/dL (1.6-2.3); Non-African American GFR(CKD) >90 (>60 ml/min/1.73 sqM); Potassium 4.5 mmol/L (3.5-5.1); Sodium 129 mmol/L (137-145); Total Bilirubin 0.4 mg/dL (0.2-1.3); Total Protein 7.3 g/dL (6.3-8.2)
[2023-01-20] MEDS ORDERED: SODIUM CHLORIDE 0.9% 1,000 ML IV STA (12:17)
[2023-01-20] MEDS ORDERED: NITROGLYCERIN SL TABS 0.4 MG TAB SUBLINGUAL STA (12:34)
[2023-01-20] MEDS ORDERED: ASPIRIN 81 MG PO STA (12:34)
[2023-01-20] MEDS ORDERED: NITROGLYCERIN SL TABS 0.4 MG TAB SUBLINGUAL PRN (12:34)
[2023-01-20] MEDS ORDERED: MAGNESIUM OXIDE 400 MG TAB PO STA (12:38)
[2023-01-21 02:29] VITALS: TEMP 98.4
[2023-01-21] MEDS ORDERED: DOBUTamine DRIP for NUC MED 500 MG in DEXTROSE/WATER 1 250ML.BAG IV PRN (08:30)
[2023-01-21 08:42] VITALS: BP 136/93; PULSE 71; RESP 18
[2023-01-21] MEDS ORDERED: ATORVASTATIN 40 MG TAB PO SCH (09:00)
[2023-01-21] MEDS ORDERED: ASPIRIN 325 MG TAB PO SCH (09:00)
[2023-01-21 11:28] LABS: Chol/HDL Ratio 4.05 Ratio; LDL Cholesterol,Calculated 106.8 mg/dL (0.0-131.0)
--- NOTE | 2023-01-21 12:47 | P.PN ---
Progress Note - Text Admitted with neck and right arm pain Normal cardiac enzymes During stress echo normal May go home from a cardiac vascular standpoint and follow Dr. Keith in 2-3 weeks
--- NOTE | 2023-01-21 17:47 | P.CRDCN ---
History of Present Illness History of present illness: This is Dr. Keith dictating an H/P on this patient The patient was interviewed and examined IMPRESSION / ASSESSMENT: Atypical discomfort with right-sided neck pain and right sided arm pain Associated nausea Normal cardiac enzymes Known coronary artery disease status post stenting almost 7 years back Patient denies following up with cardiology Not taking statins, stopped because of an interaction with allopurinol, per patient Prediabetic, hemoglobin A1c 6.1 PLAN: Dobutamine stress echo to evaluate for ischemia Follow-up in the office thereafter Start atorvastatin Check hemoglobin A1c Check lipid panel HPI Presented with right-sided neck discomfort, in the nape of the neck along with right-sided arm discomfort He stated that when he had his heart attack in his back he had left-sided nerve discomfort with left-sided arm discomfort However this was associated with nausea this time He states he is had Rodney stenting 7 years back but has not been following with cardiology He also stated that he was on atorvastatin but he stopped this when he spoke to his pharmacist, allopurinol interaction He has a history of hypertension and is taking his blood pressure medications regularly ROS: No fever chills or rigors, no cough, phlegm or expectoration, no nausea, vomiting or diarrhea, no hematuria, dysuria, no musculoskeletal complaints, no strokes or seizures, no skin lesions. EXAMINATION: 129/80, pulse rate in the 70s afebrile Breath sounds are clear no rhonchi no crackles Heart sounds are normal breath sounds are clear REVIEW OF LABS, ECG & MEDICAL DATA White count the upper limits of normal D-dimer normal cardiac enzymes normal Hemoglobin A1c 6.1 Total cholesterol 205, triglycerides 238 LDL 107 Past Medical History Past Medical History: Coronary Artery Disease (CAD), GERD/Reflux, Hyperlipidemia, Hypertension, Myocardial Infarction ([place]), Osteoarthritis (OA) Additional Past Medical History / Comment(s): [place] 01/2016 with stent placement X2 LAD. pancreatisis Last Myocardial Infarction Date:: 01/27/16 History of Any Multi-Drug Resistant Organisms: None Reported Past Surgical History: Appendectomy, Heart Catheterization With Stent, Hernia Repair Additional Past Surgical History / Comment(s): 2 cardiac stents. umbilical and bilat inguinal, colonoscopy Past Anesthesia/Blood Transfusion Reactions: No Reported Reaction Date of Last Stent Placement:: 01/27/16 Past Psychological History: No Psychological Hx Reported Smoking Status: Never smoker Past Alcohol Use History: Occasional Past Drug Use History: None Reported - Past Family History Father History Unknown: Yes Mother Family Medical History: Myocardial Infarction ([place]) Brother(s) Family Medical History: Diabetes Mellitus Medications and Allergies Home Medications Medication Instructions Recorded Confirmed Type Metoprolol Succinate [Toprol XL] 50 mg PO DAILY 10/13/19 01/20/23 History Pantoprazole [Protonix] 40 mg PO HS 08/24/22 01/20/23 History lisinopriL [Zestril] 20 mg PO DAILY 08/24/22 01/20/23 History amLODIPine [Norvasc] 5 mg PO DAILY #90 tab 08/26/22 01/20/23 Rx allopurinoL [Zyloprim] 300 mg PO DAILY 01/20/23 01/20/23 History Allergies Allergy/AdvReac Type Severity Reaction Status Date / Time No Known Allergies Allergy Verified 01/20/23 11:28 Physical Exam Vitals: Vital Signs Temp Pulse Pulse Resp BP BP Pulse Ox 01/21/23 07:00 98.4 F 71 18 136/93 94 L 01/21/23 02:09 98.4 F 70 15 129/80 99 01/20/23 20:00 85 19 134/92 96 01/20/23 19:48 98.2 F 63 15 119/82 97 01/20/23 19:18 82 16 134/92 95 Intake and Output 01/21/23 01/21/23 01/21/23 06:59 14:59 22:59 Other: Voiding Method Toilet # Voids 1 Results 01/20/23 11:21 01/20/23 11:21 Lipids 01/21/23 Range/Units 06:43 Triglycerides 238.00 H (0.00-149.00) mg/dL Cholesterol 205.00 H (0.00-200.00) mg/dL HDL Cholesterol 50.60 (40.00-60.00) mg/dL Cholesterol/HDL Ratio 4.05 Ratio Intake and Output 01/21/23 01/21/23 01/21/23 06:59 14:59 22:59 Other: Voiding Method Toilet # Voids 1 01/20/23 11:21 01/20/23 11:21
--- NOTE | 2023-01-21 18:14 | CA ---
Dobutamine Stress Echocardiogram Report Hi Salgado Age: 52 Gender: M : 1970 Exam Date: 01/21/2023 08:51 Exam Location: [facility] Ordering Physician: Benitez Keith MD ([id number]) Referring Physician: BENITEZ KEITH,, Squirrel Man: Miri Joel RDCS Technologist: Ht (in): 64 Wt (lb): 183 Procedure CPT: Indication: Chest Pain ICD-9 Codes: Rhythm: Patient History: HTN, CHOL, FAMILY HX, [place] (2016), CATH, PTCA (2 STENTS) Cardiac Medications: SEE CHART Medications in past 24 hours: Contrast: Lumason Total Dose (mL): 5 Stress Results Protocol: Dobutamine Peak Dose (???g/kg/min): 30 Duration (min:sec): Atropine:(mg) Target HR: 142 Double Product: [id number] Resting HR: 61 Resting BP: 139 / 92 Peak HR: 145 Peak BP: 201 / 105 Max Predicted HR: 167 87 % Max Predicted HR Stress Summary: BP Response: Reason for Termination: Exceeded target heart rate (85% max predicted) Cardiac Symptoms: ASYMPTOMATIC ECG Analysis Resting EKG: Stress EKG: Arrhythmia: Echo Analysis Base Echo Analysis: Low Echo Anaylsis: Peak Echo Analysis: Recovery Echo: MEASUREMENTS (Male/Female) Normal Values CONCLUSIONS Normal dobutamine stress echo No arrhythmias Dr. Benitez Keith MD (Electronically Signed) Final Date: 21 January 2023 18:13
== END 2023-01-21 14:20 | disposition home or self-care (01) ==
LOC: EC 10:42 → 6NMEDSUR 12:34
PROVIDERS: ADMIT Family Medicine; ATTEND Family Medicine
DX: M54.2 Cervicalgia (principal); M79.601 Pain in right arm; R11.0 Nausea; R73.03 Prediabetes; I25.10 Atherosclerotic heart disease of native coronary artery without angina pectoris; K21.9 Gastro-esophageal reflux disease without esophagitis; E78.5 Hyperlipidemia, unspecified; I10 Essential (primary) hypertension; I25.2 Old myocardial infarction; Z95.5 Presence of coronary angioplasty implant and graft; Z79.899 Other long term (current) drug therapy
CPT/HCPCS: 96360; 99285; 36415; 93005; 93351; 85379; 80061; 80053; 83735; 84484; 85025; 85610; 85730; 83036; 71046; G0378 ×2; Q9950

== ENCOUNTER 2023-03-03 12:46 | Observation (INO) | payer BC ==
--- NOTE | 2023-03-03 13:02 | ED ---
Abdominal Pain HPI - General Source: patient, RN notes reviewed Mode of arrival: ambulatory Limitations: no limitations <Jamal Nguyen - Last Filed: 03/03/23 13:01> <Ada Andrew - Last Filed: 03/03/23 22:20> - General Chief Complaint: Abdominal Pain Stated Complaint: abd/back pains Time Seen by Provider: 03/03/23 13:01 - History of Present Illness Initial Comments: 52-year-old male presents emergency Department with chief complaint of epigastric pain. Patient states pain started recently. Patient has a history of pancreatitis with pancreatic stents placed here. Patient states that he is an occasional drinker. Patient states his pain feels very similar to when he had pancreatitis in the past. (Jamal Nguyen) 51-year-old male presents emergency department chief complaint of epigastric abdominal pain. He states that this started at 0700 today. He admits to associated nausea without vomiting. He does admit to history of pancreatitis and states that this feels similar. He states that in the past that it has been caused by his alcohol consumption. He reports that he had not been drinking but had 3-4 drinks on . Denies fever, chills. Reports normal bowel moveme nts. (Ada Andrew) - Related Data Home Medications Medication Instructions Recorded Confirmed Metoprolol Succinate [Toprol XL] 50 mg PO DAILY 10/13/19 03/03/23 Pantoprazole [Protonix] 40 mg PO HS 08/24/22 03/03/23 lisinopriL [Zestril] 20 mg PO DAILY 08/24/22 03/03/23 Atorvastatin [Lipitor] 40 mg PO HS 03/03/23 03/03/23 Allergies Allergy/AdvReac Type Severity Reaction Status Date / Time No Known Allergies Allergy Verified 03/03/23 21:45 Review of Systems ROS Other: All systems not noted in ROS Statement are negative. <Jamal Nguyen - Last Filed: 03/03/23 13:01> ROS Other: All systems not noted in ROS Statement are negative. <Ada Andrew - Last Filed: 03/03/23 22:20> ROS Statement: Those systems with pertinent positive or pertinent negative responses have been documented in the HPI. Past Medical History Past Medical History: Coronary Artery Disease (CAD), GERD/Reflux, Hyperlipidemia, Hypertension, Myocardial Infarction (CA), Osteoarthritis (OA) Additional Past Medical History / Comment(s): CA 01/2016 with stent placement X2 LAD. pancreatisis Last Myocardial Infarction Date:: 01/27/16 History of Any Multi-Drug Resistant Organisms: None Reported Past Surgical History: Appendectomy, Heart Catheterization With Stent, Hernia Repair Additional Past Surgical History / Comment(s): 2 cardiac stents. umbilical and bilat inguinal, colonoscopy Past Anesthesia/Blood Transfusion Reactions: No Reported Reaction Date of Last Stent Placement:: 01/27/16 Past Psychological History: No Psychological Hx Reported Smoking Status: Never smoker Past Alcohol Use History: Occasional Past Drug Use History: None Reported - Past Family History Father History Unknown: Yes Mother Family Medical History: Myocardial Infarction (CA) Brother(s) Family Medical History: Diabetes Mellitus <Jamal Nguyen - Last Filed: 03/03/23 13:01> General Exam Limitations: no limitations <Jamal Nguyen - Last Filed: 03/03/23 13:01> Limitations: no limitations General appearance: alert, in no apparent distress Head exam: Present: atraumatic, normocephalic, normal inspection Eye exam: Present: normal appearance, PERRL, EOMI. Absent: scleral icterus, conjunctival injection, periorbital swelling ENT exam: Present: normal exam, mucous membranes moist Neck exam: Present: normal inspection. Absent: tenderness, meningismus, lymph adenopathy Respiratory exam: Present: normal lung sounds bilaterally. Absent: respiratory distress, wheezes, rales, rhonchi, stridor Cardiovascular Exam: Present: regular rate, normal rhythm, normal heart sounds. Absent: systolic murmur, diastolic murmur, rubs, gallop, clicks GI/Abdominal exam: Present: soft, tenderness (epigastric), normal bowel sounds Extremities exam: Present: normal inspection, full ROM, normal capillary refill. Absent: tenderness, pedal edema, joint swelling, calf tenderness Back exam: Present: normal inspection Neurological exam: Present: alert, oriented X3 Psychiatric exam: Present: normal affect, normal mood Skin exam: Present: warm, dry, intact, normal color. Absent: rash <Ada Andrew - Last Filed: 03/03/23 22:20> - General Exam Comments Initial Comments: Visual Physical Exam Vital signs reviewed General: Well-appearing, nontoxic, no acute distress. Head: Normocephalic, atraumatic Eyes: PERRLA, EOMI ENT: Airway patent Chest: Nonlabored breathing Skin: No visual rash, normal skin tone Neuro: Alert and oriented 3 Musculoskeletal: No gross abnormalities (Jamal Nguyen) Course Vital Signs 03/03/23 03/03/23 03/03/23 12:57 19:33 21:45 Temperature 98.4 F 98.1 F Pulse Rate 73 70 87 Respiratory 16 18 18 Rate Blood Pressure 168/102 194/110 148/84 O2 Sat by Pulse 99 98 94 L Oximetry Medical Decision Making <Jamal Nguyen - Last Filed: 03/03/23 13:01> - Lab Data Result diagrams: 03/03/23 13:17 03/03/23 13:17 <Ada Andrew - Last Filed: 03/03/23 22:20> - Medical Decision Making I completed the quick note portion of this chart signed Jamal Nguyen PA-C (Jamal Nguyen) Was pt. sent in by a medical professional or institution (TOM Rizzo, WELFARE ADMINISTRATOR, urgent care, hospital, or long term...) When possible be specific @ -No Did you speak to anyone other than the patient for history (EMS, parent, family, police, friend...)? What history was obtained from this source @ -No Did you review nursing and triage notes (agree or disagree)? Why? @ -I reviewed and agree with nursing and triage notes Were old charts reviewed (outside hosp., previous admission, EMS record, old EKG, old radiological studies, urgent care reports/EKG's, long term records)? Report findings @ -No old charts were reviewed Differential Diagnosis (chest pain, altered mental status, abdominal pain women, abdominal pain men, vaginal bleeding, weakness, fever, dyspnea, syncope, headache, dizziness, GI bleed, back pain, seizure, CVA, palpatations, mental health, musculoskeletal)? @ -Differential Abdominal Pain Men: Appendicitis, cholecystitis, diverticulosis, ischemic bowel, pancreatitis, hepatitis, UTI, gastroenteritis, AAA, incarcerated hernia, bowel obstruction, constipation, inflammatory bowel, hepatitis, peptic ulcer disease, splenic infarction, perforated viscus, testicular torsion, this is not meant to be an all-inclusive list EKG interpreted by me (3pts min.). @ -EKG at 1317 shows sinus rhythm rate 64, DC 152, QRS 105, QTQTc [id number] X-rays interpreted by me (1pt min.). @ -None done CT interpreted by me (1pt min.). @ -None done U/S interpreted by me (1pt. min.). @ -None done What testing was considered but not performed or refused? (CT, X-rays, U/S, labs)? Why? @ -None What meds were considered but not given or refused? Why? @ -None Did you discuss the management of the patient with other professionals (pr ofessionals i.e. , PA, WELFARE ADMINISTRATOR, lab, RT, psych nurse, social human services assistants, student counselor, teacher, product safety officer, geriatric case manager)? Give summary @ -Management discussed with Dr. Sellers who is accepting of the admission Was smoking cessation discussed for >3mins.? @ -No Was critical care preformed (if so, how long)? @ -No Were there social determinants of health that impacted care today? How? (Homele ssness, low income, unemployed, alcoholism, drug addiction, transportation, low edu. Level, literacy, decrease access to med. care, usp, rehab)? @ -No Was there de-escalation of care discussed even if they declined (Discuss DNR or withdrawal of care, Hospice)? DNR status @ -No What co-morbidities impacted this encounter? (DM, HTN, Smoking, COPD, CAD, Cancer, CVA, ARF, Chemo, Hep., AIDS, mental health diagnosis, sleep apnea, morbid obesity)? @ -None Was patient admitted / discharged? Hospital course, mention meds given and route, prescriptions, significant lab abnormalities, going to OR and other pertinent info. @ -admitted. Patient presented to the emergency department with chief complaint of epigastric pain since 0700 today. She states that he has a history of hepatitis and this feels similar. Laboratory studies obtained which showed WBC 13.5, lipase 611. Patient received 4 mg morphine and 1 mg Dilaudid which improved his symptoms but he continues to have some discomfort. He also received Zofran for his nausea which helps. Patient will be admitted for pain control and surgery consult. Case was discussed with Dr. Sellers who is accepting of the admission. Case discussed with Dr. Nair Undiagnosed new problem with uncertain prognosis? @ -No Drug Therapy requiring intensive monitoring for toxicity (Heparin, Nitro, Insulin, Cardizem)? @ -No Were any procedures done? @ -No Diagnosis/symptom? @ -pancreatitis Acute, or Chronic, or Acute on Chronic? @ -acute Uncomplicated (without systemic symptoms) or Complicated (systemic symptoms)? @ -uncomplicated Side effects of treatment? @ -No Exacerbation, Progression, or Severe Exacerbation? @ -No Poses a threat to life or bodily function? How? (Chest pain, USA, CA, pneumonia, PE, COPD, DKA, ARF, appy, cholecystitis, CVA, Diverticulitis, Homicidal, Suicidal, threat to staff... and all critical care pts) @ -No (Ada Andrew) - Lab Data Lab Results 03/03/23 03/03/23 03/03/23 Range/Units 13:17 13:17 13:52 WBC 13.5 H (3.8-10.6) k/uL RBC 4.63 (4.30-5.90) m/uL Hgb 14.9 (13.0-17.5) gm/dL Hct 44.2 (39.0-53.0) % MCV 95.3 (80.0-100.0) fL MCH 32.2 (25.0-35.0) pg MCHC 33.8 (31.0-37.0) g/dL RDW 13.3 (11.5-15.5) % Plt Count 247 (150-450) k/uL MPV 7.3 Neutrophils % 78 % Lymphocytes % 13 % Monocytes % 5 % Eosinophils % 2 % Basophils % 0 % Neutrophils # 10.6 H (1.3-7.7) k/uL Lymphocytes # 1.7 (1.0-4.8) k/uL Monocytes # 0.6 (0-1.0) k/uL Eosinophils # 0.3 (0-0.7) k/uL Basophils # 0.1 (0-0.2) k/uL Sodium 128 L (137-145) mmol/L Potassium 4.7 (3.5-5.1) mmol/L Chloride 93 L (98-107) mmol/L Carbon Dioxide 23 (22-30) mmol/L Anion Gap 12 mmol/L BUN 12 (9-20) mg/dL Creatinine 1.04 (0.66-1.25) mg/dL Est GFR (CKD-EPI)AfAm >90 (>60 ml/min/1.73 sqM) Est GFR (CKD-EPI)NonAf 82 (>60 ml/min/1.73 sqM) Glucose 109 H (74-99) mg/dL Calcium 9.6 (8.4-10.2) mg/dL Total Bilirubin 0.4 (0.2-1.3) mg/dL AST 36 (17-59) U/L ALT 45 (4-49) U/L Alkaline Phosphatase 101 (38-126) U/L Total Protein 7.6 (6.3-8.2) g/dL Albumin 4.5 (3.5-5.0) g/dL Amylase 80 (30-110) U/L Lipase 613 H (23-300) U/L Urine Color Light Yellow Urine Appearance Clear (Clear) Urine pH 7.0 (5.0-8.0) Ur Specific [place] 1.019 (1.001-1.035) Urine Protein Negative (Negative) Urine Glucose (UA) Negative (Negative) Urine Ketones Negative (Negative) Urine Blood Negative (Negative) Urine Nitrite Negative (Negative) Urine Bilirubin Negative (Negative) Urine Urobilinogen <2.0 (<2.0) mg/dL Ur Leukocyte Esterase Negative (Negative) Disposition <Jamal Nguyen - Last Filed: 03/03/23 13:01> Is patient prescribed a controlled substance at d/c from ED?: No <Ada Andrew - Last Filed: 03/03/23 22:20> Clinical Impression: Pancreatitis Disposition: ADMITTED IP TO THIS HOSP Condition: Stable
[2023-03-03 13:36] LABS: Basophils # (A) 0.1 k/uL (0-0.2); Basophils % (A) 0 %; Eosinophils # (A) 0.3 k/uL (0-0.7); Eosinophils % (A) 2 %; HCT 44.2 % (39.0-53.0); HGB 14.9 gm/dL (13.0-17.5); Lymphocytes # (A) 1.7 k/uL (1.0-4.8); Lymphocytes % (A) 13 %; MCH 32.2 pg (25.0-35.0); MCHC 33.8 g/dL (31.0-37.0); MCV 95.3 fL (80.0-100.0); Mean Platelet Volume 7.3; Monocytes # (A) 0.6 k/uL (0-1.0); Monocytes % (A) 5 %; Neutrophils # (A) 10.6 k/uL (1.3-7.7); Neutrophils % (A) 78 %; Platelet Count 247 k/uL (150-450); RBC 4.63 m/uL (4.30-5.90); RDW 13.3 % (11.5-15.5); WBC 13.5 k/uL (3.8-10.6)
[2023-03-03 13:52] LABS: ALT 45 U/L (4-49); AST 36 U/L (17-59); African American GFR (CKD) >90 (>60 ml/min/1.73 sqM); Albumin 4.5 g/dL (3.5-5.0); Alkaline Phosphatase 101 U/L (38-126); Amylase 80 U/L (30-110); Anion Gap 12 mmol/L; Blood Urea Nitrogen 12 mg/dL (9-20); Calcium 9.6 mg/dL (8.4-10.2); Carbon Dioxide 23 mmol/L (22-30); Chloride 93 mmol/L (98-107); Glucose 109 mg/dL (74-99); Lipase 613 U/L (23-300); Non-African American GFR(CKD) 82 (>60 ml/min/1.73 sqM); Potassium 4.7 mmol/L (3.5-5.1); Sodium 128 mmol/L (137-145); Total Bilirubin 0.4 mg/dL (0.2-1.3); Total Protein 7.6 g/dL (6.3-8.2)
[2023-03-03 14:21] LABS: Appearance,Urine Clear (Clear); Bilirubin,Urine Negative (Negative); Blood,Urine Negative (Negative); Color,Urine Light Yellow; Glucose,Urine (UA) Negative (Negative); Ketones,Urine Negative (Negative); Leukocyte Esterase,Urine Negative (Negative); Nitrite,Urine Negative (Negative); Protein,Urine Negative (Negative); Specific Gravity,Urine 1.019 (1.001-1.035); Urobilinogen,Urine <2.0 mg/dL (<2.0)
[2023-03-03] MEDS ORDERED: SODIUM CHLORIDE 0.9% 2,000 ML IV ONE (18:36)
[2023-03-03] MEDS ORDERED: ONDANSETRON 4 MG/2 ML VIAL IVP STA (18:41)
[2023-03-03] MEDS ORDERED: MORPHINE SULFATE 4 MG/ML SYRINGE IVP STA (18:41)
[2023-03-03] MEDS ORDERED: hydrALAZINE HCL 20 MG/ML 1 ML VIAL IVP STA (19:49)
--- NOTE | 2023-03-03 20:45 | CT ---
EXAMINATION TYPE: CT abdomen pelvis w con CT DLP: 1044.3 mGycm, Automated exposure control for dose reduction was used. DATE OF EXAM: 03/03/2023 8:30 PM COMPARISON: CT abdomen pelvis most recent from 08/24/2022 CLINICAL INDICATION:Male, 52 years old with history of epigastric pain; Epigastric pain since this mo rning. TECHNIQUE: Axial CT of the ;CT abdomen pelvis w con;Sagittal and coronal reformats were created on a separate workstation. Contrast used:100 cc mL of Isovue 300 with IV Contrast, (none if empty) Oral contrast used: without Oral Contrast (none if empty) FINDINGS: LOWER CHEST: Unremarkable ABDOMEN LIVER: Unremarkable GALLBLADDER AND BILE DUCTS: Unremarkable. PANCREAS: Mild Fat stranding changes around the pancreatic head. No organizing fluid collection. SPLEEN: Unremarkable. ADRENAL GLANDS: Unremarkable. KIDNEYS AND URETERS: No evidence of hydronephrosis or renal calculus. The ureters are unremarkable. PELVIS BLADDER: The urinary bladder extends into the right inguinal canal. REPRODUCTIVE: Large fluid collections within the scrotum right greater than left. ABDOMEN & PELVIS STOMACH AND BOWEL: No evidence of bowel obstruction. The appendix appears surgically absent PERITONEUM/RETROPERITONEUM: No evidence of pneumoperitoneum or free fluid. Mild dario mesentery in th e upper abdomen with prominent lymph nodes. VASCULATURE: No evidence of aortic aneurysm. MUSCULOSKELETAL: No acute osseous abnormalities LYMPH NODES: No gross evidence for lymphadenopathy. SOFT TISSUE/ABDOMINAL WALL: Right inguinal canal hernia with containing bladder. Left inguinal canal hernia containing fat. IMPRESSION: 1. Mild inflammation changes around the pancreatic head. Correlate for pancreatitis with lipase. 2. Right inguinal canal hernia with containing bladder. 3. Left inguinal canal hernia containing fat. 4. Large bilateral hydroceles. 5. Nonspecific predominant dario mesentery similar to prior.
[2023-03-03] MEDS ORDERED: KETOROLAC 15 MG/ML 1 ML VIAL IVP STA (20:52)
[2023-03-03] MEDS ORDERED: HYDROmorphone 1 MG/ML 1 ML SYRINGE IVP STA (20:52)
[2023-03-03] MEDS ORDERED: ONDANSETRON 4 MG/2 ML VIAL IVP PRN (22:02)
[2023-03-03] MEDS ORDERED: ACETAMINOPHEN TAB 325 MG TAB PO PRN (22:02)
[2023-03-03] MEDS ORDERED: NALOXONE 0.4 MG/ML 1 ML VIAL IV PRN (22:02)
[2023-03-03] MEDS: SODIUM CHLORIDE 0.9% 1,000 ML IV SCH (22:24)
[2023-03-04] MEDS: HYDROmorphone 0.5 MG/0.5 ML SYRINGE IVP PRN ×2 (00:09→03:42)
[2023-03-04] MEDS: SODIUM CHLORIDE 0.9% 1,000 ML IV SCH ×3 (05:04→20:55)
[2023-03-04] MEDS: HYDROmorphone 1 MG/ML 1 ML SYRINGE IVP PRN ×5 (07:53→20:53)
[2023-03-04 09:55] LABS: ALT 37 U/L (4-49); AST 27 U/L (17-59); African American GFR (CKD) >90 (>60 ml/min/1.73 sqM); Albumin 4.1 g/dL (3.5-5.0); Albumin/Globulin Ratio 1.5; Alkaline Phosphatase 101 U/L (38-126); Anion Gap 8 mmol/L; Blood Urea Nitrogen 8 mg/dL (9-20); Calcium 9.2 mg/dL (8.4-10.2); Carbon Dioxide 23 mmol/L (22-30); Chloride 98 mmol/L (98-107); Globulin 2.8 g/dL; Glucose 119 mg/dL (74-99); Lipase 281 U/L (23-300); Non-African American GFR(CKD) >90 (>60 ml/min/1.73 sqM); Potassium 4.7 mmol/L (3.5-5.1); Sodium 129 mmol/L (137-145); Total Bilirubin 0.7 mg/dL (0.2-1.3); Total Protein 6.9 g/dL (6.3-8.2)
[2023-03-04 10:10] LABS: Basophils % (A) 0 %; Eosinophils # (A) 0.2 k/uL (0-0.7); Eosinophils % (A) 2 %; HGB 14.3 gm/dL (13.0-17.5); Lymphocytes # (A) 1.3 k/uL (1.0-4.8); Lymphocytes % (A) 12 %; MCH 32.1 pg (25.0-35.0); MCHC 33.3 g/dL (31.0-37.0); MCV 96.3 fL (80.0-100.0); Mean Platelet Volume 7.5; Monocytes # (A) 0.8 k/uL (0-1.0); Monocytes % (A) 7 %; Neutrophils # (A) 8.7 k/uL (1.3-7.7); Neutrophils % (A) 78 %; Platelet Count 227 k/uL (150-450); RBC 4.46 m/uL (4.30-5.90); RDW 13.2 % (11.5-15.5); WBC 11.2 k/uL (3.8-10.6)
--- NOTE | 2023-03-04 10:37 | P.GSCN ---
History of Present Illness Consult date: 03/04/23 History of present illness: CHIEF COMPLAINT: Abdominal pain HISTORY OF PRESENT ILLNESS: This is a 52-year-old male who presented to the ER with complaints of epigastric abdominal pain that started yesterday morning around 7 AM. He had nausea associated with it. He reports that it feels similar to his previous pancreatitis attacks. He has a known history of alcohol induced pancreatitis. Patient reports that he has been staying away from alcohol but at [facility] he did have a few alcoholic drinks. Patient had computed tomography scan that showed evidence of pancreatitis and lipase was mildly elevated. Patient denies any fever chills or sweats. Past surgical history does include an appendectomy and bilateral inguinal hernia repair and umbilical hernia repair. Patient denies any pain or hernia bulges in the right or left inguinal area. Denies any difficulty urinating. He has been having regular bowel movements. PAST MEDICAL HISTORY: Coronary Artery Disease (CAD), GERD/Reflux, Hyperlipidemia, Hypertension, Myocardial Infarction (MO), Osteoarthritis (OA),MO 01/2016 with stent placement X2 LAD. PAST SURGICAL HISTORY: Appendectomy, Heart Catheterization With Stent, Hernia Repair MEDICATIONS: See below ALLERGIES: See below SOCIAL HISTORY: No illicit drug use. REVIEW OF SYSTEMS: CONSTITUTIONAL: Denies fever or chills. HEENT: Denies blurred vision, vision changes, or eye pain. Denies hemoptysis CARDIOVASCULAR: Denies chest pain or pressure. RESPIRATORY: No shortness of breath. GASTROINTESTINAL: See HPI for pertinent findings HEMATOLOGIC: Denies bleeding disorders. GENITOURINARY: Denies any blood in urine or increased urinary frequency. SKIN: Denies pruitis. Denies rash. PHYSICAL EXAM: VITAL SIGNS: Reviewed GENERAL: Well-developed in no acute distress. ABDOMEN: Soft. Nondistended. Epigastric tenderness with palpation. No hernia bulges noted in the inguinal area bilaterally. Nontender. NEUROLOGIC: Alert and oriented. Cranial nerves II through XII grossly intact. LABORATORY DATA: WBC 13.5 down to 11.2 Hgb 14.3 platelets 227 Sodium 129 potassium 4.7 creatinine 0.83 LFTs normal Lipase 613 down to 281 Urinalysis negative for infection IMAGING: Computed tomography scan abdomen and pelvis reports mild inflammation changes around the pancreatic head. Correlate for pancreatitis. Right inguinal canal hernia with containing bladder. Left inguinal canal hernia containing fat. Large bilateral hydroceles. Nonspecific predominate dario mesentery similar to prior. Gallbladder unremarkable. Gallbladder ultrasound from 08/26/2022 reports probable mild hepatic steatosis. Otherwise unremarkable study. No evidence of gallstones. ASSESSMENT: 1. Alcohol induced pancreatitis 2. Bilateral inguinal hernias PLAN: -Continue clear liquid diet -Continue IV fluids -Continue pain management -Continue supportive care -Continue medical management -Discussed alcohol cessation -No surgical intervention planned Physician Vascular Technician note has been reviewed by physician. Signing provider agrees with the documented findings, assessment, and plan of care. Past Medical History Past Medical History: Coronary Artery Disease (CAD), GERD/Reflux, Hyperlipidemia, Hypertension, Myocardial Infarction (MO), Osteoarthritis (OA) Additional Past Medical History / Comment(s): [place] 01/2016 with stent placement X2 LAD. pancreatisis Last Myocardial Infarction Date:: 01/27/16 History of Any Multi-Drug Resistant Organisms: None Reported Past Surgical History: Appendectomy, Heart Catheterization With Stent, Hernia Repair Additional Past Surgical History / Comment(s): 2 cardiac stents. umbilical and bilat inguinal, colonoscopy Past Anesthesia/Blood Transfusion Reactions: No Reported Reaction Date of Last Stent Placement:: 01/27/16 Past Psychological History: No Psychological Hx Reported Smoking Status: Never smoker Past Alcohol Use History: Occasional Past Drug Use History: None Reported - Past Family History Father History Unknown: Yes Mother Family Medical History: Myocardial Infarction (MO) Brother(s) Family Medical History: Diabetes Mellitus Medications and Allergies Home Medications Medication Instructions Recorded Confirmed Type Metoprolol Succinate [Toprol XL] 50 mg PO DAILY 10/13/19 03/03/23 History Pantoprazole [Protonix] 40 mg PO HS 08/24/22 03/03/23 History lisinopriL [Zestril] 20 mg PO DAILY 08/24/22 03/03/23 History Atorvastatin [Lipitor] 40 mg PO HS 03/03/23 03/03/23 History Allergies Allergy/AdvReac Type Severity Reaction Status Date / Time No Known Allergies Allergy Verified 03/03/23 21:45 Surgical - Exam Vital Signs Temp Pulse Resp BP Pulse Ox 98.4 F 73 16 168/102 99 03/03/23 12:57 03/03/23 12:57 03/03/23 12:57 03/03/23 12:57 03/03/23 12:57 Results - Labs 03/04/23 09:25 03/04/23 09:25 Abnormal Lab Results - Last 24 Hours (Table) 03/03/23 03/03/23 03/04/23 Range/Units 13:17 13:17 09:25 WBC 13.5 H (3.8-10.6) k/uL Neutrophils # 10.6 H (1.3-7.7) k/uL Sodium 128 L 129 L (137-145) mmol/L Chloride 93 L (98-107) mmol/L BUN 8 L (9-20) mg/dL Glucose 109 H 119 H (74-99) mg/dL Lipase 613 H (23-300) U/L Diabetes panel 03/03/23 03/04/23 Range/Units 13:17 09:25 Sodium 128 L 129 L (137-145) mmol/L Potassium 4.7 4.7 (3.5-5.1) mmol/L Chloride 93 L 98 (98-107) mmol/L Carbon Dioxide 23 23 (22-30) mmol/L BUN 12 8 L (9-20) mg/dL Creatinine 1.04 0.83 (0.66-1.25) mg/dL Glucose 109 H 119 H (74-99) mg/dL Calcium 9.6 9.2 (8.4-10.2) mg/dL AST 36 27 (17-59) U/L ALT 45 37 (4-49) U/L Alkaline Phosphatase 101 101 (38-126) U/L Total Protein 7.6 6.9 (6.3-8.2) g/dL Albumin 4.5 4.1 (3.5-5.0) g/dL Calcium panel 03/03/23 03/04/23 Range/Units 13:17 09:25 Calcium 9.6 9.2 (8.4-10.2) mg/dL Albumin 4.5 4.1 (3.5-5.0) g/dL Pituitary panel 03/03/23 03/04/23 Range/Units 13:17 09:25 Sodium 128 L 129 L (137-145) mmol/L Potassium 4.7 4.7 (3.5-5.1) mmol/L Chloride 93 L 98 (98-107) mmol/L Carbon Dioxide 23 23 (22-30) mmol/L BUN 12 8 L (9-20) mg/dL Creatinine 1.04 0.83 (0.66-1.25) mg/dL Glucose 109 H 119 H (74-99) mg/dL Calcium 9.6 9.2 (8.4-10.2) mg/dL Adrenal panel 03/03/23 03/04/23 Range/Units 13:17 09:25 Sodium 128 L 129 L (137-145) mmol/L Potassium 4.7 4.7 (3.5-5.1) mmol/L Chloride 93 L 98 (98-107) mmol/L Carbon Dioxide 23 23 (22-30) mmol/L BUN 12 8 L (9-20) mg/dL Creatinine 1.04 0.83 (0.66-1.25) mg/dL Glucose 109 H 119 H (74-99) mg/dL Calcium 9.6 9.2 (8.4-10.2) mg/dL Total Bilirubin 0.4 0.7 (0.2-1.3) mg/dL AST 36 27 (17-59) U/L ALT 45 37 (4-49) U/L Alkaline Phosphatase 101 101 (38-126) U/L Total Protein 7.6 6.9 (6.3-8.2) g/dL Albumin 4.5 4.1 (3.5-5.0) g/dL
[2023-03-04] MEDS: lisinopriL 20 MG TAB PO SCH (10:42)
[2023-03-04] MEDS: PANTOPRAZOLE 40 MG/10 ML VIAL IVP SCH (10:42)
[2023-03-04] MEDS: METOPROLOL SUCCINATE (ER) 50 MG TAB.ER.24H PO SCH (10:42)
[2023-03-04] MEDS ORDERED: LORazepam 2 MG/ML INJ IV PRN ×3 (10:45)
[2023-03-04] MEDS ORDERED: THIAMINE 100 MG/ML 2 ML VIAL IM STA (10:45)
--- NOTE | 2023-03-04 10:49 | P.HPIM ---
History of Present Illness H&P Date: 03/04/23 Chief Complaint: Abdominal pain This is a 52-year-old gentleman with past medical history significant for pancreatitis, last episode August 2022, ultrasound gallbladder 08/26/22 reported mild hepatic steatosis otherwise unremarkable, daily alcohol use-reports none over the last month, until [place], obesity, CAD, recent dobutamine stress echo 01/27-reported normal, hypertension, gastroesophageal reflux disease, surgical repair of recurrent right inguinal hernia ,complaining of diffuse abdominal pain started yesterday morning while at work. Patient reports he drinks 6-7 beers over the last couple days in addition to increased fatty food intake over the holidays including, kiebasa, luncheon meats. Denies any chest pain, palpitations or shortness of breath. Denies any chills, fevers or rigors. Elevated lipase 613. CT of abdomen and pelvis suggestive of acute pancreatitis; mild inflammation changes around the pancreatic head, right inguinal canal hernia containing bladder, left inguinal canal hernia containing fat, large bilateral hydroceles, nonspecific predominant mesentery similar to prior. Afebrile, WBC 13.5 on admission, now nearly normalized, hemoglobin 14.3, hematocrit 43, MCV 96.3, platelets 227. Sodium 129, potassium 4.7, bicarb 23, BUN 8, creatinine 0.83. Blood sugars controlled. LFTs within normal limits. Lipase 613 on admission, decreased to 281 with IV fluid hydration and bowel rest. UA negative. Complains of significant abdominal pain controlled with IV push Dilaudid. Review of Systems ROS Statement: Those systems with pertinent positive or pertinent negative responses have been documented in the HPI. ROS Other: All systems not noted in ROS Statement are negative. Past Medical History Past Medical History: Coronary Artery Disease (CAD), GERD/Reflux, Hyperlipidemia, Hypertension, Myocardial Infarction (AR), Osteoarthritis (OA) Additional Past Medical History / Comment(s): AR 01/2016 with stent placement X2 LAD. pancreatisis Last Myocardial Infarction Date:: 01/27/16 History of Any Multi-Drug Resistant Organisms: None Reported Past Surgical History: Appendectomy, Heart Catheterization With Stent, Hernia Repair Additional Past Surgical History / Comment(s): 2 cardiac stents. umbilical and bilat inguinal, colonoscopy Past Anesthesia/Blood Transfusion Reactions: No Reported Reaction Date of Last Stent Placement:: 01/27/16 Past Psychological History: No Psychological Hx Reported Smoking Status: Never smoker Past Alcohol Use History: Occasional Past Drug Use History: None Reported - Past Family History Father History Unknown: Yes Mother Family Medical History: Myocardial Infarction (AR) Brother(s) Family Medical History: Diabetes Mellitus Medications and Allergies Home Medications Medication Instructions Recorded Confirmed Type Metoprolol Succinate [Toprol XL] 50 mg PO DAILY 10/13/19 03/03/23 History Pantoprazole [Protonix] 40 mg PO HS 08/24/22 03/03/23 History lisinopriL [Zestril] 20 mg PO DAILY 08/24/22 03/03/23 History Atorvastatin [Lipitor] 40 mg PO HS 03/03/23 03/03/23 History Allergies Allergy/AdvReac Type Severity Reaction Status Date / Time No Known Allergies Allergy Verified 03/03/23 21:45 Physical Exam Vitals: Vital Signs Temp Pulse Resp BP Pulse Ox 03/04/23 07:55 77 18 158/119 98 03/04/23 06:00 83 17 83 L 03/04/23 05:00 60 19 143/91 93 L 03/04/23 03:28 60 19 152/97 95 03/04/23 01:51 64 17 131/96 92 L 03/04/23 00:08 70 18 154/92 97 03/03/23 21:45 98.1 F 87 18 148/84 94 L 03/03/23 19:33 70 18 194/110 98 03/03/23 12:57 98.4 F 73 16 168/102 99 PHYSICAL EXAM: VITAL SIGNS: [As above] GENERAL: Alert and oriented 3, sitting up on stretcher, no acute distress HEENT: Normocephalic, Conjunctivae normal. eyes normal. NECK: Supple, No JVD. No thyroid enlargement. No LNs CARDIOVASCULAR: S1, S2 regular.. No murmur RESPIRATION: Breath sounds diminished in the bases. No rhonchi or crackles. No bronchial breathing. ABDOMEN: Soft, diffuse tenderness . No guarding. no masses palpable. +BS LEGS: No edema. no swelling NERVOUS SYSTEM: Cranial N 2-12 grossly normal.No focal deficits. Strength and sensation grossly intact.. Skin: Warm and dry, no rash. Results CBC & Chem 7: 03/04/23 09:25 11/28/23 09:25 Labs: Abnormal Lab Results - Last 24 Hours (Table) 03/03/23 03/03/23 Range/Units 13:17 13:17 WBC 13.5 H (3.8-10.6) k/uL Neutrophils # 10.6 H (1.3-7.7) k/uL Sodium 128 L (137-145) mmol/L Chloride 93 L (98-107) mmol/L Glucose 109 H (74-99) mg/dL Lipase 613 H (23-300) U/L Assessment and Plan Assessment: Abdominal pain, possible acute pancreatitis secondary to EtOH use and fatty foods. Alcohol abuse Hypertension Hyperlipidemia Gastroesophageal reflux disease Obesity, BMI 29.5 Plan: Continue on current medication regime ,monitoring and symptomatic treatment. IV fluid hydration, bowel rest. Pain management.WA protocol for potential DTs. Magnesium and alcohol added onto prior labs, results pending.General surgery consult in place with recommendations pending.alcohol abstinence as well as decrease fatty food intake and increased fiber discussed. The impression and plan of care has been dictated as directed. : I performed a history and examination of this patient, discussed the same with the dictator. I agree with the dictator's note ,documented as a scribe. Any additional findings or plans will be noted.
[2023-03-04 11:44] LABS: Alcohol <10 mg/dL
[2023-03-04 11:47] LABS: Magnesium 1.5 mg/dL (1.6-2.3)
[2023-03-04] MEDS ORDERED: Magnesium Replacement Protocol 1 EACH MISC MISCELLANE PRN (14:15)
[2023-03-05] MEDS: MAGNESIUM SULFATE-D5W PMX 1 GM in DEXTROSE/WATER 1 100ML.BAG IVPB SCH ×4 (00:55→12:05)
[2023-03-05] MEDS: HYDROmorphone 0.5 MG/0.5 ML SYRINGE IVP PRN ×2 (01:03→05:59)
[2023-03-05] MEDS: THIAMINE 100 MG TAB PO SCH (08:41)
[2023-03-05] MEDS: METOPROLOL SUCCINATE (ER) 50 MG TAB.ER.24H PO SCH (08:41)
[2023-03-05] MEDS: lisinopriL 20 MG TAB PO SCH (08:41)
[2023-03-05] MEDS: SODIUM CHLORIDE 0.9% 1,000 ML IV SCH (09:33)
[2023-03-05] MEDS: PANTOPRAZOLE 40 MG/10 ML VIAL IVP SCH (09:33)
[2023-03-05 10:47] LABS: Basophils # (A) 0.1 k/uL (0-0.2); Basophils % (A) 1 %; Eosinophils # (A) 0.4 k/uL (0-0.7); Eosinophils % (A) 5 %; HCT 42.9 % (39.0-53.0); HGB 14.1 gm/dL (13.0-17.5); Lymphocytes # (A) 1.2 k/uL (1.0-4.8); Lymphocytes % (A) 14 %; MCH 32.1 pg (25.0-35.0); MCHC 32.9 g/dL (31.0-37.0); MCV 97.6 fL (80.0-100.0); Mean Platelet Volume 7.5; Monocytes # (A) 0.4 k/uL (0-1.0); Monocytes % (A) 5 %; Neutrophils # (A) 6.4 k/uL (1.3-7.7); Neutrophils % (A) 75 %; Platelet Count 198 k/uL (150-450); RBC 4.39 m/uL (4.30-5.90); RDW 13.2 % (11.5-15.5); WBC 8.5 k/uL (3.8-10.6)
[2023-03-05 11:03] LABS: African American GFR (CKD) >90 (>60 ml/min/1.73 sqM); Anion Gap 16 mmol/L; Blood Urea Nitrogen 6 mg/dL (9-20); Calcium 9.1 mg/dL (8.4-10.2); Carbon Dioxide 16 mmol/L (22-30); Chloride 99 mmol/L (98-107); Glucose 142 mg/dL (74-99); Magnesium 1.9 mg/dL (1.6-2.3); Non-African American GFR(CKD) >90 (>60 ml/min/1.73 sqM); Potassium 4.1 mmol/L (3.5-5.1); Sodium 131 mmol/L (137-145)
--- NOTE | 2023-03-05 11:27 | P.PN ---
Subjective Progress Note Date: 03/05/23 CHIEF COMPLAINT: Pancreatitis HISTORY OF PRESENT ILLNESS: Patient reports his pain has improved. He has not required any pain medication through the night. Denies any nausea vomiting. WBC has normalized from 11.2-8.5 Hgb 14.1 platelets 198 sodium is 131 potassium 4.1 magnesium 1.9 PHYSICAL EXAM: VITAL SIGNS: Reviewed. GENERAL: Well-developed in no acute distress. ABDOMEN: Soft. Nondistended. Mild epigastric tenderness NEUROLOGIC: Alert and oriented. Cranial nerves II through XII grossly intact. ASSESSMENT: 1. Alcohol induced pancreatitis 2. Bilateral inguinal hernias PLAN: -Patient can be discharged from surgical standpoint -Advance diet to full liquids and then as tolerated -Encouraged patient to avoid alcohol use Physician Physical Therapist Center Manager note has been reviewed by physician. Signing provider agrees with the documented findings, assessment, and plan of care. Objective - Vital Signs Vital signs: Vital Signs Temp 97.9 F 03/05/23 02:45 Pulse 64 03/05/23 02:45 Resp 16 03/05/23 02:45 BP 148/98 03/05/23 02:45 Pulse Ox 95 03/05/23 02:45 FiO2 - Labs CBC & Chem 7: 03/05/23 10:05 03/05/23 10:05 Labs: Abnormal Lab Results - Last 24 Hours (Table) 03/04/23 Range/Units 11:04 Magnesium 1.5 L (1.6-2.3) mg/dL
[2023-03-05 12:07] VITALS: TEMP 98.1
--- NOTE | 2023-03-05 12:36 | P.DS ---
Providers Date of admission: 03/03/23 22:04 Expected date of discharge: 03/05/23 Attending physician: Burt Sellers MD Consults: 03/03/23 22:02 Consult Physician Routine Consulting Provider: Waqas Donaldson Consult Reason/Comments: pancreatitis Do you want consulting provider notified?: Yes, Notify in am Primary care physician: Burt Sellers MD Hospital Course: Final Diagnoses: Acute pancreatitis secondary to EtOH use and fatty foods. Alcohol abuse Hypertension Hyperlipidemia Gastroesophageal reflux disease Obesity, BMI 29.5 Hospital course:This is a 52-year-old gentleman with past medical history significant for pancreatitis, last episode August 2022, ultrasound gallbladder 08/26/22 reported mild hepatic steatosis otherwise unremarkable, daily alcohol use-reports none over the last month, until , obesity, CAD, recent dobutamine stress echo 01/27-reported normal, hypertension, gastroesophageal reflux disease, surgical repair of recurrent right inguinal hernia ,complaining of diffuse abdominal pain started yesterday morning while at work. Patient reports he drinks 6-7 beers over the last couple days in addition to increased fatty food intake over the holidays including, kiebasa, luncheon meats. Denies any chest pain, palpitations or shortness of breath. Denies any chills, fevers or rigors. Elevated lipase 613. CT of abdomen and pelvis suggestive of acute pancreatitis; mild inflammation changes around the pancreatic head, right inguinal canal hernia containing bladder, left inguinal canal hernia containing fat, large bilateral hydroceles, nonspecific predominant mesentery similar to prior. Afebrile, WBC 13.5 on admission, now nearly normalized, hemoglobin 14.3, hematocrit 43, MCV 96.3, platelets 227. Sodium 129, potassium 4.7, bicarb 23, BUN 8, creatinine 0.83. Blood sugars controlled. LFTs within normal limits. Lipase 613 on admission, decreased to 281 with IV fluid hydration and bowel rest. UA negative. Complains of significant abdominal pain controlled with IV push Dilaudid. Evaluated by general surgery. Maintained initially on bowel rest and IV fluid hydration. Diet advanced to clear liquids, tolerating well with no nausea vomiting or diarrhea. Minimal epigastric tenderness, soft, nondistended abdomen. Denies sweats or chills. Lipase has returned to normal limits. Received magnesium supplementation. Magnesium currently 1.9.Denies chest pain, palpitations or shortness of breath. Afebrile, WBC within normal limits- hematology panel unremarkable. Sodium 131, potassium 4.1, bicarb 16, BUN 6, creatinine 0.78. Advised to proceed with carbs/bland diet, avoiding fatty foods. Alcohol abstinence reinforced. Cleared by general surgery for discharge. Patient will be discharged home today in a stable condition with guarded prognosis. The impression and plan of care has been dictated as directed. : I performed a history and examination of this patient, discussed the same with the dictator. I agree with the dictator's note ,documented as a scribe. Any additional findings or plans will be noted. Patient Condition at Discharge: Stable Plan - Discharge Summary New Discharge Prescriptions: New Thiamine [Vitamin B-1] 100 mg PO DAILY tab Continue Metoprolol Succinate [Toprol XL] 50 mg PO DAILY lisinopriL [Zestril] 20 mg PO DAILY Atorvastatin [Lipitor] 40 mg PO HS Pantoprazole [Protonix] 40 mg PO HS Discharge Medication List Metoprolol Succinate [Toprol XL] 50 mg PO DAILY 10/13/19 [History] Pantoprazole [Protonix] 40 mg PO HS 08/24/22 [History] lisinopriL [Zestril] 20 mg PO DAILY 08/24/22 [History] Atorvastatin [Lipitor] 40 mg PO HS 03/03/23 [History] Thiamine [Vitamin B-1] 100 mg PO DAILY tab 03/05/23 [Rx] Follow up Appointment(s)/Referral(s): Burt Sellers MD [Primary Care Provider] - 3 Days
[2023-03-05 12:38] VITALS: RESP 18
[2023-03-05 13:42] VITALS: BP 142/96; PULSE 80
== END 2023-03-05 13:34 | disposition home or self-care (01) ==
LOC: EC 12:46 → 6NMEDSUR 22:04 → 4SSUR 03-04 22:41
PROVIDERS: ADMIT Family Medicine; ATTEND Family Medicine
DX: K85.20 Alcohol induced acute pancreatitis without necrosis or infection (principal); F10.20 Alcohol dependence, uncomplicated; K40.20 Bilateral inguinal hernia, without obstruction or gangrene, not specified as recurrent; I25.10 Atherosclerotic heart disease of native coronary artery without angina pectoris; K21.9 Gastro-esophageal reflux disease without esophagitis; E78.5 Hyperlipidemia, unspecified; I10 Essential (primary) hypertension; I25.2 Old myocardial infarction; E66.9 Obesity, unspecified; Z68.29 Body mass index [BMI] 29.0-29.9, adult; Z95.5 Presence of coronary angioplasty implant and graft; Z79.899 Other long term (current) drug therapy; Y90.0 Blood alcohol level of less than 20 mg/100 ml
CPT/HCPCS: 96376 ×2; 96361 ×2; 96365; 96366; 96372; 96375 ×2; 99285; 36415; 93005; 80053 ×2; 80048; 82150; 83690 ×2; 83735 ×2; 85025 ×3; 81003; 80320; 74177; G0378 ×4; J2060; J2270; J0360; J3411; J2405; J1170 ×4; J3475; J1885; C9113 ×2; Q9967

== ENCOUNTER 2024-02-27 08:59 | Day surgery (SDC) | payer BC ==
[2024-02-26 08:29] VITALS: BMI 32.5
[~2024-02-27 08:59] MED LIST changes: -DEXAMETHASONE SOD PHOSPHATE 4 MG/ML 1 ML VIAL IV ONE; -GABAPENTIN 300 MG CAP PO PRN; -HEPARIN SODIUM,PORCINE/PF 5,000 UNIT/0.5 ML SYRINGE SQ PRN; -LACTATED RINGERS 1,000 ML IV SCH; -LIDOCAINE 1% (10MG/ML) FOR IV START INTRADERMA PRN; -MELOXICAM 7.5 MG TAB PO PRN; -METOCLOPRAMIDE 5 MG/ML 2 ML VIAL IVP PRN; -MIDAZOLAM 2 MG/2 ML VIAL IV PRN; -ONDANSETRON 4 MG/2 ML VIAL IVP ONE; +SCOPOLAMINE 1 MG/72 HR PATCH TRANSDERM ONE; -TAMSULOSIN 0.4 MG CAP.ER.24H PO PRN
[2024-02-27] MEDS: ACETAMINOPHEN TAB 500 MG TAB PO PRN (09:36)
[2024-02-27] MEDS: LACTATED RINGERS 1,000 ML IV SCH (09:53)
[2024-02-27] MEDS: DEXAMETHASONE SOD PHOSPHATE 4 MG/ML 1 ML VIAL IV ONE (09:54)
[2024-02-27] MEDS: ONDANSETRON 4 MG/2 ML VIAL IVP ONE (09:54)
[2024-02-27] MEDS: IV FLUID CONTINUATION 1,000 ML IV ONE (09:58)
[2024-02-27] MEDS: MIDAZOLAM 2 MG/2 ML VIAL IV PRN (10:10)
[2024-02-27] MEDS: fentaNYL (PF) 50 MCG/ML 2 ML AMP IVP PRN (10:11)
[2024-02-27 10:18] LABS: ALT 58 U/L (4-49); AST 36 U/L (17-59); African American GFR (CKD) >90 (>60 ml/min/1.73 sqM); Albumin 4.4 g/dL (3.5-5.0); Alkaline Phosphatase 106 U/L (38-126); Anion Gap 8 mmol/L; Blood Urea Nitrogen 10 mg/dL (9-20); Calcium 9.5 mg/dL (8.4-10.2); Carbon Dioxide 25 mmol/L (22-30); Chloride 102 mmol/L (98-107); Glucose 130 mg/dL (74-99); Non-African American GFR(CKD) 84 (>60 ml/min/1.73 sqM); Potassium 4.2 mmol/L (3.5-5.1); Sodium 135 mmol/L (137-145); Total Bilirubin 0.4 mg/dL (0.2-1.3); Total Protein 7.2 g/dL (6.3-8.2)
[2024-02-27] MEDS: HEPARIN SODIUM,PORCINE 5,000 UNIT/ML 1 ML VIAL SQ PRN (10:22)
[2024-02-27] MEDS ORDERED: fentaNYL (PF) 50 MCG/ML 2 ML AMP ONE (11:02)
[2024-02-27] MEDS ORDERED: PROPOFOL 10 MG/ML 20 ML VIAL IV ONE (11:02)
[2024-02-27] MEDS ORDERED: PHENYLEPHRINE 10 MG/ML VIAL ONE (11:02)
[2024-02-27] MEDS ORDERED: ROPIVACAINE 5 MG/ML 30 ML VIAL ONE (11:02)
[2024-02-27] MEDS ORDERED: MIDAZOLAM 2 MG/2 ML VIAL ONE (11:02)
[2024-02-27] MEDS ORDERED: ROCURONIUM 10 MG/ML (5 ML VIAL) IV ONE (11:02)
[2024-02-27] MEDS ORDERED: NEOSTIGMINE 1 MG/ML 10 ML VIAL ONE (11:02)
[2024-02-27] MEDS ORDERED: GLYCOPYRROLATE 0.2 MG/ML 2 ML VIAL ONE (11:02)
[2024-02-27] MEDS ORDERED: LIDOCAINE 1% INJ 10MG/ML (20 ML MDV) ONE (11:02)
[2024-02-27] MEDS ORDERED: SUCCINYLCHOLINE CHLORIDE 200 MG/10 ML VIAL IV ONE (11:02)
[2024-02-27] MEDS: BUPIVACAINE (PF) 0.25% 30 ML VIAL SQ ONE (12:40)
[2024-02-27] MEDS: LACTATED RINGERS 1,000 ML IV ONE (12:47)
[2024-02-27 13:07] VITALS: TEMP 97.2
--- NOTE | 2024-02-27 13:19 | P.ANPRN ---
Procedure Note - Anesthesia - Nerve Block Performed Right Erector Spinae Single Time Out Performed: Yes (1010) Date of Procedure: 02/27/24 Procedure Start Time: 10:11 Procedure Stop Time: 10:14 Location of Patient: PreOp Indication: Acute Post-Operative Pain, Requested by Surgeon Sedation Type: Sedate with meaningful contact maintained Preparation: Sterile Prep Position: Sitting Catheter: None Needle Types: Pajunk Needle Gauge: 21 Ultrasound used to visualize needle placement: Yes Ultrasound used to observe medication spread: Yes Injectate: 0.5% Ropivacaine (see comment for volume) (030cc) Blood Aspirated: No Pain Paresthesia on Injection Noted: No Resistance on Injection: Normal Image Stored and Saved: Yes Events: Uneventful and Well Tolerated
--- NOTE | 2024-02-27 13:21 | P.OP ---
Date of Procedure: 02/27/24 Procedure(s) Performed: PREOPERATIVE DIAGNOSIS: Recurrent right inguinal hernia with hydrocele POSTOPERATIVE DIAGNOSIS: Same PROCEDURE: Open repair recurrent right inguinal hernia with mesh, drainage hydrocele SURGEON: Dr. Vu ANESTHESIA: General OPERATIVE PROCEDURE DETAILS: The patient is brought and placed on the operating table in the supine position. The patient was placed under general anesthesia at that time. An oblique incision was made in the right groin. The subcutaneous tissues were dissected using electro cautery. The external oblique was incised with a scalpel. It should be noted that there was somewhat impressive chronic scarring involving not only the subcutaneous fat but also the external oblique. He has not had a previous open repair however he did have significant trauma in the past after being kicked by a horse and maybe this is the explanation for that. This incision on the external oblique was lengthened using a Metzenbaum scissors. The spermatic cord structures were encircled with a [place] drain and dissected carefully. The patient had a direct hernia defect. A portion of the attenuated transversalis fascia was excised and labeled hernia sac. The preperitoneal space was carefully dissected. A large extended Prolene hernia system was chosen. The inner circular portion of the mesh was placed within the pre-peritoneal space and flattened out appropriately. The outer oval portion of mesh was slit and wrapped around the spermatic cord and sutured back to itself with a interrupted 0 silk stitch. The mesh was then sutured to the pubic tubercle, the folding edge of the inguinal ligament, and the conjoined tendon using interrupted 2-0 Vicryl sutures. The external oblique was then reapproximated using a running 2-0 Vicryl suture. Following that the hydrocele was addressed. This was clearly noncommunicating. Blunt dissection took place down into the right scrotum through our incision site. The hydrocele was pushed superiorly and in doing so I was able to visualize the thinned out portion of the hydrocele. This was opened using electrocautery. This was later stretched open to a size of approximately 3 cm. Approximately 300 cc of fluid was evacuated. This was serous in nature. Given the large size I decided to do leave a drain. A 19 Danish NARINDER drain was brought into the operative field from superiorly and placed within the hydrocele sac. This was sutured to the skin using a 3-0 silk stitch. The subcutaneous tissues were reapproximated using interrupted 3-0 Vicryl sutures and the skin using a running 4-0 Monocryl stitch. Skin glue and sterile dressings then applied. At the end of the procedure the sponge needle and counts were all correct. TYPE OF MESH USED: Prolene hernia system large extended LOCATION OF MESH: [place] and preperitoneal FIXATION: 2-0 Vicryl PREOPERATIVE DISCUSSION ON SMOKING CESSASTION: Yes PREOPERATIVE DISCUSSION ON MORBID OBESITY: Yes PREOPERATIVE DISCUSSION ON APPROPRIATE USE OF NARCOTIC USE: Yes PREOPERATIVE EDUCATION: Multi Modal, Smoking Cessation and Weight Loss with BMI over 35. DISPOSITION: Stable to recovery room
[2024-02-27 13:31] VITALS: RESP 16
[2024-02-27] MEDS: HYDROmorphone 0.5 MG/0.5 ML SYRINGE IVP PRN (13:35)
[2024-02-27 14:57] VITALS: BP 144/91; PULSE 68
[2024-02-27] MEDS ORDERED: IBUPROFEN 600 MG TAB PO SCH (15:00)
[2024-02-27] MEDS ORDERED: ACETAMINOPHEN TAB 325 MG TAB PO SCH (18:00)
== END 2024-02-27 15:41 | disposition home or self-care (01) ==
LOC: OR 08:59
PROVIDERS: ATTEND Surgery
DX: N43.3 Hydrocele, unspecified (principal); K40.91 Unilateral inguinal hernia, without obstruction or gangrene, recurrent; I10 Essential (primary) hypertension; E78.5 Hyperlipidemia, unspecified; I25.10 Atherosclerotic heart disease of native coronary artery without angina pectoris; I25.2 Old myocardial infarction; F17.200 Nicotine dependence, unspecified, uncomplicated; M19.90 Unspecified osteoarthritis, unspecified site; Z79.02 Long term (current) use of antithrombotics/antiplatelets; Z79.899 Other long term (current) drug therapy
CPT/HCPCS: 64999; 80053; 49520; 55040; C1781; J2250; J0330; J1644; J1100; J2710; J0690; J2405; J2003; J3010; J2795; J2704; J1171; J2371; J0665; J1596; 88302

== ENCOUNTER 2024-10-14 03:53 | Observation (INO) | payer BC ==
[2024-10-14] MEDS: SODIUM CHLORIDE 0.9% 1,000 ML IV ONE (04:08)
[2024-10-14] MEDS: HYDROmorphone 1 MG/ML 1 ML SYRINGE IVP STA ×3 (04:09→06:17)
--- NOTE | 2024-10-14 04:09 | ED ---
General Adult HPI - General Chief complaint: Abdominal Pain Stated complaint: abd pain Source: patient, EMS Mode of arrival: EMS Limitations: no limitations - History of Present Illness Initial comments: Patient is a 54-year-old gentleman the past medical history of CAD, hypertens ion, pancreatitis, presenting today for sudden onset epigastric abdominal pain. Patient was sleeping in bed this morning when he had sudden sharp epigastric abdominal pain waking up from sleep at 1 AM. Intermittently radiates to his back. Has nausea but no episodes of emesis. Received morphine and Zofran from EMS with improvement in pain. He did take a Tesfaye aspirin 325 mg. Prior abdominal surgeries include a prior appendectomy. He states that this has happened to him once before and he was admitted to the hospital for pancreatitis. He used to drink alcohol heavily however drinks infrequently now. Had 1 can of beer yesterday. Denies history of diabetes. Denies chest pain or shortness of breath though does state he has abdominal pain with deep breathing. Denies being on blood thinners. Denies allergies. Denies dysuria or hematuria. Denies melena or hematochezia or diarrhea. Denies fevers or chills. Last BM yesterday. - Related Data Home Medications Medication Instructions Recorded Confirmed Metoprolol Succinate [Toprol XL] 50 mg PO HS 10/13/19 10/14/24 lisinopriL [Zestril] 20 mg PO HS 08/24/22 10/14/24 Aspirin EC [Ecotrin Low Dose] 81 mg PO HS 10/14/24 10/14/24 Atorvastatin [Lipitor] 10 mg PO HS 10/14/24 10/14/24 Omeprazole [PriLOSEC] 40 mg PO HS 10/14/24 10/14/24 Allergies Allergy/AdvReac Type Severity Reaction Status Date / Time No Known Allergies Allergy Verified 10/14/24 07:16 Review of Systems ROS Statement: Those systems with pertinent positive or pertinent negative responses have been documented in the HPI. ROS Other: All systems not noted in ROS Statement are negative. Past Medical History Past Medical History: Coronary Artery Disease (CAD), GERD/Reflux, Hyp erlipidemia, Hypertension, Myocardial Infarction (GA), Osteoarthritis (OA) Additional Past Medical History / Comment(s): [place] 01/2016 with stent placement X2 LAD. pancreatisis Last Myocardial Infarction Date:: 01/27/16 History of Any Multi-Drug Resistant Organisms: None Reported Past Surgical History: Appendectomy, Heart Catheterization With Stent, Hernia Repair Additional Past Surgical History / Comment(s): 2 cardiac stents. umbilical and bilat inguinal, colonoscopy Past Anesthesia/Blood Transfusion Reactions: No Reported Reaction Date of Last Stent Placement:: 01/27/16 Past Psychological History: No Psychological Hx Reported Smoking Status: Never smoker Past Alcohol Use History: Occasional Past Drug Use History: None Reported - Past Family History Father History Unknown: Yes Mother Family Medical History: Myocardial Infarction ([place]) Brother(s) Family Medical History: Diabetes Mellitus General Exam - General Exam Comments Initial Comments: PE: CONSTITUTIONAL: In distress secondary to pain, uncomfortable appearing, nontoxic SKIN: Warm, dry, no jaundice, hives or petechiae EYES: Pupils are equally round, extraocular movements intact without nystagmus, clear conjunctiva, non-icteric sclera HENT: Normocephalic, atraumatic, moist mucus membranes, oropharynx clear without exudates NECK: , Full range of motion, normal appearance PULMONARY: Clear to auscultation without wheezes, rhonchi, or rales, normal excursion, no accessory muscle use and no stridor CARDIOVASCULAR: Regular rate, rhythm, normal S1 and S2. No appreciated murmurs, rubs or gallops. Strong and equal 2+ radial and dorsalis pedis pulses bilaterally no lower extremity edema GASTROINTESTINAL: Soft, active bowel sounds throughout, epigastric and right upper quadrant tenderness with patient, positive Benedict sign, mildly distended, no palpable masses, +guarding. No hepatosplenomegaly GENITOURINARY: MUSCULOSKELETAL: Extremities have no gross deformity, no edema, redness, or swelling. No calf swelling NEUROLOGIC:_a/o x 3, GCS 15, normal mentation and speech. Moves all extremities x 4 without motor or sensory deficit PSYCHIATRIC:_normal mood and affect, thought process is clear and linear Limitations: no limitations Course Vital Signs 10/14/24 10/14/24 10/14/24 03:54 05:00 06:00 Temperature 98.1 F Pulse Rate 80 73 69 Respiratory 20 18 18 Rate Blood Pressure 181/109 174/108 162/102 O2 Sat by Pulse 97 96 96 Oximetry EKG Findings - EKG Comments: EKG Findings:: Sinus rhythm, rate 74 bpm intervals in acceptable limits, no significant ST elevations or depressions no ischemic changes no arrhythmia Medical Decision Making - Medical Decision Making Was pt. sent in by a medical professional or institution (TOM Rizzo, OFFICE ADMINISTRATIVE ASSISTANT, urgent care, hospital, or senior living...) When possible be specific @ -No Did you speak to anyone other than the patient for history (EMS, parent, family, police, friend...)? What history was obtained from this source @ -No Did you review nursing and triage notes (agree or disagree)? Why? @ -I reviewed nursing and triage notes Were old charts reviewed (outside hosp., previous admission, EMS record, old EKG, old radiological studies, urgent care reports/EKG's, senior living records)? Report findings @ -Medical records reviewed-Reviewed CT abdomen pelvis done on 08/24/2022 for epigastric pain, showed mild inflammation around pancreatic head at that time as well Differential Diagnosis (chest pain, altered mental status, abdominal pain women, abdominal pain men, vaginal bleeding, weakness, fever, dyspnea, syncope, headache, dizziness, GI bleed, back pain, seizure, CVA, palpatations, mental health, musculoskeletal)? @Differential Abdominal Pain Men: Appendicitis, cholecystitis, diverticulosis, ischemic bowel, pancreatitis, hepatitis, UTI, gastroenteritis, AAA, incarcerated hernia, bowel obstruction, constipation, inflammatory bowel, hepatitis, peptic ulcer disease, splenic infarction, perforated viscus, testicular torsion, this is not meant to be an all-inclusive list EKG interpreted by me (3pts min.). @ -As above X-rays interpreted by me (1pt min.). @ -None done CT interpreted by me (1pt min.). @ -Personally reviewed CT scan, I see no evidence of aortic dissection, fat stranding noted around the pancreas concerning for pancreatitis I agree with radiologist interpretation U/S interpreted by me (1pt. min.). @ -None done What testing was considered but not performed or refused? (CT, X-rays, U/S, labs)? Why? Did consider US RUQ however US is not available overnight, additionally, LFTs mi nimally elevated, normal total bilirubin What meds were considered but not given or refused? Why? @ -None Did you discuss the management of the patient with other professionals (professionals i.e. TOM Rizzo, OFFICE ADMINISTRATIVE ASSISTANT, lab, RT, psych nurse, social service coordinator, pan reclaim processor, teacher, parcel post officer, case management associate)? Give summary @ -No Was smoking cessation discussed for >3mins.? @ -No Was critical care preformed (if so, how long)? @ -No Were there social determinants of health that impacted care today? How? (Homelessness, low income, unemployed, alcoholism, drug addiction, transportation, low edu. Level, literacy, decrease access to med. care, fdc, rehab)? @ -No Was there de-escalation of care discussed even if they declined (Discuss DNR or withdrawal of care, Hospice)? @ -No What co-morbidities impacted this encounter? (DM, HTN, Smoking, COPD, CAD, Cancer, CVA, ARF, Chemo, Hep., AIDS, mental health diagnosis, sleep apnea, morbid obesity)? CAD, hypertension Was patient admitted / discharged? Hospital course, mention meds given and route, prescriptions, significant lab abnormalities, going to OR and other pertinent info. @ -admission- This is a 54-year gentleman history hypertension, CAD, pancreatitis presenting today for epigastric abdominal pain intermittently radiating to the back. Patient seen and assessed on arrival, was significantly hypertensive, blood pressure 181/109. Exam is significant for 2+ pulses in all 4 extremities, no murmurs on cardiac exam, abdomen is mildly distended and tend er in the epigastrium and right upper quadrant with positive Benedict sign. No CVA tenderness. Plan for CTA chest/ab/pelvis, pain medications,IV fluids, labs. Will obtain EKG and troponin as well secondary to history of heart disease. Patient did require multiple doses of pain medications.Labs ultimately significant for mild leukocytosis white blood cell count 12.69, lipase 9833, amylase 517, AST/ALT 84/101, total bilirubin 0.6 troponin undetectable.CTA significant for acute edematous interstitial pancreatitis. Patient started on IV fluids. On reassessment he is currently comfortable pain is controlled. Updated him to findings, discussed plan of care for admission secondary to acute pancreatitis. Case was discussed with Dr. Zamudio who kindly accepted patient for admission. Undiagnosed new problem with uncertain prognosis? @ -No Drug Therapy requiring intensive monitoring for toxicity (Heparin, Nitro, Insulin, Cardizem)? @ -No Were any procedures done? @ -No Diagnosis/symptom? @Acute pancreatitis Acute, or Chronic, or Acute on Chronic? @Acute Uncomplicated (without systemic symptoms) or Complicated (systemic symptoms)? @ -Complicated Side effects of treatment? @ -No Exacerbation, Progression, or Severe Exacerbation? @ -No Poses a threat to life or bodily function? How? (Chest pain, USA, GA, pneumonia, PE, COPD, DKA, ARF, appy, cholecystitis, CVA, Diverticulitis, Homicidal, Suicidal, threat to staff... and all critical care pts) @Potentially, if left untreated could result in necrotizing pancreatitis - Lab Data Result diagrams: 10/14/24 04:03 10/14/24 04:03 Lab Results 10/14/24 10/14/24 10/14/24 Range/Units 04:03 04:03 04:03 WBC 12.69 H (4.50-10.00) 10*3/uL RBC 4.49 (4.40-5.60) 10*6/uL Hgb 14.2 (13.0-17.0) g/dL Hct 41.1 (39.6-50.0) % MCV 91.5 (80.0-97.0) fL MCH 31.6 (27.0-32.0) pg MCHC 34.5 (32.0-37.0) g/dL Plt Count 170 (140-440) 10*3/uL MPV 9.4 L (9.5-12.2) fL Immature Gran % (Auto) 0.2 % Neutrophils % 68.6 % Lymphocytes % 18.2 % Monocytes % 7.6 % Eosinophils % 4.8 % Basophils % 0.6 % Immature Gran # 0.03 (0.00-0.04) 10*3/uL Neutrophils # 8.71 H (1.80-7.70) 10*3/uL Lymphocytes # 2.31 (0.90-5.00) 10*3/uL Monocytes # 0.96 (0.20-1.00) 10*3/uL Eosinophils # 0.61 H (0.04-0.35) 10*3/uL Basophils # 0.07 (0.00-0.10) 10*3/uL PT 11.0 (10.0-12.5) sec INR 1.0 (<1.2) APTT 25.0 (22.0-30.0) sec Sodium 136 L (137-145) mmol/L Potassium 4.5 (3.5-5.1) mmol/L Chloride 108 H (98-107) mmol/L Carbon Dioxide 19 L (22-30) mmol/L Anion Gap 9 mmol/L BUN 18 (9-20) mg/dL Creatinine 1.02 (0.66-1.25) mg/dL Est GFR (CKD-EPI)AfAm >90 (>60 ml/min/1.73 sqM) Est GFR (CKD-EPI)NonAf 83 (>60 ml/min/1.73 sqM) Glucose 114 H (74-99) mg/dL Plasma Lactic Acid Mikey (0.7-2.0) mmol/L Calcium 9.4 (8.4-10.2) mg/dL Total Bilirubin 0.6 (0.2-1.3) mg/dL AST 84 H (17-59) U/L ALT 101 H (4-49) U/L Alkaline Phosphatase 107 (38-126) U/L Troponin I (0.000-0.034) ng/mL Total Protein 6.5 (6.3-8.2) g/dL Albumin 3.9 (3.5-5.0) g/dL Amylase 517 H* (30-110) U/L Lipase 9833 H (23-300) U/L Urine Color Urine Appearance (Clear) Urine pH (5.0-8.0) Ur Specific Pringle (1.001-1.035) Urine Protein (Negative) Urine Glucose (UA) (Negative) Urine Ketones (Negative) Urine Blood (Negative) Urine Nitrite (Negative) Urine Bilirubin (Negative) Urine Urobilinogen (<2.0) mg/dL Ur Leukocyte Esterase (Negative) 10/14/24 10/14/24 10/14/24 Range/Units 04:03 04:03 05:42 WBC (4.50-10.00) 10*3/uL RBC (4.40-5.60) 10*6/uL Hgb (13.0-17.0) g/dL Hct (39.6-50.0) % MCV (80.0-97.0) fL MCH (27.0-32.0) pg MCHC (32.0-37.0) g/dL Plt Count (140-440) 10*3/uL MPV (9.5-12.2) fL Immature Gran % (Auto) % Neutrophils % % Lymphocytes % % Monocytes % % Eosinophils % % Basophils % % Immature Gran # (0.00-0.04) 10*3/uL Neutrophils # (1.80-7.70) 10*3/uL Lymphocytes # (0.90-5.00) 10*3/uL Monocytes # (0.20-1.00) 10*3/uL Eosinophils # (0.04-0.35) 10*3/uL Basophils # (0.00-0.10) 10*3/uL PT (10.0-12.5) sec INR (<1.2) APTT (22.0-30.0) sec Sodium (137-145) mmol/L Potassium (3.5-5.1) mmol/L Chloride (98-107) mmol/L Carbon Dioxide (22-30) mmol/L Anion Gap mmol/L BUN (9-20) mg/dL Creatinine (0.66-1.25) mg/dL Est GFR (CKD-EPI)AfAm (>60 ml/min/1.73 sqM) Est GFR (CKD-EPI)NonAf (>60 ml/min/1.73 sqM) Glucose (74-99) mg/dL Plasma Lactic Acid Mikey 0.9 (0.7-2.0) mmol/L Calcium (8.4-10.2) mg/dL Total Bilirubin (0.2-1.3) mg/dL AST (17-59) U/L ALT (4-49) U/L Alkaline Phosphatase (38-126) U/L Troponin I <0.012 (0.000-0.034) ng/mL Total Protein (6.3-8.2) g/dL Albumin (3.5-5.0) g/dL Amylase (30-110) U/L Lipase (23-300) U/L Urine Color Colorless Urine Appearance Clear (Clear) Urine pH 5.5 (5.0-8.0) Ur Specific Pringle 1.021 (1.001-1.035) Urine Protein Negative (Negative) Urine Glucose (UA) Negative (Negative) Urine Ketones Negative (Negative) Urine Blood Negative (Negative) Urine Nitrite Negative (Negative) Urine Bilirubin Negative (Negative) Urine Urobilinogen <2.0 (<2.0) mg/dL Ur Leukocyte Esterase Negative (Negative) Disposition Clinical Impression: Acute pancreatitis Disposition: ADMITTED IP TO THIS HOSP Condition: Stable
[2024-10-14] MEDS: ONDANSETRON 4 MG/2 ML VIAL IVP STA (04:11)
[2024-10-14 04:19] LABS: Basophils # (A) 0.07 10*3/uL (0.00-0.10); Basophils % (A) 0.6 %; Eosinophils # (A) 0.61 10*3/uL (0.04-0.35); Eosinophils % (A) 4.8 %; HCT 41.1 % (39.6-50.0); HGB 14.2 g/dL (13.0-17.0); Lymphocytes # (A) 2.31 10*3/uL (0.90-5.00); Lymphocytes % (A) 18.2 %; MCH 31.6 pg (27.0-32.0); MCHC 34.5 g/dL (32.0-37.0); MCV 91.5 fL (80.0-97.0); Monocytes # (A) 0.96 10*3/uL (0.20-1.00); Monocytes % (A) 7.6 %; Neutrophils # (A) 8.71 10*3/uL (1.80-7.70); Neutrophils % (A) 68.6 %; Platelet Count 170 10*3/uL (140-440); RBC 4.49 10*6/uL (4.40-5.60); RDW 12.6 % (11.5-14.5); WBC 12.69 10*3/uL (4.50-10.00)
[2024-10-14 04:40] LABS: INR 1.0 (<1.2); Partial Thromboplastin Time 25.0 sec (22.0-30.0); Prothrombin Time 11.0 sec (10.0-12.5)
[2024-10-14 04:45] LABS: ALT 101 U/L (4-49); AST 84 U/L (17-59); African American GFR (CKD) >90 (>60 ml/min/1.73 sqM); Albumin 3.9 g/dL (3.5-5.0); Alkaline Phosphatase 107 U/L (38-126); Anion Gap 9 mmol/L; Blood Urea Nitrogen 18 mg/dL (9-20); Calcium 9.4 mg/dL (8.4-10.2); Carbon Dioxide 19 mmol/L (22-30); Chloride 108 mmol/L (98-107); Glucose 114 mg/dL (74-99); Non-African American GFR(CKD) 83 (>60 ml/min/1.73 sqM); Potassium 4.5 mmol/L (3.5-5.1); Sodium 136 mmol/L (137-145); Total Protein 6.5 g/dL (6.3-8.2)
[2024-10-14 04:47] LABS: Amylase 517 U/L (30-110)
[2024-10-14 05:08] LABS: Lipase 9833 U/L (23-300)
--- NOTE | 2024-10-14 05:53 | CT ---
EXAMINATION TYPE: CT angio thor/abd pel aorta DATE OF EXAM: 10/14/2024 COMPARISON: Prior CT abdomen and pelvis March 03, 2023 CLINICAL INDICATION: Male, 54 years old with history of HTN, epigastric pain rad to back, , TECHNIQUE: CTA scan of the thorax abdomen and pelvis are performed without and with IV Contrast, patient injecte d with 100 mL of Isovue 370., (none if empty) Oral contrast used: (none if empty) CT DLP: 1650 mGycm, Automated exposure control for dose reduction was used. 3-D reconstructed images are created on an independent workstation and reviewed. FINDINGS: VASCULAR: No suspicious hyperdense material in noncontrast images to suggest intramural hematoma. Sat isfactory filling of the pulmonary arteries. There is bovine type aortic arch which is normal variant . Aorta shows no linear hypodensity to suggest dissection. Patent celiac artery and SMA. There are 2 right renal arteries which is normal variant. Patent JASPAL. Patent iliac and femoral artery branches. No AAA. LUNGS: No suspicious nodules or masses. No focal consolidation. MEDIASTINUM: Moderate coronary artery calcifications and/or more likely stent in the LAD distribution . No cardiomegaly or pericardial effusion. OTHER: Focal subareolar gynecomastia seen bilaterally. LIVER/GB: Liver is diffusely low dense relative to spleen on noncontrast images consistent with diffu se fatty infiltrative hepatocellular disease. PANCREAS: There is moderate ill-defined fluid and fat stranding surrounding the pancreatic head and u ncinate process. Pancreas is normal in size. No ductal dilatations. No concerning masses. A few calci fications in the region of the pancreatic head are present (series 201 image 65) SPLEEN: No significant abnormality is seen. ADRENALS: No significant abnormality is seen. KIDNEYS: No significant abnormality is seen. BOWEL: Surgical changes from appendectomy are seen. Distal colonic diverticula. No CT evidence for ac nikolski diverticulitis. No abnormal small or large bowel dilatation. PROSTATE/SEMINAL VESICLES: Upper limits of normal in size. LYMPH NODES: No greater than 1cm abdominal or pelvic lymph nodes are appreciated. OSSEOUS STRUCTURES: Vacuum disc phenomenon with moderate disc space narrowing at L4-L5 and L5-S1 leve ls. OTHER: Small to moderate-sized fat-containing left inguinal hernia. Surgical change in the right groi n is present. Large right scrotal fluid collection or hydrocele. IMPRESSION: 1. No aortic dissection. 2. CT findings suggestive of acute edematous interstitial pancreatitis as detailed above. Correlate c linically and with pancreatic lab values. [facility], , 10/14/2024 5:51 AM
[2024-10-14 06:08] LABS: Bilirubin,Urine Negative (Negative); Blood,Urine Negative (Negative); Color,Urine Colorless; Glucose,Urine (UA) Negative (Negative); Ketones,Urine Negative (Negative); Leukocyte Esterase,Urine Negative (Negative); Nitrite,Urine Negative (Negative); PH, Urine 5.5 (5.0-8.0); Protein,Urine Negative (Negative); Specific Gravity,Urine 1.021 (1.001-1.035); Urobilinogen,Urine <2.0 mg/dL (<2.0)
[2024-10-14] MEDS: SODIUM CHLORIDE 0.9% 1,000 ML IV SCH (06:55)
[2024-10-14] MEDS ORDERED: ACETAMINOPHEN TAB 325 MG TAB PO PRN (07:21)
[2024-10-14] MEDS ORDERED: NALOXONE 0.4 MG/ML 1 ML VIAL IV PRN (07:21)
[2024-10-14] MEDS: HYDROmorphone 1 MG/ML 1 ML SYRINGE IVP PRN (08:12)
[2024-10-14] MEDS: PANTOPRAZOLE 40 MG/10 ML VIAL IV SCH (08:13)
[2024-10-14] MEDS: ENOXAPARIN 40 MG/0.4 ML SYRINGE SQ SCH (08:13)
--- NOTE | 2024-10-14 11:28 | P.HPIM ---
History of Present Illness H&P Date: 10/14/24 Chief Complaint: Abdominal pain Patient is a 54-year-old male with a past medical history of hyperlipidemia, GERD, alcohol induced pancreatitis who presents to the ED with epigastric pain that radiates to his back. Patient states that it started last night and woke him up from his sleep. Patient reports that it is similar pain to when he had his last pancreatitis. Patient states that in the past he was a heavy drinker. He states that now he drinks socially. He did state that he had a few drinks on October 08 and also had a beer last night. In the ED WBC 12.69, AST 84, ALT 101, alkaline phosphatase 107, total bilirubin 0.6, amylase 517, lipase [address]004. CT scan consistent with acute pancreatitis. Patient was started on IV fluids and given IV pain medications. When I saw the patient he reported that his abdominal pain was improving. ROS: 10 ROS reviewed and are negative except as noted in HPI Physical exam General: [Alert and oriented, well nourished, no acute distress]. Eye: [PERRL, EOMI, normal conjunctiva]. HENT: [Normocephalic, clear tympanic membranes, normal hearing, moist oral mucosa, no scleral icterus, no sinus tenderness]. Neck: [Supple, non-tender, no carotid bruits, no JVD, no lymphadenopathy]. Lungs: [Clear to auscultation and percussion, non-labored respiration]. Heart: [Normal rate, regular rhythm, no murmur, gallop or edema]. Abdomen: [Soft, non-tender, non-distended, normal bowel sounds, no masses]. Musculoskeletal: [Normal range of motion and strength, no tenderness or swelling]. Skin: [Skin is warm, dry and pink, no rashes or lesions]. Neurologic: [Awake, alert, and oriented X3, CN II-XII intact]. Psychiatric: [Cooperative, appropriate mood and affect]. Assessment and plan Acute pancreatitis suspect due to alcohol use I discussed with the ED physician and accepted the admission for treatment of acute pancreatitis. Continue with normal saline at 130 cc an hour Continue with IV Dilaudid 0.5 mg every 3 hours as needed IV Zofran as needed for nausea vomiting Patient counseled on complete alcohol cessation N.p.o. Trend lipase Trend CMP Hyperlipidemia Statin 10 mg p.o. at bedtime Hypertension Lisinopril and metoprolol DVT prophylaxis: Subcu Lovenox Past Medical History Past Medical History: Coronary Artery Disease (CAD), GERD/Reflux, Hyperlipidemia, Hypertension, Myocardial Infarction ([place]), Osteoarthritis (OA) Additional Past Medical History / Comment(s): [place] 01/2016 with stent placement X2 LAD. pancreatisis Last Myocardial Infarction Date:: 01/27/16 History of Any Multi-Drug Resistant Organisms: None Reported Past Surgical History: Appendectomy, Heart Catheterization With Stent, Hernia Repair Additional Past Surgical History / Comment(s): 2 cardiac stents. umbilical and bilat inguinal, colonoscopy Past Anesthesia/Blood Transfusion Reactions: No Reported Reaction Date of Last Stent Placement:: 01/27/16 Past Psychological History: No Psychological Hx Reported Smoking Status: Never smoker Past Alcohol Use History: Occasional Past Drug Use History: None Reported - Past Family History Father History Unknown: Yes Mother Family Medical History: Myocardial Infarction ([place]) Brother(s) Family Medical History: Diabetes Mellitus Medications and Allergies Home Medications Medication Instructions Recorded Confirmed Type Metoprolol Succinate [Toprol XL] 50 mg PO HS 10/13/19 10/14/24 History lisinopriL [Zestril] 20 mg PO HS 08/24/22 10/14/24 History Aspirin EC [Ecotrin Low Dose] 81 mg PO HS 10/14/24 10/14/24 History Atorvastatin [Lipitor] 10 mg PO HS 10/14/24 10/14/24 History Omeprazole [PriLOSEC] 40 mg PO HS 10/14/24 10/14/24 History Allergies Allergy/AdvReac Type Severity Reaction Status Date / Time No Known Allergies Allergy Verified 10/14/24 07:16 Physical Exam Osteopathic Statement: *. No significant issues noted on an osteopathic structural exam other than those noted in the History and Physical/Consult. Vitals: Vital Signs Temp Pulse Resp BP Pulse Ox 10/14/24 10:00 87 18 137/94 96 10/14/24 09:13 66 18 94 L 10/14/24 08:16 98.1 F 64 18 162/55 94 L 10/14/24 06:00 69 18 162/102 96 10/14/24 05:00 73 18 174/108 96 10/14/24 03:54 98.1 F 80 20 181/109 97 Intake and Output 10/13/24 10/14/24 10/14/24 22:59 06:59 14:59 Other: Weight 81.647 kg Results CBC & Chem 7: 10/14/24 04:03 10/14/24 04:03 Labs: Abnormal Lab Results - Last 24 Hours (Table) 10/14/24 10/14/24 Range/Units 04:03 04:03 WBC 12.69 H (4.50-10.00) 10*3/uL MPV 9.4 L (9.5-12.2) fL Neutrophils # 8.71 H (1.80-7.70) 10*3/uL Eosinophils # 0.61 H (0.04-0.35) 10*3/uL Sodium 136 L (137-145) mmol/L Chloride 108 H (98-107) mmol/L Carbon Dioxide 19 L (22-30) mmol/L Glucose 114 H (74-99) mg/dL AST 84 H (17-59) U/L ALT 101 H (4-49) U/L Amylase 517 H* (30-110) U/L Lipase 9833 H (23-300) U/L
[2024-10-14] MEDS: ONDANSETRON 4 MG/2 ML VIAL IVP PRN (13:09)
[2024-10-14] MEDS: HYDROmorphone 0.5 MG/0.5 ML SYRINGE IVP PRN (13:10)
[2024-10-14] MEDS: METOPROLOL SUCCINATE (ER) 50 MG TAB.ER.24H PO SCH (18:13)
[2024-10-14] MEDS: ATORVASTATIN 10 MG TAB PO SCH (20:29)
[2024-10-14] MEDS: ASPIRIN 81 MG PO SCH (20:29)
[2024-10-15 08:54] LABS: Basophils # (A) 0.05 X 10*3/uL (0.00-0.10); Basophils % (A) 0.4 %; Eosinophils # (A) 0.44 X 10*3/uL (0.04-0.35); Eosinophils % (A) 3.4 %; HCT 40.9 % (39.6-50.0); HGB 13.4 g/dL (13.0-17.0); Immature Grans, Automated 0.30 %; Lymphocytes # (A) 1.30 X 10*3/uL (0.90-5.00); Lymphocytes % (A) 10.0 %; MCH 31.0 pg (27.0-32.0); MCHC 32.8 g/dL (32.0-37.0); MCV 94.7 FL (80.0-97.0); Monocytes # (A) 0.91 X 10*3/uL (0.20-1.00); Monocytes % (A) 7.0 %; NRBC Per 100 WBC 0 X 10*3/uL (0.00-0.01); Neutrophils # (A) 10.31 X 10*3/uL (1.80-7.70); Neutrophils % (A) 78.9 %; Platelet Count 160 X 10*3/uL (140-440); RBC 4.32 X 10*6/uL (4.40-5.60); RDW 12.8 % (11.5-14.5); WBC 13.05 X 10*3/uL (4.50-10.00)
[2024-10-15 09:20] LABS: ALT 75 U/L (10-49); AST 53 U/L (14-35); Albumin 4.2 g/dL (3.8-4.9); Albumin/Globulin Ratio 2.21 Ratio (1.60-3.17); Alkaline Phosphatase 93 U/L (41-126); Anion Gap 9.10 mmol/L (4.00-12.00); BUN/Creat Ratio 12.25 Ratio (12.00-20.00); Blood Urea Nitrogen 9.8 mg/dL (9.0-27.0); Calcium 8.3 mg/dL (8.7-10.3); Carbon Dioxide 23.9 mmol/L (21.6-31.8); Chloride 100 mmol/L (96-109); Globulin 1.9 g/dL (1.6-3.3); Glucose 103 mg/dL (70-110); Lipase 85 U/L (14-60); Potassium 4.7 mmol/L (3.5-5.5); Sodium 133 mmol/L (135-145); Total Protein 6.1 g/dL (6.2-8.2)
--- NOTE | 2024-10-15 11:03 | P.PN ---
Subjective Progress Note Date: 10/15/24 Patient is a 54-year-old male with a past medical history of hyperlipidemia, GERD, alcohol induced pancreatitis who presents to the ED with epigastric pain that radiates to his back. Patient states that it started last night and woke him up from his sleep. Patient reports that it is similar pain to when he had his last pancreatitis. Patient states that in the past he was a heavy drinker. He states that now he drinks socially. He did state that he had a few drinks on October 08 and also had a beer last night. In the ED WBC 12.69, AST 84, ALT 101, alkaline phosphatase 107, total bilirubin 0.6, amylase 517, lipase [address]240. CT scan consistent with acute pancreatitis. Patient was started on IV fluids and given IV pain medications. When I saw the patient he reported that his abdominal pain was improving. Subjective Patient states that he still having abdominal pain but feels better than he did yesterday. He is still requiring IV Dilaudid for pain control. Physical exam General examination - Alert and Oriented 3 in NAD Heart - + S1S2 no murmurs Lungs - Clear to auscultation Abdomen diffuse tenderness to palpate Extremities - No edema PHOTOGRAPHY COORDINATOR - Moving all 4 extremities spontaneously Psych - Calm and cooperative Assessment and plan Acute pancreatitis suspect due to alcohol use Continue with normal saline at 130 cc an hour Continue with IV Dilaudid 0.5 mg every 3 hours as needed. Patient has required 3.5 mg of IV Dilaudid in the past 24 hours IV Zofran as needed for nausea vomiting Patient counseled on complete alcohol cessation Lipase is 85 this morning ALT and AST are trending down Will advance patient to clear liquid diet. Hyperlipidemia Statin 10 mg p.o. at bedtime Hypertension Lisinopril and metoprolol DVT prophylaxis: Subcu Lovenox Objective - Vital Signs Vital signs: Vital Signs Temp 97.7 F 10/15/24 07:00 Pulse 65 10/15/24 07:00 Resp 20 10/15/24 07:00 BP 180/84 10/15/24 07:00 Pulse Ox 95 10/15/24 07:00 FiO2 Intake & Output 10/14/24 10/15/24 10/15/24 18:59 06:59 18:59 Weight 81.647 kg Other: # Voids 2 - Labs CBC & Chem 7: 10/15/24 06:17 10/15/24 06:17 Labs: Abnormal Lab Results - Last 24 Hours (Table) 10/15/24 10/15/24 Range/Units 06:17 06:17 WBC 13.05 H (4.50-10.00) X 10*3/uL RBC 4.32 L (4.40-5.60) X 10*6/uL Neutrophils # 10.31 H (1.80-7.70) X 10*3/uL Eosinophils # 0.44 H (0.04-0.35) X 10*3/uL Sodium 133 L (135-145) mmol/L Calcium 8.3 L (8.7-10.3) mg/dL AST 53 H (14-35) U/L ALT 75 H (10-49) U/L Total Protein 6.1 L (6.2-8.2) g/dL Lipase 85 H (14-60) U/L
[2024-10-16 08:49] LABS: Basophils # (A) 0.05 X 10*3/uL (0.00-0.10); Basophils % (A) 0.4 %; Eosinophils # (A) 0.42 X 10*3/uL (0.04-0.35); Eosinophils % (A) 3.6 %; HCT 39.8 % (39.6-50.0); HGB 13.4 g/dL (13.0-17.0); Immature Grans, Automated 0.30 %; Lymphocytes # (A) 1.45 X 10*3/uL (0.90-5.00); Lymphocytes % (A) 12.4 %; MCH 31.5 pg (27.0-32.0); MCHC 33.7 g/dL (32.0-37.0); MCV 93.6 FL (80.0-97.0); Monocytes # (A) 1.21 X 10*3/uL (0.20-1.00); Monocytes % (A) 10.3 %; NRBC Per 100 WBC 0 X 10*3/uL (0.00-0.01); Neutrophils # (A) 8.57 X 10*3/uL (1.80-7.70); Neutrophils % (A) 73.0 %; Platelet Count 150 X 10*3/uL (140-440); RBC 4.25 X 10*6/uL (4.40-5.60); RDW 12.7 % (11.5-14.5); WBC 11.74 X 10*3/uL (4.50-10.00)
[2024-10-16 09:07] LABS: ALT 64 U/L (10-49); AST 41 U/L (14-35); Albumin 3.6 g/dL (3.8-4.9); Albumin/Globulin Ratio 1.71 Ratio (1.60-3.17); Alkaline Phosphatase 111 U/L (41-126); Anion Gap 8.90 mmol/L (4.00-12.00); BUN/Creat Ratio 6.60 Ratio (12.00-20.00); Blood Urea Nitrogen 6.6 mg/dL (9.0-27.0); Calcium 8.6 mg/dL (8.7-10.3); Carbon Dioxide 24.1 mmol/L (21.6-31.8); Chloride 101 mmol/L (96-109); Globulin 2.1 g/dL (1.6-3.3); Glucose 122 mg/dL (70-110); Lipase 40 U/L (14-60); Potassium 4.5 mmol/L (3.5-5.5); Sodium 134 mmol/L (135-145); Total Protein 5.7 g/dL (6.2-8.2)
[2024-10-16] MEDS: KETOROLAC 15 MG/ML 1 ML VIAL IM PRN (10:11)
[2024-10-16] MEDS: DOCUSATE 100 MG CAP PO SCH (10:51)
--- NOTE | 2024-10-16 11:51 | P.PN ---
Subjective Progress Note Date: 10/16/24 Patient is a 54-year-old male with a past medical history of hyperlipidemia, GERD, alcohol induced pancreatitis who presents to the ED with epigastric pain that radiates to his back. Patient states that it started last night and woke him up from his sleep. Patient reports that it is similar pain to when he had his last pancreatitis. Patient states that in the past he was a heavy drinker. He states that now he drinks socially. He did state that he had a few drinks on October 08 and also had a beer last night. In the ED WBC 12.69, AST 84, ALT 101, alkaline phosphatase 107, total bilirubin 0.6, amylase 517, lipase 94290. CT scan consistent with acute pancreatitis. Patient was started on IV fluids and given IV pain medications. When I saw the patient he reported that his abdominal pain was improving. Subjective Patient reports that he still having abdominal pain. He has been taking Dilaudid [id number]. Patient states that he is only had a small bowel movement since admission. 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 at bedtime Hypertension Lisinopril and metoprolol DVT prophylaxis: Subcu Lovenox Objective - Vital Signs Vital signs: Vital Signs Temp 99.3 F 10/16/24 07:36 Pulse 68 10/16/24 07:36 Resp 16 10/16/24 07:36 BP 150/89 10/16/24 07:36 Pulse Ox 96 10/16/24 07:36 FiO2 Intake & Output 10/15/24 10/16/24 10/16/24 18:59 06:59 18:59 Intake Total 0 400 Balance 0 400 Intake: Intake, IV Titration 1560 Amount Sodium Chloride 0.9% 1, 1560 000 ml @ 130 mls/hr IV . Q7H42M COUNTS INCLUDE 234 BEDS AT THE [facility] Rx#:[id number] Oral 480 400 Other: Voiding Method Toilet # Voids 2 - Labs CBC & Chem 7: 10/16/24 05:31 10/16/24 05:31 Labs: Abnormal Lab Results - Last 24 Hours (Table) 10/16/24 10/16/24 Range/Units 05:31 05:31 WBC 11.74 H (4.50-10.00) X 10*3/uL RBC 4.25 L (4.40-5.60) X 10*6/uL Neutrophils # 8.57 H (1.80-7.70) X 10*3/uL Monocytes # 1.21 H (0.20-1.00) X 10*3/uL Eosinophils # 0.42 H (0.04-0.35) X 10*3/uL Sodium 134 L (135-145) mmol/L BUN 6.6 L (9.0-27.0) mg/dL BUN/Creatinine Ratio 6.60 L (12.00-20.00) Ratio Glucose 122 H (70-110) mg/dL Calcium 8.6 L (8.7-10.3) mg/dL AST 41 H (14-35) U/L ALT 64 H (10-49) U/L Total Protein 5.7 L (6.2-8.2) g/dL Albumin 3.6 L (3.8-4.9) g/dL
[2024-10-16 20:29] VITALS: RESP 16
[2024-10-16] MEDS: KETOROLAC 15 MG/ML 1 ML VIAL IVP PRN (20:40)
[2024-10-16] MEDS: MELATONIN 5 MG TABLET PO ONE (21:51)
[2024-10-17 08:17] VITALS: BP 172/100; PULSE 63; TEMP 97.6
[2024-10-17 09:16] LABS: ALT 92 U/L (10-49); AST 79 U/L (14-35); Albumin 3.4 g/dL (3.8-4.9); Albumin/Globulin Ratio 1.70 Ratio (1.60-3.17); Alkaline Phosphatase 109 U/L (41-126); Anion Gap 8.30 mmol/L (4.00-12.00); BUN/Creat Ratio 5.56 Ratio (12.00-20.00); Blood Urea Nitrogen 5.0 mg/dL (9.0-27.0); Calcium 8.4 mg/dL (8.7-10.3); Carbon Dioxide 22.7 mmol/L (21.6-31.8); Chloride 106 mmol/L (96-109); Globulin 2.0 g/dL (1.6-3.3); Glucose 138 mg/dL (70-110); Potassium 4.6 mmol/L (3.5-5.5); Sodium 137 mmol/L (135-145); Total Protein 5.4 g/dL (6.2-8.2)
[2024-10-17] MEDS: NIFEdipine XL 30 MG TAB.ER.24 PO SCH (09:26)
[2024-10-17 09:30] LABS: Basophils # (A) 0.03 X 10*3/uL (0.00-0.10); Basophils % (A) 0.4 %; Eosinophils # (A) 0.45 X 10*3/uL (0.04-0.35); Eosinophils % (A) 5.3 %; HCT 37.0 % (39.6-50.0); HGB 12.3 g/dL (13.0-17.0); Immature Grans, Automated 0.50 %; Lymphocytes # (A) 1.25 X 10*3/uL (0.90-5.00); Lymphocytes % (A) 14.8 %; MCH 31.5 pg (27.0-32.0); MCHC 33.2 g/dL (32.0-37.0); MCV 94.9 FL (80.0-97.0); Monocytes # (A) 1.00 X 10*3/uL (0.20-1.00); Monocytes % (A) 11.9 %; NRBC Per 100 WBC 0 X 10*3/uL (0.00-0.01); Neutrophils # (A) 5.65 X 10*3/uL (1.80-7.70); Neutrophils % (A) 67.1 %; Platelet Count 153 X 10*3/uL (140-440); RBC 3.90 X 10*6/uL (4.40-5.60); RDW 12.8 % (11.5-14.5); WBC 8.42 X 10*3/uL (4.50-10.00)
--- NOTE | 2024-10-17 12:10 | P.DS ---
Providers Date of admission: 10/14/24 07:21 Attending physician: Lon Zamudio MD Primary care physician: Ajit Palacio [facility] Hospital Course: Discharge Diagnosis: Acute pancreatitis secondary to alcohol use Hyperlipidemia Hypertension Hospital Course: Patient is a 54-year-old male with a past medical history of hyperlipidemia, GERD, alcohol induced pancreatitis who presents to the ED with epigastric pain that radiates to his back. Patient states that it started last night and woke him up from his sleep. Patient reports that it is similar pain to when he had his last pancreatitis. Patient states that in the past he was a heavy drinker. He states that now he drinks socially. He did state that he had a few drinks on October 08 and also had a beer last night. In the ED WBC 12.69, AST 84, ALT 101, alkaline phosphatase 107, total bilirubin 0.6, amylase 517, lipase 00919. CT scan consistent with acute pancreatitis. Patient was admitted to the medicine service. Patient was treated with aggressive IV fluids, IV pain medications patient's lipase normalized. Patient at the time of discharge tolerated regular diet. He also reported improvement in his abdominal pain. Patient was counseled extensively on complete alcohol cessation. Patient also had elevated blood pressure. He was started on nifedipine. Patient deemed stable for discharge. Patient seen and examined at bedside.[] Vital signs reviewed and stable. General: [non toxic], [no distress], [appears at stated age] Derm: [warm], [dry] Head: [atraumatic], [normocephalic], [symmetric] Eyes: [EOMI], [no lid lag], [anicteric sclera] Mouth: [no lip lesion], [mucus membranes moist] Cardiovascular: [S1S2 reg], [no murmur], [positive posterior tibial pulse bilateral], Lungs: [CTA bilateral], [no rhonchi, no rales] , [no accessory muscle use] Abdominal: [soft], [ nontender to palpation], [no guarding], [no appreciable organomegaly] Ext: [no gross muscle atrophy], [no edema], [no contractures] Neuro: [ CN II-XI grossly intact], [no focal neuro deficits] Psych: [Alert], [oriented], [appropriate affect] A total of [33] minutes of time were spent preparing this complex discharge summary . Patient discharged on [10/17/2024] Patient Condition at Discharge: Stable Plan - Discharge Summary New Discharge Prescriptions: New NIFEdipine XL [Procardia XL] 30 mg PO DAILY 30 Days #30 tab Continue Metoprolol Succinate [Toprol XL] 50 mg PO HS lisinopriL [Zestril] 20 mg PO HS Aspirin EC [Ecotrin Low Dose] 81 mg PO HS Omeprazole [PriLOSEC] 40 mg PO HS Atorvastatin [Lipitor] 10 mg PO HS Discharge Medication List Metoprolol Succinate [Toprol XL] 50 mg PO HS 10/13/19 [History] lisinopriL [Zestril] 20 mg PO HS 08/24/22 [History] Aspirin EC [Ecotrin Low Dose] 81 mg PO HS 10/14/24 [History] Atorvastatin [Lipitor] 10 mg PO HS 10/14/24 [History] Omeprazole [PriLOSEC] 40 mg PO HS 10/14/24 [History] NIFEdipine XL [Procardia XL] 30 mg PO DAILY 30 Days #30 tab 10/17/24 [Rx] Follow up Appointment(s)/Referral(s): Burt Sellers MD [STAFF PHYSICIAN] - 1-2 days Discharge/Stand Alone Forms: AA Meetings [place] Discharge Disposition: HOME SELF-CARE
== END 2024-10-17 12:54 | disposition home or self-care (01) ==
LOC: EC 03:53 → 6NMEDSUR 07:21 → 5NMEDONC 18:57
PROVIDERS: ADMIT Internal Medicine; ATTEND Internal Medicine
DX: K85.20 Alcohol induced acute pancreatitis without necrosis or infection (principal); K59.03 Drug induced constipation; T40.2X5A Adverse effect of other opioids, initial encounter; I10 Essential (primary) hypertension; E78.5 Hyperlipidemia, unspecified; I25.10 Atherosclerotic heart disease of native coronary artery without angina pectoris; K21.9 Gastro-esophageal reflux disease without esophagitis; I25.2 Old myocardial infarction; Z90.49 Acquired absence of other specified parts of digestive tract; Z95.5 Presence of coronary angioplasty implant and graft; Z79.82 Long term (current) use of aspirin; Z79.899 Other long term (current) drug therapy
CPT/HCPCS: 96376 ×4; 96361 ×3; 96372 ×4; 96375 ×2; 96374; 99285; 36415; 93005; 80053 ×4; 82150; 83605; 83690 ×3; 84484; 85025 ×4; 85610; 85730; 81003; 71275; 74174; G0378 ×4; J2405; J1650 ×4; J1171 ×3; J1885; Q9967; J2470 ×4

== ENCOUNTER 2024-10-22 14:11 | Observation (INO) | payer BC ==
--- NOTE | 2024-10-22 14:17 | ED ---
General Adult HPI - General Stated complaint: Chest Pain Time Seen by Provider: 10/22/24 14:11 Source: patient, RN notes reviewed, old records reviewed - History of Present Illness Initial comments: This is a 54-year-old male who presents to the emergency department the past medical history significant for alcoholism pancreatitis and [place] with a stent. Patient states he was just discharged from the hospital few days ago for patel creatitis. Patient now states he is having pain in the upper abdomen lower chest area. Patient states it also radiates to his back. Patient denies any shortness of breath or difficulty breathing. Patient states he felt some tingling in his right arm earlier. Patient denies a headache patient [place] numbness weakness. Patient has vomiting or diarrhea - Related Data Home Medications Medication Instructions Recorded Confirmed Metoprolol Succinate [Toprol XL] 50 mg PO HS 10/13/19 10/14/24 lisinopriL [Zestril] 20 mg PO HS 08/24/22 10/14/24 Aspirin EC [Ecotrin Low Dose] 81 mg PO HS 10/14/24 10/14/24 Atorvastatin [Lipitor] 10 mg PO HS 10/14/24 10/14/24 Omeprazole [PriLOSEC] 40 mg PO HS 10/14/24 10/14/24 Previous Rx's Medication Instructions Recorded NIFEdipine XL [Procardia XL] 30 mg PO DAILY 30 Days #30 tab 10/17/24 Allergies Allergy/AdvReac Type Severity Reaction Status Date / Time No Known Allergies Allergy Verified 10/14/24 07:16 Review of Systems ROS Statement: Those systems with pertinent positive or pertinent negative responses have been documented in the HPI. ROS Other: All systems not noted in ROS Statement are negative. Past Medical History Past Medical History: Coronary Artery Disease (CAD), GERD/Reflux, Hyperlipidemia, Hypertension, Myocardial Infarction ([place]), Osteoarthritis (OA) Additional Past Medical History / Comment(s): [place] 01/2016 with stent placement X2 LAD. pancreatisis Last Myocardial Infarction Date:: 01/27/16 History of Any Multi-Drug Resistant Organisms: None Reported Past Surgical History: Appendectomy, Heart Catheterization With Stent, Hernia Repair Additional Past Surgical History / Comment(s): 2 cardiac stents. umbilical and bilat inguinal, colonoscopy Past Anesthesia/Blood Transfusion Reactions: No Reported Reaction Date of Last Stent Placement:: 01/27/16 Past Psychological History: No Psychological Hx Reported Smoking Status: Never smoker Past Alcohol Use History: Occasional Past Drug Use History: None Reported - Past Family History Father History Unknown: Yes Mother Family Medical History: Myocardial Infarction ([place]) Brother(s) Family Medical History: Diabetes Mellitus General Exam - General Exam Comments Initial Comments: GENERAL: Patient is well-developed and well-nourished. Patient is nontoxic and well- hydrated and is in moderate distress. ENT: Neck is soft and supple. No significant lymphadenopathy is noted. Oropharynx is clear. Moist mucous membranes. Neck has full range of motion without eliciting any pain. EYES: The sclera were anicteric and conjunctiva were pink and moist. Extraocular movements were intact and pupils were equal round and reactive to light. Eyelids were unremarkable. PULMONARY: Unlabored respirations. Good breath sounds bilaterally. No audible rales rhonchi or wheezing was noted. CARDIOVASCULAR: There is a regular rate and rhythm without any murmurs gallops or rubs. ABDOMEN: Patient has a very tender epigastric area. SKIN: Skin is clear with no lesions or rashes and otherwise unremarkable. NEUROLOGIC: Patient is alert and oriented x3. Cranial nerves II through XII are grossly intact. Motor and sensory are also intact. Normal speech, volume and content. Symmetrical smile. MUSCULOSKELETAL: Normal extremities with adequate strength and full range of motion. LYMPHATICS: No significant lymphadenopathy is noted PSYCHIATRIC: Normal psychiatric evaluation. Course Vital Signs 10/22/24 14:22 Temperature 98.6 F Pulse Rate 55 L Respiratory 18 Rate Blood Pressure 145/91 O2 Sat by Pulse 98 Oximetry Medical Decision Making - Medical Decision Making EKG is interpreted by myself. EKG shows sinus bradycardia 57 bpm. Was under 76 QRS 78 QT was 424 QTc is 417. Patient's EKG shows no ST segment ovation or depression. Was pt. sent in by a medical professional or institution (, PA, AQUATIC PERFORMER, urgent care, hospital, or [facility]...) When possible be specific @ -No Did you speak to anyone other than the patient for history (EMS, parent, family, police, friend...)? What history was obtained from this source @ -No Did you review nursing and triage notes (agree or disagree)? Why? @ -I reviewed and agree with nursing and triage notes Were old charts reviewed (outside hosp., previous admission, EMS record, old EKG, old radiological studies, urgent care reports/EKG's, [facility] records)? Report findings @ -No old charts were reviewed Differential Diagnosis? @ -Differential Abdominal Pain Men: Appendicitis, cholecystitis, diverticulosis, ischemic bowel, pancreatitis, hepatitis, UTI, gastroenteritis, AAA, incarcerated hernia, bowel obstruction, constipation, inflammatory bowel, hepatitis, peptic ulcer disease, splenic infarction, perforated viscus, testicular torsion, this is not meant to be an all-inclusive list EKG interpreted by me (3pts min.). @ -As above X-rays interpreted by me (1pt min.). @ -None done CT interpreted by me (1pt min.). @ -None done U/S interpreted by me (1pt. min.). @ -None done What testing was considered but not performed or refused? (CT, X-rays, U/S, labs)? Why? @ -None What meds were considered but not given or refused? Why? @ -None Did you discuss the management of the patient with other professionals (rani andersen i.e. , PA, AQUATIC PERFORMER, lab, RT, psych nurse, social economist, drain tiler, teacher, executive officer, caseworker protective services)? Give summary @ -I spoke with Dr. Gray and he agreed to admit the patient admit the patient wrote admitting orders Was smoking cessation discussed for >3mins.? @ -No Was critical care preformed (if so, how long)? @ -No Were there social determinants of health that impacted care today? How? (Homelessness, low income, unemployed, alcoholism, drug addiction, transportation, low edu. Level, literacy, decrease access to med. care, longterm, rehab)? @ -No Was there de-escalation of care discussed even if they declined (Discuss DNR or withdrawal of care, Hospice)? DNR status @ -No What co-morbidities impacted this encounter? (DM, HTN, Smoking, COPD, CAD, Cancer, CVA, ARF, Chemo, Hep., AIDS, mental health diagnosis, sleep apnea, morbid obesity)? @ -None Was patient admitted / discharged? Hospital course, mention meds given and route, prescriptions, significant lab abnormalities, going to OR and other pertinent info. @ -Patient's lab work came back indicated the patient had pancreatitis and a little hypomagnesemia. I gave the patient more pain medication he was not nauseated so no medication was given for that patient did get hydrated with 1.5 L of fluid. Patient also was given magnesium sulfate 1 g Undiagnosed new problem with uncertain prognosis? @ -No Drug Therapy requiring intensive monitoring for toxicity (Heparin, Nitro, Insulin, Cardizem)? @ -No Were any procedures done? @ -No Diagnosis/symptom? @ -Pancreatitis Acute, or Chronic, or Acute on Chronic? @ -Acute Uncomplicated (without systemic symptoms) or Complicated (systemic symptoms)? @ -Complicated Side effects of treatment? @ -No Exacerbation, Progression, or Severe Exacerbation? @ -No Poses a threat to life or bodily function? How? (Chest pain, [place], [place], pneumonia, PE, COPD, DKA, ARF, appy, cholecystitis, CVA, Diverticulitis, Homicidal, Suicidal, threat to staff... and all critical care pts) @ -Yes this can lead to electrolyte abnormalities and morbidity or mortality Diagnosis/symptom? @ -Hypomagnesemia Acute, or Chronic, or Acute on Chronic? @ -Acute Uncomplicated (without systemic symptoms) or Complicated (systemic symptoms)? @ -Default Side effects of treatment? @ -None Exacerbation, Progression, or Severe Exacerbation] @ -No Poses a threat to life or bodily function? @ -No - Lab Data Result diagrams: 10/22/24 14:23 10/22/24 14:23 Lab Results 10/22/24 10/22/24 10/22/24 Range/Units 14:23 14:23 14:23 WBC 14.82 H (4.50-10.00) 10*3/uL RBC 4.17 L (4.40-5.60) 10*6/uL Hgb 13.3 (13.0-17.0) g/dL Hct 38.7 L (39.6-50.0) % MCV 92.8 (80.0-97.0) fL MCH 31.9 (27.0-32.0) pg MCHC 34.4 (32.0-37.0) g/dL Plt Count 267 (140-440) 10*3/uL MPV 10.1 (9.5-12.2) fL Immature Gran % (Auto) 0.5 % Neutrophils % 77.0 % Lymphocytes % 12.8 % Monocytes % 7.0 % Eosinophils % 2.2 % Basophils % 0.5 % Immature Gran # 0.07 H (0.00-0.04) 10*3/uL Neutrophils # 11.44 H (1.80-7.70) 10*3/uL Lymphocytes # 1.89 (0.90-5.00) 10*3/uL Monocytes # 1.03 H (0.20-1.00) 10*3/uL Eosinophils # 0.32 (0.04-0.35) 10*3/uL Basophils # 0.07 (0.00-0.10) 10*3/uL Sodium 132 L (137-145) mmol/L Potassium 4.8 (3.5-5.1) mmol/L Chloride 99 (98-107) mmol/L Carbon Dioxide 22 (22-30) mmol/L Anion Gap 11 mmol/L BUN 20 (9-20) mg/dL Creatinine 1.03 (0.66-1.25) mg/dL Est GFR (CKD-EPI)AfAm >90 (>60 ml/min/1.73 sqM) Est GFR (CKD-EPI)NonAf 82 (>60 ml/min/1.73 sqM) Glucose 121 H (74-99) mg/dL Plasma Lactic Acid Mikey 1.4 (0.7-2.0) mmol/L Calcium 9.8 (8.4-10.2) mg/dL Magnesium 1.5 L (1.6-2.3) mg/dL Total Bilirubin 0.3 (0.2-1.3) mg/dL AST 43 (17-59) U/L ALT 70 H (4-49) U/L Alkaline Phosphatase 90 (38-126) U/L Troponin I (0.000-0.034) ng/mL Total Protein 6.7 (6.3-8.2) g/dL Albumin 4.0 (3.5-5.0) g/dL Amylase 720 H* (30-110) U/L Lipase 4715 H (23-300) U/L Serum Alcohol <10 mg/dL 10/22/24 Range/Units 14:23 WBC (4.50-10.00) 10*3/uL RBC (4.40-5.60) 10*6/uL Hgb (13.0-17.0) g/dL Hct (39.6-50.0) % MCV (80.0-97.0) fL MCH (27.0-32.0) pg MCHC (32.0-37.0) g/dL Plt Count (140-440) 10*3/uL MPV (9.5-12.2) fL Immature Gran % (Auto) % Neutrophils % % Lymphocytes % % Monocytes % % Eosinophils % % Basophils % % Immature Gran # (0.00-0.04) 10*3/uL Neutrophils # (1.80-7.70) 10*3/uL Lymphocytes # (0.90-5.00) 10*3/uL Monocytes # (0.20-1.00) 10*3/uL Eosinophils # (0.04-0.35) 10*3/uL Basophils # (0.00-0.10) 10*3/uL Sodium (137-145) mmol/L Potassium (3.5-5.1) mmol/L Chloride (98-107) mmol/L Carbon Dioxide (22-30) mmol/L Anion Gap mmol/L BUN (9-20) mg/dL Creatinine (0.66-1.25) mg/dL Est GFR (CKD-EPI)AfAm (>60 ml/min/1.73 sqM) Est GFR (CKD-EPI)NonAf (>60 ml/min/1.73 sqM) Glucose (74-99) mg/dL Plasma Lactic Acid Mikey (0.7-2.0) mmol/L Calcium (8.4-10.2) mg/dL Magnesium (1.6-2.3) mg/dL Total Bilirubin (0.2-1.3) mg/dL AST (17-59) U/L ALT (4-49) U/L Alkaline Phosphatase (38-126) U/L Troponin I <0.012 (0.000-0.034) ng/mL Total Protein (6.3-8.2) g/dL Albumin (3.5-5.0) g/dL Amylase (30-110) U/L Lipase (23-300) U/L Serum Alcohol mg/dL Disposition Clinical Impression: Pancreatitis, Hypomagnesemia Disposition: ADMITTED IP TO THIS [facility] Referrals: Ajit Palacio DO [Primary Care Provider] - 1-2 days Time of Disposition: 15:59
[2024-10-22 14:32] LABS: Basophils # (A) 0.07 10*3/uL (0.00-0.10); Basophils % (A) 0.5 %; Eosinophils # (A) 0.32 10*3/uL (0.04-0.35); Eosinophils % (A) 2.2 %; HCT 38.7 % (39.6-50.0); HGB 13.3 g/dL (13.0-17.0); Lymphocytes # (A) 1.89 10*3/uL (0.90-5.00); Lymphocytes % (A) 12.8 %; MCH 31.9 pg (27.0-32.0); MCHC 34.4 g/dL (32.0-37.0); MCV 92.8 fL (80.0-97.0); Monocytes # (A) 1.03 10*3/uL (0.20-1.00); Monocytes % (A) 7.0 %; Neutrophils # (A) 11.44 10*3/uL (1.80-7.70); Neutrophils % (A) 77.0 %; Platelet Count 267 10*3/uL (140-440); RBC 4.17 10*6/uL (4.40-5.60); RDW 12.5 % (11.5-14.5); WBC 14.82 10*3/uL (4.50-10.00)
[2024-10-22] MEDS: SODIUM CHLORIDE 0.9% 1,000 ML IV ONE ×2 (14:33→16:21)
[2024-10-22] MEDS: HYDROmorphone 0.5 MG/0.5 ML SYRINGE IVP STA ×2 (14:33→16:19)
[2024-10-22] MEDS: ONDANSETRON 4 MG/2 ML VIAL IVP STA (14:33)
[2024-10-22 14:52] LABS: ALT 70 U/L (4-49); AST 43 U/L (17-59); African American GFR (CKD) >90 (>60 ml/min/1.73 sqM); Albumin 4.0 g/dL (3.5-5.0); Alkaline Phosphatase 90 U/L (38-126); Anion Gap 11 mmol/L; Blood Urea Nitrogen 20 mg/dL (9-20); Calcium 9.8 mg/dL (8.4-10.2); Carbon Dioxide 22 mmol/L (22-30); Chloride 99 mmol/L (98-107); Glucose 121 mg/dL (74-99); Magnesium 1.5 mg/dL (1.6-2.3); Non-African American GFR(CKD) 82 (>60 ml/min/1.73 sqM); Potassium 4.8 mmol/L (3.5-5.1); Sodium 132 mmol/L (137-145); Total Protein 6.7 g/dL (6.3-8.2)
[2024-10-22 15:27] LABS: Amylase 720 U/L (30-110)
[2024-10-22 15:28] LABS: Lipase 4715 U/L (23-300)
[2024-10-22] MEDS: MAGNESIUM SULFATE-D5W PMX 1 GM in DEXTROSE/WATER 1 100ML.BAG IVPB ONE (16:20)
[2024-10-22] MEDS ORDERED: ACETAMINOPHEN TAB 325 MG TAB PO PRN (17:46)
[2024-10-22] MEDS: HYDROmorphone 0.5 MG/0.5 ML SYRINGE IVP PRN (17:52)
--- NOTE | 2024-10-22 18:41 | P.HPIM ---
History of Present Illness H&P Date: 10/22/24 Patient is a 54-year-old male with a past medical history of alcohol induced pancreatitis, hyperlipidemia, GERD, hypertenstion, who presented to the ED with upper abdominal pain that radiates to his back. Patient stated that he was discharged from the hospital 5 days ago for pancreatitis. Patient reported that he was at work when he began to experience pain in his upper abdomen that radiated to his back. He experienced some pain in his right arm this morning that resolved after a few minutes, there is a history of nausea but he did not vomit patient denies any shortness of breath or difficulty breathing. Vitals on admission: PR55 bpm, BP164/02 mmHg, RR-18 cpm Imaging: EKG shows sinus bradycardia Labs on admission: WBC = 14.8, neutrophil = 11.4, sodium = 132, glucose = 121, magnesium = 1.5, ALT = 70, AST = 43, ALP = 90, amylase = 720, lipase = 4715, serum alcohol = <10 ED documentation reviewed and case discussed with ED provider. Review of systems: Pertinent positives and negatives as discussed in HPI, a complete review of systems was performed and all other systems are negative. Physical examination: Vital signs reviewed General: non toxic, no obvious distress, appears at stated age. Head: atraumatic, normocephalic, symmetric Eyes: EOMI, anicteric sclera, pupils equal round reactive to light ENT: Nose and ears atraumatic Neck: No cervical lymphadenopathy, trachea midline, supple Mouth: no lip lesion, mucus membranes moist Cardiovascular: S1S2 reg, no murmur, positive dorsalis pedis pulse bilateral, no edema Lungs: CTA bilateral, no rhonchi, no rales, no accessory muscle use Abdominal: soft, epigastric tenderenss++, RUQ tenderness+ Ext: muscle strength 5 out of 5 in all 4 extremities grossly, no gross muscle atrophy Neuro: CN II-XI grossly intact, no gross focal neuro deficits Psych: Alert, oriented to person, place, and time Assessment/Plan: Patient is a 54-year-old male with a past medical history of alcohol induced pancreatitis, hyperlipidemia, GERD, hypertenstion, who presented to the ED with epigastric pain that radiates to his back. Amylase = 720, Lipase = 4715 #Acute recurrent pancreatitis rule out autoimmune pancreatitis vs gallstone vs alcohol vs triglycerides vs medicaton -Lipid panel, IgG4 -holding atorvastatin -Dilaudid IV 0.5mg q 6hrs as need -Abdominal ultrasound -Discontinue IV normal saline -Commence IV R/L+ 130 mls/hr -Currently n.p.o. can advance to liquid diet if tolerated #Hypertension -Lisinopril 20 mg p.o daily -Nifedipine 30 mg p.o. daily DVT prophylaxis: SC Lovenox 40 mg daily The patient is admitted with an anticipated less than 2 midnight stay for evaluation of acute recurrent pancreatitis. Discussed with: The patient Anticipated discharge place: Home Armando Martinez MD PGY-1 FM Dictation was produced using [employer] dictation software. please excuse any grammatical, word or spelling errors. I have seen and evaluated the patient today. Discussed with the resident and agree with the residents finding and plan as documented in the resident's note. Changes highlighted in blue font. Past Medical History Past Medical History: Coronary Artery Disease (CAD), GERD/Reflux, Hyperlipidemia, Hypertension, Myocardial Infarction ([place]), Osteoarthritis ([place]) Additional Past Medical History / Comment(s): [place] 01/2016 with stent placement X2 LAD. pancreatisis Last Myocardial Infarction Date:: 01/27/16 History of Any Multi-Drug Resistant Organisms: None Reported Past Surgical History: Appendectomy, Heart Catheterization With Stent, Hernia Repair Additional Past Surgical History / Comment(s): 2 cardiac stents. umbilical and bilat inguinal, colonoscopy Past Anesthesia/Blood Transfusion Reactions: No Reported Reaction Date of Last Stent Placement:: 01/27/16 Past Psychological History: No Psychological Hx Reported Smoking Status: Never smoker Past Alcohol Use History: Occasional Past Drug Use History: None Reported - Past Family History Father History Unknown: Yes Mother Family Medical History: Myocardial Infarction ([place]) Brother(s) Family Medical History: Diabetes Mellitus Medications and Allergies Home Medications Medication Instructions Recorded Confirmed Type Metoprolol Succinate [Toprol XL] 50 mg PO DAILY 10/13/19 10/22/24 History lisinopriL [Zestril] 20 mg PO DAILY 08/24/22 10/22/24 History Atorvastatin [Lipitor] 10 mg PO HS 10/14/24 10/22/24 History Omeprazole [PriLOSEC] 40 mg PO HS 10/14/24 10/22/24 History NIFEdipine XL [Procardia XL] 30 mg PO DIRECTED 10/22/24 10/22/24 History Allergies Allergy/AdvReac Type Severity Reaction Status Date / Time No Known Allergies Allergy Verified 10/22/24 16:25 Physical Exam Vitals: Vital Signs Temp Pulse Resp BP Pulse Ox 10/22/24 17:31 58 L 18 176/103 97 10/22/24 16:27 55 L 18 164/102 97 10/22/24 14:22 98.6 F 55 L 18 145/91 98 Intake and Output 10/22/24 10/22/24 10/22/24 06:59 14:59 22:59 Other: Weight 86.183 kg Results CBC & Chem 7: 10/22/24 14:23 10/22/24 14:23 Labs: Abnormal Lab Results - Last 24 Hours (Table) 10/22/24 10/22/24 Range/Units 14:23 14:23 WBC 14.82 H (4.50-10.00) 10*3/uL RBC 4.17 L (4.40-5.60) 10*6/uL Hct 38.7 L (39.6-50.0) % Immature Gran # 0.07 H (0.00-0.04) 10*3/uL Neutrophils # 11.44 H (1.80-7.70) 10*3/uL Monocytes # 1.03 H (0.20-1.00) 10*3/uL Sodium 132 L (137-145) mmol/L Glucose 121 H (74-99) mg/dL Magnesium 1.5 L (1.6-2.3) mg/dL ALT 70 H (4-49) U/L Amylase 720 H* (30-110) U/L Lipase 4715 H (23-300) U/L
[2024-10-22] MEDS: NIFEdipine XL 30 MG TAB.ER.24 PO SCH (19:08)
[2024-10-22] MEDS: LACTATED RINGERS 1,000 ML IV SCH (19:08)
--- NOTE | 2024-10-22 19:28 | US ---
EXAMINATION TYPE: US abdomen complete DATE OF EXAM: 10/22/2024 COMPARISON: CT: 10/14/24 CLINICAL INDICATION: Male, 54 years old with history of abd pain; abd pain TECHNIQUE: Grayscale and color Doppler imaging of the abdomen was performed. FINDINGS: EXAM MEASUREMENTS: Liver Length: 15.3 cm Gallbladder Wall: 0.24 cm CBD: 0.38 cm, color Doppler imaging was utilized to isolate the common bile duct for measurement. Spleen: 12.4 cm Right Kidney: 10.4 x 4.9 x 4.5 cm Left Kidney: 11.6 x 4.7 x 5.6 cm STRIP PRESSER NOTES: Pancreas: obscured by overlying bowel gas Liver: heterogeneous with increased attenuation Gallbladder: wnl Evidence for sonographic Benedict's sign: No CBD: wnl Spleen: wnl Right Kidney: wnl, No hydronephrosis, calculi or masses seen Left Kidney: wnl, No hydronephrosis, calculi or masses seen Upper IVC: obscured by overlying bowel gas Abd Aorta: obscured by overlying bowel gas IMPRESSION: 1. No evidence for acute process. 2. Increased echotexture to the liver compatible with hepatic steatosis. [facility], , 10/22/2024 7:26 PM
[2024-10-22] MEDS ORDERED: ATORVASTATIN 10 MG TAB PO SCH (21:00)
[2024-10-22] MEDS: HYDROmorphone 1 MG/ML 1 ML SYRINGE IVP PRN (22:15)
[2024-10-23 06:18] LABS: African American GFR (CKD) >90 (>60 ml/min/1.73 sqM); Anion Gap 10 mmol/L; Blood Urea Nitrogen 13 mg/dL (9-20); Calcium 9.7 mg/dL (8.4-10.2); Carbon Dioxide 23 mmol/L (22-30); Chloride 102 mmol/L (98-107); Glucose 105 mg/dL (74-99); Magnesium 1.8 mg/dL (1.6-2.3); Non-African American GFR(CKD) >90 (>60 ml/min/1.73 sqM); Potassium 4.4 mmol/L (3.5-5.1); Sodium 135 mmol/L (137-145)
[2024-10-23 08:56] LABS: Basophils # (A) 0.07 X 10*3/uL (0.00-0.10); Basophils % (A) 0.6 %; Eosinophils # (A) 0.50 X 10*3/uL (0.04-0.35); Eosinophils % (A) 4.6 %; HCT 42.8 % (39.6-50.0); HGB 14.0 g/dL (13.0-17.0); Immature Grans, Automated 0.50 %; Lymphocytes # (A) 1.70 X 10*3/uL (0.90-5.00); Lymphocytes % (A) 15.5 %; MCH 30.9 pg (27.0-32.0); MCHC 32.7 g/dL (32.0-37.0); MCV 94.5 FL (80.0-97.0); Monocytes # (A) 1.09 X 10*3/uL (0.20-1.00); Monocytes % (A) 9.9 %; NRBC Per 100 WBC 0 X 10*3/uL (0.00-0.01); Neutrophils # (A) 7.56 X 10*3/uL (1.80-7.70); Neutrophils % (A) 68.9 %; Platelet Count 253 X 10*3/uL (140-440); RBC 4.53 X 10*6/uL (4.40-5.60); RDW 12.8 % (11.5-14.5); WBC 10.97 X 10*3/uL (4.50-10.00)
[2024-10-23] MEDS: ENOXAPARIN 40 MG/0.4 ML SYRINGE SQ SCH (09:24)
--- NOTE | 2024-10-23 11:59 | P.PN ---
Subjective Progress Note Date: 10/23/24 Patient reports abdominal pain is significantly improved today. Denies any severe nausea and feels like he can try to eat. Denies any other symptoms overnight. Objective - Vital Signs Vital signs: Vital Signs Temp 98.1 F 10/23/24 06:50 Pulse 65 10/23/24 06:50 Resp 16 10/23/24 06:50 BP 169/95 10/23/24 06:50 Pulse Ox 96 10/23/24 06:50 FiO2 Intake & Output 10/22/24 10/23/24 10/23/24 18:59 06:59 18:59 Weight 86.183 kg Other: Voiding Method Toilet # Voids 1 - Exam Vital signs reviewed General: non toxic, no obvious distress, appears at stated age. Head: atraumatic, normocephalic, symmetric Eyes: EOMI, anicteric sclera, pupils equal round reactive to light ENT: Nose and ears atraumatic Neck: No cervical lymphadenopathy, trachea midline, supple Mouth: no lip lesion, mucus membranes moist Cardiovascular: S1S2 reg, no murmur, positive dorsalis pedis pulse bilateral, no edema Lungs: CTA bilateral, no rhonchi, no rales, no accessory muscle use Abdominal: Mild epigastric abdominal tenderness. Nondistended. Ext: muscle strength 5 out of 5 in all 4 extremities grossly, no gross muscle atrophy Neuro: CN II-XI grossly intact, no gross focal neuro deficits Psych: Alert, oriented to person, place, and time - Labs CBC & Chem 7: 10/23/24 04:16 10/23/24 04:16 Labs: Abnormal Lab Results - Last 24 Hours (Table) 10/22/24 10/22/24 10/23/24 Range/Units 14:23 14:23 04:16 WBC 14.82 H (4.50-10.00) 10*3/uL RBC 4.17 L (4.40-5.60) 10*6/uL Hct 38.7 L (39.6-50.0) % Immature Gran # 0.07 H (0.00-0.04) 10*3/uL Neutrophils # 11.44 H (1.80-7.70) 10*3/uL Monocytes # 1.03 H (0.20-1.00) 10*3/uL Eosinophils # (0.04-0.35) X 10*3/uL Sodium 132 L 135 L (137-145) mmol/L Glucose 121 H 105 H (74-99) mg/dL Magnesium 1.5 L (1.6-2.3) mg/dL ALT 70 H (4-49) U/L Amylase 720 H* (30-110) U/L Lipase 4715 H (23-300) U/L 10/23/24 Range/Units 04:16 WBC 10.97 H (4.50-10.00) 10*3/uL RBC (4.40-5.60) 10*6/uL Hct (39.6-50.0) % Immature Gran # 0.05 H (0.00-0.04) 10*3/uL Neutrophils # (1.80-7.70) 10*3/uL Monocytes # 1.09 H (0.20-1.00) 10*3/uL Eosinophils # 0.50 H (0.04-0.35) X 10*3/uL Sodium (137-145) mmol/L Glucose (74-99) mg/dL Magnesium (1.6-2.3) mg/dL ALT (4-49) U/L Amylase (30-110) U/L Lipase (23-300) U/L Assessment and Plan Assessment: Relevant laboratory results: WBC: 10.97, Hgb: 14.0, NA: 135, K: 4.4, creatinine: 0.78 Assessment/Plan: 1. Acute recurrent pancreatitis rule out autoimmune pancreatitis vs gallstone vs alcohol vs triglycerides vs medicaton # Abdominal ultrasound showed no evidence for acute process, however did show increased echotexture to the liver compatible with hepatic steatosis. -Lipid panel, IgG4 pending -Dilaudid IV 0.5mg q 6hrs as need -Continue IV LR at 130 mls/hr -Will see how patient tolerates clear liquid diet 2. Hypertension - Home lisinopril 20 mg p.o daily - Continue home nifedipine 30 mg p.o. daily - Clonidine 0.1 mg p.o. 3 times daily as needed Dyslipidemia - Continue atorvastatin 10 mg daily Bradycardia - Holding metoprolol DVT prophylaxis: Lovenox 40 mg SQ daily Blu Nichols MD PGY-1 TY Dictation was produced using [employer] software. please excuse any grammatical, word or spelling errors. I have seen and evaluated the patient today. Discussed with the resident and agree with the residents finding and plan as documented in the resident's note. Changes highlighted in blue font.
[2024-10-23 13:48] LABS: Cholesterol 159.00 mg/dL (0.00-200.00); HDL Cholesterol 39.20 mg/dL (40.00-60.00); LDL Cholesterol,Calculated 101.7 mg/dL (0.0-131.0); Triglycerides 90.40 mg/dL (0.00-149.00); VLDL Calculation 18.08 mg/dL (5.00-40.00)
[2024-10-24 04:53] LABS: Basophils # (A) 0.05 10*3/uL (0.00-0.10); Basophils % (A) 0.5 %; Eosinophils # (A) 0.39 10*3/uL (0.04-0.35); Eosinophils % (A) 4.2 %; HCT 42.8 % (39.6-50.0); HGB 13.8 g/dL (13.0-17.0); Lymphocytes # (A) 1.79 10*3/uL (0.90-5.00); Lymphocytes % (A) 19.5 %; MCH 31.0 pg (27.0-32.0); MCHC 32.2 g/dL (32.0-37.0); MCV 96.2 fL (80.0-97.0); Monocytes # (A) 0.92 10*3/uL (0.20-1.00); Monocytes % (A) 10.0 %; Neutrophils # (A) 6.02 10*3/uL (1.80-7.70); Neutrophils % (A) 65.5 %; Platelet Count 194 10*3/uL (140-440); RBC 4.45 10*6/uL (4.40-5.60); RDW 12.5 % (11.5-14.5); WBC 9.20 10*3/uL (4.50-10.00)
[2024-10-24 05:00] LABS: African American GFR (CKD) >90 (>60 ml/min/1.73 sqM); Anion Gap 11 mmol/L; Blood Urea Nitrogen 8 mg/dL (9-20); Calcium 9.5 mg/dL (8.4-10.2); Carbon Dioxide 20 mmol/L (22-30); Chloride 103 mmol/L (98-107); Glucose 106 mg/dL (74-99); Magnesium 1.6 mg/dL (1.6-2.3); Non-African American GFR(CKD) >90 (>60 ml/min/1.73 sqM); Potassium 4.4 mmol/L (3.5-5.1); Sodium 134 mmol/L (137-145)
[2024-10-24] MEDS: ATORVASTATIN 10 MG TAB PO SCH (07:46)
[2024-10-24 07:56] VITALS: RESP 16
[2024-10-24 12:05] VITALS: BP 142/88; PULSE 73; TEMP 98.5
--- NOTE | 2024-10-24 14:05 | P.DS ---
Providers Date of admission: 10/22/24 16:01 Attending physician: Lee Gray Primary care physician: Ajit Palacio [facility] Course: Discharge Diagnosis: Acute recurrent pancreatitis Hypertension Dyslipidemia Hospital Course: Patient is a 54-year-old male with a past medical history of alcohol induced pancreatitis, hyperlipidemia, GERD, hypertenstion, who presented to the ED with upper abdominal pain that radiates to his back. Patient stated that he was discharged from the hospital 5 days ago for pancreatitis. Patient reported that he was at work when he began to experience pain in his upper abdomen that radiated to his back. He experienced some pain in his right arm this morning that resolved after a few minutes, there was a history of nausea but he did not vomit patient denies any shortness of breath or difficulty breathing. In the ED; PR55 bpm, BP164/02 mmHg, RR-18 cpm, Imaging: EKG shows sinus bradycardia, Labs: WBC = 14.8, neutrophil = 11.4, sodium = 132, glucose = 121, magnesium = 1.5, ALT = 70, AST = 43, ALP = 90, amylase = 720, lipase = 4715, serum alcohol = <10. Abdominal ultrasound revealed no evidence of acute process, increased echotexture to the liver compatible with hepatic steatosis. IgG subclasses (1-4) was ordered. Patient was admitted to the medicine service and was managed for acute recurrent pancreatitis rule out autoimmune pancreatitis vs gallstone vs alcohol vs triglycerides vs medication. Patient was treated with aggressive IV fluids and IV pain medications. At the time of discharge, patient reports improvement in his abdominal pain, and is also tolerating regular diet. Patient is stable and is being discharged home on medications; lisinopril, nifedipine, clonidine, artovastatin. Patient was recommended to follow-up with Gastroenterology. Patient seen and examined at bedside. Vital signs reviewed and stable. Physical examination: Vital signs reviewed General: non toxic, no distress, appears at stated age, normal weight Derm: no unusual rashes/lesions, warm Head: atraumatic, normocephalic, symmetric Eyes: EOMI, anicteric sclera, pupils equal round reactive to light ENT: Nose and ears atraumatic Neck: No cervical lymphadenopathy, trachea midline, supple Mouth: no lip lesion, mucus membranes moist Cardiovascular: S1S2 reg, no murmur, positive dorsalis pedis pulse bilateral, no edema Lungs: CTA bilateral, no rhonchi, no rales, no accessory muscle use Abdominal: soft, nontender to palpation, no guarding Ext: muscle strength 5 out of 5 in all 4 extremities grossly, no gross muscle atrophy Neuro: CN II-XI grossly intact, no gross focal neuro deficits Psych: Alert, oriented to person, place, and time A total of greater than 30 minutes of time were spent preparing this complex discharge summary. Patient was discharged on 10/24/2024. Armando Martinez MD PGY-1 FM Dictation was produced using [employer] dictation software. please excuse any grammatical, word or spelling errors. I have seen and evaluated the patient today. Discussed with the resident and agree with the residents finding and plan as documented in the resident's note. Changes highlighted in blue font. Plan - Discharge Summary New Discharge Prescriptions: New HYDROcodone/APAP 5-325MG [Verdi 5-325] 1 tab PO Q6HR PRN 3 Days #12 tab PRN Reason: Severe Breakthrough Pain Continue Metoprolol Succinate [Toprol XL] 50 mg PO DAILY lisinopriL [Zestril] 20 mg PO DAILY NIFEdipine XL [Procardia XL] 30 mg PO DIRECTED Omeprazole [PriLOSEC] 40 mg PO HS Atorvastatin [Lipitor] 10 mg PO HS Discharge Medication List Metoprolol Succinate [Toprol XL] 50 mg PO DAILY 10/13/19 [History] lisinopriL [Zestril] 20 mg PO DAILY 08/24/22 [History] Atorvastatin [Lipitor] 10 mg PO HS 10/14/24 [History] Omeprazole [PriLOSEC] 40 mg PO HS 10/14/24 [History] NIFEdipine XL [Procardia XL] 30 mg PO DIRECTED 10/22/24 [History] HYDROcodone/APAP 5-325MG [Verdi 5-325] 1 tab PO Q6HR PRN 3 Days #12 tab 10/24/24 [Rx] Follow up Appointment(s)/Referral(s): Ajit Palacio DO [Primary Care Provider] - 1-2 days (Please make appointment when office is open) Maricarmen Dupont MD [STAFF PHYSICIAN] - 1 Week (Please make appointment when office is open) Patient Instructions/Handouts: Pancreatitis (DC) Activity/Diet/Wound Care/Special Instructions: Please follow up with GI Discharge Disposition: HOME SELF-CARE
== END 2024-10-24 15:33 | disposition home or self-care (01) ==
LOC: EC 14:11 → 5NMEDONC 16:01
PROVIDERS: ADMIT Student in an Organized Health Care Education/Training Program; ATTEND Student in an Organized Health Care Education/Training Program
DX: K85.20 Alcohol induced acute pancreatitis without necrosis or infection (principal); E83.42 Hypomagnesemia; R00.1 Bradycardia, unspecified; I25.10 Atherosclerotic heart disease of native coronary artery without angina pectoris; K21.9 Gastro-esophageal reflux disease without esophagitis; I10 Essential (primary) hypertension; E78.5 Hyperlipidemia, unspecified; I25.2 Old myocardial infarction; Y90.0 Blood alcohol level of less than 20 mg/100 ml; Z95.5 Presence of coronary angioplasty implant and graft; Z79.82 Long term (current) use of aspirin; Z79.899 Other long term (current) drug therapy
CPT/HCPCS: 96376 ×4; 96361 ×3; 96372 ×2; 96374; 96365; 96375; 99285; 36415; 93005; 80061; 80053; 80048 ×2; 82150; 83605; 83690; 83735 ×3; 84484; 85025 ×3; 82787; 80320; 76700; G0378 ×3; J2405; J1650 ×2; J1171 ×4; J3475